=== PATIENT | female | born 1960 | race Caucasian/White ===

== ENCOUNTER 2016-11-29 12:00 | Emergency (ER) | payer MEDICAID ==
[~2016-11-29] VITALS: Ht 162.6 cm; Wt 93.0 kg
[~2016-11-29 12:00] MED LIST: HYDR-3326 PO; METH10TA2 PO; SIME40DR7 PO
--- NOTE | 2016-11-29 12:18 | NUR ---
PRESENTS SELF TO ED DT RUQ ABD PAIN X 2 MONTHS WORSENING IN THE PAST 5 DAYS, 6/10, NON RADITATING,PATIENT DENIES NV. SKIN IS WARM TO TOUCH AND NON DIAPHORETIC,. AFEBRILE. VSS.
[2016-11-29] MEDS ORDERED: ONDANSETRON HCL/PF 4 MG/2 ML VIAL ONE (12:36)
[2016-11-29] MEDS ORDERED: IV NS 0.9% 1,000 ML ONE (12:36)
[2016-11-29] MEDS ORDERED: IV SET PRIMARY PUMP SET 1 EA INFUS.SET MC ONE (12:36)
--- NOTE | 2016-11-29 12:51 | NUR ---
IV ACCESSED TO LFA 20. BLOOD SAMPLE SENT
[2016-11-29 12:52] LABS: BASOPHILS # (AUTO) 0.2 /CMM (0.0-0.2); BASOPHILS % (AUTO) 2.7 % (0.0-2.0); EOSINOPHILS % (AUTO) 0.6 % (0.0-6.0); HEMATOCRIT 44 % (33-45); HEMOGLOBIN 14.9 g/dL (11.5-14.8); LYMPHOCYTES # (AUTO) 1.6 /CMM (0.8-4.8); LYMPHOCYTES % (AUTO) 24.2 % (20.0-44.0); MEAN CORPUSCULAR HEMOGLOBIN 28 PG (26.0-33.0); MEAN CORPUSCULAR HGB CONC 34 g/dl (31.0-36.0); MEAN CORPUSCULAR VOLUME 84 fL (82-100); MONOCYTES # (AUTO) 0.5 /CMM (0.1-1.30); MONOCYTES % (AUTO) 6.7 % (2.0-12.0); NEUTROPHILS # (AUTO) 4.5 /CMM (1.8-8.9); NEUTROPHILS % (AUTO) 65.8 % (43.0-81.0); PLATELET COUNT (AUTO) 112 /CMM (150-450); RDW COEFFICIENT OF VARIATION 13.3 (11.5-15.0); WHITE BLOOD COUNT (AUTO) 6.8 K/uL (4.3-11.0)
[2016-11-29] MEDS ORDERED: MAG HYDROX/AL HYDROX/SIMETH 30 ML UDC PO ONE (13:00)
[2016-11-29] MEDS ORDERED: MAG HYDROX/AL HYDROX/SIMETH 30 ML UDC ONE (13:00)
[2016-11-29] MEDS ORDERED: IV NS 0.9% 1,000 ML BAG IV ONE (13:00)
[2016-11-29] MEDS ORDERED: LIDOCAINE VISCOUS 2% UD 15 ML UDC MM ONE (13:00)
[2016-11-29] MEDS ORDERED: ONDANSETRON HCL/PF 4 MG/2 ML VIAL IVP ONE (13:00)
[2016-11-29 13:01] LABS: CREATININE 0.9 mg/dL (0.6-1.3); POTASSIUM 4.1 mmol/L (3.5-5.1)
[2016-11-29] MEDS ORDERED: LIDOCAINE VISCOUS 2% UD 15 ML UDC ONE (13:01)
[2016-11-29 13:07] LABS: ALBUMIN 3.8 g/dL (3.4-5.0); BILIRUBIN,DIRECT 0.1 mg/dL (0.0-0.2); BILIRUBIN,TOTAL 0.3 mg/dL (0.2-1.0); TOTAL PROTEIN, SERUM 7.3 g/dL (6.4-8.2)
[2016-11-29 14:12] LABS: APPEARANCE,URINE Clear (CLEAR); BILIRUBIN,URINE Negative (NEGATIVE); BLOOD, URINE Negative Ery/uL (NEGATIVE); COLOR,URINE Yellow (YELLOW); KETONES,URINE Negative (NEGATIVE); LEUKOCYTE ESTERASE ,URINE Negative (NEGATIVE); NITRITE, URINE Negative (NEGATIVE); PH,URINE 7.5 (5.0-8.0); PROTEIN,URINE Negative (NEGATIVE); UGLUCOSE Negative (NEGATIVE); UROBILINOGEN,URINE 0.2 EU/dL (0.2)
[2016-11-29 14:18] VITALS: BP 124/88
--- NOTE | 2016-11-29 14:18 | NUR ---
Patient discharged to home in stable condition. Written and verbal after care instructions given. Patient verbalizes understanding of instruction.
== END 2016-11-29 14:19 | disposition home or self-care (01) ==
LOC: ER 12:01
DX: R10.11 Right upper quadrant pain (principal); Z88.8 Allergy status to other drugs, medicaments and biological substances
CPT/HCPCS: 36415; 80048-TC; 80076-TC; 81000-TC; 83690-TC; 85025-TC; A4606; J2405; J7030; Z7610

== ENCOUNTER 2017-03-09 00:44 | Inpatient (IN) | payer OTHER ==
[~2017-03-09] VITALS: Ht 162.6 cm; Wt 90.3 kg
[2017-03-09] VITALS (8 sets, daily range): BP systolic 115–140; BP diastolic 61–79
--- NOTE | 2017-03-09 00:45 | NUR ---
TO BED 1 BIB PARAMEDICS C/O SOB WITH O2 SAT ON THE 50'S PER EMS REPORT. RECEIVED PT AAOX4, NO ACUTE DISTRESS NOTED, RESP EVEN AND UNLABORED. SKIN COOL, DIAPHORETIC. NOTED PT O2 SAT 96% ON RA. PLACE PT ON CARDAIC MONITORING, CONTINUOUS POX, O2@2L/NC. ER MD AT BEDSIDE TO EVAL PT WITH ORDERS RECEIVED. SL 20G TO LAC GENERAL INTERNIST.
[2017-03-09] MEDS ORDERED: ONDANSETRON HCL/PF 4 MG/2 ML VIAL IV ONE (01:00)
[2017-03-09] MEDS ORDERED: IV NS 0.9% 1,000 ML BAG IV ONE (01:00)
--- NOTE | 2017-03-09 01:05 | NUR ---
BLOOD DRAWN BY BIOLOGY INSTRUCTOR.
[2017-03-09] MEDS ORDERED: ONDANSETRON HCL/PF 4 MG/2 ML VIAL ONE (01:14)
[2017-03-09 01:20] LABS: BASOPHILS % (AUTO) 0.1 % (0.0-2.0); EOSINOPHILS % (AUTO) 0.3 % (0.0-6.0); HEMATOCRIT 47 % (33-45); HEMOGLOBIN 15.2 g/dL (11.5-14.8); LYMPHOCYTES % (AUTO) 13.6 % (20.0-44.0); MEAN CORPUSCULAR HEMOGLOBIN 28 PG (26.0-33.0); MEAN CORPUSCULAR HGB CONC 33 g/dl (31.0-36.0); MEAN CORPUSCULAR VOLUME 86 fL (82-100); MONOCYTES # (AUTO) 0.4 /CMM (0.1-1.30); NEUTROPHILS # (AUTO) 6.3 /CMM (1.8-8.9); PLATELET COUNT (AUTO) 125 /CMM (150-450); RDW COEFFICIENT OF VARIATION 15.3 (11.5-15.0); WHITE BLOOD COUNT (AUTO) 7.7 K/uL (4.3-11.0)
--- NOTE | 2017-03-09 01:29 | NUR ---
PT FAMILY MEMBER AT BEDSIDE.
[2017-03-09 01:31] LABS: CALCIUM, SERUM 8.7 mg/dL (8.5-10.1); CARBON DIOXIDE 32 mmol/L (21-32); CHLORIDE 97 mmol/L (98-107); CREATININE 1.4 mg/dL (0.6-1.3); GLUCOSE 273 mg/dL (74-106); POTASSIUM 4.5 mmol/L (3.5-5.1); SODIUM SERUM 138 mmol/L (136-145); UREA NITROGEN, BLOOD 18 mg/dL (7-18)
[2017-03-09 01:36] LABS: INR 1.09 (0.87-1.13); PROTHROMBIN TIME 11.7 SECS (9.5-12.7)
[2017-03-09 01:39] LABS: TROPONIN I 0.124 ng/mL (0.00-0.056)
[2017-03-09] MEDS ORDERED: IV NS 0.9% 0 ML IV ONE (01:44)
[2017-03-09] MEDS ORDERED: IOHEXOL-350 100 ML VIAL IV ONE (01:44)
[2017-03-09] MEDS ORDERED: CT SWABBABLE VALVE TRANS SET 1 EA INFUS.SET MC ONE (01:44)
[2017-03-09 01:45] LABS: ALANINE AMINOTRANSFERASE 21 U/L (12-78); ALBUMIN 3.8 g/dL (3.4-5.0); ALKALINE PHOSPHATASE 65 U/L (46-116); ASPARTATE AMINOTRANSFERASE 12 U/L (15-37); B-TYPE NATRIURETIC PEPTIDE 3134 PG/ML (0-125); BILIRUBIN,DIRECT 0.1 mg/dL (0.0-0.2); BILIRUBIN,TOTAL 0.4 mg/dL (0.2-1.0); TOTAL PROTEIN, SERUM 7.5 g/dL (6.4-8.2)
[2017-03-09 01:52] LABS: ABG BASE EXCESS 3.7 mmol/L; ABG OXYGEN SATURATION 93.8 % (92.0-98.5); ABG PCO2 59.6 mmHg (35.0-45.0); ABG PH 7.337 (7.350-7.450); ABG PO2 74.5 mmHg (75.0-100.0); AaDO2 54.8 mmHg; COHb 1.5 % (0.5-1.5); MetHb 0.5 % (0.0-1.5); O2Hb 91.9 % (94.0-97.0); SITE, ABG Right Radial
--- NOTE | 2017-03-09 02:03 | NUR ---
PT RESTING QUIETLY, NO ACUTE DISTRESS NOTED, RESP EVEN AND UNLABORED. CALL LIGHT WIHTIN REACH. WILL CONTINUE TO MONITOR PT CLOSELY.
[2017-03-09] MEDS ORDERED: ASPIRIN 325 MG TABLET PO ONE (02:30)
[2017-03-09 02:47] LABS: APPEARANCE,URINE SL CLOUDY (CLEAR); BILIRUBIN,URINE NEGATIVE (NEGATIVE); BLOOD, URINE NEGATIVE Ery/uL (NEGATIVE); COLOR,URINE YELLOW (YELLOW); KETONES,URINE NEGATIVE (NEGATIVE); LEUKOCYTE ESTERASE ,URINE NEGATIVE (NEGATIVE); NITRITE, URINE NEGATIVE (NEGATIVE); PROTEIN,URINE TRACE mg/dl (NEGATIVE); UGLUCOSE 1+ mg/dL (NEGATIVE)
[2017-03-09 02:55] LABS: BACTERIA,URINE None seen /HPF (None Seen); MUCUS,URINE Few /LPF (None Seen); RBC,URINE NONE SEEN /HPF (0-2); SQUAMOUS EPITHELIAL CELL,UR Moderate /HPF (None Seen)
--- NOTE | 2017-03-09 03:16 | NUR ---
NAYA LITTLE AT BEDSIDE TO MELANIE MCCOY
--- NOTE | 2017-03-09 03:28 | NUR ---
PT TRANSPORTED TO RADIOLOGY FOR PULMONARY PERFUSION SCAN.
[2017-03-09] MEDS ORDERED: ONDANSETRON HCL/PF 4 MG/2 ML VIAL IVP PRN (04:30)
[2017-03-09] MEDS ORDERED: ACETAMINOPHEN 325 MG TABLET PO PRN (04:30)
[2017-03-09] MEDS ORDERED: MAG HYDROX/AL HYDROX/SIMETH 30 ML UDC PO PRN (04:30)
[2017-03-09] MEDS ORDERED: MORPHINE SULFATE INJ 2 MG/ML DISP.SYRIN IV PRN (04:30)
[2017-03-09] MEDS ORDERED: Z GUARD REMEDY 2 OZ OINT TP PRN (04:30)
[2017-03-09] MEDS ORDERED: ZOLPIDEM TARTRATE 5 MG TABLET PO PRN (04:30)
[2017-03-09] MEDS ORDERED: MAGNESIUM HYDROXIDE 30 ML UDC PO PRN (04:30)
[2017-03-09] MEDS ORDERED: HYDROCODONE/APAP 5/325MG 1 EACH TABLET PO PRN (04:30)
--- NOTE | 2017-03-09 04:39 | NUR ---
PT BACK FROM RADIOLOGY. PENDING PULMONARY PERFUSION SCAN RESULT.
--- NOTE | 2017-03-09 04:48 | NUR ---
REPORT CALLED TO TELE 1 MAKAYLA MACKENZIE. WILL TRANSPORT PT VIA ACLS PROTOCOL.
[2017-03-09] MEDS ORDERED: ASPIRIN 325 MG TABLET ONE (04:52)
[2017-03-09 06:15] LABS: TROPONIN I 0.161 ng/mL (0.00-0.056)
--- NOTE | 2017-03-09 07:00 | NUR ---
RN NOTES RECEIVED PT ON BED, A/Ox4, ON 2L O2 N/C , RESPIRATION EVEN AND UNLABORED, KENDRA ANY DISTRESS , ON TELE SB IN 50'S, L AC IV SITE CDI, SR UP x3, CALL LIGHT WITHIN EASY REACH, CONTINUE TO MONITOR CLOSELY .
--- NOTE | 2017-03-09 07:32 | NUR ---
RN NOTES RECEIVED PATIENT FROM ER AT 0540 WITH NO RESPIRATORY DISTRESS OR SHORTNESS OF BREATH. BREATHING EVEN AND UNLABORED. VITAL SIGNS CHECKED WNL. COMPLAINT OF HEADACHE, 01/29. ON 2LPM O2 VIA NASAL CANNULA TOLERATING WELL. REQUESTING FOR METHADONE EVERY MORNING, ACCORDING TO THE PATIENT SHE HAS BEEN TAKING THE MEDICATION FOR YEARS EVERYDAY AND SHE HAS TO HAVE IT IN THE MORNING. KEPT CLEAN AND DRY. WILL ENDORSE TO AM SHIFT FOR CONTINUITY OF CARE
[2017-03-09] MEDS ORDERED: DIAZ5TAB PO (07:38)
[2017-03-09] MEDS ORDERED: CARI350T PO (07:38)
[2017-03-09 08:39] LABS: MAGNESIUM 2.1 mg/dL (1.8-2.4); PHOSPHORUS 2.5 mg/dL (2.5-4.9)
[2017-03-09] MEDS: PANTOPRAZOLE 40 MG TABLET.DR PO SCH (08:45)
[2017-03-09] MEDS: CARVEDILOL 3.125 MG TABLET PO SCH ×2 (08:45→20:20)
[2017-03-09] MEDS ORDERED: ASPIRIN 81 MG TAB.CHEW PO SCH (09:00)
[2017-03-09] MEDS ORDERED: HEPARIN INFUSION/D5W 500 ML IV PRN (11:00)
[2017-03-09] MEDS ORDERED: HEPARIN SODIUM, PORCINE 5000 UNITS/1 ML VIAL IV ONE (13:00)
[2017-03-09] MEDS: METHADONE HCL 10 MG TABLET PO SCH (14:08)
[2017-03-09] MEDS: CARISOPRODOL 350 MG TABLET PO SCH (16:43)
[2017-03-09] MEDS: DIAZEPAM 5 MG TABLET PO SCH (16:43)
--- NOTE | 2017-03-09 17:00 | NUR ---
RN NOTES PT STATED TO HAVE ABOUT 10 MINUTES OF BIGEMINY PVC'S AND ABOUT 6 MINUTES OF BIGEMINY PAC'S AND C/O HEADACHE , BP 126/72 , HR IN 70'S . O2 SAT 96% ON 2L O2 N/C, MORPHINE 4 MG GIVE , DR RIVAS NOTIFIED , PT STATED THE HEADACHE IS MUCH TOMAS AFTER MORPHINE GIVEN , CONIINE TO MONITOR PT CLOSELY
--- NOTE | 2017-03-09 18:06 | NUR ---
RN NOTES PT STABLE , RESPIRATION EVEN AND UNLABORED, ON TELE SB IN HIGH 50'S, L AC IV SITE CDI, OOB TO BR , STEADY GAIT , CALL LIGHT WITHIN EASY REACH , MEDICATED PER MD ORDER, WILL ENDORSE TO SENIOR PUBLICATIONS SPECIALIST FOR CONTINUITY OF CARE .
--- NOTE | 2017-03-09 19:52 | NUR ---
RN NOTES RECEIVED PX AWAKE, ALERT, ORIENTED X 3, ON NC AT 2 LPM, MOVES BY SELF IN BED AND ABLE TO WALK TO THE BATHROOM WITH STABLE GAIT, INFORMED OF PRECAUTION FOR FALL, SAYS, I DONT WANT YOUR HELP IF I WANT TO GO TO THE BATHROOM, I CAN WALK PROPERLY, EDUCATED ON POSSIBLE FALL PRECAUTION. COMPLAINED OF HEADACHE BUT SAYS IT IS BETTER NOW AT 3/10, DENIED SOB, N/V; PIV ON LEFT AC, FLUSHED PATENT AND INTACT; DISCUSSED PLAN OF CARE. SR ON MONITOR.
[2017-03-10] VITALS (7 sets, daily range): BP systolic 102–140; BP diastolic 64–82
--- NOTE | 2017-03-10 00:41 | NUR ---
RN NOTES BRADYCARDIC ON MONITOR, SOMETIMES LOW IN THE 40'S BUT BP WITHIN NORMAL LIMITS, DENIED DIZZINESS, CHEST PAIN, SOB; DENIED N/V; PX ABLE TO WALK TO THE BATHROOM WITH STABLE GAIT; CONTINUED TO MONITOR.
--- NOTE | 2017-03-10 06:06 | NUR ---
RN NOTES CONDITION AND NEURO STATUS UNCHANGED; PX DENIED PAIN, SOB, N/V; STATED ABLE TO SLEEP WELL LAST NIGHT; REFUSED AM CARE, SAYS SHE WILL DO IT LATER; SB ON MONITOR, DENIED CHEST PAIN, DIZZINESS. WILL ENDORSE TO NEXT RN.
[2017-03-10 06:19] LABS: BASOPHILS % (AUTO) 0.3 % (0.0-2.0); EOSINOPHILS % (AUTO) 0.6 % (0.0-6.0); HEMATOCRIT 42 % (33-45); HEMOGLOBIN 14.1 g/dL (11.5-14.8); LYMPHOCYTES # (AUTO) 2.2 /CMM (0.8-4.8); LYMPHOCYTES % (AUTO) 32.7 % (20.0-44.0); MEAN CORPUSCULAR HEMOGLOBIN 29 PG (26.0-33.0); MEAN CORPUSCULAR HGB CONC 34 g/dl (31.0-36.0); MEAN CORPUSCULAR VOLUME 86 fL (82-100); MONOCYTES # (AUTO) 0.6 /CMM (0.1-1.30); MONOCYTES % (AUTO) 8.7 % (2.0-12.0); NEUTROPHILS # (AUTO) 3.9 /CMM (1.8-8.9); NEUTROPHILS % (AUTO) 57.7 % (43.0-81.0); PLATELET COUNT (AUTO) 103 /CMM (150-450); RDW COEFFICIENT OF VARIATION 14.9 (11.5-15.0); RED BLOOD CELL COUNT(AUTO) 4.91 MIL/uL (4.0-5.2); WHITE BLOOD COUNT (AUTO) 6.8 K/uL (4.3-11.0)
[2017-03-10 06:42] LABS: CALCIUM, SERUM 8.5 mg/dL (8.5-10.1); CREATININE 0.7 mg/dL (0.6-1.3); POTASSIUM 4.3 mmol/L (3.5-5.1)
--- NOTE | 2017-03-10 07:00 | NUR ---
GENIA INITIAL NOTE RECEIVED PT IN BED, ASLEEP, EASY TO AROUSE, PT IS ABLE TO MAKE NEEDS KNOWN, ABLE TO FOLLOW COMMANDS, PT IS ON 2L NC, SATING WELL, NO S/S OF RESP.DISTRESS OR SOB NOTED AT THIS TIME, BREATHING IS EVEN AND UNLABORED, PT IS ON TELE MONITOR SHOWING SB @ 58 BPM, NO C/O FO CHEST PAIN OR DISCOMFORT AT THIS TIME, PT HAS LT AC #20G,SL, C/D/I/PATENT, FLUSHING WELL, NO S/S OF INFECTION/ INFILTRATION NOTED AT THIS TIME, PT IS AMBULATORY AND HAS BRP, ALL SAFETY MEASURES IN PLACE AT ALL TIMES, CALL LIGHT WITHIN EASY REACH, WILL MONITOR PT CLOSELY FOR CHANGES
[2017-03-10] MEDS: PANTOPRAZOLE 40 MG TABLET.DR PO SCH (07:30)
[2017-03-10] MEDS: CARVEDILOL 3.125 MG TABLET PO SCH ×2 (08:03→20:57)
[2017-03-10] MEDS: ASPIRIN 325 MG TABLET PO SCH (08:03)
[2017-03-10] MEDS: CARISOPRODOL 350 MG TABLET PO SCH ×2 (08:05→16:46)
[2017-03-10] MEDS: DIAZEPAM 5 MG TABLET PO SCH ×3 (08:05→20:58)
[2017-03-10] MEDS: METHADONE HCL 10 MG TABLET PO SCH (08:06)
--- NOTE | 2017-03-10 08:43 | NUR ---
GENIA NOTE PT STATED THAT SHE DOES NOT WANT TO TAKE ANY MORNING MEDICATIONS EXPECT METHADONE. EXPLAINED RISK AND BENEFITS, PT STILL REFUSED. PT VERBALIZED THAT SHE STILL HAS A MILD HEADACHE AND FEELS OFF STEADY, TOLD PT TO USE CALL LIGHT WHEN GETTING OUT OF BED, AND NOTIFY ME IF HEADACHE GETS WORSE
--- NOTE | 2017-03-10 09:00 | NUR ---
GENIA NOTE DR. SMITH MADE MD DAJUAN AWARE OF ALL LABS AND RESULTS. ALL NEW ORDERS ACK
--- NOTE | 2017-03-10 19:45 | NUR ---
GENIA/FLOOR SANDING MACHINE OPERATOR PT HAD REFUSED 1700 MEDICATION VALIUM GAVE THIS TO THE PT TO HELP HER SLEEP. ALSO PT COMPLAINED ABOUT HAVING CONSTIPATION, GAVE MOM FOR THIS. PT CURRENTLY DENIES ANY PAIN. CALL LIGHT WITH REACH.
--- NOTE | 2017-03-10 21:20 | NUR ---
GENIA/PHARMACOVIGILANCE SAFETY EXPERT PT'S BLOOD PRESSURE SLIGHTLY ELEVATED 140/69 COREG GIVEN FOR THIS. WILL MONITOR PT'S BP.
[2017-03-10] MEDS ORDERED: ATORVASTATIN 40 MG TABLET PO SCH (22:00)
[2017-03-11] VITALS: BP 136/71
--- NOTE | 2017-03-11 00:10 | NUR ---
GENIA/CORPORATE TREASURY ANALYST PT APPEARS TO BE SLEEPING COMFORTABLE, NO ACUTE DISTRESS SEEN AT THIS TIME. CALL LIGHT WITHIN REACH
[2017-03-11 04:00] VITALS: BP_SYST 114; BP_SYST 136; BP_DIAS 67; BP_DIAS 71
--- NOTE | 2017-03-11 07:36 | NUR ---
GENIA INITIAL NOTE PT IN BED,ALERT AND ORIENTED X 3-4 , ABLE TO MAKE NEEDS KNOWN, ABLE TO FOLLOW COMMANDS, PT IS ON ROOM AIR, SATING WELL, NO S/S OF RESP.DISTRESS OR SOB NOTED AT THIS TIME, BREATHING IS EVEN AND UNLABORED, PT IS ON TELE MONITOR SHOWING SR, NO C/O FO CHEST PAIN OR DISCOMFORT AT THIS TIME, PT HAS LT AC #20G,SL, C/D/I/PATENT. NO S/S OF INFECTION/ INFILTRATION NOTED AT THIS TIME, PT IS AMBULATORY AND HAS BRP, ALL SAFETY MEASURES IN PLACE AT ALL TIMES, CALL LIGHT WITHIN EASY REACH, RN WILL CONTINUE MONITOR PT CLOSELY FOR CHANGES
[2017-03-11 08:00] VITALS: BP 147/93
[2017-03-11] MEDS: METHADONE HCL 10 MG TABLET PO SCH (08:24)
[2017-03-11] MEDS: ASPIRIN 325 MG TABLET PO SCH (08:24)
[2017-03-11] MEDS: CARISOPRODOL 350 MG TABLET PO SCH (08:24)
[2017-03-11] MEDS: PANTOPRAZOLE 40 MG TABLET.DR PO SCH (08:25)
[2017-03-11 08:26] VITALS: BP 147/93
[2017-03-11] MEDS: CARVEDILOL 3.125 MG TABLET PO SCH (08:26)
[2017-03-11] MEDS ORDERED: ASPI325T2 PO (12:36)
[2017-03-11] MEDS ORDERED: CARV3.122 PO (12:36)
[2017-03-11] MEDS ORDERED: ATOR40TA PO (12:36)
--- NOTE | 2017-03-11 12:47 | NUR ---
PATIENT DISCHARGED INFORMATION REVIEWED VIA NURSE PATIENT VERBALIZED UNDERSTANDING OF FOLLOWING UP WITH PCP , DMITRI MORALES, AND MD RASHID HAVE SPOKEN WITH THE PATIENT IN DETAIL REGARDING PLAN OF CARE. PATIENT STATES SHE IS AWAITING PICK-UP FROM THE PATIENT FAMILY. PATIENT IV REMOVED NO SOB NOTED PATIENT STABLE NO FURTHER ISSUE NOTED
== END 2017-03-11 15:57 | disposition home or self-care (01) | DRG 190 ==
LOC: ER 00:46 → ICU 03:28 → TELE-TD 04:22 → TELE1 03-10 10:52 → MEDSG1 03-11 10:31
PROVIDERS: ADMIT Nurse Practitioner Acute Care; ATTEND Nurse Practitioner Acute Care
DX: I21.4 Non-ST elevation (NSTEMI) myocardial infarction (principal); N17.0 Acute kidney failure with tubular necrosis; G92 Toxic encephalopathy; E87.2 Acidosis; E46 Unspecified protein-calorie malnutrition; E66.01 Morbid (severe) obesity due to excess calories; B19.20 Unspecified viral hepatitis C without hepatic coma; E78.5 Hyperlipidemia, unspecified; G89.29 Other chronic pain; R09.02 Hypoxemia; Z88.8 Allergy status to other drugs, medicaments and biological substances; E11.65 Type 2 diabetes mellitus with hyperglycemia; Z72.0 Tobacco use; I50.9 Heart failure, unspecified; F15.90 Other stimulant use, unspecified, uncomplicated; F11.90 Opioid use, unspecified, uncomplicated
CPT/HCPCS: 36415; 36600; 70450-TC; 71010-TC; 78582; 80048-TC; 80061-TC; 80076-TC; 80305; 81000-TC; 83605-TC; 83735-TC; 83880; 84100-TC; 84484-TC; 85025-TC; 85730-TC; 87040-TC; 87081-TC; 95819-TC; A4606; A9540; A9567; J1644; J2270; J2405; J7030; J7050; Q9967

== ENCOUNTER 2017-09-23 20:04 | Inpatient (IN) | payer OTHER ==
[~2017-09-23] VITALS: Ht 165.1 cm; Wt 93.0 kg
[~2017-09-23 20:04] MED LIST changes: +ASPI-992 PO; +ATOR40TA PO; +CARI350T PO; +CARV3.122 PO; +DIAZ5TAB PO; -HYDR-3326 PO; -SIME40DR7 PO
[2017-09-23] MEDS ORDERED: ONDANSETRON HCL/PF 4 MG/2 ML VIAL IVP ONE (20:30)
[2017-09-23] MEDS ORDERED: IV NS 0.9% 1,000 ML BAG IV ONE (20:30)
[2017-09-23] MEDS ORDERED: ONDANSETRON HCL/PF 4 MG/2 ML VIAL ONE (20:34)
[2017-09-23] MEDS ORDERED: IV NS 0.9% 1,000 ML IV ONE (22:00)
[2017-09-23 22:38] LABS: HEMATOCRIT 47 % (33-45); HEMOGLOBIN 15.5 g/dL (11.5-14.8); LYMPHOCYTES % (AUTO) 6.6 % (20.0-44.0); MEAN CORPUSCULAR HEMOGLOBIN 28 PG (26.0-33.0); MEAN CORPUSCULAR HGB CONC 33 g/dl (31.0-36.0); MEAN CORPUSCULAR VOLUME 85 fL (82-100); MONOCYTES # (AUTO) 0.7 /CMM (0.1-1.30); MONOCYTES % (AUTO) 4.9 % (2.0-12.0); NEUTROPHILS # (AUTO) 13.5 /CMM (1.8-8.9); NEUTROPHILS % (AUTO) 88.5 % (43.0-81.0); PLATELET COUNT (AUTO) 136 /CMM (150-450); RDW COEFFICIENT OF VARIATION 14.1 (11.5-15.0); RED BLOOD CELL COUNT(AUTO) 5.48 MIL/uL (4.0-5.2); WHITE BLOOD COUNT (AUTO) 15.2 K/uL (4.3-11.0)
[2017-09-23 22:52] LABS: CALCIUM, SERUM 9.5 mg/dL (8.5-10.1); POTASSIUM 4.1 mmol/L (3.5-5.1)
[2017-09-23 22:55] LABS: ALBUMIN 3.6 g/dL (3.4-5.0); BILIRUBIN,DIRECT 0.1 mg/dL (0.0-0.2); BILIRUBIN,TOTAL 0.5 mg/dL (0.2-1.0)
[2017-09-23 22:57] LABS: TROPONIN I 0.057 ng/mL (0.00-0.056)
[2017-09-23 23:15] VITALS: BP 151/82
[2017-09-23] MEDS: METOCLOPRAMIDE HCL 10 MG/2 ML VIAL IV SCH (23:30)
[2017-09-23] MEDS ORDERED: HYDROCODONE/APAP 5/325MG 1 EACH TABLET PO PRN (23:30)
[2017-09-23] MEDS ORDERED: IV NS 0.9% 1,000 ML IV PRN (23:30)
[2017-09-23] MEDS ORDERED: BISACODYL SUPP (10 MG) 10 MG/SUPP.RECT SUPP.RECT RC PRN (23:30)
[2017-09-23] MEDS ORDERED: ONDANSETRON HCL/PF 4 MG/2 ML VIAL IVP PRN (23:30)
[2017-09-23] MEDS ORDERED: ACETAMINOPHEN 325 MG TABLET PO PRN (23:30)
[2017-09-23] MEDS ORDERED: ZOLPIDEM TARTRATE 5 MG TABLET PO PRN (23:30)
[2017-09-23] MEDS ORDERED: MINERAL OIL 133 ML (PYXIS) 1 EA ENEMA RC ONE (23:30)
[2017-09-23] MEDS ORDERED: PIPERACILLIN /TAZOBACTAM 3.375 G in IV D5W 100 ML IV ONE (23:45)
[2017-09-24] MEDS ORDERED: PIPERACILLIN /TAZOBACTAM 3.375 G VIAL IV ONE ×2 (00:07→04:41)
[2017-09-24] MEDS ORDERED: MORPHINE SULFATE INJ 4 MG/ML DISP.SYRIN IV PRN (01:00)
[2017-09-24] MEDS ORDERED: MORPHINE SULFATE INJ 2 MG/ML DISP.SYRIN IV PRN (01:00)
[2017-09-24] MEDS ORDERED: PIPERACILLIN /TAZOBACTAM 3.375 G in IV D5W 100 ML IV SCH (05:00)
[2017-09-24] MEDS: METOCLOPRAMIDE HCL 10 MG/2 ML VIAL IV SCH (05:30)
[2017-09-24 07:55] LABS: BASOPHILS % (AUTO) 0.2 % (0.0-2.0); HEMATOCRIT 45 % (33-45); HEMOGLOBIN 14.7 g/dL (11.5-14.8); LYMPHOCYTES # (AUTO) 2.3 /CMM (0.8-4.8); LYMPHOCYTES % (AUTO) 11.4 % (20.0-44.0); MEAN CORPUSCULAR HEMOGLOBIN 28 PG (26.0-33.0); MEAN CORPUSCULAR HGB CONC 33 g/dl (31.0-36.0); MEAN CORPUSCULAR VOLUME 86 fL (82-100); MONOCYTES # (AUTO) 0.5 /CMM (0.1-1.30); MONOCYTES % (AUTO) 2.3 % (2.0-12.0); NEUTROPHILS # (AUTO) 17.3 /CMM (1.8-8.9); NEUTROPHILS % (AUTO) 86.1 % (43.0-81.0); PLATELET COUNT (AUTO) 210 /CMM (150-450); RDW COEFFICIENT OF VARIATION 14.6 (11.5-15.0); RED BLOOD CELL COUNT(AUTO) 5.21 MIL/uL (4.0-5.2); WHITE BLOOD COUNT (AUTO) 20.1 K/uL (4.3-11.0)
[2017-09-24 07:57] LABS: CALCIUM, SERUM 8.4 mg/dL (8.5-10.1); CREATININE 1.1 mg/dL (0.6-1.3); MAGNESIUM 2.2 mg/dL (1.8-2.4); PHOSPHORUS 6.2 mg/dL (2.5-4.9); POTASSIUM 3.9 mmol/L (3.5-5.1)
[2017-09-24 08:00] VITALS: BP 113/60
[2017-09-24] MEDS: ENOXAPARIN SODIUM 40 MG/0.4 ML DISP.SYRIN SQ SCH (08:17)
[2017-09-24 11:00] LABS: LYMPHOCYTES % (MANUAL) 9 % (16-48); MONOCYTES % (MANUAL) 3 % (0-11.0); NEUTROPHILS % (MANUAL) 88 (42-76)
[2017-09-24] MEDS: PIPERACILLIN /TAZOBACTAM 3.375 G in IV D5W 50 ML IV SCH ×2 (11:53→18:13)
[2017-09-24] MEDS: TOPIRAMATE 25 MG TABLET PO SCH ×2 (11:53→21:00)
[2017-09-24] MEDS ORDERED: METOCLOPRAMIDE HCL 10 MG/2 ML VIAL IV SCH (12:00)
[2017-09-24 16:00] VITALS: BP 123/80
[2017-09-24] MEDS: ASPIRIN 81 MG TAB.CHEW PO SCH (19:30)
[2017-09-24 20:00] VITALS: BP 127/75
[2017-09-25] MEDS: PIPERACILLIN /TAZOBACTAM 3.375 G in IV D5W 50 ML IV SCH ×4 (00:10→17:09)
[2017-09-25 07:01] LABS: BASOPHILS % (AUTO) 0.3 % (0.0-2.0); EOSINOPHILS # (AUTO) 0.1 /CMM (0.0-0.7); HEMATOCRIT 39 % (33-45); HEMOGLOBIN 13.3 g/dL (11.5-14.8); LYMPHOCYTES # (AUTO) 2.3 /CMM (0.8-4.8); LYMPHOCYTES % (AUTO) 29.3 % (20.0-44.0); MEAN CORPUSCULAR HEMOGLOBIN 29 PG (26.0-33.0); MEAN CORPUSCULAR HGB CONC 34 g/dl (31.0-36.0); MEAN CORPUSCULAR VOLUME 85 fL (82-100); MONOCYTES # (AUTO) 0.6 /CMM (0.1-1.30); MONOCYTES % (AUTO) 7.2 % (2.0-12.0); NEUTROPHILS % (AUTO) 62.2 % (43.0-81.0); PLATELET COUNT (AUTO) 97 /CMM (150-450); RDW COEFFICIENT OF VARIATION 14.1 (11.5-15.0); RED BLOOD CELL COUNT(AUTO) 4.63 MIL/uL (4.0-5.2)
[2017-09-25 07:19] LABS: CALCIUM, SERUM 8.1 mg/dL (8.5-10.1); CREATININE 0.8 mg/dL (0.6-1.3); POTASSIUM 3.6 mmol/L (3.5-5.1)
[2017-09-25 08:00] VITALS: BP 127/75
[2017-09-25 08:24] VITALS: BP 134/82
[2017-09-25] MEDS: TOPIRAMATE 25 MG TABLET PO SCH ×2 (08:54→20:52)
[2017-09-25] MEDS: ENOXAPARIN SODIUM 40 MG/0.4 ML DISP.SYRIN SQ SCH (08:55)
[2017-09-25] MEDS: ASPIRIN 81 MG TAB.CHEW PO SCH (08:57)
[2017-09-25 10:25] LABS: LYMPHOCYTES % (MANUAL) 30 % (16-48); MONOCYTES % (MANUAL) 9 % (0-11.0); NEUTROPHILS % (MANUAL) 61 (42-76)
[2017-09-25] MEDS ORDERED: METHADONE HCL 5 MG TABLET PO SCH (12:00)
[2017-09-25 15:28] LABS: APPEARANCE,URINE CLEAR (CLEAR); BILIRUBIN,URINE NEGATIVE (NEGATIVE); BLOOD, URINE NEGATIVE Ery/uL (NEGATIVE); COLOR,URINE YELLOW (YELLOW); KETONES,URINE NEGATIVE (NEGATIVE); LEUKOCYTE ESTERASE ,URINE NEGATIVE (NEGATIVE); NITRITE, URINE NEGATIVE (NEGATIVE); PROTEIN,URINE NEGATIVE (NEGATIVE); UGLUCOSE NEGATIVE (NEGATIVE); UROBILINOGEN,URINE 0.2 EU/dL (0.2)
[2017-09-25] MEDS ORDERED: METOPROLOL TARTRATE INJ 5 MG/5 ML AMPUL ONE (15:59)
[2017-09-25 16:00] VITALS: BP 138/95
[2017-09-25] MEDS ORDERED: IOHEXOL-350 100 ML VIAL IV ONE (16:15)
[2017-09-25] MEDS ORDERED: IV NS 0.9% 250 ML IV ONE (16:16)
[2017-09-25 19:38] VITALS: BP 158/95
[2017-09-25 20:00] VITALS: BP 138/77
[2017-09-26] MEDS: PIPERACILLIN /TAZOBACTAM 3.375 G in IV D5W 50 ML IV SCH ×4 (05:05→11:28)
[2017-09-26 08:00] VITALS: BP 147/94
[2017-09-26] MEDS: TOPIRAMATE 25 MG TABLET PO SCH (08:42)
[2017-09-26] MEDS: ENOXAPARIN SODIUM 40 MG/0.4 ML DISP.SYRIN SQ SCH (08:45)
[2017-09-26] MEDS: ASPIRIN 81 MG TAB.CHEW PO SCH (08:49)
[2017-09-26] MEDS ORDERED: METHADONE HCL 10 MG TABLET PO SCH (09:00)
[2017-09-26] MEDS ORDERED: METHADONE HCL 5 MG TABLET PO SCH (09:00)
[2017-09-26 16:16] VITALS: BP 130/89
== END 2017-09-26 17:00 | disposition home or self-care (01) | DRG 190 ==
LOC: ER 20:05 → MED 22:45
PROVIDERS: ADMIT Nurse Practitioner Acute Care; ATTEND Nurse Practitioner Acute Care
DX: I21.4 Non-ST elevation (NSTEMI) myocardial infarction (principal); E44.1 Mild protein-calorie malnutrition; G43.909 Migraine, unspecified, not intractable, without status migrainosus; D72.829 Elevated white blood cell count, unspecified; K59.00 Constipation, unspecified; E66.9 Obesity, unspecified; E78.5 Hyperlipidemia, unspecified; F11.20 Opioid dependence, uncomplicated; F17.210 Nicotine dependence, cigarettes, uncomplicated; Z79.82 Long term (current) use of aspirin; Z90.49 Acquired absence of other specified parts of digestive tract; Z68.34 Body mass index [BMI] 34.0-34.9, adult; R73.9 Hyperglycemia, unspecified; Z86.19 Personal history of other infectious and parasitic diseases; R55 Syncope and collapse; K52.9 Noninfective gastroenteritis and colitis, unspecified
CPT/HCPCS: 36415; 70450-TC; 71045-TC; 74021; 75574; 80048-TC; 80061-TC; 80076-TC; 81000-TC; 83690-TC; 83735-TC; 84100-TC; 84484-TC; 85025-TC; 87081-TC; 93307-TC; A4606; J1650; J2270; J2405; J2543; J3490; J7030; J7050; J7060; Q9967; Z7610

== ENCOUNTER 2017-10-20 08:07 | Emergency (ER) | payer OTHER ==
[~2017-10-20] VITALS: Ht 162.6 cm; Wt 90.7 kg
--- NOTE | 2017-10-20 08:20 | NUR ---
PT CAME IN WITH C/O ABD PAIN, N/V X 2 DAYS. AAOX3. PT REPORTS TO BE A MOUTH BREATHER SINCE CHILDHOOD, AWARE THAT SATS RUNS LOW, PT DENIES SOB. SEEN BY FOR MELANIE. FAMILY MEMBER AT . SAFETY AND COMFORT MEASURES PROVIDED. WILL MONITOR.
[2017-10-20] MEDS ORDERED: ONDANSETRON HCL/PF 4 MG/2 ML VIAL ONE (08:24)
[2017-10-20] MEDS ORDERED: LORAZEPAM INJ 2 MG/ML VIAL ONE (08:24)
[2017-10-20] MEDS ORDERED: IV NS 0.9% 1,000 ML BAG IV ONE (08:30)
[2017-10-20] MEDS ORDERED: ONDANSETRON HCL/PF 4 MG/2 ML VIAL IVP ONE (08:30)
[2017-10-20] MEDS ORDERED: LORAZEPAM INJ 2 MG/ML VIAL IV ONE (08:30)
--- NOTE | 2017-10-20 08:45 | NUR ---
IV ACCESS STARTED. CELL OPERATION SUPERVISOR AT FOR BLOOD DRAW. MEDICATED ORDERED.
[2017-10-20 08:46] LABS: HEMATOCRIT 46 % (33-45); HEMOGLOBIN 15.5 g/dL (11.5-14.8); LYMPHOCYTES # (AUTO) 0.3 /CMM (0.8-4.8); LYMPHOCYTES % (AUTO) 3.7 % (20.0-44.0); MEAN CORPUSCULAR HGB CONC 33 g/dl (31.0-36.0); MEAN CORPUSCULAR VOLUME 85 fL (82-100); MONOCYTES # (AUTO) 0.3 /CMM (0.1-1.30); NEUTROPHILS # (AUTO) 8.6 /CMM (1.8-8.9); NEUTROPHILS % (AUTO) 93.3 % (43.0-81.0); PLATELET COUNT (AUTO) 126 /CMM (150-450); RDW COEFFICIENT OF VARIATION 14.2 (11.5-15.0); RED BLOOD CELL COUNT(AUTO) 5.47 MIL/uL (4.0-5.2); WHITE BLOOD COUNT (AUTO) 9.2 K/uL (4.3-11.0)
--- NOTE | 2017-10-20 08:50 | NUR ---
SHAHZAD AT BS.
--- NOTE | 2017-10-20 09:00 | NUR ---
PT NOTED DESATURATED, PLACED ON OXYGEN. RECHECKED VS STABLE. MD AWARE.
[2017-10-20 09:11] LABS: CALCIUM, SERUM 9.1 mg/dL (8.5-10.1); CARBON DIOXIDE 31 mmol/L (21-32); CHLORIDE 98 mmol/L (98-107); GLUCOSE 212 mg/dL (74-106); POTASSIUM 3.9 mmol/L (3.5-5.1); SODIUM SERUM 136 mmol/L (136-145); UREA NITROGEN, BLOOD 17 mg/dL (7-18)
[2017-10-20 09:17] LABS: ALANINE AMINOTRANSFERASE 20 U/L (12-78); ALBUMIN 3.8 g/dL (3.4-5.0); ALKALINE PHOSPHATASE 72 U/L (46-116); ASPARTATE AMINOTRANSFERASE 14 U/L (15-37); BILIRUBIN,DIRECT 0.1 mg/dL (0.0-0.2); BILIRUBIN,TOTAL 0.4 mg/dL (0.2-1.0); LIPASE 65 U/L (73-393); TOTAL PROTEIN, SERUM 7.7 g/dL (6.4-8.2)
[2017-10-20 09:19] LABS: TROPONIN I < 0.017 ng/mL (0.00-0.056)
[2017-10-20 10:03] VITALS: BP 105/55
--- NOTE | 2017-10-20 10:03 | NUR ---
IV removed. Catheter intact and site benign. Pressure and 4x4 applied to site. No bleeding noted.Patient discharged to home in stable condition. Written and verbal after care instructions given. Patient verbalizes understanding of instruction. ambulatory with a steady gait.
--- NOTE | 2017-10-20 10:05 | NUR ---
Patient discharged to home in stable condition. Written and verbal after care instructions given. Patient verbalizes understanding of instruction.
[2017-10-20] MEDS ORDERED: CARV3.122 PO (12:55)
[2017-10-20] MEDS ORDERED: ATOR40TA PO (12:55)
[2018-04-02] MEDS ORDERED: ASPI-1169 PO (09:32)
== END 2017-10-20 10:04 | disposition home or self-care (01) ==
LOC: ER 08:08
DX: R11.2 Nausea with vomiting, unspecified (principal); G43.909 Migraine, unspecified, not intractable, without status migrainosus; E78.5 Hyperlipidemia, unspecified; F17.200 Nicotine dependence, unspecified, uncomplicated; I10 Essential (primary) hypertension; Z79.82 Long term (current) use of aspirin; Z86.19 Personal history of other infectious and parasitic diseases
CPT/HCPCS: 36415; 71045-TC; 80048-TC; 80076-TC; 83690-TC; 84484-TC; 85025-TC; A4606; J2060; J2405; J7030; Z7610

== ENCOUNTER 2017-10-20 12:31 | Inpatient (IN) | payer OTHER ==
[~2017-10-20] VITALS: Ht 162.6 cm; Wt 90.7 kg
--- NOTE | 2017-10-20 12:45 | NUR ---
ALEENARA 89 FROM HOME C/O HEADACHE, S/P SEIZURE. NO ORAL TRAUMA NOTED. DENIES PAIN/ TRAUMA ELSEWHERE. SEEN BY MD FOR EVAL. PT WAS RECENTLY DSICHARGE 2 HOURS AGO. VSS. SAFETY AND COMFORT MEASURES PROVIDED. WILL MONITOR.
--- NOTE | 2017-10-20 12:50 | NUR ---
IV ACCESS STARTED.
[2017-10-20] MEDS ORDERED: CARV3.122 PO (12:55)
[2017-10-20] MEDS ORDERED: ATOR40TA PO (12:55)
--- NOTE | 2017-10-20 13:00 | NUR ---
CALLED NURSE SUP FOR MEDSURG BED
--- NOTE | 2017-10-20 13:24 | NUR ---
REPORT GIVEN TO JOCELIN BENAVIDES FOR MS [id number].
[2017-10-20 14:00] VITALS: BP 135/85
[2017-10-20] MEDS ORDERED: MAGNESIUM HYDROXIDE 30 ML UDC PO PRN (14:30)
[2017-10-20] MEDS ORDERED: MAG HYDROX/AL HYDROX/SIMETH 30 ML UDC PO PRN (14:30)
[2017-10-20] MEDS ORDERED: Z GUARD REMEDY 2 OZ OINT TP PRN (14:30)
[2017-10-20] MEDS ORDERED: ACETAMINOPHEN 325 MG TABLET PO PRN (14:30)
[2017-10-20] MEDS ORDERED: HYDROCODONE/APAP 5/325MG 1 EACH TABLET PO PRN (14:30)
[2017-10-20] MEDS ORDERED: ZOLPIDEM TARTRATE 5 MG TABLET PO PRN (14:30)
[2017-10-20] MEDS: IV NS 0.9% 1,000 ML IV PRN (14:57)
[2017-10-20] MEDS: CARVEDILOL 3.125 MG TABLET PO SCH ×2 (15:00→21:04)
[2017-10-20] MEDS: CARISOPRODOL 350 MG TABLET PO SCH (15:00)
[2017-10-20] MEDS: DIAZEPAM 5 MG TABLET PO SCH (15:49)
--- NOTE | 2017-10-20 15:51 | NUR ---
RN NOTES: PATIENT REFUSING CARVIDOLOL AND REFUSING SOMA. BENEFITS AND RISKS EXPLAINED AT LENGTH. PATIENT STILL REFUSING
[2017-10-20] MEDS: ONDANSETRON HCL/PF 4 MG/2 ML VIAL IVP PRN (15:53)
[2017-10-20 16:00] VITALS: BP 122/83
--- NOTE | 2017-10-20 17:26 | NUR ---
RN NOTES: PATIENT ARRIVED TO UNIT STABLE. NONLABORED BREATHING NOTED ON ROOM AIR. STATING THAT HEADACHE "IS BETTER." ASPIRATION AND SEIZURE PRECAUTIONS IMPLEMENTED IMMEDIATELY . HOWEVER, PATIENT REFUSING BEDSIDE PADS. SUCTION AT BEDSIDE SET UP. NO DIFFICULTY SWALLOWING OR DRINKING. NO COUGHING UPON SWALLOWING. PATIENT GIVEN ZOFRAN WHEN COMPLAINING OF NAUSEA. AFTER ZOFRAN, PATIENT STATES NAUSEA IS ALLEVIATED. NO VOMITING NOTED DURING SHIFT. IV ON LEFT HAND GAUGE 22 PATENT AND INTACT WITH IV FLUIDS RUNNING PER ORDERS. PATIENT DENYING CHEST PAIN. PATIENT OFFERED SMOKING PATCH DUE TO HISTORY OF SMOKING. PATIENT REFUSED. BENEFITS AND RISKS EXPLAINED. NO SEIZURES NOTED SO FAR. VISUAL CHECKS EVERY 15 MINUTES. PER , PATIENT'S EYES "ROLL". NO EYE ROLLING NOTED THIS FAR. PATIENT AGREED TO HAVE SKIN PICTURE OF UPPER BACK ONLY. BED IN LOWEST LOCKED POSITION. CALL LIGHT WITHIN REACH. PATIENT AMBULATED TO BATHROOM, STEADY. TOLERATED WELL.
--- NOTE | 2017-10-20 18:28 | NUR ---
RN NOTES: DISCOLORATION ON UPPER BACK AND BUTTOCKS NOTED. NO OOZING NOTED AND NO BLEEDING NOTED. PATIENT AGREED TO HAVE UPPER BACK PICTURE TAKEN. DENIES ITCHING AND IS REFUSING WOUND CARE CONSULT. NEURO CHECKS EVERY 2 HOURS. NO NEW ONSET OF WEAKNESS NOTED. WILL ENDORSE TO NEXT SHIFT
--- NOTE | 2017-10-20 19:10 | NUR ---
MS/STRIKE OUT MACHINE OPERATOR; RECEIVED PT'S REPORTS FROM THE DAY SHIFT RN FOR CONTINUITY OF CARE. AT THIS TIME PT IN BED AWAKE, ALERT , ORIENTED 3 AND VERBALLY RESPONSIVE. BREATHING NON LABORED AND EVEN. IVF ON PROGRESS ON LT HAND INTACT AND PATENT. DENIES PAIN. BED ON LOWER POSITION AND LOCKED FOR SAFETY. SIDE UPPER PART OF X 2 ARE UP FOR SAFETY. PT REFUSED SIDE RAILS PADDED. WILL CONTINUE TO MONITOR. INSTRUCTED TO CALL FOR HELP .
[2017-10-20 20:00] VITALS: BP 138/76
[2017-10-20] MEDS ORDERED: ATORVASTATIN 40 MG TABLET PO SCH (22:00)
--- NOTE | 2017-10-21 01:55 | NUR ---
MS/ABRASIVE WORKER; NORCO 5-325 MG PO 1 TAB. Q4 PRN GIVEN FOR C/O HEADACHE; BP BEFORE NORCO WAS 133/77, HR 72.
[2017-10-21] MEDS: IV NS 0.9% 1,000 ML IV PRN (03:34)
--- NOTE | 2017-10-21 06:47 | NUR ---
MS/STAFFING COORDINATOR; PT SLEPT AT GOOD INTERVALS. IVF ON PROGRESS. NO SEIZURE'S ACTIVITIES NOTED. WILL CONTINUE TO MONITOR. CALL LIGHT WITHIN REACH. WILL ENDORSE TO THE DAY SHIFT NURSE.
[2017-10-21 07:16] LABS: BASOPHILS % (AUTO) 0.2 % (0.0-2.0); EOSINOPHILS % (AUTO) 0.4 % (0.0-6.0); HEMATOCRIT 40 % (33-45); HEMOGLOBIN 13.7 g/dL (11.5-14.8); LYMPHOCYTES # (AUTO) 1.3 /CMM (0.8-4.8); LYMPHOCYTES % (AUTO) 20.9 % (20.0-44.0); MEAN CORPUSCULAR HGB CONC 34 g/dl (31.0-36.0); MEAN CORPUSCULAR VOLUME 85 fL (82-100); MONOCYTES # (AUTO) 0.7 /CMM (0.1-1.30); MONOCYTES % (AUTO) 11.3 % (2.0-12.0); NEUTROPHILS # (AUTO) 4.3 /CMM (1.8-8.9); NEUTROPHILS % (AUTO) 67.2 % (43.0-81.0); PLATELET COUNT (AUTO) 101 /CMM (150-450); RDW COEFFICIENT OF VARIATION 14.5 (11.5-15.0); RED BLOOD CELL COUNT(AUTO) 4.73 MIL/uL (4.0-5.2); WHITE BLOOD COUNT (AUTO) 6.4 K/uL (4.3-11.0)
--- NOTE | 2017-10-21 07:30 | NUR ---
MS RN OPENING NOTES. RECEIVED PATIENT IN BED ,AWAKE, ALERT AND ORIENTED X 4, RESPIRATIONS EVEN AND UNLABORED , DENIES ANY PAIN OR DISCOMFORT AT THIS TIME. LEFT HAND IV SITE 22 GAUGE, NO REDNESS, NO INFILTRATION, IVF FLOWING PROPERLY, BRP, ON SEIZURE MONITORING, NO SEIZURE ACTIVITY AT THIS TIME,SAFETY MEASURES IN PLACE, CALL LIGHT WITHIN REACH. WILL CONTINUE TO MONITOR.
[2017-10-21 07:35] LABS: ALBUMIN 3.3 g/dL (3.4-5.0); BILIRUBIN,TOTAL 0.4 mg/dL (0.2-1.0); CALCIUM, SERUM 8.4 mg/dL (8.5-10.1); CREATININE 0.7 mg/dL (0.6-1.3); PHOSPHORUS 2.6 mg/dL (2.5-4.9); POTASSIUM 3.9 mmol/L (3.5-5.1); TOTAL PROTEIN, SERUM 6.4 g/dL (6.4-8.2)
[2017-10-21 08:00] VITALS: BP 127/70
--- NOTE | 2017-10-21 08:00 | NUR ---
PATIENT REFUSED PADDED SIDE RAILS FOR SEIZURE PRECAUTION.
[2017-10-21] MEDS: DIAZEPAM 5 MG TABLET PO SCH (08:38)
[2017-10-21] MEDS: CARVEDILOL 3.125 MG TABLET PO SCH (08:38)
[2017-10-21] MEDS: CARISOPRODOL 350 MG TABLET PO SCH (08:39)
[2017-10-21] MEDS: ONDANSETRON HCL/PF 4 MG/2 ML VIAL IVP PRN (08:54)
[2017-10-21] MEDS ORDERED: TOPIRAMATE 25 MG TABLET PO SCH (10:00)
[2017-10-21] MEDS ORDERED: METHADONE HCL 10 MG TABLET PO SCH (10:00)
--- NOTE | 2017-10-21 10:00 | NUR ---
spoke to patient regarding methadone order, per clinic pt should have dose for today, made patient aware if someone can bring dose for her, states " yes, I will have someone bring it". will continue to follow up
--- NOTE | 2017-10-21 10:50 | NUR ---
RN MS NOTES. FOLLOWED UP WITH PATIENT PER PATIENT REGARDING METHADONE STATED" MORE CONCERNED ABOUT TOPAMAX", ADMINISTERED ORDERED. OFFERED METHADONE REFUSED AT THIS TIME, MADE AWARE OF WE ARE ABLE TO ADMINISTER. REFUSED WILL CONTINUE TO FOLLOW UP
[2017-10-21] MEDS ORDERED: ONDANSETRON 4 MG TAB.RAPDIS PO PRN (12:00)
--- NOTE | 2017-10-21 12:48 | NUR ---
OFFERED METHADONE PATIENT REFUSED AT THIS TIME, STATING " I DONT WANT TO TAKE ANYTHING RIGHT NOW, IM GOING TO TRY TO SLEEP." WILL CONTINUE TO MONITOR
[2017-10-21 16:00] VITALS: BP 126/72
--- NOTE | 2017-10-21 17:10 | NUR ---
MS COMPUTER SECURITY MANAGER NOTES. PATIENT IN BED ,AWAKE, ALERT AND ORIENTED X 4, RESPIRATIONS EVEN AND UNLABORED , DENIES ANY PAIN OR DISCOMFORT AT THIS TIME. LEFT HAND IV SITE 22 GAUGE AND ID BAND REMOVED WITH NO ASE NOTED, NO SEIZURE ACTIVITY AT THIS TIME. PATIENT WITH DISCHARGE ORDERS, NEW PRESCRIPTION PROVIDED TO PATIENT, ALL DISCHARGE INSTRUCTIONS PROVIDED AND REVIEWED WITH PATIENT WITH VERBAL UNDERSTANDING NOTED. ALL BELONGINGS ACCOUNTED FOR, ASSISTED TO LOBBY BY RN, DISCHARGED IN STABLE CONDITION
[2018-04-02] MEDS ORDERED: ASPI-1169 PO (09:32)
== END 2017-10-21 17:10 | disposition home or self-care (01) | DRG 54 ==
LOC: ER 12:33 → MED 13:29
PROVIDERS: ADMIT Internal Medicine; ATTEND Internal Medicine
DX: G43.109 Migraine with aura, not intractable, without status migrainosus (principal); E44.1 Mild protein-calorie malnutrition; I10 Essential (primary) hypertension; F11.20 Opioid dependence, uncomplicated; E66.9 Obesity, unspecified; E78.5 Hyperlipidemia, unspecified; F17.210 Nicotine dependence, cigarettes, uncomplicated; Z68.34 Body mass index [BMI] 34.0-34.9, adult; Z86.19 Personal history of other infectious and parasitic diseases; K59.00 Constipation, unspecified
CPT/HCPCS: 36415; 80053-TC; 80061-TC; 83735-TC; 84100-TC; 84484-TC; 85025-TC; 87081-TC; A4606; J2405; J7030; Z7610

== ENCOUNTER 2017-10-21 21:28 | Inpatient (IN) | payer OTHER ==
[~2017-10-21] VITALS: Ht 167.6 cm; Wt 88.9 kg
[~2017-10-21 21:28] MED LIST changes: -ASPI-992 PO
--- NOTE | 2017-10-21 21:31 | NUR ---
TO BED 8 BIB PARAMEDICS FROM HOME C/O RESP DISTRESS, ALTERED; JUST D/C FROM HOSPITAL TODAY. NOTED O2 SAT 87% ON CPAP BY EMS. PT SOMNOLENT, BREATH SOUNDS DEMINISHED BILATERALLY ON AUSCULTATION. PLACE PT ON CARDIAC MONITORING, CONTINUOUS POX. RT AT BEDSIDE. ER MD AT BEDSIDE TO EVAL PT WITH ORDERS RECEIVED. WILL CARRY OUT ORDERS.
--- NOTE | 2017-10-21 21:35 | NUR ---
RT PLACE PT ON BIPAP 20/5, RATE-20, FIO2-30%. WILL CONTINUE TO MONITOR PT CLOSELY.
--- NOTE | 2017-10-21 21:45 | NUR ---
PT REC'D ON CPAP 15LPM. RESP DISTRESS NOTED. PT PLACED ON BIPAP PER DR LISBET KOLB. BIPAP PLUGGED INTO RED OUTLET. ALARMS ARE SET AND AUDIBLE PER POLUCY. CHLOÉ MANRIQUE BEDSIDE. WILL CONTINUE TO MONITOR Addendum: 10/21/17 at 2220 by JONATHON MCCORMACK RT Amended: Links added.
[2017-10-21 21:48] LABS: BASOPHILS % (AUTO) 0.1 % (0.0-2.0); HEMATOCRIT 41 % (33-45); HEMOGLOBIN 13.8 g/dL (11.5-14.8); LYMPHOCYTES # (AUTO) 0.4 /CMM (0.8-4.8); LYMPHOCYTES % (AUTO) 4.6 % (20.0-44.0); MEAN CORPUSCULAR HGB CONC 34 g/dl (31.0-36.0); MEAN CORPUSCULAR VOLUME 86 fL (82-100); MONOCYTES # (AUTO) 0.2 /CMM (0.1-1.30); MONOCYTES % (AUTO) 2.3 % (2.0-12.0); NEUTROPHILS # (AUTO) 8.9 /CMM (1.8-8.9); PLATELET COUNT (AUTO) 119 /CMM (150-450); RDW COEFFICIENT OF VARIATION 14.4 (11.5-15.0); RED BLOOD CELL COUNT(AUTO) 4.78 MIL/uL (4.0-5.2); WHITE BLOOD COUNT (AUTO) 9.6 K/uL (4.3-11.0)
[2017-10-21 22:01] LABS: CALCIUM, SERUM 7.9 mg/dL (8.5-10.1); CARBON DIOXIDE 34 mmol/L (21-32); CHLORIDE 99 mmol/L (98-107); CREATININE 0.9 mg/dL (0.6-1.3); GLUCOSE 139 mg/dL (74-106); POTASSIUM 4.8 mmol/L (3.5-5.1); SODIUM SERUM 138 mmol/L (136-145); UREA NITROGEN, BLOOD 14 mg/dL (7-18)
[2017-10-21 22:08] LABS: ABG BASE EXCESS 3.2 mmol/L; ABG OXYGEN SATURATION 96.7 % (92.0-98.5); ABG PCO2 53.8 mmHg (35.0-45.0); ABG PH 7.363 (7.350-7.450); ABG PO2 92.8 mmHg (75.0-100.0); AaDO2 57.9 mmHg; COHb 1.4 % (0.5-1.5); MetHb 0.5 % (0.0-1.5); O2Hb 94.9 % (94.0-97.0); SITE, ABG Right Radial
[2017-10-21 22:09] LABS: INR 1.08 (0.87-1.13)
[2017-10-21 22:13] VITALS: BP 119/64
[2017-10-21 22:15] LABS: ALANINE AMINOTRANSFERASE 55 U/L (12-78); ALBUMIN 3.3 g/dL (3.4-5.0); ALKALINE PHOSPHATASE 58 U/L (46-116); ASPARTATE AMINOTRANSFERASE 52 U/L (15-37); B-TYPE NATRIURETIC PEPTIDE 1273 PG/ML (0-125); BILIRUBIN,DIRECT 0.1 mg/dL (0.0-0.2); BILIRUBIN,TOTAL 0.7 mg/dL (0.2-1.0); TOTAL PROTEIN, SERUM 6.6 g/dL (6.4-8.2)
[2017-10-21 22:26] LABS: BAND % (MANUAL) 7 % (0.0-5.0); LYMPHOCYTES % (MANUAL) 5 % (16-48); MONOCYTES % (MANUAL) 6 % (0-11.0); NEUTROPHILS % (MANUAL) 82 (42-76)
[2017-10-21] MEDS ORDERED: IV NS 0.9% 1,000 ML BAG IV ONE (22:30)
--- NOTE | 2017-10-21 22:42 | NUR ---
FEMALE RN AT BEDSIDE TO INSERT F/C.
[2017-10-21 23:15] LABS: APPEARANCE,URINE CLEAR (CLEAR); BILIRUBIN,URINE NEGATIVE (NEGATIVE); BLOOD, URINE NEGATIVE Ery/uL (NEGATIVE); COLOR,URINE YELLOW (YELLOW); KETONES,URINE NEGATIVE (NEGATIVE); LEUKOCYTE ESTERASE ,URINE NEGATIVE (NEGATIVE); NITRITE, URINE NEGATIVE (NEGATIVE); PROTEIN,URINE NEGATIVE (NEGATIVE); UGLUCOSE NEGATIVE (NEGATIVE); UROBILINOGEN,URINE 0.2 EU/dL (0.2)
--- NOTE | 2017-10-21 23:20 | NUR ---
CALLED [employer] ID STEAM BOX HAND WAS PAGED.
[2017-10-21 23:30] VITALS: BP 107/67
--- NOTE | 2017-10-21 23:41 | NUR ---
REPORT CALLED TO JANICE BENAVIDES FROM ICU FOR LONNY
[2017-10-22] VITALS (29 sets, daily range): BP systolic 105–167; BP diastolic 54–100
[2017-10-22] MEDS ORDERED: Z GUARD REMEDY 2 OZ OINT TP PRN
[2017-10-22] MEDS ORDERED: ONDANSETRON HCL/PF 4 MG/2 ML VIAL IVP PRN
[2017-10-22] MEDS: ACETAMINOPHEN 325 MG TABLET PO PRN ×2 (00:33→21:33)
--- NOTE | 2017-10-22 00:52 | NUR ---
APPETIZER PACKER, NEW ADMISSION. RECEIVED THE PT FROM ER VIA [facility] ROOM 253, FOR RESPIRATORY FAILURE, CHF, ,PT AWAKE, ALERT. FOLLOW COMMANDS , FC PATENT. BIPAP SETTINGS 20/5,RATE 20, , HOB ELEVATED. WILL CONTINUE TO MONITOR VITALS.
--- NOTE | 2017-10-22 03:12 | NUR ---
agriculture science teacher. am care, oral care, bed bath given. linen changed. remaining same bipap setting tolerated well, sat 97%. no acute distress noted. front desk monitor showing s francesca. fc patent urine draining, hob elevated, turn and reposition q2h. will continue to monitor vitals.
[2017-10-22 05:38] LABS: BASOPHILS % (AUTO) 0.1 % (0.0-2.0); HEMATOCRIT 37 % (33-45); HEMOGLOBIN 12.5 g/dL (11.5-14.8); LYMPHOCYTES # (AUTO) 1.2 /CMM (0.8-4.8); LYMPHOCYTES % (AUTO) 18.9 % (20.0-44.0); MEAN CORPUSCULAR HGB CONC 34 g/dl (31.0-36.0); MEAN CORPUSCULAR VOLUME 86 fL (82-100); MONOCYTES # (AUTO) 0.7 /CMM (0.1-1.30); MONOCYTES % (AUTO) 10.7 % (2.0-12.0); NEUTROPHILS # (AUTO) 4.4 /CMM (1.8-8.9); NEUTROPHILS % (AUTO) 70.3 % (43.0-81.0); PLATELET COUNT (AUTO) 89 /CMM (150-450); RDW COEFFICIENT OF VARIATION 14.8 (11.5-15.0); RED BLOOD CELL COUNT(AUTO) 4.32 MIL/uL (4.0-5.2); WHITE BLOOD COUNT (AUTO) 6.2 K/uL (4.3-11.0)
[2017-10-22 05:58] LABS: CALCIUM, SERUM 7.4 mg/dL (8.5-10.1); CREATININE 0.6 mg/dL (0.6-1.3); MAGNESIUM 1.7 mg/dL (1.8-2.4); PHOSPHORUS 2.7 mg/dL (2.5-4.9); POTASSIUM 3.6 mmol/L (3.5-5.1)
--- NOTE | 2017-10-22 06:24 | NUR ---
STATE GAME PROTECTOR. BIPAP OFF AT 0530. OXYGEN 3L VIA NASAL CANNULA,SAT 96%. NO ACUTE DISTRESS NOTED. WILL CONTINUE TO MONITOR VITALS.
--- NOTE | 2017-10-22 08:00 | NUR ---
professor of floriculture received pt in bed aox4 pt is on 2l nc sat 96% no distress noted, SB on monitor hr 50s sbp stable will held carvedilol dr. Murray aware, fang present with clear yellow urine output, iv access patent lfa and lwrist, fall and seizure precautions taken call light w/ in reach dr. Lovelace at bedside.
[2017-10-22 08:26] LABS: LYMPHOCYTES % (MANUAL) 22 % (16-48); MONOCYTES % (MANUAL) 3 % (0-11.0); NEUTROPHILS % (MANUAL) 75 (42-76)
[2017-10-22] MEDS ORDERED: CARVEDILOL 3.125 MG TABLET PO SCH (09:00)
[2017-10-22] MEDS: Magnesium 1GM/D5W 100ML PREMIX 100 ML IV SCH ×2 (10:45→11:25)
[2017-10-22] MEDS: VALSARTAN 80 MG TABLET PO SCH (14:10)
--- NOTE | 2017-10-22 14:22 | NUR ---
curriculum and assessment coordinator report given to Tina aquino 3w, no distress noted during shift all pt needs meet pt transfered under stable condition to MS.
[2017-10-22] MEDS: METHADONE HCL 10 MG TABLET PO SCH (14:34)
--- NOTE | 2017-10-22 15:00 | NUR ---
RN NOTES PATIENT TRANSFERRED FROM ICU, FEMALE, ON MED/ SURD, A/O X4, . PATIENT HAS NO ACUTE RESPIRATORY DISTRESS, V/S TAKEN STABLE BP -144/85, P-74, R-19, OR-99 ROOM AIR, P-74. PATIENT REFUSED PAIN AT THIS TIME. IV ACCESS ON LEFT AC, AND LEFT WRIST INTACT. LUNGS ARE CLEAR DURING AUSCULTATION. PATIENT AMBULATORY SELF CARE, CONTINENT, USING BATHROOM. NEEDS ATTENDED AND ANTICIPATED. CALL LIGHT WITHIN TO REACH. CONTINUED MONITORING.
[2017-10-22 16:55] LABS: ABG BASE EXCESS 4.8 mmol/L; ABG OXYGEN SATURATION 90.2 % (92.0-98.5); ABG PCO2 53.5 mmHg (35.0-45.0); ABG PH 7.385 (7.350-7.450); ABG PO2 60.2 mmHg (75.0-100.0); AaDO2 25.5 mmHg; COHb 0.6 % (0.5-1.5); MetHb 0.6 % (0.0-1.5); O2Hb 89.1 % (94.0-97.0); SITE, ABG Right Radial; VENT MODE, BG room air
--- NOTE | 2017-10-22 18:40 | NUR ---
RN NOTES PATIENT RESTING LENCHO OF THE BED, NO ACUTE DISTRESS, ON O2 -2L NC . REFUSED PAIN AT THIS TIME. PATIENT SELF CARE, AMBULATORY. ENDORSED ONCOMING NURSE FOR LONNY.
--- NOTE | 2017-10-22 19:40 | NUR ---
MS RN NOTE: PATIENT RESTING IN BED, NO ACUTE DISTRESS NOTED. BREATHING EVEN AND UNLABORED, NO SOB NOTED. IV TO FREDDY AND LEFT WRIST IN PLACE BED LOCKED AND IN LOWEST POSITION, CALL LIGHT IN REACH. WILL CONTINUE TO MONITOR
--- NOTE | 2017-10-22 21:45 | NUR ---
MS RN NOTE: PATIENT COMPLAINS OF HEADACHE, TYLENOL 650MG ORAL GIVEN PER MD ORDER. WILL CONTINUE TO MONITOR.
--- NOTE | 2017-10-23 06:15 | NUR ---
MS RN NOTE: PATIENT RESTING IN BED, NO ACUTE DISTRESS NOTED. BREATHING EVEN AND UNLABORED, NO SOB NOTED. IV TO LFA AND LEFT WRIST IN PLACE. BED LOCKED AND IN LOWEST POSITION, CALL LIGHT IN REACH. WILL ENDORSE TO DAY NURSE TO CONTINUE WITH PLAN OF CARE.
--- NOTE | 2017-10-23 07:36 | NUR ---
MS RN OPENING NOTES PATIENT RECEIVED AWAKE IN BED IN NO ACUTE SIGNS OF DISTRESS. A/O X 4. VERBALLY RESPONSIVE WITH NO C/O PAIN OR DISCOMFORTS AT THIS TIME. ON 02 VIA N/C AT 2LPM, TOLERATING WELL, BREATHING EVEN AND UNLABORED. IV LINES ON LFA AND LEFT WRIST IN PLACE. HOB ELEVATED. BED LOCKED AND IN LOWEST POSITION, CALL LIGHT IN REACH. WILL CONTINUE TO MONITOR
[2017-10-23 08:00] VITALS: BP 148/82
[2017-10-23] MEDS: VALSARTAN 80 MG TABLET PO SCH (08:48)
[2017-10-23] MEDS: METHADONE HCL 10 MG TABLET PO SCH (08:52)
[2017-10-23] MEDS ORDERED: VALS80TA2 PO (12:13)
[2017-10-23 16:00] VITALS: BP 133/80
--- NOTE | 2017-10-23 16:32 | NUR ---
MS RN DISCHARGED NOTES PT DISCHARGED HOME IN STABLE CONDITION. ALERT AND ORIENTED X4, SAME VERBALLY RESPONSIVE WITH NO C/O PAIN OR DISTRESS DURING DISCHARGE. V/S TAKEN AND RECORDED. SKIN IS INTACT. ALL BELONGINGS ACCOUNTED FOR AND PT SIGNED FORM. SMOKING CESSATION DISCUSSED AND ENCOURAGED. HEALTH TEACHINGS GIVEN AND VERBALIZED UNDERSTANDING. PRESCRIPTION FOR DIOVAN GIVEN TO PT. PT LEFT UNIT AMBULATORY AT 1625 ACCOMPANIED BY . CHARGE NURSE MADE AWARE.
[2018-04-02] MEDS ORDERED: ASPI-1169 PO (09:32)
== END 2017-10-23 16:28 | disposition home or self-care (01) | DRG 812 ==
LOC: ER 21:30 → ICU 23:15 → MED 10-22 14:51
PROVIDERS: ADMIT Nurse Practitioner Acute Care; ATTEND Nurse Practitioner Acute Care
PROC: 5A09357 Assistance with Respiratory Ventilation, Less than 24 Consecutive Hours, Continuous Positive Airway Pressure (ICD-10-PCS; principal; 2017-10-22)
DX: T50.991A Poisoning by other drugs, medicaments and biological substances, accidental (unintentional), initial encounter (principal); J96.21 Acute and chronic respiratory failure with hypoxia; I21.4 Non-ST elevation (NSTEMI) myocardial infarction; G92 Toxic encephalopathy; E44.1 Mild protein-calorie malnutrition; E87.2 Acidosis; F11.20 Opioid dependence, uncomplicated; I10 Essential (primary) hypertension; G89.4 Chronic pain syndrome; E78.5 Hyperlipidemia, unspecified; G43.909 Migraine, unspecified, not intractable, without status migrainosus; J96.22 Acute and chronic respiratory failure with hypercapnia; E66.2 Morbid (severe) obesity with alveolar hypoventilation; F17.210 Nicotine dependence, cigarettes, uncomplicated; J44.9 Chronic obstructive pulmonary disease, unspecified; Z87.01 Personal history of pneumonia (recurrent); Z86.19 Personal history of other infectious and parasitic diseases; Z68.31 Body mass index [BMI] 31.0-31.9, adult; R00.1 Bradycardia, unspecified; R55 Syncope and collapse; R56.9 Unspecified convulsions; Y92.009 Unspecified place in unspecified non-institutional (private) residence as the place of occurrence of the external cause; F13.20 Sedative, hypnotic or anxiolytic dependence, uncomplicated
CPT/HCPCS: 36415; 36600; 70450-TC; 71045-TC; 80048-TC; 80076-TC; 80305; 81000-TC; 82803-TC; 83605-TC; 83735-TC; 83880; 84100-TC; 84484-TC; 85025-TC; 85730-TC; 87040-TC; 87081-TC; 87086-TC; 99082-TC; A4606; J3475; J7030; Z7610

== ENCOUNTER 2017-11-11 22:02 | Inpatient (IN) | payer OTHER ==
[~2017-11-11] VITALS: Ht 162.6 cm; Wt 90.3 kg
[~2017-11-11 22:02] MED LIST changes: -CARI350T PO; -CARV3.122 PO; -DIAZ5TAB PO; +VALS80TA2 PO
--- NOTE | 2017-11-11 22:50 | NUR ---
TO BED 12 57 YO FEMALE PATIENT BIBRA 89 C/O "FLU LIKE S/S" WITH NAUSEA X 2 DAYS. DENIES VOMITING. PATIENT IS AAOX4, NAD NOTED. BREATHING EVEN AND UNLABORED. SKIN WARM AND DRY. AMBULATORY. COMFORT MEASURES RENDERED.
[2017-11-11] MEDS ORDERED: IV NS 0.9% 1,000 ML IV ONE (23:04)
--- NOTE | 2017-11-11 23:10 | NUR ---
STARTED A SALINE LOCK ON THE LAC G18, BLOOD DRAWN AND SENT TO LAB.
[2017-11-11] MEDS ORDERED: ALBUTEROL FS 2.5 MG/3 ML VIAL.NEB CONTNEB ONE (23:30)
[2017-11-11] MEDS ORDERED: ALBUTEROL FS 2.5 MG/3 ML VIAL.NEB ONE (23:40)
[2017-11-11 23:44] LABS: BASOPHILS # (AUTO) 0.2 /CMM (0.0-0.2); BASOPHILS % (AUTO) 1.2 % (0.0-2.0); EOSINOPHILS % (AUTO) 0.1 % (0.0-6.0); HEMATOCRIT 49 % (33-45); HEMOGLOBIN 16.5 g/dL (11.5-14.8); LYMPHOCYTES % (AUTO) 6.8 % (20.0-44.0); MEAN CORPUSCULAR HGB CONC 34 g/dl (31.0-36.0); MEAN CORPUSCULAR VOLUME 85 fL (82-100); MONOCYTES # (AUTO) 0.7 /CMM (0.1-1.30); MONOCYTES % (AUTO) 4.9 % (2.0-12.0); NEUTROPHILS # (AUTO) 12.4 /CMM (1.8-8.9); PLATELET COUNT (AUTO) 146 /CMM (150-450); RED BLOOD CELL COUNT(AUTO) 5.73 MIL/uL (4.0-5.2); WHITE BLOOD COUNT (AUTO) 14.3 K/uL (4.3-11.0)
[2017-11-11] MEDS ORDERED: KETOROLAC TROMETHAMINE INJ 30 MG/ML VIAL ONE (23:51)
[2017-11-11] MEDS ORDERED: METOCLOPRAMIDE HCL 10 MG/2 ML VIAL ONE (23:51)
[2017-11-11 23:55] LABS: CALCIUM, SERUM 9.5 mg/dL (8.5-10.1); POTASSIUM 4.2 mmol/L (3.5-5.1)
[2017-11-12] VITALS (7 sets, daily range): BP systolic 131–144; BP diastolic 71–95
[2017-11-12] MEDS ORDERED: METOCLOPRAMIDE HCL 10 MG/2 ML VIAL IV ONE
[2017-11-12] MEDS ORDERED: KETOROLAC TROMETHAMINE INJ 30 MG/ML VIAL IV ONE
[2017-11-12 00:23] LABS: TROPONIN I 0.105 ng/mL (0.00-0.056)
[2017-11-12] MEDS ORDERED: ASPIRIN 81 MG TAB.CHEW ONE (00:41)
--- NOTE | 2017-11-12 00:50 | NUR ---
TELE [id number]
[2017-11-12] MEDS ORDERED: ASPIRIN 81 MG TAB.CHEW PO ONE (01:00)
--- NOTE | 2017-11-12 01:25 | NUR ---
REPORT GIVEN TO CLARIBEL BENAVIDES FOR LONNY.
[2017-11-12 02:00] LABS: ABG BASE EXCESS 6.2 mmol/L; ABG OXYGEN SATURATION 93.1 % (92.0-98.5); ABG PCO2 56.1 mmHg (35.0-45.0); ABG PH 7.387 (7.350-7.450); ABG PO2 67.1 mmHg (75.0-100.0); AaDO2 66.3 mmHg; COHb 1.6 % (0.5-1.5); MetHb 0.4 % (0.0-1.5); O2Hb 91.2 % (94.0-97.0); VENT MODE, BG 2L NC
[2017-11-12] MEDS: ASPIRIN 81 MG TAB.CHEW PO SCH ×2 (02:00→08:58)
[2017-11-12] MEDS ORDERED: MORPHINE SULFATE INJ 4 MG/ML DISP.SYRIN IV PRN (02:00)
[2017-11-12] MEDS ORDERED: NITROGLYCERIN 0.4 MG/TAB BOTTLE SL PRN (02:00)
--- NOTE | 2017-11-12 02:25 | NUR ---
TRANSFERRED PATIENT TO TELE BED VIA ALS PROTOCOL, NO INCIDENT NOTED. CLARIBEL RN AT BEDSIDE.
--- NOTE | 2017-11-12 02:26 | NUR ---
ADMISSION NOTES: RECEIVED REPORT FROM EPIFANIO RN, PT C/O FLU LIKE SYMPTOMS WITH NAUSEA X2DAYS, BROUGHT TO THE UNIT VIA GURNEY, PT A/O X3, ON 4L VIA NC RESPIRATION RAYNE AND UNLABORED, DENIES ANY PAIN OR DISCOMFORT AT THIS TIME, LEFT HAND IV ACCESS PATENT AND FLUSHING WELL, ON HL. ORIENTED PT TO UNIT POLICY AND HOURLY ROUNDING. VS TAKEN AND RECORDED. SKIN ASSESSMENT PERFORMED AND NO SKIN ISSUES NOTED. SACRAL AREA AND PERINEUM FREE FROM REDNESS OR EXCORIATION. PLACED ON TELE MONITORING SINUS RHYTHM HR 72, RT AT BED SIDE TO DO EKG, RESULT ATTACHED TO CHART SHOWING NORMAL SINUS RHYTHM. INVENTORY OF BELONGINGS COMPLETED. SAFETY PRECAUTIONS FOR FALL INITIATED CALL LIGHT IN REACH, WILL CONTINUE MONITORING PT
[2017-11-12] MEDS: IPRATROPIUM NEB FS 0.5 MG/2.5 ML AMPUL.NEB NEB SCH ×6 (02:43→23:27)
[2017-11-12] MEDS: ALBUTEROL FS 2.5 MG/0.5 ML VIAL.NEB NEB SCH ×6 (02:43→23:27)
--- NOTE | 2017-11-12 02:45 | NUR ---
RN NOTES: USE DROPLET PRECAUTION FOR PT'S C/O FLU LIKE SYMPTOMS
[2017-11-12] MEDS ORDERED: DIAZ5TAB PO (02:56)
--- NOTE | 2017-11-12 03:00 | NUR ---
NON ADMIN OF ASPIRIN: PT HAS ORDER FOR 81 MG OF ASPIRIN, MEDICATION NOT GIVEN DUE TO PT ALREADY RECEIVED 162 MG OF ASPIRIN IN ER.
--- NOTE | 2017-11-12 03:10 | NUR ---
RN NOTES: PT DENIES ANY CHEST PAIN OR DISCOMFORT, STATED SHE JUST WANT TO SLEEP
--- NOTE | 2017-11-12 03:37 | NUR ---
RN NOTES: TALKED TO MACHINE STONE POLISHER EPIC MD IF WOULD LIKE TO ORDER RAPID INFLUENZA TEST PT C/O FLU LIKE SYMPTOMS, PER MD NOT NEEDED, NO NEW ORDERS RECEIVED. ALSO CLARIFIED REGARDING HIS ORDER FOR ASPIRIN PT ALREADY RECEIVED 162 MG OF ASPIRIN IN ER, PER MD WILL JUST START GIVING ASPIRIN IN THE MORNING.
--- NOTE | 2017-11-12 04:00 | NUR ---
RN NOTES: PER OIL SALES AND SERVICE REP NO NEED TO PLACE PT ON DROPLET PRECAUTIONS, BUT WILL KEEP USING UNIVERSAL PRECAUTIONS FOR PT SHE IS COUGHING
--- NOTE | 2017-11-12 04:45 | NUR ---
RN NOTES: PT SEEN SLEEPING COMFORTABLY, RESPIRATION EVEN AND UNLABORED, WILL CONTINUE MONITORING PT
--- NOTE | 2017-11-12 06:54 | NUR ---
rn closing notes: pt in bed, awake, tolerating 2l oxygen via nc, spo2 95-99%, respiration even and unlabored, denies any sob at this time. pt also denies any chest pain or discomfort at this time. iv access remains patent and flushing well. remains on sinus rhythm hr 76. vs remains stable, needs attended. vs remains stable, needs attended, will endorse to day rn for lorraine.
--- NOTE | 2017-11-12 07:35 | NUR ---
SPEECH AND HEARING DIRECTOR OPENING NOTE PATIENT IS ALERT AND ORIENTED X4. NO PAIN AT THIS TIME. NO SOB OR DISTRESS NOTED. CALL LIGHT WITHIN REACH. SAFETY MEASURES IMPLEMENTED. ABLE TO COMMUNICATE NEEDS. IV INTACT AND PATENT NO REDNESS OR SWELLING NOTED NO FLUIDS RUNNING AT THIS TIME. NO COMPLAINTS OF CHEST PAIN NOTED. TELE MONITOR- SR 74. PENDING LAB RESULTS. WILL CONTINUE TO MONITOR THROUGHOUT SHIFT
[2017-11-12] MEDS: methylPREDNISolone SOD SUCC 40 MG/ML VIAL IV SCH ×3 (08:59→16:37)
[2017-11-12] MEDS: CARVEDILOL 6.25 MG TABLET PO SCH ×2 (08:59→21:38)
[2017-11-12] MEDS: ENOXAPARIN SODIUM 40 MG/0.4 ML DISP.SYRIN SQ SCH (09:08)
--- NOTE | 2017-11-12 11:00 | NUR ---
MS RN NOTE RECEIVED CONSENT FOR PATIENT'S METHADONE CLINIC FOR DOSAGE AND FREQUENCY AT [facility] IN [place] TELEPHONE . AWAITING INFORMATION FROM CLINIC
[2017-11-12] MEDS: METHADONE HCL 10 MG TABLET PO SCH (14:15)
[2017-11-12] MEDS: FAMOTIDINE (20 MG) 20 MG TABLET PO SCH (15:25)
--- NOTE | 2017-11-12 18:41 | NUR ---
MS RN CLOSING NOTE PATIENT RESTING AT THIS TIME COMFORTABLY IN BED. NO PAIN NOTED. NO SOB OR DISTRESS NOTED. CALL LIGHT WITHIN REACH AT ALL TIMES. SAFETY MEASURES IMPLEMENTED. ABLE TO COMMUNICATE NEEDS. IV INTACT AND PATENT NO REDNESS OR SWELLING NOTED. ON 2L/MIN OF OXYGEN VIA NASAL CANNULA. LABS IN AM. WILL ENDORSE TO DIRECTOR OF MUSIC FOR LONNY
--- NOTE | 2017-11-12 19:05 | NUR ---
RN NOTES RECEIVED PT AWAKE, ALERT AND ORIENTED X4, HOB ELEVATED, ON 2LPM O2 VIA NC AND TOLERATED WELL. DENIES NAUSEA AND VOMITING, PAIN AND DISCOMFORT AT THIS TIME. IV ACCESS ON LEFT HAND INTACT. PLAN OF CARE DISCUSSED WITH THE PT AND VERBALIZED UNDERSTANDING. KEPT BED LOW, LOCKED, SIDE RAILS X2 UP WITH CALL LIGHT WITH IN REACH. ALL NEEDS ATTENDED. WILL CONTINUE TO MONITOR PT.
[2017-11-12] MEDS ORDERED: DIAZEPAM 5 MG TABLET PO SCH (22:00)
[2017-11-12] MEDS ORDERED: ATORVASTATIN 40 MG TABLET PO SCH (22:00)
[2017-11-12] MEDS ORDERED: PANTOPRAZOLE 40 MG TABLET.DR PO SCH (22:30)
[2017-11-12] MEDS: ACETAMINOPHEN 325 MG TABLET PO PRN (22:34)
--- NOTE | 2017-11-12 22:34 | NUR ---
RN NOTES PT COMPLAINS OF HEADACHE AND HEARTBURN, DR RUVALCABA MADE AWARE WITH ORDER TO GIVE TYLENOL 650MG Q6H PRN AND PROTONIX 40MG TAB X1 NOW. NOTED AND CARRIED OUT. WILL CONTINUE TO MONITOR PT.
[2017-11-13] MEDS: ALBUTEROL FS 2.5 MG/0.5 ML VIAL.NEB NEB SCH ×4 (03:26→14:56)
[2017-11-13] MEDS: IPRATROPIUM NEB FS 0.5 MG/2.5 ML AMPUL.NEB NEB SCH ×4 (03:27→14:56)
--- NOTE | 2017-11-13 06:24 | NUR ---
RT PT REFUSED EKG , STATES SHE DOES NOT NEED IT AND IS NOT HERE FOR HEART ISSUES. RN WAS MADE ANTONIO.
--- NOTE | 2017-11-13 07:20 | NUR ---
RN NOTES PT SLEPT WELL OVERNIGHT, VITAL SIGNS STABLE. DENIES NAY PAIN AND DISCOMFORT. NO EPISODE OF NAUSEA AND VOMITING. PT REFUSED FOR THE EKG TO BE DONE, PER PT DR RASHID SAW HER ALREADY AND NO NEED FOR THE EKG. ALL NEEDS ATTENDED. SAFETY MEASURES AND FALL PRECAUTION OBSERVED. WILL ENDORSE TO MORNING RN FOR CONTINUITY OF CARE.
--- NOTE | 2017-11-13 07:23 | NUR ---
RN OPENING NOTES RECEIVED PATIENT AWAKE, ALERT AND ORIENTED X4, HOB ELEVATED, ON 2LPM O2 VIA NC AND TOLERATED WELL. DENIES NAUSEA AND VOMITING. DENIES PAIN AND DISCOMFORT AT THIS TIME. IV ACCESS ON LEFT HAND INTACT AND PATENT. PLAN OF CARE DISCUSSED WITH THE PATIENT AND VERBALIZED UNDERSTANDING. KEPT BED LOW, LOCKED, SIDE RAILS X2 UP WITH CALL LIGHT WITH IN REACH. WILL CONTINUE TO MONITOR ACCORDINGLY
[2017-11-13 07:38] LABS: BASOPHILS % (AUTO) 0.1 % (0.0-2.0); HEMATOCRIT 41 % (33-45); HEMOGLOBIN 13.6 g/dL (11.5-14.8); LYMPHOCYTES # (AUTO) 1.5 /CMM (0.8-4.8); LYMPHOCYTES % (AUTO) 15.7 % (20.0-44.0); MEAN CORPUSCULAR HGB CONC 33 g/dl (31.0-36.0); MEAN CORPUSCULAR VOLUME 85 fL (82-100); MONOCYTES # (AUTO) 0.9 /CMM (0.1-1.30); MONOCYTES % (AUTO) 9.3 % (2.0-12.0); NEUTROPHILS # (AUTO) 7.2 /CMM (1.8-8.9); NEUTROPHILS % (AUTO) 74.9 % (43.0-81.0); PLATELET COUNT (AUTO) 107 /CMM (150-450); RDW COEFFICIENT OF VARIATION 14.9 (11.5-15.0); RED BLOOD CELL COUNT(AUTO) 4.83 MIL/uL (4.0-5.2); WHITE BLOOD COUNT (AUTO) 9.7 K/uL (4.3-11.0)
[2017-11-13 07:52] LABS: CALCIUM, SERUM 8.9 mg/dL (8.5-10.1); CREATININE 0.7 mg/dL (0.6-1.3); MAGNESIUM 2.1 mg/dL (1.8-2.4); PHOSPHORUS 2.6 mg/dL (2.5-4.9); POTASSIUM 3.9 mmol/L (3.5-5.1)
[2017-11-13 08:00] VITALS: BP 142/72
[2017-11-13] MEDS ORDERED: VALSARTAN 80 MG TABLET PO SCH (09:00)
[2017-11-13] MEDS: CARVEDILOL 6.25 MG TABLET PO SCH (09:00)
[2017-11-13] MEDS: methylPREDNISolone SOD SUCC 40 MG/ML VIAL IV SCH ×2 (09:01→12:20)
[2017-11-13] MEDS: METHADONE HCL 10 MG TABLET PO SCH (09:24)
[2017-11-13] MEDS: ASPIRIN 81 MG TAB.CHEW PO SCH (09:24)
[2017-11-13] MEDS: FAMOTIDINE (20 MG) 20 MG TABLET PO SCH (09:24)
[2017-11-13 09:25] VITALS: BP 142/72
[2017-11-13] MEDS: ENOXAPARIN SODIUM 40 MG/0.4 ML DISP.SYRIN SQ SCH (09:26)
[2017-11-13] MEDS: ACETAMINOPHEN 325 MG TABLET PO PRN (14:58)
--- NOTE | 2017-11-13 16:02 | NUR ---
HEAD PACKAGER NOTES DISCHARGE PATIENT IN STABLE CONDITION ACCOMPANIED BY AND [employer] DESIGNERKEN. DISCHARGE INSTRUCTIONS GIVEN TO PATIENT, VERBALIZED UNDERSTANDING, PRESCRIPTION AND PAPERWORK GIVEN. ALL BELONGINGS RETURNED, CHECKLIST SIGNED. REMOVED IVC, APPLIED PRESSURE, NO BLEEDING, NO COMPLICATION. REMOVED NAME BAND.
[2018-04-02] MEDS ORDERED: ASPI-1169 PO (09:32)
== END 2017-11-13 15:45 | disposition home or self-care (01) | DRG 190 ==
LOC: ER 22:03 → TELE 11-12 01:22 → MED 11-12 11:35
PROVIDERS: ADMIT Internal Medicine; ATTEND Internal Medicine
DX: I21.A1 Myocardial infarction type 2 (principal); D69.6 Thrombocytopenia, unspecified; J44.1 Chronic obstructive pulmonary disease with (acute) exacerbation; G43.909 Migraine, unspecified, not intractable, without status migrainosus; G47.30 Sleep apnea, unspecified; D72.829 Elevated white blood cell count, unspecified; E78.5 Hyperlipidemia, unspecified; F17.210 Nicotine dependence, cigarettes, uncomplicated; H54.61 Unqualified visual loss, right eye, normal vision left eye; M54.5 Low back pain; M40.209 Unspecified kyphosis, site unspecified; I10 Essential (primary) hypertension
CPT/HCPCS: 36415; 36600; 71045-TC; 80048-TC; 80061-TC; 82803-TC; 83735-TC; 83880; 84100-TC; 84484-TC; 85025-TC; 87081-TC; 94799-TC; A4606; J1650; J1885; J2765; J2920; J7030; Z7610

== ENCOUNTER 2018-02-06 17:50 | Inpatient (IN) | payer OTHER ==
[~2018-02-06] VITALS: Ht 167.6 cm; Wt 95.0 kg
[~2018-02-06 17:50] MED LIST changes: +DIAZ5TAB PO
--- NOTE | 2018-02-06 17:50 | NUR ---
[id number] FROM HOME, PER PT IS NOT ACTING RIGHT. PT TAKES METHADONE ACCDG TO REPORT, NOTED W/ +PINPOINT PUPIL IN FIELD PER EMS. PT WAS GIVEN 1MG NARCAN BY EMS WITH SOME RESPONSE FROM THE PT. PER EMS PT WOKE UP A LITTLE BIT. UNKNOWN LAST KNOWN WELL TIME. PT IS NOTED W/ AN ORAL TEMP 101.7'F. [id number] IN THE FIELD. PT GOWNED AND PLACED ON CONT MONITORING. PT FOLLOWS COMMAND, AWAKE, BOTH EYES OPEN. UNABLE TO PROVIDE INFORMATION AT THIS TIME. WILL CONTINUE TO MONITOR
[2018-02-06] MEDS ORDERED: NALOXONE PREFILLED SYRINGE 2 MG/2 ML SYRINGE ONE ×2 (18:17→19:49)
[2018-02-06] MEDS ORDERED: ACETAMINOPHEN 650 MG/SUPP.RECT RC ONE ×2 (18:19→18:30)
[2018-02-06 18:20] LABS: ABG BASE EXCESS 4.4 mmol/L; ABG OXYGEN SATURATION 86.9 % (92.0-98.5); ABG PCO2 39.2 mmHg (35.0-45.0); ABG PH 7.475 (7.350-7.450); ABG PO2 48.3 mmHg (75.0-100.0); AaDO2 220.7 mmHg; COHb 1.1 % (0.5-1.5); MetHb 0.6 % (0.0-1.5); O2Hb 85.4 % (94.0-97.0); SITE, ABG Right Radial; VENT MODE, BG NASAL CANNULA
--- NOTE | 2018-02-06 18:21 | NUR ---
PT LETHARGIC, SATTING LOW. DR GREGORIO AWARE. NARCAN 2MG IVP GIVEN. SEE EMAR.
[2018-02-06] MEDS ORDERED: NALOXONE PREFILLED SYRINGE 2 MG/2 ML SYRINGE IV ONE (18:30)
[2018-02-06] MEDS ORDERED: IV NS 0.9% 1,000 ML BAG IV ONE (19:00)
--- NOTE | 2018-02-06 19:01 | NUR ---
PT TO RADIOLOGY FOR HEAD CT SCAN VIA [facility].
[2018-02-06 19:02] LABS: BASOPHILS % (AUTO) 0.1 % (0.0-2.0); HEMATOCRIT 45 % (33-45); HEMOGLOBIN 14.7 g/dL (11.5-14.8); LYMPHOCYTES # (AUTO) 1.5 /CMM (0.8-4.8); LYMPHOCYTES % (AUTO) 7.8 % (20.0-44.0); MEAN CORPUSCULAR HEMOGLOBIN 29 PG (26.0-33.0); MEAN CORPUSCULAR HGB CONC 33 g/dl (31.0-36.0); MEAN CORPUSCULAR VOLUME 88 fL (82-100); MONOCYTES # (AUTO) 1.2 /CMM (0.1-1.30); MONOCYTES % (AUTO) 6.3 % (2.0-12.0); NEUTROPHILS # (AUTO) 16.7 /CMM (1.8-8.9); NEUTROPHILS % (AUTO) 85.8 % (43.0-81.0); PLATELET COUNT (AUTO) 121 /CMM (150-450); RDW COEFFICIENT OF VARIATION 14.8 (11.5-15.0); RED BLOOD CELL COUNT(AUTO) 5.07 MIL/uL (4.0-5.2); WHITE BLOOD COUNT (AUTO) 19.5 K/uL (4.3-11.0)
[2018-02-06 19:08] LABS: CALCIUM, SERUM 9.2 mg/dL (8.5-10.1); CARBON DIOXIDE 34 mmol/L (21-32); CHLORIDE 101 mmol/L (98-107); CREATININE 1.3 mg/dL (0.6-1.3); GLUCOSE 102 mg/dL (74-106); POTASSIUM 4.3 mmol/L (3.5-5.1); SODIUM SERUM 140 mmol/L (136-145); UREA NITROGEN, BLOOD 22 mg/dL (7-18)
[2018-02-06 19:09] LABS: APPEARANCE,URINE SL CLOUDY (CLEAR); BILIRUBIN,URINE NEGATIVE (NEGATIVE); BLOOD, URINE NEGATIVE Ery/uL (NEGATIVE); COLOR,URINE YELLOW (YELLOW); KETONES,URINE NEGATIVE (NEGATIVE); LEUKOCYTE ESTERASE ,URINE NEGATIVE (NEGATIVE); NITRITE, URINE NEGATIVE (NEGATIVE); PROTEIN,URINE 1+ mg/dl (NEGATIVE); UGLUCOSE NEGATIVE (NEGATIVE)
[2018-02-06 19:19] LABS: ALANINE AMINOTRANSFERASE 1075 U/L (12-78); ALBUMIN 3.8 g/dL (3.4-5.0); ALKALINE PHOSPHATASE 66 U/L (46-116); ASPARTATE AMINOTRANSFERASE 1176 U/L (15-37); BILIRUBIN,DIRECT 0.2 mg/dL (0.0-0.2); BILIRUBIN,TOTAL 0.5 mg/dL (0.2-1.0); INR 1.22 (0.87-1.13); TOTAL PROTEIN, SERUM 7.4 g/dL (6.4-8.2); TROPONIN I 2.454 ng/mL (0.00-0.056)
[2018-02-06 19:23] LABS: RBC,URINE 0-2 /HPF (0-2)
[2018-02-06 19:24] LABS: BACTERIA,URINE Moderate /HPF (None Seen); SQUAMOUS EPITHELIAL CELL,UR Few /HPF (None Seen); WBC,URINE 0-2 /HPF (0-3)
[2018-02-06] MEDS ORDERED: VANCOMYCIN 1 GM in IV D5W 250 ML IV ONE (19:30)
[2018-02-06] MEDS ORDERED: MEROPENEM 1,000 MG in IV NS 0.9% 100 ML IV ONE (19:30)
--- NOTE | 2018-02-06 19:39 | NUR ---
CALLED [facility] FOR STAT READ ON CXR AND HEAD CT
--- NOTE | 2018-02-06 19:53 | NUR ---
PT STILL LETHARGIC, NARCAN 2MG IVP GIVEN PER ERMD ORDER. SEE EMAR.
[2018-02-06] MEDS ORDERED: NALOXONE HCL 0.4 MG/ML AMPUL IV ONE (20:00)
[2018-02-06] MEDS ORDERED: NALOXONE HCL 2 MG in IV D5W 245 ML IV PRN ×2 (20:00→20:30)
[2018-02-06] MEDS ORDERED: ASPIRIN 81 MG TAB.CHEW PO ONE (20:00)
--- NOTE | 2018-02-06 20:04 | NUR ---
PAGED [facility] FOR PANEL - BREAK AND LOAD OPERATOR NILES BURKETT
--- NOTE | 2018-02-06 20:06 | NUR ---
CALLED NURSE SUP FOR ICU BED
[2018-02-06] MEDS ORDERED: MAGNESIUM HYDROXIDE 30 ML UDC PO PRN (20:30)
[2018-02-06] MEDS ORDERED: VANCOMYCIN 1 GM in IV NS 0.9% 250 ML IV SCH (20:30)
[2018-02-06] MEDS ORDERED: ACETAMINOPHEN 325 MG TABLET PO PRN (20:30)
[2018-02-06] MEDS ORDERED: MAG HYDROX/AL HYDROX/SIMETH 30 ML UDC PO PRN (20:30)
[2018-02-06] MEDS ORDERED: Z GUARD REMEDY 2 OZ OINT TP PRN (20:30)
[2018-02-06] MEDS ORDERED: ONDANSETRON HCL/PF 4 MG/2 ML VIAL IVP PRN (20:30)
--- NOTE | 2018-02-06 20:43 | NUR ---
PER MD ORDERS PT PLACED ON VENTI MASK AT 50% AT 15L. NO RESP DISTRESS NOTED. PT IS TOLERATING MASK.
[2018-02-06] MEDS ORDERED: ASPIRIN 81 MG TAB.CHEW ONE (21:25)
--- NOTE | 2018-02-06 21:42 | NUR ---
REPORT GIVEN. PT AWAITING TRANSFER TO FLOOR.
[2018-02-06 22:15] VITALS: BP 141/93
[2018-02-06 22:20] VITALS: BP 152/115
[2018-02-06 22:30] VITALS: BP 151/105
[2018-02-06] MEDS: IV NS 0.9% 1,000 ML IV PRN (22:32)
[2018-02-06] MEDS: NALOXONE HCL 2 MG in IV D5W 245 ML IV PRN (22:43)
[2018-02-06 22:53] VITALS: BP 128/75
[2018-02-06 23:00] VITALS: BP 141/119
[2018-02-06 23:30] VITALS: BP_SYST 141; BP_SYST 167; BP_DIAS 114; BP_DIAS 119
[2018-02-06] MEDS ORDERED: ENOXAPARIN SODIUM 100 MG/ML DISP.SYRIN SQ ONE (23:30)
[2018-02-06] MEDS ORDERED: FUROSEMIDE 20 MG/2 ML VIAL IV ONE (23:30)
--- NOTE | 2018-02-06 23:30 | NUR ---
PT IS DESATTING AND ELEVATED RR , PT PLACED ON BIPAP PER MD'S ORDER. BIPAP PLUGGED INTO RED OUTLET . BIPAP ALARM ARE SET AND AUDIBLE. WILL CONTINUE TO MONITOR THE PT.
--- NOTE | 2018-02-06 23:32 | NUR ---
DR CAGE NOTIFIED, PT DESATTING, ELEVATED RR 50S, CRACKLES ON AUSCULTATION, PT GIVEN LASIX AND STARTED ON BIPAP
[2018-02-06] MEDS ORDERED: PIPERACILLIN /TAZOBACTAM 2.25 G VIAL IV ONE (23:42)
[2018-02-06] MEDS: PIPERACILLIN /TAZOBACTAM 4.5 G in IV NS 0.9% 50 ML IV SCH (23:54)
[2018-02-07] VITALS (57 sets, daily range): BP systolic 124–181; BP diastolic 41–166
--- NOTE | 2018-02-07 | NUR ---
PHARMACY NOTIFIED ME THAT PT SHOULD NOT GET HEPARIN DRIP BECAUSE LOVENOX WAS GIVEN WITHIN [address] CAGE NOTIFIED, HE SAID ITS OK TO HOLD HEPARIN DRIP UNTIL 12 HOURS PAST LOVENOX ADMINISTRATION
[2018-02-07 00:18] LABS: ALBUMIN 3.6 g/dL (3.4-5.0); BILIRUBIN,DIRECT 0.1 mg/dL (0.0-0.2); BILIRUBIN,TOTAL 0.4 mg/dL (0.2-1.0); TOTAL PROTEIN, SERUM 7.3 g/dL (6.4-8.2)
[2018-02-07 00:23] LABS: TROPONIN I 10.077 ng/mL (0.00-0.056)
[2018-02-07] MEDS ORDERED: ENOXAPARIN SODIUM 100 MG/ML DISP.SYRIN SQ ONE (00:30)
[2018-02-07] MEDS ORDERED: NALOXONE HCL 0.4 MG/ML AMPUL ONE (00:52)
[2018-02-07] MEDS: NALOXONE HCL 2 MG in IV D5W 245 ML IV PRN ×2 (00:59→12:11)
[2018-02-07] MEDS ORDERED: HEPARIN INFUSION/D5W 500 ML IV ONE (01:01)
[2018-02-07] MEDS ORDERED: HEPARIN SODIUM, PORCINE 5000 UNITS/1 ML VIAL IV ONE (02:00)
--- NOTE | 2018-02-07 03:40 | NUR ---
PT OFF BIPAP. PT STATED THAT SHE'S GOING TO THROW UP. MAKAYLA BYRD AWARE. PT PLACED ON NON REBREATHER 15L AFTER SHE THREW UP. NO RESP DISTRESS NOTED AT THIS TIME.
--- NOTE | 2018-02-07 04:00 | NUR ---
PT REFUSING BIPAP AT THIS TIME. BIPAP ON STAND BY. NO SOB OR DISTRESS . MAKAYLA BYRD AWARE. WILL CONTINUE TO MONITOR.
[2018-02-07 04:39] LABS: BASOPHILS # (AUTO) 0.1 /CMM (0.0-0.2); BASOPHILS % (AUTO) 0.5 % (0.0-2.0); EOSINOPHILS % (AUTO) 0.1 % (0.0-6.0); HEMATOCRIT 51 % (33-45); HEMOGLOBIN 16.9 g/dL (11.5-14.8); LYMPHOCYTES # (AUTO) 1.4 /CMM (0.8-4.8); LYMPHOCYTES % (AUTO) 7.4 % (20.0-44.0); MEAN CORPUSCULAR HEMOGLOBIN 29 PG (26.0-33.0); MEAN CORPUSCULAR HGB CONC 33 g/dl (31.0-36.0); MEAN CORPUSCULAR VOLUME 88 fL (82-100); MONOCYTES # (AUTO) 1.2 /CMM (0.1-1.30); MONOCYTES % (AUTO) 6.5 % (2.0-12.0); NEUTROPHILS # (AUTO) 16.2 /CMM (1.8-8.9); NEUTROPHILS % (AUTO) 85.5 % (43.0-81.0); PLATELET COUNT (AUTO) 149 /CMM (150-450); RDW COEFFICIENT OF VARIATION 15.2 (11.5-15.0); RED BLOOD CELL COUNT(AUTO) 5.79 MIL/uL (4.0-5.2)
[2018-02-07 05:03] LABS: THYROID STIMULATING HORMONE 0.647 uIU/mL (0.358-3.74)
[2018-02-07 05:05] LABS: CREATININE 0.9 mg/dL (0.6-1.3); PHOSPHORUS 1.2 mg/dL (2.5-4.9); POTASSIUM 2.9 mmol/L (3.5-5.1)
[2018-02-07] MEDS ORDERED: PIPERACILLIN /TAZOBACTAM 2.25 G VIAL IV ONE ×2 (06:11→06:16)
[2018-02-07] MEDS: PIPERACILLIN /TAZOBACTAM 4.5 G in IV NS 0.9% 50 ML IV SCH ×4 (06:21→23:13)
[2018-02-07] MEDS ORDERED: FEE PK DOSING 1 MIN EA MC ONE (07:41)
--- NOTE | 2018-02-07 08:38 | NUR ---
received pt from night, shift, a/o x4, follows commands, ST, on Narcan drip at 0.2mg/hr, on Bipap at 100% Fio2, sat well, lungs partially congested, no edema, NPO, f/c OK output, v/s stable, no pain, pt turns and repositions by herself.
[2018-02-07] MEDS: VANCOMYCIN 1 GM in IV D5W 250 ML IV SCH ×2 (08:44→19:53)
[2018-02-07] MEDS: PANTOPRAZOLE 40 MG VIAL IV SCH (08:47)
[2018-02-07] MEDS: IV NS 0.9% 1,000 ML IV PRN ×2 (08:49→23:14)
[2018-02-07] MEDS ORDERED: ENOXAPARIN SODIUM 100 MG/ML DISP.SYRIN SQ SCH (09:00)
[2018-02-07] MEDS: POTASSIUM CL. PREMIX PERIPHER. 50 ML IV SCH ×6 (09:27→14:09)
--- NOTE | 2018-02-07 10:03 | NUR ---
RT NOTE PER DR ANTONIO, PLACED PT ON HIGH FLOW, NASAL CANULA, PT SPO2 DROPPED TO 84% PLACED BACK ON BIBAP SPO2 INCREASED TO 95%, PT STABLE AT THIS TIME
[2018-02-07] MEDS: IPRATROPIUM NEB FS 0.5 MG/2.5 ML AMPUL.NEB NEB SCH ×4 (11:51→23:26)
[2018-02-07] MEDS: ALBUTEROL HALF STRENGTH 1.25 MG/3 ML VIAL.NEB NEB SCH ×4 (11:51→23:26)
[2018-02-07] MEDS ORDERED: HEPARIN INFUSION/D5W 500 ML IV PRN (12:00)
[2018-02-07] MEDS: ENOXAPARIN SODIUM 100 MG/ML DISP.SYRIN SQ SCH ×2 (12:02→23:10)
[2018-02-07] MEDS: POTASSIUM PHOSPHATE MM 7.5 MMOL in IV D5W 100 ML IV SCH ×2 (15:02→18:18)
--- NOTE | 2018-02-07 16:21 | NUR ---
pt is resting in the bed, alert, follows commands, ST, on bipap at 100% fio2, good urine output, v/s stable, no pain, pt cleaned, changed and repositioned, q2hrs.
[2018-02-07] MEDS ORDERED: POTASSIUM PHOSPHATE MM 7.5 MMOL in IV D5W 100 ML IV SCH (17:00)
--- NOTE | 2018-02-07 19:20 | NUR ---
pt pulled off bipap mask and is refusing to put it back on, she says she "wants a break". will continue to monitor and encourage pt to put back on bipap mask
--- NOTE | 2018-02-07 20:55 | NUR ---
pt placed back on bipap, o2sat improving, rr reduced
[2018-02-08] VITALS (49 sets, daily range): BP systolic 96–185; BP diastolic 50–124
[2018-02-08] MEDS: ALBUTEROL HALF STRENGTH 1.25 MG/3 ML VIAL.NEB NEB SCH ×6 (03:07→23:18)
[2018-02-08] MEDS: IPRATROPIUM NEB FS 0.5 MG/2.5 ML AMPUL.NEB NEB SCH ×6 (03:07→23:18)
[2018-02-08 04:44] LABS: CALCIUM, SERUM 7.4 mg/dL (8.5-10.1); CREATININE 0.7 mg/dL (0.6-1.3); PHOSPHORUS 1.9 mg/dL (2.5-4.9); POTASSIUM 3.1 mmol/L (3.5-5.1)
--- NOTE | 2018-02-08 06:00 | NUR ---
pt refused bipap and was placed on non rebreather 15 lpm, tolerating well, will continue to monitor
[2018-02-08] MEDS: PIPERACILLIN /TAZOBACTAM 4.5 G in IV NS 0.9% 50 ML IV SCH ×3 (06:16→17:32)
--- NOTE | 2018-02-08 08:21 | NUR ---
received pt from night, shift, alert, follows commands, ST, on non rebreather for now, f/c good output, v/s stable, no pain, pt turns and repositions by herself.
[2018-02-08] MEDS ORDERED: POTASSIUM PHOSPHATE MM 15 MMOL in IV D5W 250 ML IV SCH (08:30)
[2018-02-08] MEDS: VANCOMYCIN 1 GM in IV D5W 250 ML IV SCH (08:35)
[2018-02-08] MEDS: POTASSIUM CL. PREMIX PERIPHER. 50 ML IV SCH ×6 (08:52→13:34)
[2018-02-08] MEDS: FUROSEMIDE 40 MG/4 ML VIAL IV SCH ×3 (08:52→16:13)
[2018-02-08] MEDS: PANTOPRAZOLE 40 MG VIAL IV SCH (08:52)
[2018-02-08 08:53] LABS: ABG BASE EXCESS 3.4 mmol/L; ABG OXYGEN SATURATION 91.9 % (92.0-98.5); ABG PCO2 40.9 mmHg (35.0-45.0); ABG PH 7.448 (7.350-7.450); ABG PO2 60.5 mmHg (75.0-100.0); AaDO2 611.6 mmHg; COHb 0.6 % (0.5-1.5); MetHb 0.5 % (0.0-1.5); O2Hb 90.9 % (94.0-97.0); SITE, ABG Right Radial; VENT MODE, BG NRB
[2018-02-08] MEDS: POTASSIUM PHOSPHATE MM 7.5 MMOL in IV NS 0.9% 100 ML IV SCH ×2 (09:47→12:43)
[2018-02-08] MEDS: ENOXAPARIN SODIUM 100 MG/ML DISP.SYRIN SQ SCH ×2 (12:02→23:58)
[2018-02-08] MEDS: VANCOMYCIN 1.25 GM in IV D5W 500 ML IV SCH ×2 (13:35→22:02)
--- NOTE | 2018-02-08 16:10 | NUR ---
pt is resting in the bed, alert, follows commands, ST, on non rebreather, tolerating well, sat 95-98%, v/s stable, no pain, pt cleaned, changed and repositioned.
--- NOTE | 2018-02-08 20:00 | NUR ---
Received patient from AM shift RN patient awake alert and oriented following commands.Respiration even and unlabored with O2 10L non rebreather mask saturation 93%-97%.ST 101-106 no ectopies noted.Denies chest pain or sob.NPO status.FC cath to gravity draining clear yellow urine.With IVF NS at TKO infusing to right hand saline lock site intact.Independent with bed mobility and encouraged to turn Q 2 hrs.Verbalized understanding.Call light at bedside within easy reach with instructions to call for assistance.
[2018-02-09] VITALS (41 sets, daily range): BP systolic 68–111; BP diastolic 41–77
[2018-02-09] MEDS: PIPERACILLIN /TAZOBACTAM 4.5 G in IV NS 0.9% 50 ML IV SCH ×5 (00:14→23:47)
--- NOTE | 2018-02-09 02:24 | NUR ---
Patient sleeping and BP drop down to 85/58,87/59.Patient is npo with IVF infusing at TKO. notified.With order to just observed the patient.No acute distress noted. Continue monitoring.
[2018-02-09] MEDS: IPRATROPIUM NEB FS 0.5 MG/2.5 ML AMPUL.NEB NEB SCH ×6 (03:30→23:34)
[2018-02-09] MEDS: ALBUTEROL HALF STRENGTH 1.25 MG/3 ML VIAL.NEB NEB SCH ×6 (03:30→23:34)
[2018-02-09 05:13] LABS: BASOPHILS % (AUTO) 0.1 % (0.0-2.0); EOSINOPHILS % (AUTO) 0.3 % (0.0-6.0); HEMATOCRIT 49 % (33-45); HEMOGLOBIN 16.1 g/dL (11.5-14.8); LYMPHOCYTES # (AUTO) 1.2 /CMM (0.8-4.8); LYMPHOCYTES % (AUTO) 10.5 % (20.0-44.0); MEAN CORPUSCULAR HEMOGLOBIN 29 PG (26.0-33.0); MEAN CORPUSCULAR HGB CONC 33 g/dl (31.0-36.0); MEAN CORPUSCULAR VOLUME 88 fL (82-100); MONOCYTES # (AUTO) 0.8 /CMM (0.1-1.30); MONOCYTES % (AUTO) 6.7 % (2.0-12.0); NEUTROPHILS # (AUTO) 9.4 /CMM (1.8-8.9); NEUTROPHILS % (AUTO) 82.4 % (43.0-81.0); PLATELET COUNT (AUTO) 105 /CMM (150-450); RDW COEFFICIENT OF VARIATION 15.8 (11.5-15.0); RED BLOOD CELL COUNT(AUTO) 5.58 MIL/uL (4.0-5.2); WHITE BLOOD COUNT (AUTO) 11.4 K/uL (4.3-11.0)
[2018-02-09 05:33] LABS: TROPONIN I 1.033 ng/mL (0.00-0.056)
[2018-02-09] MEDS: VANCOMYCIN 1.25 GM in IV D5W 500 ML IV SCH ×3 (06:00→17:57)
[2018-02-09 06:05] LABS: ALBUMIN 2.7 g/dL (3.4-5.0); BILIRUBIN,TOTAL 1.7 mg/dL (0.2-1.0); CALCIUM, SERUM 7.5 mg/dL (8.5-10.1); CREATININE 0.8 mg/dL (0.6-1.3); MAGNESIUM 1.9 mg/dL (1.8-2.4); PHOSPHORUS 2.7 mg/dL (2.5-4.9); TOTAL PROTEIN, SERUM 6.2 g/dL (6.4-8.2)
--- NOTE | 2018-02-09 06:50 | NUR ---
Patient resting SR 84-96.VS stable.Denies any discomfort.No significant change noted.AM care done. Adequate urine output.All needs anticipated and met.
[2018-02-09 07:12] LABS: POTASSIUM 2.8 mmol/L (3.5-5.1)
--- NOTE | 2018-02-09 08:10 | NUR ---
received pt from day shift, alert, follows commands, SR, ST, on non rebreather at 10L, sat well, tachypneic, f/c good output, v/s stable, no pain, pt turns and repositions by herself.
[2018-02-09] MEDS: PANTOPRAZOLE 40 MG VIAL IV SCH (08:40)
[2018-02-09] MEDS: POTASSIUM CHLORIDE 20 MEQ TAB.PRT.SR PO SCH ×5 (08:40→12:46)
[2018-02-09] MEDS: ENOXAPARIN SODIUM 100 MG/ML DISP.SYRIN SQ SCH ×2 (11:23→23:48)
[2018-02-09] MEDS: FUROSEMIDE 100 MG/10 ML VIAL IV SCH ×3 (13:36→21:34)
--- NOTE | 2018-02-09 16:10 | NUR ---
pt is resting in the bed, a/o x4, follows commands, SR, on 5L 02, sat well, able to swallow food, diet ordered, f/c good output, v/s stable, no pain, pt cleaned and changed.
--- NOTE | 2018-02-09 16:38 | NUR ---
Lasix 80mg not given, SBP 82-98
--- NOTE | 2018-02-09 20:00 | NUR ---
Received patient A/O X 4. SR 80's.VS stable.Respiration even and unlabored.With O2 5L NC tolerating well.SPO2 97%.IVF NS at tko infusing and site intact.Patient able to verbalize needs. FC to gravity draining clear yellow urine.Encouraged to turn to sides Q 2 hrs.Call light at bedside within easy reach.Denies pain or any discomfort.
[2018-02-10] VITALS (16 sets, daily range): BP systolic 87–139; BP diastolic 45–87
[2018-02-10] MEDS: ALBUTEROL HALF STRENGTH 1.25 MG/3 ML VIAL.NEB NEB SCH ×5 (03:55→20:08)
[2018-02-10] MEDS: IPRATROPIUM NEB FS 0.5 MG/2.5 ML AMPUL.NEB NEB SCH ×5 (03:55→20:08)
[2018-02-10 05:14] LABS: BASOPHILS % (AUTO) 0.6 % (0.0-2.0); EOSINOPHILS % (AUTO) 1.5 % (0.0-6.0); HEMATOCRIT 45 % (33-45); HEMOGLOBIN 14.8 g/dL (11.5-14.8); LYMPHOCYTES # (AUTO) 1.5 /CMM (0.8-4.8); LYMPHOCYTES % (AUTO) 18.8 % (20.0-44.0); MEAN CORPUSCULAR HEMOGLOBIN 29 PG (26.0-33.0); MEAN CORPUSCULAR HGB CONC 33 g/dl (31.0-36.0); MEAN CORPUSCULAR VOLUME 89 fL (82-100); MONOCYTES # (AUTO) 0.8 /CMM (0.1-1.30); MONOCYTES % (AUTO) 9.7 % (2.0-12.0); NEUTROPHILS # (AUTO) 5.5 /CMM (1.8-8.9); NEUTROPHILS % (AUTO) 69.4 % (43.0-81.0); PLATELET COUNT (AUTO) 101 /CMM (150-450); RDW COEFFICIENT OF VARIATION 15.7 (11.5-15.0)
[2018-02-10] MEDS: PIPERACILLIN /TAZOBACTAM 4.5 G in IV NS 0.9% 50 ML IV SCH ×4 (05:20→23:31)
[2018-02-10 05:40] LABS: ALBUMIN 2.6 g/dL (3.4-5.0); BILIRUBIN,TOTAL 1.1 mg/dL (0.2-1.0); CALCIUM, SERUM 7.9 mg/dL (8.5-10.1); CREATININE 0.9 mg/dL (0.6-1.3); MAGNESIUM 2.1 mg/dL (1.8-2.4); PHOSPHORUS 2.6 mg/dL (2.5-4.9); POTASSIUM 3.1 mmol/L (3.5-5.1); TOTAL PROTEIN, SERUM 5.9 g/dL (6.4-8.2)
[2018-02-10] MEDS: VANCOMYCIN 1.25 GM in IV D5W 500 ML IV SCH ×2 (06:00→18:05)
--- NOTE | 2018-02-10 06:50 | NUR ---
Patient resting.VS remains stable.AM care done.Per patient she feels more better today. All needs anticipated and met.
--- NOTE | 2018-02-10 07:45 | NUR ---
GERMINATION WORKER NOTE: RECEIVED PATIENT IN BED, AWAKE, ALERT AND ABLE TO VERBALIZE HER NEEDS. ON O2 5L/MIN VIA NC SATURATING 97%. BED ON HIGH FOWLERS POSITION. (L) AND (R) HAND IV LINE NOTED PATENT AND INTACT. ON WEIGHT YARDAGE CHECKER, SR HR= 78. DENIED PAIN AT THIS TIME. ATE 50% OF HER BREAKFAST MEAL. BED LOCKED AT ALL TIMES. CALL LIGHT WITHIN REACH. NEEDS ANTICIPATED.
[2018-02-10] MEDS: POTASSIUM CHLORIDE 20 MEQ TAB.PRT.SR PO SCH ×3 (08:59→11:57)
[2018-02-10] MEDS ORDERED: ENOXAPARIN SODIUM 40 MG/0.4 ML DISP.SYRIN SQ SCH (09:00)
[2018-02-10] MEDS: PANTOPRAZOLE 40 MG TABLET.DR PO SCH (09:00)
--- NOTE | 2018-02-10 10:15 | NUR ---
CANDY SUPERVISOR NOTE: PATIENT WAS SEEN BY NAYA YE NP AND WROTE AN ORDER FOR PATIENT TO BE TRANSFER TO ROOM 114-2 UNDER MED-SURG. ALL BELONGINGS WERE SENT WITH THE PATIENT UPON TRANSFER INCLUDING HER UPPER DENTURE IN WHICH SHE WAS USING UPON TRANSFER.
[2018-02-10] MEDS: ENOXAPARIN SODIUM 40 MG/0.4 ML DISP.SYRIN SQ SCH (11:58)
--- NOTE | 2018-02-10 12:00 | NUR ---
MS RN NOTE: PATIENT REQUESTED TO HAVE HER SAAVEDRA CATHETER REMOVED AND DMITRI PERSON WAS MADE AWARE. COMMERCIAL CREDIT OFFICER GAVE AN OK TO DC THE SAAVEDRA CATHETER. SAAVEDRA CATHETER WAS REMOVED AND PATIENT WAS ABLE TO GO TO THE BATHROOM WITH ASSISTANCE AND SHE RIGHT AWAY WAS ABLE TO URINATE ON THE TOILET AND HAD 1 BM. DENIED PAIN. NO DIZZINESS AND NOTED WITH STEADY GAIT.
--- NOTE | 2018-02-10 19:30 | NUR ---
MS RN NOTE: PATIENT STILL RECEIVING HER IV VANCO ON HER (R) HAND IV LINE. TOLERATING IT. REMAINED ON O2 5L/MIN AND SATURATING 97%. REPORT GIVEN TO PM SHIFT NURSE FOR CONTINUITY OF CARE.
[2018-02-11] MEDS: IPRATROPIUM NEB FS 0.5 MG/2.5 ML AMPUL.NEB NEB SCH ×7 (00:06→22:53)
[2018-02-11] MEDS: ALBUTEROL HALF STRENGTH 1.25 MG/3 ML VIAL.NEB NEB SCH ×7 (00:06→22:53)
[2018-02-11 04:00] VITALS: BP 94/60
--- NOTE | 2018-02-11 04:40 | NUR ---
RN SPOKE TO TRANSLATOR PHARMACIST, CHANGE VANCO TROUGH FROM 7AM TO 5AM, 1 HR PRIOR VANCO ADMIN.
[2018-02-11] MEDS: PIPERACILLIN /TAZOBACTAM 4.5 G in IV NS 0.9% 50 ML IV SCH ×4 (06:03→23:39)
[2018-02-11 06:47] LABS: CALCIUM, SERUM 8.6 mg/dL (8.5-10.1); POTASSIUM 3.2 mmol/L (3.5-5.1)
[2018-02-11] MEDS: VANCOMYCIN 1.25 GM in IV D5W 500 ML IV SCH ×2 (06:52→17:54)
--- NOTE | 2018-02-11 07:36 | NUR ---
MS RN OPENING NOTES RECEIVED PATIENT AWAKE IN BED IN NO ACUTE SIGNS OF DISTRESS. HOB ELEVATED. A/O X4. ABLE TO MAKE NEEDS KNOWN, NO C/O PAIN OR DISCOMFORTS VOICED AT THIS TIME. ON O2 @ 5L/MIN VIA NC, TOLERATING WELL WITH NO SOB NOTED. (L) AND (R) HAND IV LINES NOTED, BOTH PATENT AND INTACT. SAFETY MEASURES IN PLACE. BED IN LOW/LOCKED POSITION WITH SIDE-RAILS UP X2. CALL LIGHT WITHIN REACH. WILL CONTINUE TO MONITOR.
[2018-02-11 08:00] VITALS: BP_SYST 102; BP_SYST 109; BP_SYST 95; BP_DIAS 63; BP_DIAS 64
[2018-02-11] MEDS: PANTOPRAZOLE 40 MG TABLET.DR PO SCH (08:37)
[2018-02-11] MEDS: ENOXAPARIN SODIUM 40 MG/0.4 ML DISP.SYRIN SQ SCH (08:40)
[2018-02-11] MEDS ORDERED: Magnesium 1GM/D5W 100ML PREMIX 100 ML IV SCH (09:35)
[2018-02-11] MEDS: POTASSIUM CHLORIDE 20 MEQ TAB.PRT.SR PO SCH ×4 (09:53→14:20)
--- NOTE | 2018-02-11 10:38 | NUR ---
Rubber Compounder Consult requested by Dr. Bliss for drug abuse .Patient is a 57 year old female admitted for drug abuse. SW met with pt. beside. Patient is awake, alert and oriented x4. Patient lives with her ex- in an apt. located at [address] [place] [address], [address], in [place], [place]. Patient reported that she suffers from anxiety and takes Valium for her symptoms. Pt. states she suffers from migraines and takes medication for it. Pt. was adamant that she did not overdose on methadone. Patient reported that she has had a history of drug abuse. 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 Currently pt. denies drug or alcohol use at this time. Patient reported that she smokes 1-2 cigarettes per day, but that even that is too much for me these days. Patient reported that she currently has no source of income but is looking into following up with social security. Patient denied any suicidal ideation, visual or auditory hallucinations at this time. KARLO discussed Advance Directives with pt. and will follow up with pt. and give her the requested form prior to discharge. No other social work assistant needs are required at this time. Shingles Roofer is available, if needed.
[2018-02-11] MEDS: ASPIRIN 81 MG TAB.CHEW PO SCH (11:14)
--- NOTE | 2018-02-11 12:00 | NUR ---
RN NOTES PT'S ZOSYN 4.5GM IV ANTIBIOTIC UN-ABLE TO SCAN, CALLED PHARMACY AND SAID TO JUST DO MANUAL BARCODING.
--- NOTE | 2018-02-11 14:50 | NUR ---
RN NOTES PATIENT WITH LOW POTASSIUM LEVEL 3.2 TODAY. K-DUR 20MEQ TABS X 4 DOSES GIVEN ORDERED. WILL CONTINUE TO MONITOR.
[2018-02-11 16:00] VITALS: BP 114/69
--- NOTE | 2018-02-11 17:20 | NUR ---
RN NOTES PT'S ZOSYN 4.5GM IV ANTIBIOTIC AGAIN UN-ABLE TO SCAN, CALLED PHARMACY AND SAID TO JUST DO MANUAL BARCODING.
--- NOTE | 2018-02-11 18:18 | NUR ---
MS RN CLOSING NOTES PATIENT RESTING IN BED WATCHING TV. A/O X4, SAME ABLE TO MAKE NEEDS KNOWN. ALL NEEDS AND CARE ATTENDED WELL. PT TOLERATING O2 VIA N/C @ 5L/MIN, NO SOB NOTED. PT'S (L) AND (R) HAND IV LINES BOTH PATENT AND INTACT. IV ANTIBIOTIC VANCOMYCIN INFUSING TO L HAND AT THIS TIME, NO SIGNS OF INFILTRATION NOTED. ALL SAFETY MEASURES KEPT IN PLACE. BED IN LOW/LOCKED POSITION WITH SIDE-RAILS UP X2. CALL LIGHT AND BEDSIDE TABLE PLACED WITHIN EASY REACH OF PT. WILL ENDORSE TO LIAISON OFFICER NURSE FOR LONNY. .
[2018-02-11 20:00] VITALS: BP 136/85
[2018-02-11] MEDS: METHADONE HCL 10 MG TABLET PO SCH (20:09)
[2018-02-12] MEDS: ALBUTEROL HALF STRENGTH 1.25 MG/3 ML VIAL.NEB NEB SCH ×4 (03:30→15:59)
[2018-02-12] MEDS: IPRATROPIUM NEB FS 0.5 MG/2.5 ML AMPUL.NEB NEB SCH ×4 (03:30→15:59)
[2018-02-12 04:00] VITALS: BP 109/59
[2018-02-12] MEDS: VANCOMYCIN 1.25 GM in IV D5W 500 ML IV SCH (04:55)
[2018-02-12] MEDS: PIPERACILLIN /TAZOBACTAM 4.5 G in IV NS 0.9% 50 ML IV SCH (06:20)
[2018-02-12 07:27] LABS: CALCIUM, SERUM 8.2 mg/dL (8.5-10.1); CREATININE 0.8 mg/dL (0.6-1.3)
[2018-02-12] MEDS: PANTOPRAZOLE 40 MG TABLET.DR PO SCH (09:23)
[2018-02-12] MEDS: ASPIRIN 81 MG TAB.CHEW PO SCH (09:23)
[2018-02-12] MEDS: METHADONE HCL 10 MG TABLET PO SCH ×2 (09:23→17:54)
[2018-02-12] MEDS: ENOXAPARIN SODIUM 40 MG/0.4 ML DISP.SYRIN SQ SCH (09:29)
[2018-02-12 09:51] LABS: ABG OXYGEN SATURATION 90.8 % (92.0-98.5); ABG PCO2 45.9 mmHg (35.0-45.0); ABG PH 7.434 (7.350-7.450); ABG PO2 60.6 mmHg (75.0-100.0); AaDO2 34.2 mmHg; COHb 1.7 % (0.5-1.5); MetHb 0.4 % (0.0-1.5); O2Hb 88.9 % (94.0-97.0); SITE, ABG Right Radial; VENT MODE, BG room air
[2018-02-12] MEDS ORDERED: METH10TA2 PO (11:54)
[2018-02-12 16:00] VITALS: BP 109/59
--- NOTE | 2018-02-12 20:00 | NUR ---
Patient discharged home in stable condition. All belongings returned. IV removed with intact tip. ID band removed. Patient was given printed discharge instruction, verbalizes understanding.
== END 2018-02-12 19:15 | disposition home or self-care (01) | DRG 812 ==
LOC: ER 17:51 → ICU 21:02 → MEDSG1 02-10 10:17
PROC: 5A09457 Assistance with Respiratory Ventilation, 24-96 Consecutive Hours, Continuous Positive Airway Pressure (ICD-10-PCS; principal; 2018-02-06)
DX: T40.3X1A Poisoning by methadone, accidental (unintentional), initial encounter (principal); I21.4 Non-ST elevation (NSTEMI) myocardial infarction; J96.01 Acute respiratory failure with hypoxia; J69.0 Pneumonitis due to inhalation of food and vomit; A41.9 Sepsis, unspecified organism; G92 Toxic encephalopathy; E44.0 Moderate protein-calorie malnutrition; D69.6 Thrombocytopenia, unspecified; E83.39 Other disorders of phosphorus metabolism; Y92.89 Other specified places as the place of occurrence of the external cause; E78.5 Hyperlipidemia, unspecified; I25.10 Atherosclerotic heart disease of native coronary artery without angina pectoris; Z79.899 Other long term (current) drug therapy; Z79.82 Long term (current) use of aspirin; Z88.8 Allergy status to other drugs, medicaments and biological substances; G40.909 Epilepsy, unspecified, not intractable, without status epilepticus; G43.909 Migraine, unspecified, not intractable, without status migrainosus; E87.6 Hypokalemia; B19.20 Unspecified viral hepatitis C without hepatic coma; G89.4 Chronic pain syndrome; H54.61 Unqualified visual loss, right eye, normal vision left eye; E66.2 Morbid (severe) obesity with alveolar hypoventilation; Z68.33 Body mass index [BMI] 33.0-33.9, adult; I70.0 Atherosclerosis of aorta; K76.1 Chronic passive congestion of liver; F11.20 Opioid dependence, uncomplicated
CPT/HCPCS: 36415; 36600; 70450-TC; 71045-TC; 80048-TC; 80053-TC; 80061-TC; 80076-TC; 80202-TC; 80305; 81000-TC; 82803-TC; 82962-TC; 83605-TC; 83735-TC; 83880; 84100-TC; 84443-TC; 84484-TC; 85025-TC; 85378-TC; 85730-TC; 87040-TC; 87081-TC; 87086-TC; 87186-TC; 94660; 94799-TC; A4216; A4606; C9113; G0480; J1644; J1650; J1940; J2185; J2310; J2405; J2543; J3370; J3480; J3490; J7030; J7050; J7060; Z7610

== ENCOUNTER 2018-03-28 14:47 | Emergency (ER) | payer OTHER ==
[~2018-03-28] VITALS: Ht 165.1 cm; Wt 94.5 kg
[2018-03-28] MEDS ORDERED: IV NS 0.9% 1,000 ML BAG IV ONE (15:00)
[2018-03-28 15:05] LABS: BASOPHILS # (AUTO) 0.1 /CMM (0.0-0.2); BASOPHILS % (AUTO) 1.3 % (0.0-2.0); EOSINOPHILS % (AUTO) 0.1 % (0.0-6.0); HEMATOCRIT 45 % (33-45); HEMOGLOBIN 15.2 g/dL (11.5-14.8); LYMPHOCYTES # (AUTO) 0.7 /CMM (0.8-4.8); LYMPHOCYTES % (AUTO) 7.2 % (20.0-44.0); MEAN CORPUSCULAR HEMOGLOBIN 30 PG (26.0-33.0); MEAN CORPUSCULAR HGB CONC 34 g/dl (31.0-36.0); MEAN CORPUSCULAR VOLUME 87 fL (82-100); MONOCYTES # (AUTO) 0.2 /CMM (0.1-1.30); MONOCYTES % (AUTO) 1.8 % (2.0-12.0); NEUTROPHILS # (AUTO) 8.5 /CMM (1.8-8.9); NEUTROPHILS % (AUTO) 89.6 % (43.0-81.0); PLATELET COUNT (AUTO) 132 /CMM (150-450); RDW COEFFICIENT OF VARIATION 13.2 (11.5-15.0); RED BLOOD CELL COUNT(AUTO) 5.15 MIL/uL (4.0-5.2); WHITE BLOOD COUNT (AUTO) 9.5 K/uL (4.3-11.0)
[2018-03-28 15:15] LABS: CALCIUM, SERUM 9.2 mg/dL (8.5-10.1); CARBON DIOXIDE 30 mmol/L (21-32); CHLORIDE 97 mmol/L (98-107); GLUCOSE 279 mg/dL (74-106); POTASSIUM 5.5 mmol/L (3.5-5.1); SODIUM SERUM 137 mmol/L (136-145); UREA NITROGEN, BLOOD 18 mg/dL (7-18)
[2018-03-28 15:19] LABS: ALANINE AMINOTRANSFERASE 17 U/L (12-78); ALBUMIN 3.8 g/dL (3.4-5.0); ALKALINE PHOSPHATASE 81 U/L (46-116); ASPARTATE AMINOTRANSFERASE 27 U/L (15-37); BILIRUBIN,TOTAL 0.4 mg/dL (0.2-1.0); SALICYLATE 3.1 mg/dL (2.8-20.0); TOTAL PROTEIN, SERUM 7.8 g/dL (6.4-8.2)
[2018-03-28 15:20] LABS: ACETAMINOPHEN < 2 ug/ml (10-30); ALCOHOL, BLOOD < 3 mg/dL (0-0)
[2018-03-28 15:21] LABS: TROPONIN I < 0.017 ng/mL (0.00-0.056)
--- NOTE | 2018-03-28 16:07 | NUR ---
t states "feeling much better." Ambulatory Gait Steady. Updated w/plan of care
[2018-03-28 16:37] LABS: APPEARANCE,URINE Clear (CLEAR); BILIRUBIN,URINE Negative (NEGATIVE); BLOOD, URINE Trace-lysed Ery/uL (NEGATIVE); COLOR,URINE Yellow (YELLOW); KETONES,URINE Negative (NEGATIVE); LEUKOCYTE ESTERASE ,URINE Negative (NEGATIVE); NITRITE, URINE Negative (NEGATIVE); PROTEIN,URINE Negative (NEGATIVE); UGLUCOSE 250 MG/DL mg/dL (NEGATIVE); UROBILINOGEN,URINE 0.2 EU/dL (0.2)
[2018-03-28 17:46] LABS: BACTERIA,URINE Few /HPF (None Seen); RBC,URINE 0-2 /HPF (0-2); SQUAMOUS EPITHELIAL CELL,UR Few /HPF (None Seen); WBC,URINE 0-2 /HPF (0-3)
[2018-03-28 19:01] VITALS: BP 149/79
[2018-04-02] MEDS ORDERED: ASPI-1169 PO (09:32)
== END 2018-03-28 19:03 | disposition home or self-care (01) ==
LOC: ER 14:48
DX: T40.3X1A Poisoning by methadone, accidental (unintentional), initial encounter (principal); F11.20 Opioid dependence, uncomplicated; G89.4 Chronic pain syndrome; F17.200 Nicotine dependence, unspecified, uncomplicated; I10 Essential (primary) hypertension; Z86.19 Personal history of other infectious and parasitic diseases; Z79.899 Other long term (current) drug therapy; Z88.8 Allergy status to other drugs, medicaments and biological substances; Y92.89 Other specified places as the place of occurrence of the external cause
CPT/HCPCS: 36415; 71045; 80048; 80076; 80305; 80329; 81001; 84484; 85025; 93005; 99285; A4606; G0480 ×2; J7030; Z7610; 81000-TC

== ENCOUNTER 2018-08-01 13:36 | Emergency (ER) | payer OTHER ==
[~2018-08-01] VITALS: Ht 162.6 cm; Wt 88.5 kg
[~2018-08-01 13:36] MED LIST changes: +ASPI-1169 PO; -ATOR40TA PO; -VALS80TA2 PO
--- NOTE | 2018-08-01 14:45 | NUR ---
PT BIB SELF multiple complaints c/o cough and congestion x 2 months , migraine H/A, PT IS AAOX4, NOT IN RESPIRATORY DISTRESS, KEPT RESTED AND COMFORTABLE.
[2018-08-01] MEDS ORDERED: KETOROLAC TROMETHAMINE INJ 30 MG/ML VIAL ONE (15:50)
[2018-08-01] MEDS: predniSONE 20 MG TABLET PO ONE (15:56)
[2018-08-01] MEDS: KETOROLAC TROMETHAMINE INJ 30 MG/ML VIAL IM ONE (15:56)
[2018-08-01] MEDS ORDERED: predniSONE 20 MG TABLET ONE (15:57)
[2018-08-01] MEDS: IPRATROPIUM NEB FS 0.5 MG/2.5 ML AMPUL.NEB NEB ONE (16:08)
[2018-08-01] MEDS: ALBUTEROL FS 2.5 MG/3 ML VIAL.NEB NEB ONE (16:08)
[2018-08-01] MEDS ORDERED: ALBUTEROL FS 2.5 MG/3 ML VIAL.NEB ONE (16:11)
[2018-08-01] MEDS ORDERED: IPRATROPIUM NEB FS 0.5 MG/2.5 ML AMPUL.NEB ONE (16:11)
--- NOTE | 2018-08-01 16:20 | NUR ---
RADIOLOGY AT BEDSIDE FOR XRAY.
--- NOTE | 2018-08-01 17:23 | NUR ---
Patient discharged to home in stable condition. Written and verbal after care instructions given. Patient verbalizes understanding of instruction.
[2018-08-01 17:25] VITALS: BP 128/91
== END 2018-08-01 17:26 | disposition home or self-care (01) ==
LOC: ER 13:38
DX: G43.909 Migraine, unspecified, not intractable, without status migrainosus (principal); R06.2 Wheezing; M25.561 Pain in right knee; M19.90 Unspecified osteoarthritis, unspecified site; F17.200 Nicotine dependence, unspecified, uncomplicated; Z88.8 Allergy status to other drugs, medicaments and biological substances; Z86.19 Personal history of other infectious and parasitic diseases; Z79.82 Long term (current) use of aspirin; Z79.899 Other long term (current) drug therapy
CPT/HCPCS: 71045-TC; 73564-TC; J1885

== ENCOUNTER 2018-09-06 13:52 | Emergency (ER) | payer OTHER ==
[~2018-09-06] VITALS: Ht 165.1 cm; Wt 97.5 kg
--- NOTE | 2018-09-06 14:12 | NUR ---
BIB RA88, OD ON METHADONE, GIVEN 2 MG OF NARCAN IN FIELD. FULLY AWAKE NAD NOTED @ THIS TIME. BG 235. PT AMBULATORY WITH WEAK GAIT, HAS A "BAD LEG". NO ACUTE DISTRESS NOTED. SKIN INTACT. PT HOOKED TO MONITOR AND READY FOR EVAL.
[2018-09-06] MEDS ORDERED: ALBUTEROL FS 2.5 MG/3 ML VIAL.NEB NEB ONE (14:30)
[2018-09-06] MEDS ORDERED: IPRATROPIUM NEB FS 0.5 MG/2.5 ML AMPUL.NEB NEB ONE (14:30)
--- NOTE | 2018-09-06 14:36 | NUR ---
SALINE LOCK CANCELED PER MD
[2018-09-06 14:49] LABS: BASOPHILS % (AUTO) 0.1 % (0.0-2.0); HEMATOCRIT 50 % (33-45); LYMPHOCYTES # (AUTO) 0.5 /CMM (0.8-4.8); MEAN CORPUSCULAR HGB CONC 32 g/dl (31.0-36.0); MEAN CORPUSCULAR VOLUME 89 fL (82-100); MONOCYTES # (AUTO) 0.7 /CMM (0.1-1.30); MONOCYTES % (AUTO) 5.1 % (2.0-12.0); NEUTROPHILS # (AUTO) 12.1 /CMM (1.8-8.9); NEUTROPHILS % (AUTO) 90.8 % (43.0-81.0); PLATELET COUNT (AUTO) 147 /CMM (150-450); RED BLOOD CELL COUNT(AUTO) 5.61 MIL/uL (4.0-5.2); WHITE BLOOD COUNT (AUTO) 13.3 K/uL (4.3-11.0)
[2018-09-06 14:54] LABS: CARBON DIOXIDE 36 mmol/L (21-32); CHLORIDE 98 mmol/L (98-107); GLUCOSE 230 mg/dL (74-106); POTASSIUM 4.3 mmol/L (3.5-5.1); SODIUM SERUM 139 mmol/L (136-145); UREA NITROGEN, BLOOD 20 mg/dL (7-18)
[2018-09-06 15:00] LABS: ALANINE AMINOTRANSFERASE 14 U/L (12-78); ALBUMIN 3.4 g/dL (3.4-5.0); ALCOHOL, BLOOD < 3 mg/dL (0-0); ALKALINE PHOSPHATASE 71 U/L (46-116); ASPARTATE AMINOTRANSFERASE 14 U/L (15-37); BILIRUBIN,DIRECT 0.1 mg/dL (0.0-0.2); BILIRUBIN,TOTAL 0.3 mg/dL (0.2-1.0); CALCIUM, SERUM 8.9 mg/dL (8.5-10.1); TOTAL PROTEIN, SERUM 7.1 g/dL (6.4-8.2)
[2018-09-06 15:02] LABS: ACETAMINOPHEN < 10 ug/ml (10-30); SALICYLATE 1.6 mg/dL (2.8-20.0)
[2018-09-06] MEDS ORDERED: IPRATROPIUM NEB FS 0.5 MG/2.5 ML AMPUL.NEB ONE (15:17)
[2018-09-06] MEDS ORDERED: ALBUTEROL FS 2.5 MG/3 ML VIAL.NEB ONE (15:17)
--- NOTE | 2018-09-06 15:24 | NUR ---
ETA 1700, PER DR GOLDSMITH
[2018-09-06 15:26] LABS: APPEARANCE,URINE Slightly Cloudy (CLEAR); BILIRUBIN,URINE Negative (NEGATIVE); BLOOD, URINE Trace-intact Ery/uL (NEGATIVE); COLOR,URINE Yellow (YELLOW); KETONES,URINE Negative (NEGATIVE); LEUKOCYTE ESTERASE ,URINE Negative (NEGATIVE); NITRITE, URINE Negative (NEGATIVE); PH,URINE 5.5 (5.0-8.0); PROTEIN,URINE 30 mg/dl (NEGATIVE); UGLUCOSE 100 MG/DL mg/dL (NEGATIVE); UROBILINOGEN,URINE 0.2 EU/dL (0.2)
[2018-09-06 15:35] LABS: BACTERIA,URINE Rare /HPF (None Seen); RBC,URINE 0-2 /HPF (0-2); SQUAMOUS EPITHELIAL CELL,UR Moderate /HPF (None Seen); WBC,URINE 0-2 /HPF (0-3)
--- NOTE | 2018-09-06 16:44 | NUR ---
Patient is resting comfortably in bed with eyes closed. Easily aroused. VSS
--- NOTE | 2018-09-06 17:57 | NUR ---
PT STATES ETA 10 MINUTES
--- NOTE | 2018-09-06 18:25 | NUR ---
Patient discharged to home in stable condition. Written and verbal after care instructions given. Patient verbalizes understanding of instruction.
[2018-09-06 18:56] VITALS: BP 128/77
== END 2018-09-06 18:25 | disposition home or self-care (01) ==
LOC: ER 13:53
DX: F11.90 Opioid use, unspecified, uncomplicated (principal); R06.2 Wheezing; D72.829 Elevated white blood cell count, unspecified; M19.90 Unspecified osteoarthritis, unspecified site; F17.200 Nicotine dependence, unspecified, uncomplicated; Z86.19 Personal history of other infectious and parasitic diseases; Z88.8 Allergy status to other drugs, medicaments and biological substances; Z79.82 Long term (current) use of aspirin; Z79.899 Other long term (current) drug therapy
CPT/HCPCS: 36415; 71045; 80048; 80076; 80305; 80307; 80329; 81001; 85025; 94640 ×2; 99284; A4606; G0480; 81000-TC

== ENCOUNTER 2018-11-23 13:40 | Inpatient (IN) | payer OTHER ==
[~2018-11-23] VITALS: Ht 162.6 cm; Wt 92.1 kg
--- NOTE | 2018-11-23 13:45 | NUR ---
patient presented to the ER BIBra from home, c/o pinpoint pupil and shortness of breath. narcan given by ems nasally. Connected to the monitor and pulse ox. kept comfortable, will continue to monitor accordingly.
[2018-11-23] MEDS ORDERED: NALOXONE PREFILLED SYRINGE 2 MG/2 ML SYRINGE ONE ×2 (14:16→17:12)
[2018-11-23 14:29] LABS: ABG OXYGEN SATURATION 89.4 % (92.0-98.5); ABG PCO2 50.1 mmHg (35.0-45.0); ABG PH 7.356 (7.350-7.450); ABG PO2 56.2 mmHg (75.0-100.0); AaDO2 84.3 mmHg; COHb 1.9 % (0.5-1.5); MetHb 0.5 % (0.0-1.5); O2Hb 87.3 % (94.0-97.0); SITE, ABG Right Radial; VENT MODE, BG NASAL CANNULA
[2018-11-23] MEDS ORDERED: NALOXONE PREFILLED SYRINGE 2 MG/2 ML SYRINGE IV ONE (14:30)
[2018-11-23] MEDS ORDERED: NALOXONE HCL 0.4 MG/ML AMPUL IV ONE (14:30)
--- NOTE | 2018-11-23 14:46 | NUR ---
CALLED [facility], PAGED DEBRA PEARSON.
[2018-11-23 16:01] LABS: BASOPHILS # (AUTO) 0.1 /CMM (0.0-0.2); BASOPHILS % (AUTO) 0.6 % (0.0-2.0); EOSINOPHILS % (AUTO) 0.3 % (0.0-6.0); HEMATOCRIT 45 % (33-45); HEMOGLOBIN 14.8 g/dL (11.5-14.8); LYMPHOCYTES # (AUTO) 0.8 /CMM (0.8-4.8); LYMPHOCYTES % (AUTO) 6.3 % (20.0-44.0); MEAN CORPUSCULAR HGB CONC 33 g/dl (31.0-36.0); MEAN CORPUSCULAR VOLUME 86 fL (82-100); MONOCYTES # (AUTO) 0.8 /CMM (0.1-1.30); MONOCYTES % (AUTO) 6.1 % (2.0-12.0); NEUTROPHILS % (AUTO) 86.7 % (43.0-81.0); PLATELET COUNT (AUTO) 117 /CMM (150-450); RED BLOOD CELL COUNT(AUTO) 5.17 MIL/uL (4.0-5.2); WHITE BLOOD COUNT (AUTO) 12.7 K/uL (4.3-11.0)
[2018-11-23 16:12] LABS: CALCIUM, SERUM 9.1 mg/dL (8.5-10.1); CARBON DIOXIDE 34 mmol/L (21-32); CHLORIDE 101 mmol/L (98-107); CREATININE 0.9 mg/dL (0.6-1.3); GLUCOSE 92 mg/dL (74-106); POTASSIUM 3.9 mmol/L (3.5-5.1); SODIUM SERUM 142 mmol/L (136-145); UREA NITROGEN, BLOOD 14 mg/dL (7-18)
[2018-11-23 16:12] LABS: APPEARANCE,URINE Clear (CLEAR); BILIRUBIN,URINE Negative (NEGATIVE); BLOOD, URINE Trace-intact Ery/uL (NEGATIVE); COLOR,URINE Yellow (YELLOW); KETONES,URINE Negative (NEGATIVE); LEUKOCYTE ESTERASE ,URINE Negative (NEGATIVE); NITRITE, URINE Negative (NEGATIVE); PROTEIN,URINE Negative (NEGATIVE); UGLUCOSE 250 MG/DL mg/dL (NEGATIVE); UROBILINOGEN,URINE 0.2 EU/dL (0.2)
[2018-11-23 16:24] LABS: BACTERIA,URINE Few /HPF (None Seen); RBC,URINE 0-3 /HPF (0-2); SQUAMOUS EPITHELIAL CELL,UR Rare /HPF (None Seen); WBC,URINE 0-3 /HPF (0-3)
[2018-11-23 16:29] LABS: ALANINE AMINOTRANSFERASE 19 U/L (12-78); ALBUMIN 3.7 g/dL (3.4-5.0); ALCOHOL, BLOOD < 3 mg/dL (0-0); ALKALINE PHOSPHATASE 72 U/L (46-116); ASPARTATE AMINOTRANSFERASE 14 U/L (15-37); BILIRUBIN,DIRECT 0.1 mg/dL (0.0-0.2); BILIRUBIN,TOTAL 0.2 mg/dL (0.2-1.0); TOTAL PROTEIN, SERUM 7.4 g/dL (6.4-8.2)
[2018-11-23 16:30] LABS: ACETAMINOPHEN 0 ug/ml (10-30); SALICYLATE 1.8 mg/dL (2.8-20.0)
[2018-11-23] MEDS ORDERED: NALOXONE HCL 0.4 MG/ML AMPUL IV PRN ×2 (16:30→17:30)
[2018-11-23] MEDS ORDERED: MAGNESIUM HYDROXIDE 30 ML UDC PO PRN (16:30)
[2018-11-23] MEDS ORDERED: ZOLPIDEM TARTRATE 5 MG TABLET PO PRN (16:30)
[2018-11-23] MEDS ORDERED: ACETAMINOPHEN 325 MG TABLET PO PRN (16:30)
[2018-11-23] MEDS ORDERED: Z GUARD REMEDY 2 OZ OINT TP PRN (16:30)
[2018-11-23] MEDS ORDERED: ONDANSETRON HCL/PF 4 MG/2 ML VIAL IVP PRN (16:30)
[2018-11-23] MEDS ORDERED: MAG HYDROX/AL HYDROX/SIMETH 30 ML UDC PO PRN (16:30)
[2018-11-23 16:37] LABS: THYROID STIMULATING HORMONE 1.253 uIU/mL (0.358-3.74)
[2018-11-23 16:38] LABS: SERUM AMMONIA 16 umol/L (11-32)
--- NOTE | 2018-11-23 17:40 | NUR ---
RN NOTES RECEIVED PATIENT FROM ER VIA [facility], PATIENT WITH DIAGNOSIS OF ALTERED MENTAL STATUS. PATIENT ABLE TO TRANSFER AND MADE SELF COMFORTABLE TO BED. ALERT AND ORIENTED X2-3, ABLE TO MAKE NEEDS KNOWN AND RESPOND APPROPRIATELY. ON OXYGEN SUPPORT VIA NASAL CANNULA WITH 2 LPM, NOT ON ANY FORM OF DISTRESS. NO SOB NOTEDAT THIS TIME. PATIENT ATTACHED TO MONITOR. SATING AT 97%. PATIENT ATTACHED TO THE MONITOR: SINUS RHYTHM ON THE MONITOR WITH HR ON THE 70'S, RR AT 16, SATS AT 97%, TEMP AT 97.8. IV ACCESS NOTED ON THE L HAND G 22 AND FREDDY PICC LINE, BOTH IN PLACE AND INTACT, NO SIGN OF INFILTRATION NOTED, PATENT ON FLUSHING. PERTINENT ASSESSMENT DONE. SKIN NOTED TO BE INTACT. PATIENT MADE COMFORTABLE AND WARMTH. ORIENTED TO THE UNIT AND THE USE OF CALL LIGHT. CALL LIGHT PLACED WITHIN REACH. SAFETY MEASURES IMPLEMENTED AND KEPT IN PLACED. WILL WAIT AND CARRY OUT ADMITTING ORDERS.
--- NOTE | 2018-11-23 17:45 | NUR ---
wheeled patient via gurney accompanied by RN and emt in no apparent distress noted. Denies any pain at this time.
[2018-11-23] MEDS: IV NS 0.9% 1,000 ML IV PRN (18:02)
[2018-11-23 19:00] VITALS: BP 150/85
--- NOTE | 2018-11-23 19:26 | NUR ---
RN NOTES ENDORSED PATIENT FOR CONTINUITY OF CARE. NOT ON ANY FORM OF DISTRESS. NO ACUTE CHANGES NOTED. ALL NURSING NEEDS ATTENDED AND MET. SAFETY MEASURES IN PLACE AT ALL TIMES. CALL LIGHT WITHIN REACH
[2018-11-23 20:00] VITALS: BP 152/75
[2018-11-23 20:33] VITALS: BP 152/75
--- NOTE | 2018-11-23 20:39 | NUR ---
WEB MARKETING COORDINATOR INITIAL NOTE RECEIVED PT AWAKE IN BED, HOB ELEVATED, AOX3, ON NC @ 2L, WELL TOLERATED, DENIES ANY PAIN AT THIS TIME, CLEAN AND DRY, ALL NEEDS ATTENDED, WITH RIC PICC LINE WELL SECURED, AND PATENT, NS @ 75 ML RUNNING WELL TOLERATED, NO S/S OF FLUID EXCESS OR INFILTRATION AT SITE, BREATHING UNLABORED, WELL REPOSITIONED, CL WR, WILL CONT' TO MONITOR.
[2018-11-23 21:00] VITALS: BP 163/79
[2018-11-23] MEDS ORDERED: ENOXAPARIN SODIUM 40 MG/0.4 ML DISP.SYRIN SQ SCH (21:00)
[2018-11-23 22:15] VITALS: BP 149/79
[2018-11-23 23:00] VITALS: BP 166/112
[2018-11-24] VITALS (13 sets, daily range): BP systolic 139–179; BP diastolic 60–104
[2018-11-24 05:25] LABS: BASOPHILS % (AUTO) 0.2 % (0.0-2.0); EOSINOPHILS % (AUTO) 0.1 % (0.0-6.0); HEMATOCRIT 44 % (33-45); HEMOGLOBIN 14.7 g/dL (11.5-14.8); LYMPHOCYTES # (AUTO) 1.3 /CMM (0.8-4.8); MEAN CORPUSCULAR HGB CONC 33 g/dl (31.0-36.0); MEAN CORPUSCULAR VOLUME 86 fL (82-100); MONOCYTES # (AUTO) 0.7 /CMM (0.1-1.30); MONOCYTES % (AUTO) 8.3 % (2.0-12.0); NEUTROPHILS # (AUTO) 6.4 /CMM (1.8-8.9); NEUTROPHILS % (AUTO) 76.4 % (43.0-81.0); PLATELET COUNT (AUTO) 99 /CMM (150-450); RED BLOOD CELL COUNT(AUTO) 5.14 MIL/uL (4.0-5.2); WHITE BLOOD COUNT (AUTO) 8.3 K/uL (4.3-11.0)
[2018-11-24 05:33] LABS: CALCIUM, SERUM 8.6 mg/dL (8.5-10.1); CREATININE 0.6 mg/dL (0.6-1.3); PHOSPHORUS 3.2 mg/dL (2.5-4.9); POTASSIUM 3.8 mmol/L (3.5-5.1)
[2018-11-24] MEDS: IV NS 0.9% 1,000 ML IV PRN (05:57)
--- NOTE | 2018-11-24 07:00 | NUR ---
VENEER GLUE SPREADER INITIAL NOTES RECEIVED PT FROM NIGHTSHIFT RN IN STABLE CONDITION. PT A/O X3. NO SOB OR ACUTE SIGNS OF DISTRESS NOTED. BREATHING IS EVEN AND UNLABORED. PT ON 2 L VIA NC AND SATING WELL. SHE DENIES ANY PAIN AT THIS TIME. LEFT UPPER ARM MIDLINE NOTED TO BE PATENT AND INTACT. NO REDNESS OR SIGNS OF INFILTRATION NOTED. PT RECEIVED NS AT 75ML/HR AND TOLERATING WELL. BED IN LOW LOCKED POSITION, SIDE RAILS UP X2, CALL LIGHT WITHIN REACH. WILL CONTINUE TO MONITOR
--- NOTE | 2018-11-24 10:52 | NUR ---
PT TRANSFERRED TO TELE ROOM 120 VIA ACLS PROTOCOL. PT TRANSFERRED WITH ALL BELONGINGS. VSS UPON TRANSFER. REPORT GIVEN TO MAKAYLA BALLESTEROS FOR LONNY
--- NOTE | 2018-11-24 10:55 | NUR ---
GALVANOMETER ASSEMBLER NOTES PATIENT TRANSFERRED TO UNIT. REPORT RECEIVED FROM AFSATU RN. PATIENT AWAKE, ALERT AND ORIENTED X 4, VERBALLY RESPONSIVE AND RESPONDS TO VERBAL AND TACTILE STIMULI. NO ACUTE DISTRESS. DENIES ANY PAIN OR DISCOMFORT AT THIS TIME. FREDDY MIDLINE IN PLACE AND PATENT, LEFT HAND IV INTACT. PATIENT PLACED ON FLOOR LAYER. NSR 76 BPM. PATIENT ORIENTED TO UNIT, STAFF, PLAN OF CARE AND VERBALIZED UNDERSTANDING. WILL CONTINUE TO MONITOR. BED LOCKED AND IN LOW POSITION. BILATERAL UPPER SIDE RAILS UP AND LOCKED. CALL LIGHT WITHIN EASY REACH
--- NOTE | 2018-11-24 12:30 | NUR ---
BATCH TRUCKER NOTES PATIENT SEEN AND EXAMINED BY DR WALSH. WITH NEW ORDER TO ADVANCE DIET TO REGULAR TEXTURED. ORDER NOTED AND CARRIED OUT. PATIENT MADE AWARE. PATIENT OBSERVED DURING LUNCH TIME. NO SWALLOWING ISSUE NOTED, NO CHEWING DIFFICULTY. DR WALSH PRESENT AT UNIT AND AWARE.
--- NOTE | 2018-11-24 12:35 | NUR ---
TRANSMISSIONS SYSTEMS OPERATOR NOTES PATIENT WITH ORDER FROM DR WALSH TO OK TO DISCHARGE HOME. PATIENT MADE AWARE AND VERBALIZED UNDERSTANDING
--- NOTE | 2018-11-24 14:55 | NUR ---
JOB ANALYST NOTES PASSENGER ELEVATOR OPERATOR REMOVED AND RETURNED TO UNIT
--- NOTE | 2018-11-24 15:07 | NUR ---
WRAP TURNER NOTES PATIENT FOR DISCHARGE HOME TODAY. DISCHARGE INSTRUCTIONS AND EDUCATION PROVIDED AND PATIENT VERBALIZED UNDERSTANDING. LEFT HAND IV AND FREDDY MIDLINE REMOVED, IV TIPS INTACT, PRESSURE DRESSING PLACED ON BOTH SITES. NO NEW SKIN BREAKDOWN NOTED. PATIENT AMBULATORY. ALL BELONGINGS COMPLETE ON DISCHARGE, NO REPORT OF MISSING INVENTORY. PATIENT LEFT UNIT AT 1500 VIA WHEELCHAIR, ACCOMPANIED BY NURSING STAFF TO PARKING LOT. LEFT HOSPITAL PREMISES VIA PRIVATE CAR WITH . AWARE.
[2018-12-05] MEDS ORDERED: PRED20TA PO (12:34)
[2018-12-05] MEDS ORDERED: FLUT1DIS3 INH (12:34)
== END 2018-11-24 15:26 | disposition home or self-care (01) | DRG 812 ==
LOC: ER 13:45 → ICU 15:22 → TELE1 11-24 10:27
PROVIDERS: ADMIT Nurse Practitioner Acute Care; ATTEND Internal Medicine
DX: T40.3X1A Poisoning by methadone, accidental (unintentional), initial encounter (principal); J96.01 Acute respiratory failure with hypoxia; G92 Toxic encephalopathy; E44.0 Moderate protein-calorie malnutrition; I11.9 Hypertensive heart disease without heart failure; J44.9 Chronic obstructive pulmonary disease, unspecified; Y92.89 Other specified places as the place of occurrence of the external cause; E78.5 Hyperlipidemia, unspecified; I25.10 Atherosclerotic heart disease of native coronary artery without angina pectoris; G47.30 Sleep apnea, unspecified; G89.4 Chronic pain syndrome; H54.61 Unqualified visual loss, right eye, normal vision left eye; Z86.19 Personal history of other infectious and parasitic diseases; E66.9 Obesity, unspecified; Z68.33 Body mass index [BMI] 33.0-33.9, adult; G43.909 Migraine, unspecified, not intractable, without status migrainosus; Z87.891 Personal history of nicotine dependence
CPT/HCPCS: 36415; 36600; 71045-TC; 80048-TC; 80061-TC; 80076-TC; 80305; 81000-TC; 82140-TC; 83605-TC; 83735-TC; 83880; 84100-TC; 84443-TC; 84484-TC; 85025-TC; 85730-TC; 87081-TC; 94799-TC; G0378; G0480; J1650; J2310; J2405; J7030

== ENCOUNTER 2018-12-03 03:48 | Inpatient (IN) | payer OTHER ==
[2018-12-03] VITALS (21 sets, daily range): BP systolic 131–163; BP diastolic 65–96
[~2018-12-03] VITALS: Ht 162.6 cm; Wt 95.3 kg
[~2018-12-03 03:48] MED LIST changes: -ASPI-1169 PO; -DIAZ5TAB PO
--- NOTE | 2018-12-03 04:10 | NUR ---
BIB W/ C/O SOB. PT A, OX4. WITH O2 SAT OF 85% ON R/A.. VSS. AFEBRILE. PT ALSO REPORTED H/A WITH HX OF MIGRAINE AND EPISODES OF N/V AT HOME. WAS PLACED ON O2 AND MONITOR.
[2018-12-03] MEDS ORDERED: methylPREDNISolone SOD SUCC 125 MG/2ML VIAL ONE (04:29)
[2018-12-03] MEDS ORDERED: HYDROMORPHONE HCL 2 MG TABLET ONE (04:30)
[2018-12-03] MEDS ORDERED: HYDROMORPHONE HCL 2 MG TABLET PO PRN (04:30)
[2018-12-03] MEDS ORDERED: IPRATROPIUM NEB FS 0.5 MG/2.5 ML AMPUL.NEB NEB ONE (04:30)
[2018-12-03] MEDS ORDERED: ONDANSETRON HCL/PF 4 MG/2 ML VIAL IVP ONE (04:30)
[2018-12-03] MEDS ORDERED: ONDANSETRON HCL/PF 4 MG/2 ML VIAL ONE (04:30)
[2018-12-03] MEDS ORDERED: methylPREDNISolone SOD SUCC 125 MG/2ML VIAL IV ONE (04:30)
[2018-12-03] MEDS ORDERED: ALBUTEROL FS 2.5 MG/3 ML VIAL.NEB NEB ONE (04:30)
[2018-12-03] MEDS ORDERED: ALBUTEROL FS 2.5 MG/3 ML VIAL.NEB ONE (04:40)
[2018-12-03] MEDS ORDERED: IPRATROPIUM NEB FS 0.5 MG/2.5 ML AMPUL.NEB ONE ×2 (04:40→19:44)
[2018-12-03 04:47] LABS: BASOPHILS % (AUTO) 0.1 % (0.0-2.0); HEMATOCRIT 44 % (33-45); HEMOGLOBIN 14.8 g/dL (11.5-14.8); LYMPHOCYTES # (AUTO) 0.3 /CMM (0.8-4.8); LYMPHOCYTES % (AUTO) 2.8 % (20.0-44.0); MEAN CORPUSCULAR HGB CONC 34 g/dl (31.0-36.0); MEAN CORPUSCULAR VOLUME 86 fL (82-100); MONOCYTES # (AUTO) 0.2 /CMM (0.1-1.30); MONOCYTES % (AUTO) 2.2 % (2.0-12.0); NEUTROPHILS # (AUTO) 10.1 /CMM (1.8-8.9); NEUTROPHILS % (AUTO) 94.9 % (43.0-81.0); PLATELET COUNT (AUTO) 115 /CMM (150-450); RED BLOOD CELL COUNT(AUTO) 5.09 MIL/uL (4.0-5.2); WHITE BLOOD COUNT (AUTO) 10.7 K/uL (4.3-11.0)
[2018-12-03 04:48] LABS: CALCIUM, SERUM 8.7 mg/dL (8.5-10.1); CARBON DIOXIDE 34 mmol/L (21-32); CHLORIDE 101 mmol/L (98-107); CREATININE 0.8 mg/dL (0.6-1.3); GLUCOSE 224 mg/dL (74-106); POTASSIUM 4.2 mmol/L (3.5-5.1); SODIUM SERUM 141 mmol/L (136-145); UREA NITROGEN, BLOOD 15 mg/dL (7-18)
[2018-12-03 05:02] LABS: ALANINE AMINOTRANSFERASE 18 U/L (12-78); ALBUMIN 3.7 g/dL (3.4-5.0); ALKALINE PHOSPHATASE 72 U/L (46-116); ASPARTATE AMINOTRANSFERASE 11 U/L (15-37); B-TYPE NATRIURETIC PEPTIDE 241 PG/ML (0-125); BILIRUBIN,DIRECT 0.1 mg/dL (0.0-0.2); BILIRUBIN,TOTAL 0.3 mg/dL (0.2-1.0); TOTAL PROTEIN, SERUM 7.3 g/dL (6.4-8.2)
--- NOTE | 2018-12-03 05:18 | NUR ---
PT'S O2 SAT DECREASED TO 30% ON RA. DR FREEMAN IS AWARE AND RT WAS INSTRUCTED TO OBTAIN THE ABG NOW.
--- NOTE | 2018-12-03 05:20 | NUR ---
ABG WAS DRAWN
[2018-12-03 05:30] LABS: ABG BASE EXCESS 4.7 mmol/L; ABG OXYGEN SATURATION 40.5 % (92.0-98.5); ABG PCO2 85.1 mmHg (35.0-45.0); ABG PH 7.239 (7.350-7.450); ABG PO2 25.9 mmHg (75.0-100.0); AaDO2 21.9 mmHg; COHb 2.3 % (0.5-1.5); MetHb 0.5 % (0.0-1.5); O2Hb 39.4 % (94.0-97.0); SITE, ABG Right Radial; VENT MODE, BG ROOM AIR
--- NOTE | 2018-12-03 05:30 | NUR ---
ABD WAS DONE AT THE BEDSIDE BY RT LAURA. PT IS GOING ON BIPAP PER DR FREEMAN.
--- NOTE | 2018-12-03 05:36 | NUR ---
RT AT THE BED SIDE TO PLACE THE PT ON BIPAP
--- NOTE | 2018-12-03 05:40 | NUR ---
PT WAS PLACED ON BIPAP BY LAURA WITH THE FOLLOWING SETTIN/5, RATE:4, FIO2:40%.
[2018-12-03] MEDS ORDERED: IOHEXOL-350 100 ML VIAL IV ONE (05:41)
--- NOTE | 2018-12-03 05:43 | NUR ---
BIPAP SETTING CHANGED TO 15/5,
--- NOTE | 2018-12-03 05:44 | NUR ---
PATIENT GOING TO ICU BED 254.
--- NOTE | 2018-12-03 06:09 | NUR ---
MULTIPLE ATTEMPT WERE DONE BY DIFFERENT NURSES TO INSERT A 18 OR 20G IV LINE TO BE ABLE TO PERFORM THE CTA AND UNSUCCESSFUL. DR. ANGELO MADE AWARE. WITH AN ORDER FOR LOVENOX AND INSERT A PICC OR A MIDLINE LATER ON THE FLOOR.
[2018-12-03] MEDS ORDERED: ENOXAPARIN SODIUM 80 MG/0.8 ML DISP.SYRIN SQ ONE ×2 (06:17→06:30)
--- NOTE | 2018-12-03 06:17 | NUR ---
DR ANGELO SPOKE TO Angy RICHARD DNP RE: PT.
--- NOTE | 2018-12-03 06:29 | NUR ---
report given to jamil BENAVIDES at ICU
--- NOTE | 2018-12-03 06:31 | NUR ---
PT WAS TRANSFERRED TO THE ICU UNDER ACLS PROTOCOL IN STABLE CONDITION.
--- NOTE | 2018-12-03 06:32 | NUR ---
ENVIRONMENTAL SERVICES AIDESTAFFING BRANCH MANAGER NOTES RECEIVED PATIENT IN BED, AWAKE, ALERT AND ORIENTED X4 ABLE TO MAKE NEEDS KNOWN. PATIENT DENIES ANY PAIN, C/O SLIGHT SOB. PATIENT DENIES MIGRAINE AT THIS TIME. PATIENT PALCED ON BIPAP, SETTINGS ORDERED, TOLERATING WELL. BEDSIDE MONITORING READING SINUS RHYTHM HR 64 BPM. RIGHT HAND #[id number] PERIPHERAL IV, SCHEDULED FOR PICC LINE INSERTION, THEN CT ANGIO WHEN LINE IS PLACED. PLAN OF CARE DISCUSSED WITH THE PATIENT, WHOM VERBALIZES UNDERSTANDING. WILL CONTINUE TO CLOSELY MONITOR
[2018-12-03] MEDS ORDERED: MAGNESIUM HYDROXIDE 30 ML UDC PO PRN (07:00)
[2018-12-03] MEDS ORDERED: ONDANSETRON HCL/PF 4 MG/2 ML VIAL IVP PRN (07:00)
[2018-12-03] MEDS ORDERED: IPRATROPIUM NEB FS 0.5 MG/2.5 ML AMPUL.NEB NEB PRN (07:00)
[2018-12-03] MEDS ORDERED: HYDROCODONE/APAP 5/325MG 1 EACH TABLET PO PRN (07:00)
[2018-12-03] MEDS ORDERED: MAG HYDROX/AL HYDROX/SIMETH 30 ML UDC PO PRN (07:00)
[2018-12-03] MEDS ORDERED: Z GUARD REMEDY 2 OZ OINT TP PRN (07:00)
[2018-12-03] MEDS: ALBUTEROL FS 2.5 MG/3 ML VIAL.NEB NEB SCH ×5 (07:20→23:07)
--- NOTE | 2018-12-03 08:06 | NUR ---
RN NOTE 0715: Received patient resting. On Bipap, satting 100%. With RH g22 PIV. A/Ox3. Signed consent for CT Pulmo angio and she declined for PICC line. Obtained order for midline. 0745: S/E by Dr. Anahi MD called Methadone clinic and restarted patient on Methadone. 0755: Dr. Christian verbalized to remove Bipap for now, noted low 90's on room air, placed on 2LPM of O2 via NC. 0800: Per Dr. Christian, she does not need CT pulmo angio, cancel order. Also cancelled order for midline for now. Per MD. may start patient on diet. 0805: RT at bedside for ABG at this time.
[2018-12-03 08:11] LABS: ABG BASE EXCESS 5.4 mmol/L; ABG OXYGEN SATURATION 91.5 % (92.0-98.5); ABG PCO2 59.5 mmHg (35.0-45.0); ABG PO2 64.5 mmHg (75.0-100.0); AaDO2 64.9 mmHg; COHb 1.8 % (0.5-1.5); MetHb 0.7 % (0.0-1.5); O2Hb 89.2 % (94.0-97.0); SITE, ABG Right Radial; VENT MODE, BG NASAL CANNILA
[2018-12-03] MEDS: methylPREDNISolone SOD SUCC 125 MG/2ML VIAL IV SCH ×3 (08:36→17:11)
[2018-12-03] MEDS: ACETAMINOPHEN 325 MG TABLET PO PRN ×2 (09:00→21:35)
[2018-12-03] MEDS: METHADONE HCL 10 MG TABLET PO SCH (09:40)
--- NOTE | 2018-12-03 11:49 | NUR ---
WOUND CARE CONSULT: PT REFUSED FULL SKIN ASSESSMENT BUT ALLOWED ASSESSMENT OF HEELS AND BACK. PT PRESENTS WITH MIDBACK SKIN STAINING AND RASH WHICH PT STATES IS CHRONIC, PRESENT ON ADMISSION. RECOMMENDATIONS MADE FOR SKIN CARE AND PROTECTION. DISCUSSED WITH NURSING STAFF. WILL SEE PRN. DYER IN AGREEMENT WITH PLAN OF CARE. Addendum: 12/03/18 at 1151 by LIVIA PEREZ WNDNU Amended: Links added.
[2018-12-03] MEDS ORDERED: IPRATROPIUM NEB FS 0.5 MG/2.5 ML AMPUL.NEB NEB SCH (13:00)
[2018-12-03] MEDS: CLOTRIMAZOLE 1% 15 GM TUBE TP SCH (17:11)
--- NOTE | 2018-12-03 17:26 | NUR ---
RN NOTE No any significant changes noted at this time. Tolerated 2LPM of O2 via NC, no change of LOC noted at this time. Will continue to monitor. Aware for the POC, will do Noc AVAPS per Pulmo.
--- NOTE | 2018-12-03 19:00 | NUR ---
Received patient awake,alert, not in any distress,converses,coherent and appropriate. On O2 via nasal cannula 2L/min, Nocturnal BIPAP . Denies any pain at this time, just on and off headache/ migraine.Independent ,gets OOB to the commode with no SOB.Comfort care done,needs attended.
[2018-12-03] MEDS: IPRATROPIUM NEB FS 0.5 MG/2.5 ML AMPUL.NEB NEB SCH ×2 (19:46→23:07)
--- NOTE | 2018-12-03 20:40 | NUR ---
PT RECEIVED ON 2L NC, AWAKE AND ALERT. NO SOB. PT RECEIVING Q4 BREATHING TX. NOC BIPAP ORDERED PER PELEG.
--- NOTE | 2018-12-03 23:37 | NUR ---
PT PLACED ON NOC BIPAP. CHANGED MASK TO Chi LIEBERMAN. RN NOTIFIED.
[2018-12-04] VITALS (22 sets, daily range): BP systolic 107–184; BP diastolic 58–96
--- NOTE | 2018-12-04 | NUR ---
Placed on BIPAP 15/5,rate=16, FIO2 40%.,tolerating well so far.
[2018-12-04] MEDS: IPRATROPIUM NEB FS 0.5 MG/2.5 ML AMPUL.NEB NEB SCH ×6 (03:23→23:45)
[2018-12-04] MEDS: ALBUTEROL FS 2.5 MG/3 ML VIAL.NEB NEB SCH ×6 (03:24→23:45)
--- NOTE | 2018-12-04 04:00 | NUR ---
Remains stable,not in nay distress,wants to be off BIPAP now. Placed on nasal cannula 2L/ mIN.
--- NOTE | 2018-12-04 04:24 | NUR ---
PT REQUESTED TO BE OFF THE MACHINE. PLACED ON 2L NC. NO SOB. WILL CONTINUE TO MONITOR. RN AT BEDSIDE.
[2018-12-04 04:35] LABS: BASOPHILS % (AUTO) 0.1 % (0.0-2.0); HEMATOCRIT 41 % (33-45); HEMOGLOBIN 13.6 g/dL (11.5-14.8); LYMPHOCYTES # (AUTO) 0.8 /CMM (0.8-4.8); LYMPHOCYTES % (AUTO) 7.9 % (20.0-44.0); MEAN CORPUSCULAR HGB CONC 34 g/dl (31.0-36.0); MEAN CORPUSCULAR VOLUME 85 fL (82-100); MONOCYTES # (AUTO) 0.5 /CMM (0.1-1.30); MONOCYTES % (AUTO) 5.4 % (2.0-12.0); NEUTROPHILS # (AUTO) 8.4 /CMM (1.8-8.9); NEUTROPHILS % (AUTO) 86.6 % (43.0-81.0); PLATELET COUNT (AUTO) 106 /CMM (150-450); RED BLOOD CELL COUNT(AUTO) 4.79 MIL/uL (4.0-5.2); WHITE BLOOD COUNT (AUTO) 9.8 K/uL (4.3-11.0)
[2018-12-04 04:39] LABS: CALCIUM, SERUM 8.8 mg/dL (8.5-10.1); CREATININE 0.7 mg/dL (0.6-1.3); MAGNESIUM 2.1 mg/dL (1.8-2.4); POTASSIUM 3.6 mmol/L (3.5-5.1)
[2018-12-04 04:58] LABS: THYROID STIMULATING HORMONE 0.374 uIU/mL (0.358-3.74)
--- NOTE | 2018-12-04 07:00 | NUR ---
Remains stable,not in any distress.Report given to to Cristiane BENAVIDES
--- NOTE | 2018-12-04 07:00 | NUR ---
RN NOTES RECEIVED PT ON BED, A/OX4, ON 2L O2 N/C , O2 SAT 935, NO SOB NOTED, ON TELE SR HR IN 70'S , PT IS ABLE TO GET UP TO BSC , VOIDING WELL, NO DISTRESS NOTED, CALL LIGHT WITHIN EASY REACH CONTINUE TO MONITOR .
[2018-12-04] MEDS: methylPREDNISolone SOD SUCC 125 MG/2ML VIAL IV SCH ×3 (08:33→16:09)
[2018-12-04] MEDS: METHADONE HCL 10 MG TABLET PO SCH (08:35)
[2018-12-04] MEDS: CLOTRIMAZOLE 1% 15 GM TUBE TP SCH ×2 (08:36→16:11)
[2018-12-04] MEDS: ACETAMINOPHEN 325 MG TABLET PO PRN ×2 (08:37→18:02)
--- NOTE | 2018-12-04 13:00 | NUR ---
RN NOTES PT OUT OF BED TO BSC , BM x1 NOTED, CONTINUE TO MONITOR .
--- NOTE | 2018-12-04 17:45 | NUR ---
RN NOTES REPORT GIVEN TO JOYCELYN BENAVIDES FOR CONTINUITY OF CARE , PT TRANSFERRED TO ROOM 115-1 GENIA STATUS IN STABLE CONDITION VIA ACLS PROTOCOL WITH ALL BELONGINGS.
--- NOTE | 2018-12-04 17:50 | NUR ---
EAR MACHINE OPERATOR OPENING NOTE RECEIVED REPORT FROM MOBILE THERAPIST ZHEN.PATIENT AXOX4.NO SOB NO DISTRESS NOTED.ON O2 VIA NASAL CANULA 2L .ON TELE MONITOR SR HR 84.PATIENT BRP.STEADY GATE.RIC MIDLINE INTACT AND PATENT .BED LOCKED AND IN LOW POSITION.CALL LIGHT IN REACH.BED ALARM ON.SRX2.WILL CONTINUE TO MONITOR.
--- NOTE | 2018-12-04 19:07 | NUR ---
PROGRAM PARAPROFESSIONAL CLOSING NOTE ENDORSED TO PM NURSE FOR LONNY.PATIENT AXOX4.IN STABLE CONDITION.
[2018-12-05] VITALS: BP 139/80
[2018-12-05] MEDS: ACETAMINOPHEN 325 MG TABLET PO PRN ×2 (00:05→08:23)
[2018-12-05 04:00] VITALS: BP 143/79
[2018-12-05] MEDS: ALBUTEROL FS 2.5 MG/3 ML VIAL.NEB NEB SCH ×3 (04:03→11:06)
[2018-12-05] MEDS: IPRATROPIUM NEB FS 0.5 MG/2.5 ML AMPUL.NEB NEB SCH ×3 (04:03→11:06)
--- NOTE | 2018-12-05 07:00 | NUR ---
RN AM SHIFT NOTE PATIENT AWAKE AND ALERT, IN BED AMBULATORY. BED IN LOW POSITION, CALL LIGHT WITHIN REACH. MILD COMPLAINTS OF BACK PAIN NOTED RELEIVED BY MEDICATION. EATING WELL, PARTICIPATING IN CARE. MIDLINE INTACT AND PATENT NO COMPLAINTS OF SOB. CONTINUE TO MONITOR.
[2018-12-05 07:19] LABS: HEMATOCRIT 42 % (33-45); HEMOGLOBIN 14.2 g/dL (11.5-14.8); LYMPHOCYTES # (AUTO) 0.9 /CMM (0.8-4.8); LYMPHOCYTES % (AUTO) 8.9 % (20.0-44.0); MEAN CORPUSCULAR HGB CONC 34 g/dl (31.0-36.0); MEAN CORPUSCULAR VOLUME 85 fL (82-100); MONOCYTES # (AUTO) 0.6 /CMM (0.1-1.30); MONOCYTES % (AUTO) 5.5 % (2.0-12.0); NEUTROPHILS % (AUTO) 85.6 % (43.0-81.0); PLATELET COUNT (AUTO) 111 /CMM (150-450); RED BLOOD CELL COUNT(AUTO) 4.92 MIL/uL (4.0-5.2); WHITE BLOOD COUNT (AUTO) 10.5 K/uL (4.3-11.0)
[2018-12-05 07:22] LABS: ALBUMIN 3.4 g/dL (3.4-5.0); BILIRUBIN,TOTAL 0.2 mg/dL (0.2-1.0); CALCIUM, SERUM 8.8 mg/dL (8.5-10.1); CREATININE 0.7 mg/dL (0.6-1.3); MAGNESIUM 2.2 mg/dL (1.8-2.4); PHOSPHORUS 3.7 mg/dL (2.5-4.9); TOTAL PROTEIN, SERUM 6.6 g/dL (6.4-8.2)
[2018-12-05] MEDS: CLOTRIMAZOLE 1% 15 GM TUBE TP SCH (08:13)
[2018-12-05] MEDS: methylPREDNISolone SOD SUCC 125 MG/2ML VIAL IV SCH (08:13)
[2018-12-05] MEDS: METHADONE HCL 10 MG TABLET PO SCH (08:13)
[2018-12-05 09:00] VITALS: BP 161/104
[2018-12-05] MEDS ORDERED: predniSONE 20 MG TABLET PO SCH (10:30)
[2018-12-05] MEDS ORDERED: FLUT1DIS3 INH (12:34)
[2018-12-05] MEDS ORDERED: PRED20TA PO (12:34)
--- NOTE | 2018-12-05 13:27 | NUR ---
IMPROVEMENT SPEC NOTE PATIENT OK FOR D/C PER MD ORDER. PATIENT SIGNED BELONGIGNS LIST, IS ABLE TO AMBULATE BY SELF, VITALS STABLE WNL. NO SHORTNESS OF BREATHE NO PAIN NOTED. PATIENT WAS GIVEN COPY OF HER RECORDS AND TOLD TO FOLLUW UP WITH OUTSIDE MD. PATIENT REFUSED PICTURES OF SKIN AND REFUSED ANY VACCINATIONS UPON DISCHARGE.
== END 2018-12-05 15:41 | disposition home or self-care (01) | DRG 133 ==
LOC: ER 03:50 → ICU 05:59 → TELE1 12-04 17:41 → TELE-TD 12-04 18:11 → TELE1 12-04 20:43
PROVIDERS: ADMIT Nurse Practitioner Acute Care; ATTEND Nurse Practitioner Acute Care
DX: J96.22 Acute and chronic respiratory failure with hypercapnia (principal); D69.6 Thrombocytopenia, unspecified; E87.2 Acidosis; E66.2 Morbid (severe) obesity with alveolar hypoventilation; F11.20 Opioid dependence, uncomplicated; J96.21 Acute and chronic respiratory failure with hypoxia; E78.5 Hyperlipidemia, unspecified; G43.909 Migraine, unspecified, not intractable, without status migrainosus; Z68.36 Body mass index [BMI] 36.0-36.9, adult; G89.4 Chronic pain syndrome; I10 Essential (primary) hypertension; Z86.19 Personal history of other infectious and parasitic diseases; T40.2X5A Adverse effect of other opioids, initial encounter; Y92.89 Other specified places as the place of occurrence of the external cause; F17.210 Nicotine dependence, cigarettes, uncomplicated; J44.9 Chronic obstructive pulmonary disease, unspecified; Z87.01 Personal history of pneumonia (recurrent)
CPT/HCPCS: 36415; 36600; 71045-TC; 80048-TC; 80053-TC; 80061-TC; 80076-TC; 82803-TC; 83605-TC; 83735-TC; 83880; 84100-TC; 84443-TC; 84484-TC; 85025-TC; 85378-TC; 87040-TC; 87081-TC; 87400; 94660; 94760-TC; 94799-TC; C1769; G0378; J1650; J2405; J2930; Q9967

== ENCOUNTER 2018-12-15 05:43 | Inpatient (IN) | payer OTHER ==
[~2018-12-15] VITALS: Ht 162.6 cm; Wt 98.9 kg
[~2018-12-15 05:43] MED LIST changes: +FLUT1DIS3 INH; +PRED20TA PO
--- NOTE | 2018-12-15 05:55 | NUR ---
BIB FROM HOME. AAOX4. DYSPNEIC AND SOB. AMBULATORY. C/O SOB AND HEADACHE 04/01. PT STATES THAT SHE WAS RECENTLY DISCHARGED FROM THIS HOSPITAL 2 WEEKS AGO FOR SOB. PT DENIES CP. PT IS NAUSEOUS WITH VOMITING PRIOR TO ARRIVAL. TO ER BED 2. PLACE ON 2LPM VIA NC.
[2018-12-15] MEDS ORDERED: IPRATROPIUM NEB FS 0.5 MG/2.5 ML AMPUL.NEB ONE (06:17)
[2018-12-15] MEDS ORDERED: ALBUTEROL FS 2.5 MG/3 ML VIAL.NEB ONE (06:17)
[2018-12-15] MEDS ORDERED: ONDANSETRON HCL/PF 4 MG/2 ML VIAL ONE (06:19)
[2018-12-15] MEDS ORDERED: CEFTRIAXONE 1GM BAG (ER ONLY) 50 ML IV ONE (06:19)
[2018-12-15] MEDS ORDERED: methylPREDNISolone SOD SUCC 125 MG/2ML VIAL ONE (06:19)
[2018-12-15] MEDS ORDERED: HYDROMORPHONE 1 MG/1 ML DISP.SYRIN ONE (06:19)
[2018-12-15 06:26] LABS: BASOPHILS % (AUTO) 0.2 % (0.0-2.0); EOSINOPHILS % (AUTO) 0.1 % (0.0-6.0); HEMATOCRIT 44 % (33-45); HEMOGLOBIN 14.4 g/dL (11.5-14.8); LYMPHOCYTES # (AUTO) 0.8 /CMM (0.8-4.8); LYMPHOCYTES % (AUTO) 5.8 % (20.0-44.0); MEAN CORPUSCULAR HGB CONC 33 g/dl (31.0-36.0); MEAN CORPUSCULAR VOLUME 86 fL (82-100); MONOCYTES # (AUTO) 0.4 /CMM (0.1-1.30); MONOCYTES % (AUTO) 3.4 % (2.0-12.0); NEUTROPHILS # (AUTO) 11.8 /CMM (1.8-8.9); NEUTROPHILS % (AUTO) 90.5 % (43.0-81.0); PLATELET COUNT (AUTO) 152 /CMM (150-450); RED BLOOD CELL COUNT(AUTO) 5.08 MIL/uL (4.0-5.2)
[2018-12-15] MEDS ORDERED: methylPREDNISolone SOD SUCC 125 MG/2ML VIAL IV ONE (06:30)
[2018-12-15] MEDS ORDERED: ONDANSETRON HCL/PF - ER 4 MG/2 ML VIAL IV ONE (06:30)
[2018-12-15] MEDS ORDERED: CEFTRIAXONE 1GM BAG (ER ONLY) 1 GM/50 ML PIGGYBACK IV ONE (06:30)
[2018-12-15] MEDS ORDERED: IPRATROPIUM NEB FS 0.5 MG/2.5 ML AMPUL.NEB NEB ONE (06:30)
[2018-12-15] MEDS ORDERED: ALBUTEROL FS 2.5 MG/3 ML VIAL.NEB NEB ONE (06:30)
[2018-12-15] MEDS ORDERED: Magnesium 1GM/D5W 100ML PREMIX 100 ML IV SCH (06:30)
[2018-12-15] MEDS ORDERED: HYDROMORPHONE INJ 0.5 MG/0.5 ML SYRINGE IM ONE (06:30)
[2018-12-15 06:34] LABS: CALCIUM, SERUM 8.7 mg/dL (8.5-10.1); CARBON DIOXIDE 34 mmol/L (21-32); CHLORIDE 98 mmol/L (98-107); CREATININE 0.8 mg/dL (0.6-1.3); GLUCOSE 148 mg/dL (74-106); POTASSIUM 4.3 mmol/L (3.5-5.1); SODIUM SERUM 138 mmol/L (136-145); UREA NITROGEN, BLOOD 19 mg/dL (7-18)
[2018-12-15] MEDS ORDERED: Magnesium 1GM/D5W 100ML PREMIX 100 ML IV ONE ×2 (06:34→06:53)
[2018-12-15 06:48] LABS: ALANINE AMINOTRANSFERASE 24 U/L (12-78); ALBUMIN 3.5 g/dL (3.4-5.0); ALKALINE PHOSPHATASE 62 U/L (46-116); ASPARTATE AMINOTRANSFERASE 15 U/L (15-37); B-TYPE NATRIURETIC PEPTIDE 185 PG/ML (0-125); BILIRUBIN,DIRECT 0.1 mg/dL (0.0-0.2); BILIRUBIN,TOTAL 0.2 mg/dL (0.2-1.0); TOTAL PROTEIN, SERUM 6.9 g/dL (6.4-8.2)
[2018-12-15 07:03] LABS: ABG BASE EXCESS 7.1 mmol/L; ABG OXYGEN SATURATION 88.7 % (92.0-98.5); ABG PCO2 66.8 mmHg (35.0-45.0); ABG PH 7.342 (7.350-7.450); ABG PO2 58.2 mmHg (75.0-100.0); AaDO2 62.6 mmHg; COHb 1.5 % (0.5-1.5); MetHb 0.6 % (0.0-1.5); O2Hb 86.8 % (94.0-97.0); SITE, ABG Right Radial; VENT MODE, BG 2L NC
--- NOTE | 2018-12-15 07:37 | NUR ---
REPORT GIVEN TO MAKAYLA LARA FOR LONNY
[2018-12-15 07:40] VITALS: BP 104/59
--- NOTE | 2018-12-15 07:40 | NUR ---
PT PLACED ON BIPAP. SETTINGS 16/5, 16 30%
[2018-12-15] MEDS ORDERED: AMLO10TA7 PO (07:45)
[2018-12-15] MEDS ORDERED: FLUT1DIS3 IH (07:45)
[2018-12-15] MEDS ORDERED: LOSA50TA39 PO (07:45)
[2018-12-15] MEDS ORDERED: ALBU18HF2 INH (07:45)
[2018-12-15] MEDS ORDERED: DIAZ10TA4 PO (07:45)
--- NOTE | 2018-12-15 07:47 | NUR ---
PAGED [facility] -- VICE PRESIDENT PHARMACY IS DR DELATORRE, AWAITING FOR RETURN CALL.
--- NOTE | 2018-12-15 08:20 | NUR ---
RT PT CAME IN FOR SOB TXS ALREADY GIVEN ABG DRAWN PLACED PT ON BIPAP PER MD ORDERS ON NOSE MASK 04/12 RR16 30% CARMEN WELL PT COMFORTABLE BAG AND MASK AT HOB. WILL CONT TO MONITOR Addendum: 12/15/18 at 0823 by CARLOS ROSARIO RT Amended: Links added.
--- NOTE | 2018-12-15 09:18 | NUR ---
TD/RN REPORT FROM ER RECEIVED REPORT FROM ER NURSE JANE FOR PT TO BE ADMITTED FOR COPD EXACERBATION UNDER THE CARE OF DR. DELATORRE. AWAITING FOR PT'S ARRIVAL.
--- NOTE | 2018-12-15 09:18 | NUR ---
REPORT GIVEN TO RACHEL. PT AWAITING TRANSFER TO FLOOR.
--- NOTE | 2018-12-15 09:43 | NUR ---
TD/COMMERCIAL ESTIMATOR TO TD - ROOM 110 PT ARRIVED VIA RNEY FROM ER. PT WALK FROM GURNEY TO BED WITHOUT DIFFICULTY OR SOB. PT A/O X 4, DENIES BEING SHORT OF BREATH, PLACED ON 2L O2 VIA N/C SATURATING @ 89%, LUNG SOUNDS CLEAR. TELE BOX PLACED, SINUS RHYTHM, HR 84. IV SITE FLUSHED, PATENT WITH NO S/S OF INFECTION, SL. ADMISSION PROTOCOLS BEING PERFORMED, PT IS COMFORTABLE, AWAITING FOR ADMITTING ORDERS. PT ORIENTED TO HER SURROUNDINGS, CL WITHIN REACHED AND SAFETY MAINTAINED. ON GOING MONITORING. Addendum: 12/15/18 at 1133 by PASCUAL HUTCHISON RN ADDENDUM: PER ER NURSE JANE, PM NURSE GAVE PT A TOTAL OF 2GM OF MAGNESIUM. CHARGE NURSE AND PHARMACY MADE AWARE.
[2018-12-15 10:00] VITALS: BP 123/80
--- NOTE | 2018-12-15 11:00 | NUR ---
TELE1/RN HEP C NOTIFIED INFECTIOUS DISEASE OF PT'S CURRENT HEP C, LEFT VOICEMAIL, CHARGE NURSE MADE AWARE.
[2018-12-15 12:00] VITALS: BP 116/68
[2018-12-15] MEDS ORDERED: ZOLPIDEM TARTRATE 5 MG TABLET PO PRN (12:00)
[2018-12-15] MEDS ORDERED: Z GUARD REMEDY 2 OZ OINT TP PRN (12:00)
[2018-12-15] MEDS ORDERED: MAG HYDROX/AL HYDROX/SIMETH 30 ML UDC PO PRN (12:00)
[2018-12-15] MEDS ORDERED: DIAZEPAM 10 MG TABLET PO PRN (12:00)
[2018-12-15] MEDS ORDERED: AZITHROMYCIN 250 MG TABLET PO ONE (12:00)
[2018-12-15] MEDS ORDERED: ONDANSETRON HCL/PF 4 MG/2 ML VIAL IVP PRN (12:00)
[2018-12-15] MEDS ORDERED: MAGNESIUM HYDROXIDE 30 ML UDC PO PRN (12:00)
[2018-12-15] MEDS ORDERED: HYDROCODONE/APAP 5/325MG 1 EACH TABLET PO PRN (12:00)
--- NOTE | 2018-12-15 14:00 | NUR ---
TELE1/RN ROUNDS NO ACUTE RESPIRATORY DISTRESS NOTED. MONITORING CONTINUED.
[2018-12-15] MEDS: IPRATROPIUM NEB FS 0.5 MG/2.5 ML AMPUL.NEB NEB SCH ×3 (15:36→23:06)
[2018-12-15] MEDS: ALBUTEROL FS 2.5 MG/3 ML VIAL.NEB NEB SCH ×3 (15:36→23:06)
[2018-12-15 16:00] VITALS: BP 135/62
--- NOTE | 2018-12-15 18:00 | NUR ---
TD/RN AFTERNOON ROUNDS NO ACUTE RESPIRATORY DISTRESS, NO CHANGE OF CONDITION. ON GOING MONITORING.
--- NOTE | 2018-12-15 19:05 | NUR ---
TELE1/RN AM SHIFT END NOTES NO ACUTE CHANGE OF CONDITION NOTED SINCE PT WAS ADMITTED TODAY. ALL NEEDS MET. PT ON 2L O2 VIA N/C SATURATING WELL. PT ENDORSED TO PM NURSE TO CONTINUE CARE. CL WITHIN REACHED AND SAFETY MAINTAINED.
--- NOTE | 2018-12-15 19:09 | NUR ---
TD RN NOTES RECEIVED PT ON BED. A/O X 4. ON NASAL CANNULA NO RESPIRATORY DISTRESS NOTED. ON TLEE MONITOR SR. IV ACCESS LFA G20 PATENT AND INTACT. HEAD OF BED ELEVATED. SIDE RAILS UP. CALL LIGHT WITHIN REACH. BED ALARM ON. WILL CONTINUE TO MONITOR PT CLOSELY.
[2018-12-15 20:00] VITALS: BP 118/70
--- NOTE | 2018-12-15 23:30 | NUR ---
TD RN NOTES PT @ BIPAP. RT AT BEDSIDE
[2018-12-16] VITALS: BP 94/58
--- NOTE | 2018-12-16 03:08 | NUR ---
TD RN NOTES PT REFUSED BIPAP.EXPLAINED RISK AND BENEFITS. PT STILL REFUSED. RT AT BEDSIDE.
[2018-12-16] MEDS: IPRATROPIUM NEB FS 0.5 MG/2.5 ML AMPUL.NEB NEB SCH ×6 (03:30→23:30)
[2018-12-16] MEDS: ALBUTEROL FS 2.5 MG/3 ML VIAL.NEB NEB SCH ×6 (03:30→23:30)
[2018-12-16 04:00] VITALS: BP 103/50
--- NOTE | 2018-12-16 07:10 | NUR ---
TD RN NOTES NO ACUTE CHANGES NOTED DURING THE SHIFT. NO RESPIRATORY DISTRESS NOTED. BED ALARM ON. WILL ENDORSE TO THE AM NURSE FOR CONTINUITY OF CARE.
[2018-12-16 07:22] LABS: BASOPHILS % (AUTO) 0.1 % (0.0-2.0); HEMATOCRIT 41 % (33-45); HEMOGLOBIN 13.4 g/dL (11.5-14.8); LYMPHOCYTES # (AUTO) 1.2 /CMM (0.8-4.8); MEAN CORPUSCULAR HGB CONC 33 g/dl (31.0-36.0); MEAN CORPUSCULAR VOLUME 86 fL (82-100); MONOCYTES # (AUTO) 0.8 /CMM (0.1-1.30); MONOCYTES % (AUTO) 6.7 % (2.0-12.0); NEUTROPHILS # (AUTO) 9.3 /CMM (1.8-8.9); NEUTROPHILS % (AUTO) 82.2 % (43.0-81.0); PLATELET COUNT (AUTO) 114 /CMM (150-450); RED BLOOD CELL COUNT(AUTO) 4.77 MIL/uL (4.0-5.2); WHITE BLOOD COUNT (AUTO) 11.3 K/uL (4.3-11.0)
[2018-12-16 07:42] LABS: CALCIUM, SERUM 8.2 mg/dL (8.5-10.1); CREATININE 0.7 mg/dL (0.6-1.3); MAGNESIUM 2.2 mg/dL (1.8-2.4); POTASSIUM 4.3 mmol/L (3.5-5.1)
[2018-12-16 08:00] VITALS: BP 124/69
--- NOTE | 2018-12-16 08:00 | NUR ---
TD/RN AM SHIFT INITIAL NOTES RECEIVED PT AWAKE IN BED, A/O X 3, COMPLAINT OF GENERALIZED PAIN RATED 9/10. NO ACUTE RESPIRATORY DISTRESS, ON 2L O2 VIA N/C SATURATING @ 94%, LUNG SOUNDS DIMINISHED TO CLEAR, RESPIRATIONS EVEN AND UNLABORED, WITH NON-PRODUCTIVE COUGH. ON TELE WITH SINUS RHYTHM, HR 76, IV SITE OCCLUDED, WILL PLACE A NEW IV SITE. AM MEDS TO BE GIVEN. CL WITHIN REACHED AND SAFETY MAINTAINED. ON GOING MONITORING.
--- NOTE | 2018-12-16 08:05 | NUR ---
TD/RN METHADONE DOSE VERIFIED WITH [facility] THAT PT TAKES 70MG OF METHADONE DAILY. PHARMACY NOTIFIED.
[2018-12-16] MEDS: LOSARTAN POTASSIUM 50 MG TABLET PO SCH (08:14)
[2018-12-16] MEDS: AMLODIPINE BESYLATE 10 MG TABLET PO SCH (08:14)
[2018-12-16] MEDS: methylPREDNISolone SOD SUCC 125 MG/2ML VIAL IV SCH (08:15)
[2018-12-16] MEDS: METHADONE HCL 10 MG TABLET PO SCH (08:15)
--- NOTE | 2018-12-16 10:25 | NUR ---
TD/RN ROUNDS - DR. DELATORRE UPDATED PT'S CONDITION. PT SEEN & EXAMINED BY DR. DELATORRE. NOTIFIED MD THAT PT SUPPOSED TO GO FOR A SLEEP STUDY BUT NEVER MATERIALIZED. ORDERED CONSULT WITH DR. ANTONIO FOR SLEEP STUDY TO FIT PT WITH C-PAP/BI-PAP AT DISCHARGE OR OUT PATIENT. NOTED.
[2018-12-16] MEDS: AZITHROMYCIN 250 MG TABLET PO SCH (11:31)
[2018-12-16 12:00] VITALS: BP 128/77
--- NOTE | 2018-12-16 12:00 | NUR ---
TD/RN NOON ROUNDS NO CHANGE OF CONDITION. MONITORING CONTINUED.
[2018-12-16 16:00] VITALS: BP 118/77
[2018-12-16] MEDS: ACETAMINOPHEN 325 MG TABLET PO PRN (16:38)
--- NOTE | 2018-12-16 19:13 | NUR ---
TD/RN AM SHIFT END NOTES NO ACUTE RESPIRATORY DISTRESS DURING THE SHIFT, ALL NEEDS MET. PT ENDORSED TO PM NURSE TO CONTINUE CARE. CL WITHIN REACHED AND SAFETY MAINTAINED.
--- NOTE | 2018-12-16 19:16 | NUR ---
TD RN NOTES RECEIVED PT ON BED. A/O X 4. ON NASAL CANNULA 2LPM NO RESPIRATORY DISTRESS NOTED. ON TELE MONITOR SINUS TACH 100. IV ACCESS ON LEFT HAND G22 PATENT AND INTACT. HEAD OF BED ELEVATED. SIDE RAILS UP. CALL LIGHT WITHIN REACH. WILL CONTINUE TO MONITOR PT CLOSELY.
[2018-12-16 20:00] VITALS: BP 130/83
[2018-12-17] VITALS: BP 118/86
[2018-12-17] MEDS: ALBUTEROL FS 2.5 MG/3 ML VIAL.NEB NEB SCH ×4 (03:08→15:30)
[2018-12-17] MEDS: IPRATROPIUM NEB FS 0.5 MG/2.5 ML AMPUL.NEB NEB SCH ×4 (03:09→15:30)
[2018-12-17 04:00] VITALS: BP 118/83
--- NOTE | 2018-12-17 07:16 | NUR ---
TD RN NOTES NO ACUTE CHANGES NOTED DURING THE SHIFT. PROVIDED COMFORT AND SAFETY. WILL ENDORSE TO THE AM NURSE FOR CONTINUITY OF CARE.
[2018-12-17 08:00] VITALS: BP 122/83
--- NOTE | 2018-12-17 08:00 | NUR ---
TD/RN AM SHIFT INITIAL NOTES RECEIVED PT AWAKE SITING BED, A/O X 3, COMPLAINT OF GENERALIZED PAIN RATED 9/10. PER PT WAS ABLE TO SLEEP WELL WITH THE BI-PAP LAST NIGHT. NO ACUTE RESPIRATORY DISTRESS, ON 2L O2 VIA N/C SATURATING @ 96%, LUNG SOUNDS DIMINISHED TO CLEAR, RESPIRATIONS EVEN AND UNLABORED, WITH NON-PRODUCTIVE COUGH. ON TELE WITH SINUS RHYTHM, HR 676, IV SITE FLUSHED PATENT WITH NO S/S OF INFECTION, SL. AM MEDS TO BE GIVEN. CL WITHIN REACHED AND SAFETY MAINTAINED. ON GOING MONITORING.
[2018-12-17] MEDS: METHADONE HCL 10 MG TABLET PO SCH (08:25)
[2018-12-17] MEDS: methylPREDNISolone SOD SUCC 125 MG/2ML VIAL IV SCH (08:26)
[2018-12-17] MEDS: LOSARTAN POTASSIUM 50 MG TABLET PO SCH (08:26)
[2018-12-17] MEDS: AMLODIPINE BESYLATE 10 MG TABLET PO SCH (08:26)
[2018-12-17 12:00] VITALS: BP 107/58
[2018-12-17] MEDS: AZITHROMYCIN 250 MG TABLET PO SCH (12:39)
[2018-12-17] MEDS: ACETAMINOPHEN 325 MG TABLET PO PRN (12:39)
--- NOTE | 2018-12-17 16:00 | NUR ---
MS1/POST ANESTHESIA ROOM NURSE - HOME DISCHARGE INSTRUCTIONS GIVEN TO PT IN PARTICULAR TO CALL TO SCHEDULE FOR SLEEP STUDY, PT VERBALIZED UNDERSTANDING. DISCHARGE DOCUMENTS GIVEN TO PT, PERSONAL BELONGINGS RETURNED TO PT AND INVENTORY LOG SIGNED OFF. IV SITE REMOVED, PRESSURE DRESSING APPLIED, NO S/S OF INFECTION. ID BAND REMOVED. PT LEFT MS1 UNIT AMBULATORY WITH STEADY GAIT IN STABLE CONDITION. ACCOMPANIED BY PT'S TO AN AWAITING PRIVATE CARE.
[2018-12-21] MEDS ORDERED: AZIT250T13 PO (12:40)
[2018-12-21] MEDS ORDERED: METH4TAB17 PO (12:40)
[2018-12-21] MEDS ORDERED: ALBU8.5H8 INH (12:40)
== END 2018-12-17 16:00 | disposition home or self-care (01) | DRG 133 ==
LOC: ER 05:48 → TELE1 09:31 → TELE-TD 17:37 → MEDSG1 12-17 13:15
PROVIDERS: ADMIT Family Medicine; ATTEND Family Medicine
PROC: 5A09457 Assistance with Respiratory Ventilation, 24-96 Consecutive Hours, Continuous Positive Airway Pressure (ICD-10-PCS; principal; 2018-12-15)
DX: J96.22 Acute and chronic respiratory failure with hypercapnia (principal); D69.6 Thrombocytopenia, unspecified; F11.20 Opioid dependence, uncomplicated; E66.2 Morbid (severe) obesity with alveolar hypoventilation; J44.1 Chronic obstructive pulmonary disease with (acute) exacerbation; G89.4 Chronic pain syndrome; J96.21 Acute and chronic respiratory failure with hypoxia; I10 Essential (primary) hypertension; Z68.37 Body mass index [BMI] 37.0-37.9, adult; G43.909 Migraine, unspecified, not intractable, without status migrainosus; E78.5 Hyperlipidemia, unspecified; B19.20 Unspecified viral hepatitis C without hepatic coma; Z90.49 Acquired absence of other specified parts of digestive tract; Z88.8 Allergy status to other drugs, medicaments and biological substances; I25.2 Old myocardial infarction; Z98.890 Other specified postprocedural states; Z79.899 Other long term (current) drug therapy; Z72.0 Tobacco use
CPT/HCPCS: 36415; 36600; 71045-TC; 80048-TC; 80061-TC; 80076-TC; 82803-TC; 83605-TC; 83735-TC; 83880; 84100-TC; 84484-TC; 85025-TC; 87040-TC; 87081-TC; 94660; 94762-TC; 94799-TC; 99082-TC; G0378; J0696; J1170; J2405; J2930; J3475

== ENCOUNTER 2018-12-31 14:51 | Inpatient (IN) | payer OTHER ==
[~2018-12-31] VITALS: Ht 162.6 cm; Wt 94.4 kg
[~2018-12-31 14:51] MED LIST changes: +ALBU18HF2 INH; +ALBU8.5H8 INH; +AMLO10TA7 PO; +AZIT250T13 PO; +DIAZ10TA4 PO; +FLUT1DIS3 IH; -FLUT1DIS3 INH; +LOSA50TA39 PO; +METH4TAB17 PO; -PRED20TA PO
[2018-12-31] MEDS ORDERED: ALBUTEROL FS 2.5 MG/3 ML VIAL.NEB CONTNEB ONE (15:30)
[2018-12-31] MEDS ORDERED: IPRATROPIUM NEB FS 0.5 MG/2.5 ML AMPUL.NEB NEB ONE (15:30)
--- NOTE | 2018-12-31 15:46 | NUR ---
SOB W/ HEADACHE X 2 DAYS. HAS HX OF MIGRAINES. STATES PAIN OF 8/10. PLACED ON 2L NC. NO ACUTE DISTRESS NOTED. AMBULATORY, AOX4, VSS, BREATHING EVENLY. ON MONITOR AND MADE COMFORTABLE. READY FOR EVAL.
[2018-12-31 15:52] LABS: BASOPHILS % (AUTO) 0.2 % (0.0-2.0); EOSINOPHILS % (AUTO) 0.1 % (0.0-6.0); HEMATOCRIT 43 % (33-45); HEMOGLOBIN 14.6 g/dL (11.5-14.8); LYMPHOCYTES % (AUTO) 8.2 % (20.0-44.0); MEAN CORPUSCULAR HGB CONC 34 g/dl (31.0-36.0); MEAN CORPUSCULAR VOLUME 87 fL (82-100); MONOCYTES # (AUTO) 0.6 /CMM (0.1-1.30); MONOCYTES % (AUTO) 5.4 % (2.0-12.0); NEUTROPHILS % (AUTO) 86.1 % (43.0-81.0); PLATELET COUNT (AUTO) 138 /CMM (150-450); WHITE BLOOD COUNT (AUTO) 11.6 K/uL (4.3-11.0)
[2018-12-31 16:00] LABS: CALCIUM, SERUM 8.8 mg/dL (8.5-10.1); CARBON DIOXIDE 34 mmol/L (21-32); CHLORIDE 97 mmol/L (98-107); CREATININE 0.6 mg/dL (0.6-1.3); GLUCOSE 129 mg/dL (74-106); SODIUM SERUM 137 mmol/L (136-145); UREA NITROGEN, BLOOD 17 mg/dL (7-18)
[2018-12-31] MEDS ORDERED: ALBUTEROL FS 2.5 MG/3 ML VIAL.NEB ONE (16:08)
[2018-12-31] MEDS ORDERED: IPRATROPIUM NEB FS 0.5 MG/2.5 ML AMPUL.NEB ONE (16:08)
--- NOTE | 2018-12-31 16:10 | NUR ---
RT AT BEDSIDE FOR BREATHING TX
[2018-12-31 16:17] LABS: ALANINE AMINOTRANSFERASE 21 U/L (12-78); ALBUMIN 3.4 g/dL (3.4-5.0); ALKALINE PHOSPHATASE 56 U/L (46-116); ASPARTATE AMINOTRANSFERASE 12 U/L (15-37); B-TYPE NATRIURETIC PEPTIDE 908 PG/ML (0-125); BILIRUBIN,TOTAL 0.4 mg/dL (0.2-1.0); TOTAL PROTEIN, SERUM 6.8 g/dL (6.4-8.2)
[2018-12-31 16:21] LABS: ABG BASE EXCESS 6.6 mmol/L; ABG OXYGEN SATURATION 95.6 % (92.0-98.5); ABG PCO2 56.4 mmHg (35.0-45.0); ABG PH 7.391 (7.350-7.450); ABG PO2 80.1 mmHg (75.0-100.0); AaDO2 169.3 mmHg; COHb 1.1 % (0.5-1.5); O2Hb 93.6 % (94.0-97.0); SITE, ABG Left Radial; VENT MODE, BG NASAL CANNULA
[2018-12-31] MEDS ORDERED: LEVOFLOXACIN 750 MG /D5W 150ML PIGGYBACK IV ONE (16:30)
[2018-12-31] MEDS ORDERED: methylPREDNISolone SOD SUCC 125 MG/2ML VIAL IV ONE (16:30)
[2018-12-31] MEDS ORDERED: LEVOFLOXACIN 750 MG /D5W 150ML 150 ML IV ONE (16:45)
[2018-12-31] MEDS ORDERED: methylPREDNISolone SOD SUCC 125 MG/2ML VIAL ONE (16:45)
[2018-12-31] MEDS ORDERED: ACETAMINOPHEN ES 500 MG TABLET ONE (17:05)
[2018-12-31] MEDS ORDERED: ACETAMINOPHEN ES 500 MG TABLET PO ONE (17:30)
--- NOTE | 2018-12-31 18:40 | NUR ---
PANEL ON-CALL PAGED
--- NOTE | 2018-12-31 19:02 | NUR ---
PT SLEEPING COMFORTABLY IN BED. NO COMPLAINTS AT THIS TIME. VSS. WILL CONT TO MONITOR.
--- NOTE | 2018-12-31 19:38 | NUR ---
REPORT GIVEN TO MAKAYLA POLLOCK FOR 328-1 TELE
[2018-12-31 19:50] VITALS: BP 149/84
[2018-12-31 20:00] VITALS: BP 149/84
--- NOTE | 2018-12-31 20:00 | NUR ---
SUPERVISOR STAVE FINISHINGRIG SITE ENGINEER NOTES RECEIVED FROM ER VIA ACLS PROTOCOL,VIA URIAH THIS 58 Y.O. FEMALE,A/O X4,AMBULATORY WITH STEADY GAIT,WITH CHIEF COMPLAINTS OF SHORTNESS OF BREATH FEW HOUR PRIOR TO ADMISSION.ALERT,ORIENTED X4,BALE TO VERBALIZED NEEDS.WITH SALINE LOCK MID LINE ON RIGHT UPPER #18 INSERTED IN ER.NOTED SKIN DRYNESS ON MID UPPER BACK.PER PATIENT IT WAS SEEN ALREADY BY WOUND NURSE ON LAST ADMISSION TWO WEEKS AGO,THAT SHE HAS A CREAM TO APPLY ON IT.O2 SAT 96% ON 2L OXYGEN VIA NASAL CANNULA.STATUS NOT IN ANY FORM OF RESPIRATORY DISTRESS.CALL LIGHT IN REACH,NEEDS ANTICIPATED.
--- NOTE | 2018-12-31 20:00 | NUR ---
[facility]
--- NOTE | 2018-12-31 20:30 | NUR ---
LANDMEN NOTES SR 92 ON TELE MONITOR
[2018-12-31] MEDS ORDERED: Z GUARD REMEDY 2 OZ OINT TP PRN (22:00)
[2018-12-31] MEDS ORDERED: ONDANSETRON HCL/PF 4 MG/2 ML VIAL IVP PRN (22:00)
[2018-12-31] MEDS ORDERED: MAGNESIUM HYDROXIDE 30 ML UDC PO PRN (22:00)
[2018-12-31] MEDS ORDERED: MAG HYDROX/AL HYDROX/SIMETH 30 ML UDC PO PRN (22:00)
[2018-12-31] MEDS ORDERED: ENOXAPARIN SODIUM 40 MG/0.4 ML DISP.SYRIN SQ ONE (22:30)
[2018-12-31] MEDS ORDERED: DIAZEPAM 10 MG TABLET PO PRN (22:30)
--- NOTE | 2018-12-31 22:30 | NUR ---
LIE DETECTOR OPERATOR NOTES STARTED ZITHROMAX 250MG PO ORDERED
--- NOTE | 2018-12-31 22:30 | NUR ---
BENZENE STILL UTILITY OPERATOR NOTES STARTED ON LOVENOX 40MG SQ GIVEN ON LEFT LOWER ABDOMEN
[2018-12-31] MEDS: AZITHROMYCIN 250 MG TABLET PO SCH (23:00)
[2018-12-31] MEDS ORDERED: CEFTRIAXONE 1 G VIAL ONE ×2 (23:04→23:15)
[2018-12-31] MEDS: CEFTRIAXONE 2 G in IV NS 0.9% 100 ML IV SCH (23:17)
--- NOTE | 2018-12-31 23:30 | NUR ---
WATER RESOURCE CONSULTANT NOTES STARTED ON ROCEPHIN 2GM IVPB,GIVEN 1GM IN D5W 50ML X 2 DOSES INFUSED 100ML EACH VIA IVPB.
[2019-01-01] VITALS (7 sets, daily range): BP systolic 107–156; BP diastolic 66–93
--- NOTE | 2019-01-01 00:35 | NUR ---
EXTERMINATION INSPECTOR NOTES SLEEPING AT THIS TIME,IV ABX TOLERATED WELL.IN NO ACUTE DISTRESS.VITAL SIGNS STABLE.
--- NOTE | 2019-01-01 00:40 | NUR ---
state historical society director notes Received Pt from [facility]. Pt is alert and oriented X4. Pt is resting in bed comfortably with eyes closed. Awaken easily. Respiration is clear and unlabored. NO SOB. Pt denies any pain or discomfort. Pt is on tile conduit layer-SR. IV sites is at RIC midline #18 G. Safety precaution is maintained. Bed at low position and call light is within reach. Will continue to monitor.
[2019-01-01] MEDS: IPRATROPIUM NEB FS 0.5 MG/2.5 ML AMPUL.NEB NEB SCH ×4 (01:50→20:39)
[2019-01-01] MEDS: ALBUTEROL FS 2.5 MG/0.5 ML VIAL.NEB NEB SCH ×4 (01:50→20:39)
--- NOTE | 2019-01-01 01:50 | NUR ---
orthotist/prosthetist notes RT at the bed side for breathing treatment.
[2019-01-01] MEDS: ACETAMINOPHEN 325 MG TABLET PO PRN ×2 (04:38→13:33)
--- NOTE | 2019-01-01 04:44 | NUR ---
compacting machine operator/tender notes Administered Acetaminophen 325 mg/2 Tab/PO as ordered for headache per Pt request.
--- NOTE | 2019-01-01 07:10 | NUR ---
BODY STYLIST NOTES PATIENT IN BED ALERT ORIENTED X 4.NO ACUTE DISTRESS NOTED, BREATHING UNLABORED. NO SOB NOTED. IV ACCESS PATIENT AND INTACT, NO REDNESS OR SWELLING NOTED. SAFETY MEASURES IN PLACE. CALL LIGHT WITHIN REACH. WILL CONTINUE TO MONITOR ACCORDINGLY.
--- NOTE | 2019-01-01 07:11 | NUR ---
antenna machine operator closing notes Pt is resting in bed comfortably with eyes closed. Awaken easily. Pt is on 2 L NC. Respiration is clear and unlabored. No SOB. No S/S of distress noted. Pt is on monitor tech-SR. IV sites on RIC midline is intact, patent and flush without resistance. All routine meds have been given including PRN meds as ordered. All needs met. Safety precaution is maintained. Bed at low position and call light is within reach. Will endorse to morning nurse for LONNY.
[2019-01-01 07:24] LABS: CALCIUM, SERUM 8.9 mg/dL (8.5-10.1); CREATININE 0.6 mg/dL (0.6-1.3); MAGNESIUM 2.1 mg/dL (1.8-2.4); POTASSIUM 3.5 mmol/L (3.5-5.1)
[2019-01-01 07:32] LABS: THYROID STIMULATING HORMONE 0.534 uIU/mL (0.358-3.74)
[2019-01-01 07:43] LABS: BASOPHILS % (AUTO) 0.1 % (0.0-2.0); HEMATOCRIT 45 % (33-45); LYMPHOCYTES # (AUTO) 0.5 /CMM (0.8-4.8); LYMPHOCYTES % (AUTO) 5.9 % (20.0-44.0); MEAN CORPUSCULAR HGB CONC 33 g/dl (31.0-36.0); MEAN CORPUSCULAR VOLUME 87 fL (82-100); MONOCYTES # (AUTO) 0.2 /CMM (0.1-1.30); MONOCYTES % (AUTO) 2.5 % (2.0-12.0); NEUTROPHILS # (AUTO) 8.5 /CMM (1.8-8.9); NEUTROPHILS % (AUTO) 91.5 % (43.0-81.0); PLATELET COUNT (AUTO) 120 /CMM (150-450); RED BLOOD CELL COUNT(AUTO) 5.19 MIL/uL (4.0-5.2); WHITE BLOOD COUNT (AUTO) 9.3 K/uL (4.3-11.0)
[2019-01-01] MEDS: PANTOPRAZOLE 40 MG TABLET.DR PO SCH (08:22)
[2019-01-01] MEDS: methylPREDNISolone SOD SUCC 125 MG/2ML VIAL IV SCH ×3 (08:22→17:47)
[2019-01-01] MEDS: AMLODIPINE BESYLATE 10 MG TABLET PO SCH (08:23)
[2019-01-01] MEDS: LOSARTAN POTASSIUM 50 MG TABLET PO SCH (08:23)
--- NOTE | 2019-01-01 16:32 | NUR ---
MS RN NOTES RECEIVED NEW ORDERS FROM DR CESAR FOR ESOPHAGRAM , NOTED AND CARRIED OUT.
--- NOTE | 2019-01-01 19:00 | NUR ---
MS RN NOTES PATIENT IN BED ALERT ORIENTED X 4.NO ACUTE DISTRESS NOTED, BREATHING UNLABORED. NO SOB NOTED. IV ACCESS PATENT AND INTACT, NO REDNESS OR SWELLING NOTED. DUE MEDICATIONS GIVEN, NO ASE NOTED.NEEDS ATTENDED AND ANTICIPATED. KEPT CLEAN DRY AND COMFORTABLE.SAFETY MEASURES IN PLACE. CALL LIGHT WITHIN REACH. WILL ENDORSE TO NIGHT NURSE FOR CONTINUITY OF CARE.
--- NOTE | 2019-01-01 19:37 | NUR ---
MS/RN OPENING NOTES RECEIVED PATIENT IN BED RESTING COMFORTABLY IN BED,RESPIRATIONS EVEN AND UNLABORED, ON OXYGEN VIA NASAL CANULA AT 2L, ALERT, ORIETNED X3 ABLE TO VERBALIZE NEEDS, SKIN WARM TO TOUCH, ENDORSEMENT RECEIVED FROM AM RN FOR LONNY, PLAN OF CARE DISCUSSED, FOR ESPOPHAGRAM JUVENAL, ON MIDLINE RIGHT UPPER ARM WITH NO S/S OF INFILYRATION. BED LOCKED, CALL LIGHTS WITHIN REACH, MD ORDER TO CONTINUE BIPAP AT NIGHT TO F/U WITH RT. WILL MONITOR.
[2019-01-01] MEDS: ENOXAPARIN SODIUM 40 MG/0.4 ML DISP.SYRIN SQ SCH (20:08)
[2019-01-01] MEDS: SIMVASTATIN 20 MG TABLET PO SCH (21:11)
[2019-01-01] MEDS: AZITHROMYCIN 250 MG TABLET PO SCH (21:50)
[2019-01-01] MEDS: CEFTRIAXONE 2 G in IV NS 0.9% 100 ML IV SCH (21:50)
[2019-01-01] MEDS: ZOLPIDEM TARTRATE 5 MG TABLET PO PRN (22:47)
--- NOTE | 2019-01-01 22:48 | NUR ---
MS/RN NOTES PATIENT REQUESTED SLEEPING MEDICATION AMBIEN , INABILITY TO SLEEP. WILL MONITOR.
--- NOTE | 2019-01-02 | NUR ---
pt placed on bipap on settings ordered per dr villatoro request. mepilex in place. bipap plugged into red outlet. alarms are set and audible. will continue to monitor closely Addendum: 01/02/19 at 0021 by JONATHON MCCORMACK RT Amended: Links added.
[2019-01-02] MEDS: ALBUTEROL FS 2.5 MG/0.5 ML VIAL.NEB NEB SCH ×4 (01:13→19:48)
[2019-01-02] MEDS: IPRATROPIUM NEB FS 0.5 MG/2.5 ML AMPUL.NEB NEB SCH ×4 (01:13→19:48)
--- NOTE | 2019-01-02 03:08 | NUR ---
LATE ENTRY pt placed on bipap @ 0000. mepilex in place. bipap plugged into red outlet. PT BIPAP TAKEN OFF PER PATIENT REQUEST @0308 AND PLACED ON 2LNC. RN AWARE. WILL CONTINUE TO MONITOR. Addendum: 01/02/19 at 0321 by JONATHON MCCORMACK RT Amended: Links added.
--- NOTE | 2019-01-02 06:40 | NUR ---
328-1 MS/RN NOTES PATIENT ABLE TO SLEEP DUTING THE NIGHT, MONITORED FOR ANY CHANGES, ON BIPAP AT NIGHT, BED LOCKED, CALL LIGHTS WITHIN REACH, WILL ENDORSE TO AM RN FOR LONNY.
[2019-01-02 06:53] LABS: BASOPHILS % (AUTO) 0.1 % (0.0-2.0); HEMATOCRIT 42 % (33-45); LYMPHOCYTES # (AUTO) 0.8 /CMM (0.8-4.8); LYMPHOCYTES % (AUTO) 6.8 % (20.0-44.0); MEAN CORPUSCULAR HGB CONC 33 g/dl (31.0-36.0); MEAN CORPUSCULAR VOLUME 86 fL (82-100); MONOCYTES # (AUTO) 0.4 /CMM (0.1-1.30); MONOCYTES % (AUTO) 3.1 % (2.0-12.0); NEUTROPHILS # (AUTO) 11.1 /CMM (1.8-8.9); PLATELET COUNT (AUTO) 115 /CMM (150-450); RED BLOOD CELL COUNT(AUTO) 4.88 MIL/uL (4.0-5.2); WHITE BLOOD COUNT (AUTO) 12.3 K/uL (4.3-11.0)
[2019-01-02 07:04] LABS: CALCIUM, SERUM 9.1 mg/dL (8.5-10.1); CREATININE 0.6 mg/dL (0.6-1.3); MAGNESIUM 2.1 mg/dL (1.8-2.4); POTASSIUM 3.9 mmol/L (3.5-5.1)
[2019-01-02] MEDS: PANTOPRAZOLE 40 MG TABLET.DR PO SCH (07:31)
--- NOTE | 2019-01-02 07:58 | NUR ---
MS/RN - Assessment Patient is awake, A/O x 4, no complaints overnight, denies pain at this time, no apparent distress noted, afebrile, on oxygen at 2lpm via NC. Midline on the RUE is patent, intact, with no signs of infiltration. Patient scheduled for esophagram today, NPO for now. Fall and aspiration precautions maintained. Plan of care discussed with patient and in agreement. Will continue with current medical management.
--- NOTE | 2019-01-02 08:00 | NUR ---
MS/RN - S/b Dr. Simmons Seen and examined by Dr. Simmons with lab orders for tomorrow.
[2019-01-02 08:26] VITALS: BP 119/90
[2019-01-02] MEDS: methylPREDNISolone SOD SUCC 125 MG/2ML VIAL IV SCH ×3 (08:37→16:58)
[2019-01-02] MEDS: AMLODIPINE BESYLATE 10 MG TABLET PO SCH (08:38)
[2019-01-02] MEDS: LOSARTAN POTASSIUM 50 MG TABLET PO SCH (08:38)
[2019-01-02] MEDS ORDERED: DIATR MEGLU/DIATRIZOATE SODIUM 120 ML BOTTLE (GASTROGRAPHIN) ONE (09:14)
[2019-01-02] MEDS ORDERED: BARIUM SULFATE SUSP 450 ML BOTTLE PO ONE (09:15)
--- NOTE | 2019-01-02 09:15 | NUR ---
MS/RN - Notes Patient taken to radiology for esophagram in no acute distress.
[2019-01-02] MEDS ORDERED: BARIUM SULFATE 98% 135 ML SUSP.RECON PO ONE (09:16)
--- NOTE | 2019-01-02 09:45 | NUR ---
MS/RN - Notes Patient came back from esophagram, breakfast given, needs attended.
--- NOTE | 2019-01-02 11:15 | NUR ---
MS/RN - Notes Patient sleeping, no apparent distress, no s/s of pain. Will continue to monitor.
[2019-01-02] MEDS: ACETAMINOPHEN 325 MG TABLET PO PRN (12:51)
--- NOTE | 2019-01-02 14:45 | NUR ---
MS/RN - Notes Patient resting comfortably, no apparent distress, denies pain. All needs attended.
--- NOTE | 2019-01-02 15:10 | NUR ---
MS/RN - S/b Dr. Pinto Seen and examined by Dr. Pinto.
[2019-01-02 16:00] VITALS: BP 110/69
--- NOTE | 2019-01-02 17:50 | NUR ---
MS/RN - End of shift summary No significant change in condition seen, denies shortness of breath, tolerating low flow oxygen, feels better, no c/o pain, esophagram is unremarkable. Midline on the RUE is patent, intact, with no signs of infiltration. Continue steroids, breathing treatment and Rocephin. Will continue with current medical management.
--- NOTE | 2019-01-02 19:15 | NUR ---
ms rn opening note. bedside report recieved from mahad aquino. patient seen reviewed poc questions concerns addressed. paient here for copd exac denies sob. using 2 lnc. bed down locked verbalized understanding to call for assistance as needed. call ligth in reach sr x2.
[2019-01-02 20:00] VITALS: BP 124/72
--- NOTE | 2019-01-02 21:13 | NUR ---
RT NOTE PATIENT RECEIVED ON 32% NASAL CANNULA. PATIENT AWAKE/ALERT. BIPAP @ BEDSIDE. TX GIVEN, NO ADVERSE REACTIONS NOTED. PATIENT REFUSED BIPAP AND REQUESTED TO BE ON BIPAP @ 0000. NO DISTRESS NOTED AT THIS TIME. WILL MONITOR.
[2019-01-02] MEDS: ENOXAPARIN SODIUM 40 MG/0.4 ML DISP.SYRIN SQ SCH (22:54)
[2019-01-02] MEDS: AZITHROMYCIN 250 MG TABLET PO SCH (22:54)
[2019-01-02] MEDS: CEFTRIAXONE 2 G in IV NS 0.9% 100 ML IV SCH (22:55)
[2019-01-02] MEDS: SIMVASTATIN 20 MG TABLET PO SCH (22:55)
[2019-01-02] MEDS: ZOLPIDEM TARTRATE 5 MG TABLET PO PRN (22:55)
[2019-01-03] MEDS: ALBUTEROL FS 2.5 MG/0.5 ML VIAL.NEB NEB SCH ×3 (00:57→13:18)
[2019-01-03] MEDS: IPRATROPIUM NEB FS 0.5 MG/2.5 ML AMPUL.NEB NEB SCH ×3 (00:57→13:18)
--- NOTE | 2019-01-03 00:58 | NUR ---
RT NOTE PATIENT PLACED ON BIPAP AT THIS TIME. PATIENT REFUSED TX AFTER EXPLAINING RISKS AND BENEFITS. NO SOB NOTED. NURSE, MELANI FARAH. WILL CONTINUE TO MONITOR.
--- NOTE | 2019-01-03 02:41 | NUR ---
rocephin 12/31/[address] past due and still in emar.
--- NOTE | 2019-01-03 04:00 | NUR ---
RT NOTE PATIENT OFF BIPAP AT THIS TIME. PATIENT AWAKE/ALERT. PATIENT REQUESTED TO BE OFF. NURSE, MELANI FARAH. NO SOB NOTED.
[2019-01-03 05:14] LABS: APPEARANCE,URINE CLEAR (CLEAR); BILIRUBIN,URINE NEGATIVE (NEGATIVE); BLOOD, URINE NEGATIVE Ery/uL (NEGATIVE); COLOR,URINE YELLOW (YELLOW); KETONES,URINE NEGATIVE (NEGATIVE); LEUKOCYTE ESTERASE ,URINE NEGATIVE (NEGATIVE); NITRITE, URINE NEGATIVE (NEGATIVE); PROTEIN,URINE NEGATIVE (NEGATIVE); UGLUCOSE NEGATIVE (NEGATIVE); UROBILINOGEN,URINE 0.2 EU/dL (0.2)
[2019-01-03] MEDS: PANTOPRAZOLE 40 MG TABLET.DR PO SCH (06:56)
--- NOTE | 2019-01-03 07:03 | NUR ---
rn closing note pm bedside report given to marilee aquino. patient on 2lnc denies sob. denies pain. patient ambulates safely independently. reviewed poc questions concerns addressed. bed down locked call light in reach. patient only used bipap last night between midnight and was taken off around 4 am. patient verbalized understanding to call for assistance if needed.
--- NOTE | 2019-01-03 07:13 | NUR ---
MS RN OPENING NOTES RECEIVED PATIENT AWAKE IN BED IN NO ACUTE SIGNS OF DISTRESS. HOB ELEVATED. A/O X4. ABLE TO MAKE NEEDS KNOWN, DENIES PAIN OR ANY DISCOMFORTS AT THIS TIME. ON 02 VIA N/C @ 2LPM, TOLERATING WELL, RESPIRATIONS EVEN AND UNLABORED. MIDLINE ON RIC G#18 INTACT AND PATENT. SAFETY MEASURES IN PLACE. BED IN LOW LOCKED POSITION WITH SR UP X2. CALL LIGHT IN REACH. WILL CONTINUE TO MONITOR ACCORDINGLY.
[2019-01-03 07:28] LABS: BASOPHILS % (AUTO) 0.1 % (0.0-2.0); HEMATOCRIT 41 % (33-45); HEMOGLOBIN 13.6 g/dL (11.5-14.8); LYMPHOCYTES # (AUTO) 0.8 /CMM (0.8-4.8); LYMPHOCYTES % (AUTO) 7.1 % (20.0-44.0); MEAN CORPUSCULAR HGB CONC 33 g/dl (31.0-36.0); MEAN CORPUSCULAR VOLUME 87 fL (82-100); MONOCYTES # (AUTO) 0.4 /CMM (0.1-1.30); MONOCYTES % (AUTO) 3.9 % (2.0-12.0); NEUTROPHILS # (AUTO) 9.9 /CMM (1.8-8.9); NEUTROPHILS % (AUTO) 88.9 % (43.0-81.0); PLATELET COUNT (AUTO) 109 /CMM (150-450); RED BLOOD CELL COUNT(AUTO) 4.75 MIL/uL (4.0-5.2); WHITE BLOOD COUNT (AUTO) 11.2 K/uL (4.3-11.0)
[2019-01-03 07:41] LABS: CALCIUM, SERUM 8.5 mg/dL (8.5-10.1); CREATININE 0.7 mg/dL (0.6-1.3); MAGNESIUM 2.3 mg/dL (1.8-2.4); PHOSPHORUS 3.9 mg/dL (2.5-4.9)
[2019-01-03 08:00] VITALS: BP 138/91
[2019-01-03] MEDS ORDERED: SIMV20TA6 PO (08:07)
[2019-01-03] MEDS ORDERED: PANT40TA2 PO (08:07)
[2019-01-03] MEDS ORDERED: PRED10TA23 PO (08:07)
[2019-01-03] MEDS ORDERED: AZIT250T PO (08:07)
[2019-01-03] MEDS: methylPREDNISolone SOD SUCC 125 MG/2ML VIAL IV SCH ×2 (08:27→12:28)
[2019-01-03 08:28] VITALS: BP 138/91
[2019-01-03] MEDS: AMLODIPINE BESYLATE 10 MG TABLET PO SCH (08:28)
[2019-01-03] MEDS: LOSARTAN POTASSIUM 50 MG TABLET PO SCH (08:28)
--- NOTE | 2019-01-03 12:57 | NUR ---
RN NOTES PATIENT FOR DISCHARGE HOME THIS AFTERNOON. CM ASKED TO CHECK PT'S SP02 ON ROOM AIR AND WAS 94-95%. WILL CONTINUE TO MONITOR.
--- NOTE | 2019-01-03 14:44 | NUR ---
CHARGEBACK SPECIALIST NOTES PATIENT DISCHARGED HOME IN STABLE CONDITION. A/O X4 AND ABLE TO MAKE NEEDS KNOWN. ALL DUE NURSING CARE DONE. V/S TAKEN AND RECORDED. PHOTO OF SKIN ISSUE ON HER BACK TAKEN AND FILED ON CHART. BELONGINGS LIST CHECKED AND SIGNED. MIDLINE ON RIC REMOVED WITH NO BLEEDING NOTED, PRESSURE GAUZE APPLIED. NAME ARMBAND REMOVED. HEALTH TEACHINGS/DISCHARGE INSTRUCTIONS GIVEN TO PT AND VERBALIZED UNDERSTANDING. NEW PRESCRIPTIONS HANDED TO PT. PT LEFT UNIT @1440. AMBULATORY ACCOMPANIED BY . MD AND CHARGE NURSE AWARE OF DISCHARGE.
== END 2019-01-03 14:45 | disposition home or self-care (01) | DRG 133 ==
LOC: ER 14:56 → TELE 18:37 → MED 01-01 15:49
PROVIDERS: ADMIT Registered Nurse; ATTEND Student in an Organized Health Care Education/Training Program
PROC: 05H533Z Insertion of Infusion Device into Right Subclavian Vein, Percutaneous Approach (ICD-10-PCS; principal; 2018-12-31)
DX: J96.22 Acute and chronic respiratory failure with hypercapnia (principal); J15.9 Unspecified bacterial pneumonia; D69.6 Thrombocytopenia, unspecified; F11.20 Opioid dependence, uncomplicated; E66.2 Morbid (severe) obesity with alveolar hypoventilation; J44.0 Chronic obstructive pulmonary disease with (acute) lower respiratory infection; J44.1 Chronic obstructive pulmonary disease with (acute) exacerbation; E78.5 Hyperlipidemia, unspecified; F41.9 Anxiety disorder, unspecified; G43.909 Migraine, unspecified, not intractable, without status migrainosus; I25.2 Old myocardial infarction; I10 Essential (primary) hypertension; G89.4 Chronic pain syndrome; M19.90 Unspecified osteoarthritis, unspecified site; Z86.19 Personal history of other infectious and parasitic diseases; F17.210 Nicotine dependence, cigarettes, uncomplicated; Z68.35 Body mass index [BMI] 35.0-35.9, adult; R13.10 Dysphagia, unspecified; M35.1 Other overlap syndromes
CPT/HCPCS: 36415; 36600; 70220-TC; 71045-TC; 74230-TC; 80048-TC; 80061-TC; 80076-TC; 81000-TC; 82803-TC; 83605-TC; 83735-TC; 83880; 84100-TC; 84443-TC; 84484-TC; 85025-TC; 87040-TC; 87070-TC; 87081-TC; 94799-TC; 97116-TC; 97530-TC; G0378; J0696; J1650; J1956; J2930; J7030; Q9963

== ENCOUNTER 2019-01-12 14:52 | Inpatient (IN) | payer OTHER ==
[~2019-01-12] VITALS: Ht 160 cm; Wt 100.2 kg
[~2019-01-12 14:52] MED LIST changes: +AZIT250T PO; -AZIT250T13 PO; -METH4TAB17 PO; +PANT40TA2 PO; +PRED10TA23 PO; +SIMV20TA6 PO
[2019-01-12] MEDS ORDERED: IPRATROPIUM NEB FS 0.5 MG/2.5 ML AMPUL.NEB NEB ONE (15:30)
[2019-01-12] MEDS ORDERED: methylPREDNISolone SOD SUCC 125 MG/2ML VIAL IV ONE (15:30)
[2019-01-12] MEDS ORDERED: METOCLOPRAMIDE HCL 10 MG/2 ML VIAL IV ONE (15:30)
[2019-01-12] MEDS ORDERED: ALBUTEROL FS 2.5 MG/3 ML VIAL.NEB NEB ONE (15:30)
[2019-01-12] MEDS ORDERED: methylPREDNISolone SOD SUCC 125 MG/2ML VIAL ONE (15:31)
--- NOTE | 2019-01-12 15:36 | NUR ---
pt rec'd to er c/o pain bailey sob was here one week ago for same thing iv started 22 rt wrist labs drawn sent to lab xray done AWAITING EVALUATION BY ER PROVIDER.
--- NOTE | 2019-01-12 15:37 | NUR ---
solumedrol given per md order vsss cont to monitor
[2019-01-12] MEDS ORDERED: METOCLOPRAMIDE HCL 10 MG/2 ML VIAL ONE (15:40)
[2019-01-12] MEDS ORDERED: ALBUTEROL FS 2.5 MG/3 ML VIAL.NEB ONE (15:47)
[2019-01-12] MEDS ORDERED: IPRATROPIUM NEB FS 0.5 MG/2.5 ML AMPUL.NEB ONE (15:47)
[2019-01-12 15:52] LABS: BASOPHILS % (AUTO) 0.3 % (0.0-2.0); CALCIUM, SERUM 8.9 mg/dL (8.5-10.1); CREATININE 0.6 mg/dL (0.6-1.3); EOSINOPHILS % (AUTO) 0.4 % (0.0-6.0); HEMATOCRIT 44 % (33-45); HEMOGLOBIN 14.5 g/dL (11.5-14.8); LYMPHOCYTES # (AUTO) 2.2 /CMM (0.8-4.8); LYMPHOCYTES % (AUTO) 19.1 % (20.0-44.0); MEAN CORPUSCULAR HGB CONC 33 g/dl (31.0-36.0); MEAN CORPUSCULAR VOLUME 88 fL (82-100); MONOCYTES # (AUTO) 0.8 /CMM (0.1-1.30); MONOCYTES % (AUTO) 7.1 % (2.0-12.0); NEUTROPHILS # (AUTO) 8.3 /CMM (1.8-8.9); NEUTROPHILS % (AUTO) 73.1 % (43.0-81.0); PLATELET COUNT (AUTO) 149 /CMM (150-450); POTASSIUM 4.2 mmol/L (3.5-5.1); RED BLOOD CELL COUNT(AUTO) 4.97 MIL/uL (4.0-5.2); WHITE BLOOD COUNT (AUTO) 11.4 K/uL (4.3-11.0)
[2019-01-12 16:05] LABS: ALBUMIN 3.5 g/dL (3.4-5.0); BILIRUBIN,TOTAL 0.4 mg/dL (0.2-1.0); TOTAL PROTEIN, SERUM 6.7 g/dL (6.4-8.2)
--- NOTE | 2019-01-12 16:44 | NUR ---
pt sleeping resp even unlabored o2 n/c 4l 93%
[2019-01-12] MEDS ORDERED: SIMV20TA6 PO (16:58)
[2019-01-12] MEDS ORDERED: PANT40TA2 PO (16:58)
[2019-01-12 17:07] LABS: ABG BASE EXCESS 7.7 mmol/L; ABG OXYGEN SATURATION 91.8 % (92.0-98.5); ABG PCO2 63.3 mmHg (35.0-45.0); ABG PH 7.367 (7.350-7.450); ABG PO2 65.4 mmHg (75.0-100.0); COHb 1.3 % (0.5-1.5); MetHb 0.6 % (0.0-1.5); O2Hb 90.1 % (94.0-97.0); SITE, ABG Right Radial; VENT MODE, BG NASAL CANNULA
--- NOTE | 2019-01-12 18:03 | NUR ---
RT PUT PT ON 40% NASAL NAA SATS 95% 4L STATBLE FOR TRANSFER TO FLOOR
--- NOTE | 2019-01-12 18:05 | NUR ---
RN NOTES RECEIVED PATIENT FROM ER VIA URIAH, PATIENT A/A/OX 4, ABLE TO RESPOND APPROPRIATELY AND MAKE NEEDS KNOWN. WITH SOB ON EXERTION, ON HIGH FLOW OXYGEN AT 40 % FI02, SATING WELL, NO COMPLAINTS OF ANY PAIN AT THIS TIME. PATIENT MADE COMFORTABLE AND WARMTH IN BED, VITAL SIGNS TAKEN AND NOTED. ATTACHED TO THE TELEMONITOR: NOTED SINUS RHYTHM WITH HR ON THE 70'S. DANYEL ASSESSMENT DONE: SKIN INTACT. IC SITE NOTED ON THE R HAND G 18, IN PLACE AND INTACT, PATENT ON FLUSHING. CDI. PERTINENT MEDICAL INFORMATIONS OBTAINED FROM THE PATIENT THROUGH THE INTERVIEW. PATIENT ORIENTED TO UNIT AND USE OF CALL LIGHT. CALL LIGHT PLACE WITHIN REACH. SAFETY MEASURES OBSERVED AND MAINTAINED. BED LOW AND LOCKED POSITIONED. WILL CONTINUE TO MONITOR AND ANTICIPATE NEEDS
[2019-01-12 18:26] VITALS: BP 119/66
--- NOTE | 2019-01-12 18:30 | NUR ---
RN NOTES PAGED NURYS LY DNP FOR ADMITTING ORDERS. AWAITING ORDERS
[2019-01-12] MEDS ORDERED: ONDANSETRON HCL/PF 4 MG/2 ML VIAL IVP PRN (19:00)
[2019-01-12] MEDS ORDERED: MAG HYDROX/AL HYDROX/SIMETH 30 ML UDC PO PRN (19:00)
[2019-01-12] MEDS ORDERED: Z GUARD REMEDY 2 OZ OINT TP PRN (19:00)
[2019-01-12] MEDS ORDERED: MAGNESIUM HYDROXIDE 30 ML UDC PO PRN (19:00)
[2019-01-12] MEDS ORDERED: ZOLPIDEM TARTRATE 5 MG TABLET PO PRN (19:00)
[2019-01-12] MEDS ORDERED: ACETAMINOPHEN 325 MG TABLET PO PRN (19:00)
[2019-01-12 19:02] VITALS: BP 119/66
--- NOTE | 2019-01-12 19:32 | NUR ---
TELE/RN ENTRY NOTES RECEIVED PATIENT IN BED, RESTING COMFORTABLY AT THIS TIME. NO S/S OF ACUTE DISTRESS NOTED. RESPIRATION EVEN AND UNLABORED. NO SOB NOTED. PATIENT ON HIGH FLOW O2 WITH 10 LITTERS VIA NASAL CANULA, GETTING 40% FIO2 AND 50% AIR. WITH SATURATION OF 97%. RIGHT HAND, GAUGE 18 SL NOTED WITH NO S/S OF INFECTION/ INFILTRATION. PATIENT A/O X4, ABLE TO MAKE NEEDS KNOWN, DENIES ANY PAIN OR DISCOMFORT AT THIS TIME. PATIENT ON TELE MONITOR WITH WITH SR WITH PAV/PVS @67. SAFETY MAINTAINED. BED AT THE LOWEST POSITION, LOCKED. CALL LIGHT WITHIN REACH. WILL CONTINUE TO MONITOR PATIENT CONDITION PER PLAN OF CARE.
--- NOTE | 2019-01-12 19:42 | NUR ---
RN NOTES' ENDORSED PATIENT FOR CONTINUITY OF CARE. NOT ON ANY FORM OF DISTRESS. NO ACUTE CHANGES WITHIN THIS SHIFT. ALL NURSING NEEDS ATTENDED AND MET. CALL LIGHT WITHIN REACH. SAFETY MEASURES IN PLACE AT ALL TIME
[2019-01-12 20:00] VITALS: BP 128/74
[2019-01-12] MEDS: ALBUTEROL FS 2.5 MG/3 ML VIAL.NEB NEB SCH ×2 (20:07→23:35)
[2019-01-12] MEDS: IPRATROPIUM NEB FS 0.5 MG/2.5 ML AMPUL.NEB NEB SCH ×2 (20:07→23:35)
[2019-01-12] MEDS: SIMVASTATIN 20 MG TABLET PO SCH (21:19)
[2019-01-12] MEDS: ENOXAPARIN SODIUM 40 MG/0.4 ML DISP.SYRIN SQ SCH (21:22)
[2019-01-13] VITALS: BP 135/85
[2019-01-13 04:00] VITALS: BP 127/84
[2019-01-13] MEDS: ALBUTEROL FS 2.5 MG/3 ML VIAL.NEB NEB SCH ×6 (04:37→23:47)
[2019-01-13] MEDS: IPRATROPIUM NEB FS 0.5 MG/2.5 ML AMPUL.NEB NEB SCH ×6 (04:37→23:47)
[2019-01-13] MEDS: HYDROCODONE/APAP 5/325MG 1 EACH TABLET PO PRN ×2 (05:53→19:52)
[2019-01-13 06:17] LABS: BASOPHILS % (AUTO) 0.2 % (0.0-2.0); HEMATOCRIT 44 % (33-45); HEMOGLOBIN 14.7 g/dL (11.5-14.8); LYMPHOCYTES # (AUTO) 0.6 /CMM (0.8-4.8); LYMPHOCYTES % (AUTO) 7.3 % (20.0-44.0); MEAN CORPUSCULAR HGB CONC 34 g/dl (31.0-36.0); MEAN CORPUSCULAR VOLUME 88 fL (82-100); MONOCYTES # (AUTO) 0.2 /CMM (0.1-1.30); MONOCYTES % (AUTO) 2.1 % (2.0-12.0); NEUTROPHILS # (AUTO) 7.9 /CMM (1.8-8.9); NEUTROPHILS % (AUTO) 90.4 % (43.0-81.0); PLATELET COUNT (AUTO) 117 /CMM (150-450); RED BLOOD CELL COUNT(AUTO) 5.03 MIL/uL (4.0-5.2); WHITE BLOOD COUNT (AUTO) 8.7 K/uL (4.3-11.0)
--- NOTE | 2019-01-13 06:28 | NUR ---
GENIA/RN ENTRY NOTES PATIENT IN BED RESTING COMFORTABLY AT THIS TIME, NO S/S OF ACUTE DISTRESS NOTED. RESPIRATION EVEN AND UNLABORED. NO SOB NOTED. PATIENT C/O OF HEADACHE , PRN PAIN MEDICATION GIVEN ORDERED WITH EFFECTIVENESS. PATIENT ON TELE MONITOR WITH SR 82. NO SIGNIFICANT CHANGE IN CONDITION NOTED IN THIS SHIFT. SAFETY MAINTAINED. BED AT THE LOWEST POSITION, LOCKED. CALL LIGHT WITHIN REACH. WILL ENDORSE TO THE AM SHIFT NURSE FOR LONNY.
[2019-01-13 06:42] LABS: ALBUMIN 3.3 g/dL (3.4-5.0); BILIRUBIN,TOTAL 0.5 mg/dL (0.2-1.0); CALCIUM, SERUM 9.3 mg/dL (8.5-10.1); CREATININE 0.7 mg/dL (0.6-1.3); MAGNESIUM 2.1 mg/dL (1.8-2.4); PHOSPHORUS 4.5 mg/dL (2.5-4.9); POTASSIUM 3.9 mmol/L (3.5-5.1); TOTAL PROTEIN, SERUM 6.5 g/dL (6.4-8.2)
--- NOTE | 2019-01-13 07:30 | NUR ---
GENIA RN AM NOTES PATIENT IN BED, AWAKE, ALERT X 3, HI ANDREE 50% OXYGEN DISCONTINUED AND SWITCHED TO 5 LPM VIA NASAL CANULA. TOLERATING WELL. O2 SAT AT 97%. RESPIRATION UNLABORED. SHORT OF BREATH WHEN AMBULATING. SINUS RHYTHM WITH PAC HR 96, DENIES PAIN OR DISCOMFORT. RT HAND IV ACCESS FLUSHES WELL, SITE CLEAR, CARDIAC DIET, BRP, NO SKIN ISSUES. SAFETY MAINTAINED. BED AT THE LOWEST POSITION, LOCKED. CALL LIGHT WITHIN REACH. WILL CONTINUE TO MONITOR.
[2019-01-13] MEDS: PANTOPRAZOLE 40 MG TABLET.DR PO SCH (07:53)
[2019-01-13 08:00] VITALS: BP 145/84
[2019-01-13] MEDS: methylPREDNISolone SOD SUCC 125 MG/2ML VIAL IV SCH ×2 (08:31→14:22)
[2019-01-13] MEDS: AMLODIPINE BESYLATE 10 MG TABLET PO SCH (08:33)
[2019-01-13] MEDS: LOSARTAN POTASSIUM 50 MG TABLET PO SCH (08:33)
--- NOTE | 2019-01-13 09:30 | NUR ---
GENIA RN NOTE DUE MEDS GIVEN
--- NOTE | 2019-01-13 09:57 | NUR ---
GENIA RN NOTES DR. NURYS LY NOTIFIED ABOUT PATIENT TAKING METHADONE 70MG DAILY. PATIENT GETS HER METHADONE FROM [facility] - [phone]
[2019-01-13 12:00] VITALS: BP 134/84
[2019-01-13 12:20] LABS: APPEARANCE,URINE CLEAR (CLEAR); BILIRUBIN,URINE NEGATIVE (NEGATIVE); BLOOD, URINE NEGATIVE Ery/uL (NEGATIVE); COLOR,URINE YELLOW (YELLOW); KETONES,URINE NEGATIVE (NEGATIVE); LEUKOCYTE ESTERASE ,URINE NEGATIVE (NEGATIVE); NITRITE, URINE NEGATIVE (NEGATIVE); PH,URINE 6.5 (5.0-8.0); PROTEIN,URINE NEGATIVE (NEGATIVE); UGLUCOSE NEGATIVE (NEGATIVE); UROBILINOGEN,URINE 0.2 EU/dL (0.2)
[2019-01-13] MEDS: METHADONE HCL 10 MG TABLET PO SCH (14:22)
[2019-01-13 16:00] VITALS: BP 136/81
[2019-01-13] MEDS: methylPREDNISolone SOD SUCC 40 MG/ML VIAL IV SCH (17:20)
--- NOTE | 2019-01-13 18:38 | NUR ---
GENIA RN CLOSING NOTES PATIENT RESTING IN BED, AWAKE, ALERT X 3,ON O2 5 LPM VIA NASAL CANULA. TOLERATING WELL. O2 SAT AT 98%. RESPIRATION UNLABORED. SHORT OF BREATH WHEN AMBULATING. SINUS RHYTHM WITH PAC HR 90s, DENIES PAIN OR DISCOMFORT. RT HAND IV ACCESS FLUSHES WELL, SITE CLEAR, CARDIAC DIET, BRP, NO SKIN ISSUES. SAFETY MAINTAINED. BED AT THE LOWEST POSITION, LOCKED. CALL LIGHT WITHIN REACH. ALL NEEDS MET AT THIS TIME. NO OTHER SIGNIFICANT CHANGE IN CONDITION. WILL ENDORSE TO NEXT SHIFT FOR LONNY.
--- NOTE | 2019-01-13 19:05 | NUR ---
RN GENIA NOTE PATIENT IS AOX4, SPEECH CLEAR, RESTING WITH HOB ELEVATED, ON 5L O2 VIA NC, ON TELE SR WITH PAC, DENIES ANY CARDIAC OR RESPIRATORY DISTRESS, AMBULATORY, SKIN IS INTACT, RIGHT HAND #20G, PATENT FLUSHING WELL, SKIN KEPT CLEAN AND DRY, SAFETY MAINTAINED AT ALL TIMES, BED IN LOW, LOCKED POSITION, CALL LIGHT WITHIN REACH, WILL CONTINUE TO MONITOR FOR ANY CHANGES IN CONDITION.
[2019-01-13 20:00] VITALS: BP 94/55
--- NOTE | 2019-01-13 20:01 | NUR ---
RN GENIA NOTE PT REQUESTING PRN AMBIEN FOR SLEEP, MESSAGE TO MICHEL MACHINIST OUTSIDE TO CONTINUE MEDICATION, NEW ORDER FOR AMBIEN 5MG PRN HS.
[2019-01-13] MEDS: SIMVASTATIN 20 MG TABLET PO SCH (21:15)
[2019-01-13] MEDS: ENOXAPARIN SODIUM 40 MG/0.4 ML DISP.SYRIN SQ SCH (21:17)
[2019-01-13] MEDS: ZOLPIDEM TARTRATE 10 MG TABLET PO PRN (22:12)
[2019-01-14] VITALS: BP 122/71
[2019-01-14] MEDS: IPRATROPIUM NEB FS 0.5 MG/2.5 ML AMPUL.NEB NEB SCH ×6 (03:30→23:15)
[2019-01-14] MEDS: ALBUTEROL FS 2.5 MG/3 ML VIAL.NEB NEB SCH ×6 (03:30→23:15)
[2019-01-14 04:00] VITALS: BP 117/73
[2019-01-14 06:13] LABS: BASOPHILS % (AUTO) 0.2 % (0.0-2.0); HEMATOCRIT 43 % (33-45); HEMOGLOBIN 14.2 g/dL (11.5-14.8); LYMPHOCYTES # (AUTO) 0.8 /CMM (0.8-4.8); LYMPHOCYTES % (AUTO) 6.1 % (20.0-44.0); MEAN CORPUSCULAR HGB CONC 33 g/dl (31.0-36.0); MEAN CORPUSCULAR VOLUME 87 fL (82-100); MONOCYTES # (AUTO) 0.7 /CMM (0.1-1.30); MONOCYTES % (AUTO) 5.5 % (2.0-12.0); NEUTROPHILS # (AUTO) 11.1 /CMM (1.8-8.9); NEUTROPHILS % (AUTO) 88.2 % (43.0-81.0); PLATELET COUNT (AUTO) 127 /CMM (150-450); RED BLOOD CELL COUNT(AUTO) 4.88 MIL/uL (4.0-5.2); WHITE BLOOD COUNT (AUTO) 12.6 K/uL (4.3-11.0)
[2019-01-14 06:31] LABS: CALCIUM, SERUM 8.9 mg/dL (8.5-10.1); CREATININE 0.7 mg/dL (0.6-1.3); MAGNESIUM 2.2 mg/dL (1.8-2.4); PHOSPHORUS 3.8 mg/dL (2.5-4.9); POTASSIUM 4.3 mmol/L (3.5-5.1)
--- NOTE | 2019-01-14 07:30 | NUR ---
GENIA RN AM NOTES PATIENT IN BED, AWAKE, ALERT X 3, ON 5 LPM VIA NASAL CANULA. TOLERATING WELL. O2 SAT AT 98%. RESPIRATION UNLABORED. SHORT OF BREATH WHEN AMBULATING. SINUS RHYTHM HR 67, DENIES PAIN OR DISCOMFORT. RT HAND IV ACCESS FLUSHES WELL, SITE CLEAR, CARDIAC DIET, BRP, NO SKIN ISSUES. SAFETY MAINTAINED. BED AT THE LOWEST POSITION, LOCKED. CALL LIGHT WITHIN REACH. WILL CONTINUE TO MONITOR.
[2019-01-14] MEDS: PANTOPRAZOLE 40 MG TABLET.DR PO SCH (07:55)
[2019-01-14 08:00] VITALS: BP 141/81
[2019-01-14] MEDS: METHADONE HCL 10 MG TABLET PO SCH (08:46)
[2019-01-14] MEDS: AMLODIPINE BESYLATE 10 MG TABLET PO SCH (08:46)
[2019-01-14] MEDS: methylPREDNISolone SOD SUCC 40 MG/ML VIAL IV SCH ×2 (08:47→16:10)
[2019-01-14] MEDS: LOSARTAN POTASSIUM 50 MG TABLET PO SCH (08:47)
--- NOTE | 2019-01-14 09:30 | NUR ---
GENIA RN NOTES DUE MEDS GIVEN
--- NOTE | 2019-01-14 09:50 | NUR ---
MS RN NOTES TRANSFER TO [facility] STATUS PER DR. RASHID.
--- NOTE | 2019-01-14 10:00 | NUR ---
RADIO REPORTER NOTES PATIENT WILL BE ON BIPAP. TRANSFER TO TELEMETRY STATUS PER DR. ANTONIO.
[2019-01-14 16:00] VITALS: BP 107/69
--- NOTE | 2019-01-14 18:20 | NUR ---
MS RN CLOSING NOTES PATIENT RESTING IN BED, AWAKE, ALERT X 3,ON O2 5 LPM VIA NASAL CANULA. TOLERATING WELL. O2 SAT AT 98%. RESPIRATION UNLABORED. SHORT OF BREATH WHEN AMBULATING. DENIES PAIN OR DISCOMFORT. RT HAND IV ACCESS FLUSHES WELL, SITE CLEAR, CARDIAC DIET, BRP, NO SKIN ISSUES. SAFETY MAINTAINED. BED AT THE LOWEST POSITION, LOCKED. CALL LIGHT WITHIN REACH. ALL NEEDS MET AT THIS TIME. NO OTHER SIGNIFICANT CHANGE IN CONDITION. WILL ENDORSE TO NEXT SHIFT FOR LONNY.
[2019-01-14] MEDS: HYDROCODONE/APAP 5/325MG 1 EACH TABLET PO PRN (18:30)
--- NOTE | 2019-01-14 19:00 | NUR ---
PULLMAN CLERK NOTE PATIENT RECEIVED RESTING WITH HOB ELEVATED, AOX4, SPEECH CLEAR, ON 3L O2 VIA NC, ON TELE SR/ST, DENIES ANY CARDIAC OR RESPIRATORY DISTRESS, AMBULATORY, SKIN IS INTACT, SKIN KEPT CLEAN AND DRY, SAFETY MAINTAINED AT ALL TIMES, BED IN LOW, LOCKED POSITION, CALL LIGHT WITHIN REACH, WILL CONTINUE TO MONITOR FOR ANY CHANGES IN CONDITION.
[2019-01-14 20:00] VITALS: BP 125/72
[2019-01-14] MEDS: SIMVASTATIN 20 MG TABLET PO SCH (21:12)
[2019-01-14] MEDS: ENOXAPARIN SODIUM 40 MG/0.4 ML DISP.SYRIN SQ SCH (21:12)
[2019-01-14] MEDS: ZOLPIDEM TARTRATE 10 MG TABLET PO PRN (21:13)
[2019-01-15] VITALS: BP 108/58
[2019-01-15] MEDS: IPRATROPIUM NEB FS 0.5 MG/2.5 ML AMPUL.NEB NEB SCH ×4 (03:13→15:30)
[2019-01-15] MEDS: ALBUTEROL FS 2.5 MG/3 ML VIAL.NEB NEB SCH ×4 (03:14→15:30)
[2019-01-15 04:00] VITALS: BP 109/78
[2019-01-15] MEDS: HYDROCODONE/APAP 5/325MG 1 EACH TABLET PO PRN ×2 (05:42→14:22)
--- NOTE | 2019-01-15 07:45 | NUR ---
RN NOTE: RECEIVED PATIENT IN BED, AWAKE, ALERT AND VERBALLY RESPONSIVE. RESPIRATION EVEN AND UNLABORED SATURATING 98% IN ROOM AIR. ON MACHINE STAPLER SR HR= 86. PATIENT WAS AMBULATORY NOTED WITH STEADY GAIT. ABLE TO USE THE BATHROOM. ON CARDIAC DIET, AND PATIENT ATE 100% OF HER BREAKFAST MEAL. AFEBRILE. SKIN WARM TO TOUCH. HOB ELEVATED. BED ALARMED AND LOCKED AT ALL TIMES. CALL LIGHT WITHIN REACH. NEEDS ANTICIPATED.
[2019-01-15 08:00] VITALS: BP 126/86
[2019-01-15] MEDS: PANTOPRAZOLE 40 MG TABLET.DR PO SCH (08:07)
[2019-01-15] MEDS: methylPREDNISolone SOD SUCC 40 MG/ML VIAL IV SCH ×2 (08:07→16:52)
[2019-01-15] MEDS: AMLODIPINE BESYLATE 10 MG TABLET PO SCH (08:08)
[2019-01-15] MEDS: LOSARTAN POTASSIUM 50 MG TABLET PO SCH (08:09)
[2019-01-15] MEDS: METHADONE HCL 10 MG TABLET PO SCH (08:16)
[2019-01-15 12:00] VITALS: BP 125/81
[2019-01-15 16:00] VITALS: BP 115/69
--- NOTE | 2019-01-15 16:40 | NUR ---
PATIENT ROOM AIR SAT 80% AT REST,PLACED ON OXYGEN AND O2 SAT IMPROVED TO 94% AT REST, MADE AWARE.OBTAINED ORDER FOR HOME O2,CM NOTIFIED.
--- NOTE | 2019-01-15 17:48 | NUR ---
RN NOTE: PATIENT WAS DISCHARGED TO THE HOSPITAL AND SHE VERBALIZED "I AM GOING TO CALL MY PRIMARY DOCTOR FOR AN APPOINTMENT AND I WILL GO TO [facility] TO BE SEEN BY A OPENER VERIFIER PACKER CUSTOMS FOR MY SLEEP STUDY." PATIENT RECEIVED PHONE CALLS FROM THE [employer] MATH TEACHER TERRI REGARDING THE ARRANGEMENT OF HOME OXYGEN WHILE SHE IS AWAITING FOR HER PULMONOLOGY AND PRIMARY CARE PHYSICIAN APPOINTMENT. ALL BELONGINGS WERE RELEASED TO HER AND EXIT CARE WAS DONE. DISCUSSED ALL DISCHARGE PAPERWORK TO THE PATIENT AND SHE UNDERSTOOD IT. NO QUESTIONS WERE ASKED BY PATIENT. REMINDED PATIENT TO BRING HER PAPERWORK TO HER DOCTOR'S APPOINTMENTS. PATIENT SAID THAT HER CALLED A PRIVATE CAR TO PICK HER UP TO THE HOSPITAL. PATIENT WAS WALKED TO THE HOSPITAL MAIN LOBBY. PATIENT HAS NO SHORTNESS OF BREATH AND WAS ABLE TO MOVE WITH NO DISCOMFORT NOTED.
== END 2019-01-15 17:50 | disposition home or self-care (01) | DRG 140 ==
LOC: ER 14:52 → TELE1 17:42 → TELE-TD 21:55 → TELE1 01-14 10:13
PROVIDERS: ADMIT Hospitalist
PROC: 5A09357 Assistance with Respiratory Ventilation, Less than 24 Consecutive Hours, Continuous Positive Airway Pressure (ICD-10-PCS; principal; 2019-01-14)
DX: J44.1 Chronic obstructive pulmonary disease with (acute) exacerbation (principal); J96.21 Acute and chronic respiratory failure with hypoxia; E78.5 Hyperlipidemia, unspecified; F17.210 Nicotine dependence, cigarettes, uncomplicated; F41.9 Anxiety disorder, unspecified; G43.909 Migraine, unspecified, not intractable, without status migrainosus; G89.4 Chronic pain syndrome; I10 Essential (primary) hypertension; J96.22 Acute and chronic respiratory failure with hypercapnia; E66.2 Morbid (severe) obesity with alveolar hypoventilation; Z68.38 Body mass index [BMI] 38.0-38.9, adult; M19.90 Unspecified osteoarthritis, unspecified site; M54.2 Cervicalgia; M54.9 Dorsalgia, unspecified; Z86.19 Personal history of other infectious and parasitic diseases; I25.2 Old myocardial infarction; F11.20 Opioid dependence, uncomplicated
CPT/HCPCS: 36415; 36600; 71045-TC; 80048-TC; 80053-TC; 80061-TC; 80076-TC; 81000-TC; 83735-TC; 83880; 84100-TC; 85025-TC; 87040-TC; 87070-TC; 87081-TC; 87086-TC; 87400; 94760-TC; 94799-TC; 97116-TC; 97530-TC; A6253; A6403; G0378; J1650; J2765; J2920; J2930

== ENCOUNTER 2019-01-21 06:14 | Inpatient (IN) | payer OTHER ==
[~2019-01-21] VITALS: Ht 162.6 cm; Wt 93.4 kg
[~2019-01-21 06:14] MED LIST changes: -ALBU8.5H8 INH; -AZIT250T PO; -PRED10TA23 PO
--- NOTE | 2019-01-21 06:30 | NUR ---
PRESENTED FOR C/O SOB SINCE 6 OR 7 PM LAST NIGHT. PLACED ON A MONITOR, O2 APPLIED. WILL CONT TO MONITR,
--- NOTE | 2019-01-21 06:35 | NUR ---
TECH AT BEDSIDE FOR EKG
--- NOTE | 2019-01-21 06:42 | NUR ---
RADIOLOGY AT BEDSIDE FOR XRAY
[2019-01-21] MEDS ORDERED: ALBUTEROL FS 2.5 MG/3 ML VIAL.NEB ONE (06:50)
[2019-01-21] MEDS ORDERED: IPRATROPIUM NEB FS 0.5 MG/2.5 ML AMPUL.NEB ONE (06:50)
[2019-01-21] MEDS ORDERED: methylPREDNISolone SOD SUCC 125 MG/2ML VIAL ONE (06:54)
[2019-01-21] MEDS ORDERED: diphenhydrAMINE HCL 50 MG/ML VIAL ONE (06:55)
[2019-01-21] MEDS ORDERED: METOCLOPRAMIDE HCL 10 MG/2 ML VIAL ONE (06:56)
--- NOTE | 2019-01-21 06:59 | NUR ---
RT AT BEDSIDE FOR BREATHING TREATMENT
[2019-01-21 07:00] LABS: BASOPHILS % (AUTO) 0.1 % (0.0-2.0); EOSINOPHILS % (AUTO) 0.2 % (0.0-6.0); HEMATOCRIT 41 % (33-45); HEMOGLOBIN 13.9 g/dL (11.5-14.8); LYMPHOCYTES # (AUTO) 0.8 /CMM (0.8-4.8); LYMPHOCYTES % (AUTO) 9.8 % (20.0-44.0); MEAN CORPUSCULAR HGB CONC 34 g/dl (31.0-36.0); MEAN CORPUSCULAR VOLUME 88 fL (82-100); MONOCYTES # (AUTO) 0.7 /CMM (0.1-1.30); MONOCYTES % (AUTO) 8.8 % (2.0-12.0); NEUTROPHILS # (AUTO) 6.7 /CMM (1.8-8.9); NEUTROPHILS % (AUTO) 81.1 % (43.0-81.0); RED BLOOD CELL COUNT(AUTO) 4.71 MIL/uL (4.0-5.2); WHITE BLOOD COUNT (AUTO) 8.2 K/uL (4.3-11.0)
[2019-01-21] MEDS ORDERED: IPRATROPIUM NEB FS 0.5 MG/2.5 ML AMPUL.NEB NEB ONE (07:00)
[2019-01-21] MEDS ORDERED: METOCLOPRAMIDE HCL 10 MG/2 ML VIAL IV ONE (07:00)
[2019-01-21] MEDS ORDERED: methylPREDNISolone SOD SUCC 125 MG/2ML VIAL IV ONE (07:00)
[2019-01-21] MEDS ORDERED: ALBUTEROL FS 2.5 MG/3 ML VIAL.NEB CONTNEB ONE (07:00)
[2019-01-21 07:05] LABS: ABG BASE EXCESS 6.7 mmol/L; ABG OXYGEN SATURATION 87.7 % (92.0-98.5); ABG PCO2 59.3 mmHg (35.0-45.0); ABG PH 7.374 (7.350-7.450); ABG PO2 55.4 mmHg (75.0-100.0); AaDO2 132.5 mmHg; COHb 1.5 % (0.5-1.5); MetHb 0.8 % (0.0-1.5); O2Hb 85.7 % (94.0-97.0); SITE, ABG Right Radial; VENT MODE, BG 4LNC
[2019-01-21 07:06] LABS: PLATELET COUNT (AUTO) 97 /CMM (150-450)
[2019-01-21 07:18] LABS: ALBUMIN 3.5 g/dL (3.4-5.0); BILIRUBIN,DIRECT 0.1 mg/dL (0.0-0.2); BILIRUBIN,TOTAL 0.6 mg/dL (0.2-1.0); CREATININE 0.8 mg/dL (0.6-1.3)
[2019-01-21] MEDS ORDERED: ACETAMINOPHEN ES 500 MG TABLET ONE (07:22)
[2019-01-21] MEDS ORDERED: ACETAMINOPHEN ES 500 MG TABLET PO ONE (07:30)
--- NOTE | 2019-01-21 08:20 | NUR ---
CALLED [facility]
--- NOTE | 2019-01-21 08:29 | NUR ---
ROOM 205-1
--- NOTE | 2019-01-21 08:33 | NUR ---
REPORT GIVEN TO RN BROOK FOR LONNY.
--- NOTE | 2019-01-21 08:45 | NUR ---
RN MS NOTES Patient received patient on 3L o2, nasal cannula. No sob noted, vital signs stable, patient able to ambulate with minimal support. A/O x4. Bed at the lowest setting, call light within reach.
[2019-01-21] MEDS ORDERED: MAGNESIUM HYDROXIDE 30 ML UDC PO PRN (11:00)
[2019-01-21] MEDS ORDERED: ACETAMINOPHEN 325 MG TABLET PO PRN (11:00)
[2019-01-21] MEDS ORDERED: ZOLPIDEM TARTRATE 5 MG TABLET PO PRN (11:00)
[2019-01-21] MEDS ORDERED: IPRATROPIUM NEB FS 0.5 MG/2.5 ML AMPUL.NEB NEB PRN ×2 (11:00→11:31)
[2019-01-21] MEDS ORDERED: ALBUTEROL FS 2.5 MG/0.5 ML VIAL.NEB NEB PRN (11:00)
[2019-01-21] MEDS ORDERED: ONDANSETRON HCL/PF 4 MG/2 ML VIAL IVP PRN (11:00)
[2019-01-21] MEDS ORDERED: Z GUARD REMEDY 2 OZ OINT TP PRN (11:00)
[2019-01-21] MEDS: FLUTICASONE/VILANTEROL 1 EACH BLST.W.DEV IH SCH (12:04)
[2019-01-21] MEDS: ENOXAPARIN SODIUM 40 MG/0.4 ML DISP.SYRIN SQ SCH (12:05)
[2019-01-21] MEDS: LOSARTAN POTASSIUM 50 MG TABLET PO SCH (12:05)
[2019-01-21 16:41] VITALS: BP 126/67
--- NOTE | 2019-01-21 18:02 | NUR ---
RN MS CLOSING NOTES Patient remains on 2L o2 nasal cannula. No sob noted, patient remains a/o x4. Patient seen asleep all shift comfortably on her bed. Patient refused dvt pumps for now and stated that she might ask for it later. Left h and #22 gauge remains patent and free flowing. bed remains at the lowest setting, call light within reach, will give report to MAKAYLA ESCOBAR for LONNY bedside.
--- NOTE | 2019-01-21 19:33 | NUR ---
RN MS OPENING NOTES RECEIVED PT IN BED, SLEEPING EASILY AROUSED TO NAME CALL, BREATHING EVEN AND UNLABORED ON 2L O2 NC. IV ACCESS ON L HAND 22G PATENT AND FLUSHING. IN NO APPARENT PAIN OR DISCOMFORT AT THIS TIME. BED IN LOWEST LOCKED POSITION, CALL LIGHT WITHIN REACH AT ALL TIMES. WILL CONTINUE TO MONITOR FREQUENTLY
[2019-01-21 20:00] VITALS: BP 113/70
[2019-01-21] MEDS: SIMVASTATIN 20 MG TABLET PO SCH (21:10)
[2019-01-22 06:24] LABS: BASOPHILS % (AUTO) 0.1 % (0.0-2.0); HEMATOCRIT 40 % (33-45); HEMOGLOBIN 13.3 g/dL (11.5-14.8); LYMPHOCYTES # (AUTO) 0.8 /CMM (0.8-4.8); LYMPHOCYTES % (AUTO) 8.1 % (20.0-44.0); MEAN CORPUSCULAR HGB CONC 33 g/dl (31.0-36.0); MEAN CORPUSCULAR VOLUME 88 fL (82-100); MONOCYTES # (AUTO) 0.6 /CMM (0.1-1.30); MONOCYTES % (AUTO) 6.2 % (2.0-12.0); NEUTROPHILS # (AUTO) 8.4 /CMM (1.8-8.9); NEUTROPHILS % (AUTO) 85.6 % (43.0-81.0); PLATELET COUNT (AUTO) 101 /CMM (150-450); RED BLOOD CELL COUNT(AUTO) 4.53 MIL/uL (4.0-5.2); WHITE BLOOD COUNT (AUTO) 9.8 K/uL (4.3-11.0)
[2019-01-22 06:25] LABS: APPEARANCE,URINE CLEAR (CLEAR); BILIRUBIN,URINE NEGATIVE (NEGATIVE); BLOOD, URINE NEGATIVE Ery/uL (NEGATIVE); COLOR,URINE YELLOW (YELLOW); KETONES,URINE NEGATIVE (NEGATIVE); LEUKOCYTE ESTERASE ,URINE NEGATIVE (NEGATIVE); NITRITE, URINE NEGATIVE (NEGATIVE); PH,URINE 7.5 (5.0-8.0); PROTEIN,URINE TRACE mg/dl (NEGATIVE); UGLUCOSE TRACE mg/dL (NEGATIVE)
[2019-01-22 06:55] LABS: CALCIUM, SERUM 9.1 mg/dL (8.5-10.1); CREATININE 0.7 mg/dL (0.6-1.3); MAGNESIUM 1.9 mg/dL (1.8-2.4); PHOSPHORUS 3.3 mg/dL (2.5-4.9)
--- NOTE | 2019-01-22 06:58 | NUR ---
RN MS CLOSING NOTES PT REMAINS IN BED, SLEEPING EASILY AROUSED TO NAME CALL, BREATHING EVEN AND UNLABORED ON 2L O2 NC. IV ACCESS ON L HAND 22G PATENT AND FLUSHING. IN NO APPARENT PAIN OR DISCOMFORT AT THIS TIME. BED IN LOWEST LOCKED POSITION, CALL LIGHT WITHIN REACH AT ALL TIMES. WILL ENDORSE TO DAY NURSE FOR LONNY
--- NOTE | 2019-01-22 07:30 | NUR ---
MS RN OPENING NOTE RECEIVED PT IN BED, ALERT AND ORIENTED X4, DENIES CHEST PAIN, SOB, N/V, BREATHING IS EVEN AND UNLABORED ON 2L NC. LEFT HAND #22G IS SALINE LOCKED WITHOUT REDNESS OR SWELLING. ALL NEEDS ATTENDED TO. BED IS LOCKED AND IN LOWEST POSITION, SIDE RAILS UP X2, BED ALARM ON, CALL LIGHT AND POSSESSIONS WITHIN REACH.
[2019-01-22 08:00] VITALS: BP 127/74
[2019-01-22] MEDS: LOSARTAN POTASSIUM 50 MG TABLET PO SCH (09:08)
[2019-01-22] MEDS: PANTOPRAZOLE 40 MG TABLET.DR PO SCH (09:08)
[2019-01-22] MEDS: AMLODIPINE BESYLATE 10 MG TABLET PO SCH (09:08)
[2019-01-22] MEDS: FLUTICASONE/VILANTEROL 1 EACH BLST.W.DEV IH SCH (09:09)
[2019-01-22] MEDS: ENOXAPARIN SODIUM 40 MG/0.4 ML DISP.SYRIN SQ SCH (09:12)
[2019-01-22 09:18] LABS: BACTERIA,URINE Rare /HPF (None Seen); RBC,URINE NONE SEEN /HPF (0-2); SQUAMOUS EPITHELIAL CELL,UR Rare /HPF (None Seen); WBC,URINE NONE SEEN /HPF (0-3)
--- NOTE | 2019-01-22 14:57 | NUR ---
MS RN NOTE PER PRIMARY HOSPITALIST DEBRA PEARSON, BUNG REMOVER SHE WILL PLACE ORDERS FOR CPAP AND FOR PT REQUEST FOR AMBIEN.
[2019-01-22 16:00] VITALS: BP 106/69
--- NOTE | 2019-01-22 18:23 | NUR ---
MS RN CLOSING NOTE PT IN BED, ALERT AND ORIENTED X4, DENIES CHEST PAIN, SOB, N/V, BREATHING IS EVEN AND UNLABORED ON 3L NC. LEFT HAND #22G IS SALINE LOCKED WITHOUT REDNESS OR SWELLING. ASSISTED WITH ADLS. ALL NEEDS ATTENDED TO. BED IS LOCKED AND IN LOWEST POSITION, SIDE RAILS UP X2, BED ALARM ON, CALL LIGHT AND POSSESSIONS WITHIN REACH. WILL ENDORSE TO TANK CALIBRATOR NURSE FOR CONTINUITY OF CARE.
[2019-01-22] MEDS ORDERED: ZOLPIDEM TARTRATE 10 MG TABLET PO PRN (19:00)
--- NOTE | 2019-01-22 19:45 | NUR ---
RN NOTES: RECEIVED REPORT FROM JEMIMA BENAVIDES, PT IN BED, AWAKE, A/O X3 ON 2L OXYGEN VIA NC, RESPIRATIONS EVEN AND UNLABORED. DENIES ANY PAIN OR DISCOMFORT AT THIS TIME. IV ACCESS PATENT AND FLUSHING WELL, ON HL. PT HAS ORDER FOR CPAP, RT AWARE. DISCUSSED PLAN OF CARE TONIGHT, PT REQUESTING FOR AMBIEN AT 2200. SAFETY PRECAUTIONS FOR FALL INITIATED, CALL LIGHT IN REACH, WILL CONTINUE MONITORING PT.
[2019-01-22 20:00] VITALS: BP 115/74
--- NOTE | 2019-01-22 20:48 | NUR ---
RN NOTES: FOLLOWED UP WITH RT REGARDING PT'S CPAP, SPOKED WITH WARNER, HE STATED RT MAKING THEIR ROUNDS AND ARE AWARE OF CPAP REQUEST.
[2019-01-22] MEDS: SIMVASTATIN 20 MG TABLET PO SCH (21:41)
--- NOTE | 2019-01-22 21:41 | NUR ---
PRN AMBIEN: PT REQUESTED FOR SLEEPING PILL, PRN AMBIEN 10 MG TAB PO ADMINISTERED TO PT AT THIS TIME, PT REQUESTED TO HAVE CPAP AT 2330, RT AWARE.
--- NOTE | 2019-01-22 21:45 | NUR ---
RN NOTES: PER RT, CPAP SETTING AT 5
[2019-01-22 23:30] VITALS: BP 115/74
--- NOTE | 2019-01-22 23:30 | NUR ---
PT PLACED ON NOCTURNAL BIPAP PER MD'S ORDER. PT TOLERATING CPAP OF 6, FIO2 35%. NO RESPIRATORY DISTRESS NOTED AT THIS TIME . RN CLARIBEL NOTIFIED. WILL CONTINUE TO MONITOR THE PT IF ANY CHANGES.
--- NOTE | 2019-01-23 00:05 | NUR ---
RN NOTES: PT ON CPAP, PER RT, SETTING 6, FIO2 35%
--- NOTE | 2019-01-23 02:31 | NUR ---
RN NOTES: SEEN PT SLEEP, ON CPAP, SPO2 98%, APPEARS CALM AND COMFORTABLE
--- NOTE | 2019-01-23 04:10 | NUR ---
RN NOTES: PT CALLED AND REMOVED HER CPAP STATED SHE ALSREADY USED IT FOR 5HRS AND SHE CLAIMED "SHE'S DONE FOR THE NIGHT". RT ERNESTO MADE AWARE.
--- NOTE | 2019-01-23 04:11 | NUR ---
RN NOTES: CPAP TURNED OFF PER PT'S REQUEST.
--- NOTE | 2019-01-23 06:48 | NUR ---
RN CLOSING NOTES: PT REMAINS ON 2L OXYGEN VIA NC, RESPIRATIONS EVEN AND UNLABORED. IV ACCESS REMAINS PATENT AND FLUSHING WELL, ON HL. PT DENIES ANY PAIN OR DISCOMFORT AT THIS TIME. VS REMAINS STABLE, NEEDS ATTENDED. SAFETY PRECAUTIONS FOR FALL REMAINS ENGAGED, CALL LIGHT IN REACH, WILL ENDORSE TO DAY RN FOR CONTINUITY OF CARE.
--- NOTE | 2019-01-23 07:45 | NUR ---
MS RN OPENING NOTES RECEIVED PT SITTING UP AT THE EDGE OF BED. PT IS A/O X4, AFEBRILE. RESPIRATIONS ARE EVEN AND UNLABORED, NOT IN ANY ACUTE DISTRESS NOTED. PT DENIES ANY PAIN AT THIS TIME, NO C/O SOB, N/V. IV SITE TO L HAND INTACT, NO INFILTRATION NOTED. DRESSING KEPT CLEAN AND DRY. PT STATED THE CPAP "HELPED TREMENDOUSLY" AND WAS ABLE TO GET 5 HOURS OF SLEEP. SAFETY MEASURES ARE IN PLACE. INSTRUCTED PT TO USE CALL LIGHT WHEN ASSISTANCE IS NEEDED, CALL LIGHT IS LEFT WITHIN REACH. WILL MONITOR THROUGHOUT SHIFT FOR CONTINUITY OF CARE.
[2019-01-23 08:00] VITALS: BP 134/90
[2019-01-23 08:36] VITALS: BP 134/90
[2019-01-23] MEDS: FLUTICASONE/VILANTEROL 1 EACH BLST.W.DEV IH SCH (08:36)
[2019-01-23] MEDS: LOSARTAN POTASSIUM 50 MG TABLET PO SCH (08:36)
[2019-01-23] MEDS: AMLODIPINE BESYLATE 10 MG TABLET PO SCH (08:36)
[2019-01-23] MEDS: PANTOPRAZOLE 40 MG TABLET.DR PO SCH (08:37)
[2019-01-23] MEDS: ENOXAPARIN SODIUM 40 MG/0.4 ML DISP.SYRIN SQ SCH (08:39)
--- NOTE | 2019-01-23 14:12 | NUR ---
MS RN NOTES-- PT WAS SEEN AND EXAMINED BY DMITRI RICHARDSON W/ ORDERS FOR DISCHARGE.
--- NOTE | 2019-01-23 15:15 | NUR ---
MS NUCLEAR FUELS RECLAMATION ENGINEER NOTE PT DISCHARGED TO HOME IN MEDICALLY STABLE CONDITION VIA UBER. PT IS A/O X4, AFEBRILE. RESPIRATIONS ARE EVEN AND UNLABORED, NOT IN ANY ACUTE DISTRESS NOTED. PT DENIES ANY PAIN, NO C/O SOB, N/V. PUPILS ARE REACTIVE TO LIGHT, BILATERAL HAND TIRE VULCANIZER ARE STRONG AND EQUAL. ABDOMEN IS SOFT AND NONDISTENDED, BOWEL SOUNDS ARE PRESENT IN ALL 4 QUADRANTS UPON AUSCULTATION. DENIES ANY BLADDER DISCOMFORT. PT IS AMBULATORY. NO SKIN ISSUES NOTED. SKIN IS KEPT CLEAN AND DRY. IV SITE REMOVED, APPLIED PRESSURE AND TOLERATED WELL. ID BANDS REMOVED. EXPLAINED DISCHARGE PAPERWORK TO PT WITH VERBAL AND WRITTEN UNDERSTANDING AND STATING THAT SHE HAS AN FOLLOW UP APPT TO OBTAIN CPAP MACHINE. ALL BELONGINGS SENT WITH PT. PT LEFT IN STABLE CONDITION.
== END 2019-01-23 15:15 | disposition home or self-care (01) | DRG 133 ==
LOC: ER 06:17 → MEDSG2 08:35
PROVIDERS: ADMIT Nurse Practitioner Acute Care; ATTEND Nurse Practitioner Acute Care
PROC: 5A09357 Assistance with Respiratory Ventilation, Less than 24 Consecutive Hours, Continuous Positive Airway Pressure (ICD-10-PCS; principal; 2019-01-22)
DX: J96.21 Acute and chronic respiratory failure with hypoxia (principal); D69.3 Immune thrombocytopenic purpura; D68.59 Other primary thrombophilia; J44.1 Chronic obstructive pulmonary disease with (acute) exacerbation; E66.01 Morbid (severe) obesity due to excess calories; F11.20 Opioid dependence, uncomplicated; J96.22 Acute and chronic respiratory failure with hypercapnia; I10 Essential (primary) hypertension; G43.909 Migraine, unspecified, not intractable, without status migrainosus; Z68.35 Body mass index [BMI] 35.0-35.9, adult; M19.90 Unspecified osteoarthritis, unspecified site; G89.4 Chronic pain syndrome; M54.2 Cervicalgia; M54.9 Dorsalgia, unspecified; F17.210 Nicotine dependence, cigarettes, uncomplicated; Z86.19 Personal history of other infectious and parasitic diseases; I25.2 Old myocardial infarction; G47.33 Obstructive sleep apnea (adult) (pediatric); Z99.81 Dependence on supplemental oxygen; F41.9 Anxiety disorder, unspecified; E78.5 Hyperlipidemia, unspecified
CPT/HCPCS: 36415; 36600; 71045-TC; 80048-TC; 80076-TC; 81000-TC; 83605-TC; 83735-TC; 84100-TC; 85025-TC; 87081-TC; 87086-TC; G0378; J1200; J1650; J2765; J2930

== ENCOUNTER 2019-06-29 07:24 | Inpatient (IN) | payer OTHER ==
[~2019-06-29] VITALS: Ht 152.4 cm; Wt 98.2 kg
[~2019-06-29 07:24] MED LIST changes: +SIMV-46 PO; -SIMV20TA6 PO
--- NOTE | 2019-06-29 07:36 | NUR ---
Patient came to ED BIB EMS CC lethargic BS 250 given x2 NARCAN ,patient to Room 9 palce on monitor ,gown EKG
[2019-06-29 07:52] LABS: ABG BASE EXCESS 1.3 mmol/L; ABG OXYGEN SATURATION 92.5 % (92.0-98.5); ABG PCO2 57.5 mmHg (35.0-45.0); ABG PH 7.318 (7.350-7.450); ABG PO2 67.8 mmHg (75.0-100.0); AaDO2 78.5 mmHg; COHb 1.9 % (0.5-1.5); MetHb 0.5 % (0.0-1.5); O2Hb 90.3 % (94.0-97.0); SITE, ABG Right Radial
[2019-06-29] MEDS ORDERED: ONDANSETRON HCL/PF 4 MG/2 ML VIAL IVP ONE (08:00)
[2019-06-29] MEDS ORDERED: NALOXONE HCL 0.4 MG/ML AMPUL IV ONE (08:00)
[2019-06-29] MEDS ORDERED: IV NS 0.9% 1,000 ML BAG IV ONE ×2 (08:00)
[2019-06-29] MEDS ORDERED: ONDANSETRON HCL/PF 4 MG/2 ML VIAL ONE (08:10)
[2019-06-29] MEDS ORDERED: NALOXONE PREFILLED SYRINGE 2 MG/2 ML SYRINGE ONE (08:10)
[2019-06-29 08:26] LABS: BASOPHILS % (AUTO) 0.1 % (0.0-2.0); HEMATOCRIT 46 % (33-45); HEMOGLOBIN 14.6 g/dL (11.5-14.8); LYMPHOCYTES # (AUTO) 0.3 /CMM (0.8-4.8); LYMPHOCYTES % (AUTO) 2.7 % (20.0-44.0); MEAN CORPUSCULAR HGB CONC 32 g/dl (31.0-36.0); MEAN CORPUSCULAR VOLUME 84 fL (82-100); MONOCYTES # (AUTO) 0.3 /CMM (0.1-1.30); MONOCYTES % (AUTO) 2.2 % (2.0-12.0); PLATELET COUNT (AUTO) 123 /CMM (150-450); RED BLOOD CELL COUNT(AUTO) 5.44 MIL/uL (4.0-5.2); WHITE BLOOD COUNT (AUTO) 12.7 K/uL (4.3-11.0)
[2019-06-29 08:31] LABS: SERUM AMMONIA 60 umol/L (11-32)
[2019-06-29 08:32] LABS: CARBON DIOXIDE 30 mmol/L (21-32); CHLORIDE 100 mmol/L (98-107); GLUCOSE 235 mg/dL (74-106); POTASSIUM 4.9 mmol/L (3.5-5.1); SODIUM SERUM 140 mmol/L (136-145); UREA NITROGEN, BLOOD 13 mg/dL (7-18)
[2019-06-29 08:38] LABS: ALANINE AMINOTRANSFERASE 15 U/L (12-78); ALBUMIN 3.7 g/dL (3.4-5.0); ALCOHOL, BLOOD < 3 mg/dL (0-0); ALKALINE PHOSPHATASE 66 U/L (46-116); ASPARTATE AMINOTRANSFERASE 11 U/L (15-37); BILIRUBIN,DIRECT 0.1 mg/dL (0.0-0.2); BILIRUBIN,TOTAL 0.2 mg/dL (0.2-1.0); TOTAL PROTEIN, SERUM 7.2 g/dL (6.4-8.2)
[2019-06-29 08:40] LABS: SALICYLATE 1.9 mg/dL (2.8-20.0)
[2019-06-29] MEDS ORDERED: LACTULOSE 10 G/15 ML UDC (PYXIS) ONE ×2 (08:43→09:03)
[2019-06-29 08:51] LABS: APPEARANCE,URINE Clear (CLEAR); BILIRUBIN,URINE Negative (NEGATIVE); BLOOD, URINE Trace-intact Ery/uL (NEGATIVE); COLOR,URINE Yellow (YELLOW); KETONES,URINE Negative (NEGATIVE); LEUKOCYTE ESTERASE ,URINE Negative (NEGATIVE); NITRITE, URINE Negative (NEGATIVE); PROTEIN,URINE Negative (NEGATIVE); UGLUCOSE 100 MG/DL mg/dL (NEGATIVE); UROBILINOGEN,URINE 0.2 EU/dL (0.2)
--- NOTE | 2019-06-29 08:58 | NUR ---
BACK FROM CT SCAN
[2019-06-29] MEDS ORDERED: LACTULOSE 10 G/15 ML UDC (PYXIS) GT ONE (09:00)
--- NOTE | 2019-06-29 09:00 | NUR ---
Patient lethrgic but arousable able to say name and fall back to sleep ,patient to CT and xray transport with monitor .
[2019-06-29 09:01] LABS: BACTERIA,URINE Rare /HPF (None Seen); SQUAMOUS EPITHELIAL CELL,UR Few /HPF (None Seen); WBC,URINE 0-2 /HPF (0-3)
--- NOTE | 2019-06-29 09:25 | NUR ---
Patient awake alert to name and palce noted lerthargic but arousable ,patient refused NGT non succesful x1 MD aware ok to give to rectal per Dr. Berger
--- NOTE | 2019-06-29 09:43 | NUR ---
PANEL ON-CALL PAGED
[2019-06-29 10:36] LABS: THYROID STIMULATING HORMONE 1.401 uIU/mL (0.358-3.74)
--- NOTE | 2019-06-29 10:46 | NUR ---
called [facility]. reporting process consultant was paged
--- NOTE | 2019-06-29 10:59 | NUR ---
Patient asleep but arousable she able to say her name and place denies pain she stated shes oxygen @ night hre @ bedside vitals sign recorded and filed
--- NOTE | 2019-06-29 11:14 | NUR ---
NURSING SUP GAVE BED 327-1. NURSE NAME IS NOVEMBER.
[2019-06-29] MEDS ORDERED: MAG HYDROX/AL HYDROX/SIMETH 30 ML UDC PO PRN (11:30)
[2019-06-29] MEDS ORDERED: ALBUTEROL FS 2.5 MG/0.5 ML VIAL.NEB NEB PRN (11:30)
[2019-06-29] MEDS ORDERED: MAGNESIUM HYDROXIDE 30 ML UDC PO PRN (11:30)
[2019-06-29] MEDS ORDERED: Z GUARD REMEDY 2 OZ OINT TP PRN (11:30)
[2019-06-29] MEDS ORDERED: ONDANSETRON HCL/PF 4 MG/2 ML VIAL IVP PRN (11:30)
[2019-06-29] MEDS ORDERED: ACETAMINOPHEN 325 MG TABLET PO PRN (11:30)
--- NOTE | 2019-06-29 11:52 | NUR ---
Called report given to November Rn to 327-1
--- NOTE | 2019-06-29 12:06 | NUR ---
PT TRANSPORTED TO 3RD FLOOR
[2019-06-29 12:15] VITALS: BP 119/74
--- NOTE | 2019-06-29 13:30 | NUR ---
LOOSELEAF BINDER COVERERCORE BLOWER NOTES RECEIVED PT FROM THE ER, IN A STRETCHER. INTERMITTENTLY DOZING OFF, EASILY AROUSED. PER PT, ABLE TO AMBULATE BUT TOO WEAK AT THIS TIME. PT WAS ABLE SCOOT HERSELF FROM STRETCHER TO THE BED. PT A/O X2-3 AND ABLE TO PROVIDE ADMISSION INFORMATION AND HISTORY. PT ON SUPPLEMENTARY OXYGEN AT 4L VIA NC, WITH NO ACUTE RESPIRATORY DISTRESS. PT DENIES ANY PAIN OR DISCOMFORT AT THIS TIME. PIV TO RIGHT SHOULDER G22 SL, FLUSHED WITH NS, INTACT AND OPERATIONAL. PT HOOKED TO TELEMONITORING WITH SR 85. FC IN PLACE WITH CLEAR YELLOW URINE IN THE BAG. PT KEPT COMFORTABLE IN BED. HOB ELEVATED. PT'S BED IN LOWEST LOCKED POSITION WITH SR X3. WILL CONTINUE PLAN OF CARE.
[2019-06-29] MEDS: ENOXAPARIN SODIUM 40 MG/0.4 ML DISP.SYRIN SQ SCH (13:43)
[2019-06-29 16:00] VITALS: BP 106/64
--- NOTE | 2019-06-29 16:36 | NUR ---
HAZARDOUS WASTE MANAGEMENT SPECIALIST NOTES HOSPITALIST/DT MADE AWARE OF CURRENT TELEMONITORING READING. SR WITH PVCS, PACS AND PROLONG QT INTERVAL. CN/ASHLEY MADE AWARE WELL. EKG ORDERED TO BE REPEATED. HOSPITALIST/DT ORDERED DR RASHID'S CONSULT FOR JUVENAL. AND KEEP MONITORING PT FOR ANY CHANGES.
--- NOTE | 2019-06-29 19:04 | NUR ---
MANAGER HOSPITAL CLOSING NOTES PT IN BED, INTERMITTENTLY DOZING OFF, EASILY AROUSED, A/O X2-3. PT ON SUPPLEMENTARY OXYGEN AT 4L VIA NC, WITH NO ACUTE RESPIRATORY DISTRESS. PT DENIES ANY PAIN OR DISCOMFORT AT THIS TIME. PIV TO RIGHT SHOULDER G22 SL, FLUSHED WITH NS, INTACT AND OPERATIONAL. PT ON TELEMONITORING WITH SR 72 WITH OCCASIONAL PVC, PACS AND PROLONG QT INTERVAL-HOSPITALIST/DT AWARE AND PT IS FOR CARDIO CONSULT IN AM. FC IN PLACE WITH CLEAR YELLOW URINE IN THE BAG. PT KEPT COMFORTABLE IN BED. ALL NEEDS AND CARE ATTENDED. HOB ELEVATED. PT'S BED IN LOWEST LOCKED POSITION WITH SR X3. WILL ENDORSE TO INCOMING PORTFOLIO ARCHITECT FOR LONNY.
--- NOTE | 2019-06-29 19:48 | NUR ---
TELE/RN OPENING NOTES RECEIVED PATIENT IN BED, SEI HELM POSITION. LETHARGIC AND RESTING IN BED WITH OXYGEN VIA NC AT 3LITER, ABLE TO RESPOND WITH VOICE, ON TELE WITH SR WITH OCCASIONAL PVCS PROLONG QT INTERVAL. SKIN INTACT WITH SOME BRUISES, RIGHT SHOULDER IV GAUGE 22. BED LOCKED, CALL LIGHTS WITHIN REACH, WILL MONITOR. PATIENT ON SAAVEDRA CATHETER DUE TO WEAKNESS AND I/O MONITORING PER AM REPORT BY MD. WILL MONITOR.
[2019-06-29 20:00] VITALS: BP_SYST 103; BP_SYST 133; BP_DIAS 55; BP_DIAS 81
[2019-06-29] MEDS: SIMVASTATIN 20 MG TABLET PO SCH (21:09)
--- NOTE | 2019-06-29 21:12 | NUR ---
TELE/RN NOTES PATIENT ASLEEP AND LETHARGIC DUE TO DRUG OVERDOSE TO MONITOR PATIENT LEVEL OF ALERTNESS AT THIS TIME, PO MED ZOCOR NOT GIVEN/
[2019-06-30] VITALS (14 sets, daily range): BP systolic 80–153; BP diastolic 54–97
--- NOTE | 2019-06-30 03:45 | NUR ---
TELE/RN NOTES PATIENT ALERT, ORIENTED TO TIME AND PLACE BUT DOZING OFF.
[2019-06-30 06:48] LABS: ALBUMIN 3.4 g/dL (3.4-5.0); BILIRUBIN,TOTAL 0.4 mg/dL (0.2-1.0); CALCIUM, SERUM 8.5 mg/dL (8.5-10.1); CREATININE 0.6 mg/dL (0.6-1.3); PHOSPHORUS 3.3 mg/dL (2.5-4.9); POTASSIUM 4.3 mmol/L (3.5-5.1); TOTAL PROTEIN, SERUM 6.6 g/dL (6.4-8.2)
--- NOTE | 2019-06-30 07:05 | NUR ---
327-1 TELE READING MIGUEL ANGEL SLEPT DURING THE NIGHT ON OXYGEN VIA NC AT 3L. RESPIRATIONS EVEN AND UNLABORED, SKIN WARM TO TOUCH. MONITORED FOR ANY CHANGES. BED ALARM ON. WILL ENDORSE TO AM RN FOR LONNY.
[2019-06-30] MEDS ORDERED: PANTOPRAZOLE 40 MG TABLET.DR PO SCH (07:30)
[2019-06-30 07:33] LABS: BASOPHILS % (AUTO) 0.2 % (0.0-2.0); EOSINOPHILS % (AUTO) 0.3 % (0.0-6.0); HEMATOCRIT 45 % (33-45); HEMOGLOBIN 14.7 g/dL (11.5-14.8); LYMPHOCYTES % (AUTO) 13.4 % (20.0-44.0); MEAN CORPUSCULAR HGB CONC 33 g/dl (31.0-36.0); MEAN CORPUSCULAR VOLUME 83 fL (82-100); MONOCYTES # (AUTO) 0.5 /CMM (0.1-1.30); MONOCYTES % (AUTO) 7.2 % (2.0-12.0); NEUTROPHILS # (AUTO) 5.9 /CMM (1.8-8.9); NEUTROPHILS % (AUTO) 78.9 % (43.0-81.0); PLATELET COUNT (AUTO) 58 /CMM (150-450); RED BLOOD CELL COUNT(AUTO) 5.38 MIL/uL (4.0-5.2); WHITE BLOOD COUNT (AUTO) 7.5 K/uL (4.3-11.0)
--- NOTE | 2019-06-30 08:00 | NUR ---
MS RN NOTES PATIENT IN BED NO SOB OR ACUTE DISTRESS NOTED. PATIENT ALERT, ORIENTED X3. BED IN LOW LOCKED POSITION. CALL LIGHT WITHIN REACH. WILL CONTINUE TO MONITOR.
[2019-06-30] MEDS: LOSARTAN POTASSIUM 50 MG TABLET PO SCH (08:33)
[2019-06-30] MEDS: AMLODIPINE BESYLATE 10 MG TABLET PO SCH (08:33)
[2019-06-30] MEDS: PANTOPRAZOLE 40 MG TABLET.DR PO SCH (08:33)
[2019-06-30] MEDS: ENOXAPARIN SODIUM 40 MG/0.4 ML DISP.SYRIN SQ SCH (08:35)
[2019-06-30] MEDS: FLUTICASONE/VILANTEROL 1 EACH BLST.W.DEV IH SCH (08:35)
[2019-06-30 10:37] LABS: LYMPHOCYTES % (MANUAL) 15 % (16-48); MONOCYTES % (MANUAL) 4 % (0-11.0); NEUTROPHILS % (MANUAL) 81 (42-76)
--- NOTE | 2019-06-30 11:30 | NUR ---
MS RN NOTES PATIENT SEEN BY MITCHELL CLEARED FOR CARDIAC DIET. ORDERS NOTED AND CARRIED OUT.
--- NOTE | 2019-06-30 11:52 | NUR ---
Social service consult requested for opiate overdose. Pt is a 58 year old female who was admitted to [facility] for altered mental status/opiate overdose. SW met with pt at bedside. Pts belongings were at bedside. Pt is alert and oriented x 4 (person, place, time, situation). Pt was pleasant and cooperative with SW during assessment. Pt is ambulatory. Pt states that she lives at home [[id number], [place] [address]] with her ex-, Taj Craven [[phone]] who is also her next of kin and person to notify. Pt denies a history of psychiatric diagnosis. Pt denies visual or auditory hallucinations. Pt denies suicidal and homicidal ideation. Pt denies drug abuse and cigarette use. 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 Pt denies intentional over dose. Pt states, I only use the drugs that are prescribed to me. Pt states she is prescribed methadone for pain and last dose was 3 days ago. KARLO provided the following referrals to pt: [facility] [id number] [place] [id number]; , [facility] [address] [place] [address]; , if needed in the future. No other services needed at this time. SW is available if needed.
--- NOTE | 2019-06-30 14:00 | NUR ---
MS RN NOTES PATIENT FOUND NONE RESPONSIVE IN BED. RESPONDS ONLY TO PAINFUL STIMULI. RAPID RESPONSE CALLED VITAL SIGNS CHECKED PULSE 97 RESP:20 BP:153/89 BLOOD SUGAR 189,O2 SAT. 57% ON ROOM AIR PATIENT PLACED ON NONE REBREATHER MASK WITH 15LITERS OF 02. PATIENT SATURATION INCREASED TO 99%. ORDERERS OBTAINED FOR STAT ABG. AT 1420: PATIENTS BP 134/91 PULSE 107 RESP: 18 ON 4 LITERS OF NC. PATIENT AWAKE ABLE TO COMMUNICATE, FOUND EMPTY BOTTLE OF METHADONE AT BEDSIDE. MITCHELL SMALL PARTS SHAPER OPERATOR MADE AWARE OF AGB RESULTS AND METHADONE BOTTLE . ORDERS OBTAINED TO TRANSFER TO ICU, BIPAP, DUG SCREEN STAT. ICU BED OBTAINED TRANSFERRED PATIENT TO ICU.
[2019-06-30 14:29] LABS: ABG BASE EXCESS -2.4 mmol/L; ABG OXYGEN SATURATION 99.1 % (92.0-98.5); ABG PCO2 68.5 mmHg (35.0-45.0); ABG PH 7.215 (7.350-7.450); ABG PO2 337.2 mmHg (75.0-100.0); AaDO2 307.3 mmHg; MetHb 0.5 % (0.0-1.5); O2Hb 97.6 % (94.0-97.0); SITE, ABG Right Radial; VENT MODE, BG NRB MASK
--- NOTE | 2019-06-30 14:50 | NUR ---
DYE HOUSE SUPERVISOR TRANSFERRED BY BED WITH MONITOR FROM 3W TO ROOM 254. PT ADMITTED FOR POSSIBLE OD, WAS FOUND LETHARGIC ON THE FLOOR. ABG WAS DRAWN. PT NOW AWAKE AND VERBAL. PT DENIED TAKING ANY MEDS. PT PLACED ON BIPAP.
[2019-06-30] MEDS ORDERED: NALOXONE HCL 0.4 MG/ML AMPUL IV PRN (15:00)
[2019-06-30] MEDS: IPRATROPIUM NEB FS 0.5 MG/2.5 ML AMPUL.NEB NEB SCH ×3 (16:05→23:43)
[2019-06-30] MEDS: ALBUTEROL FS 2.5 MG/0.5 ML VIAL.NEB NEB SCH ×3 (16:05→23:43)
--- NOTE | 2019-06-30 16:13 | NUR ---
FABRICATING MACHINE OPERATOR NOTES RECEIVED REPORT FROM CHARGE CADENCE. PT TRANSFERED FROM MS S/P WIDE PIECE GOODS INSPECTOR. PT PLACED ON BIPAP WITH ABGS DONE. PT ABLE TO AROUSE WITH VOICE AND TOUCH BUT REMAINS LETHARGIC A/O X1-2. PER REPORT PT HAD EMPTY BOTTLE OF METHADONE IN BED. SINUS ON MONITOR B/P IN 80'S ORDER FOR MIDLINE PT POSSIBLE CANDIDATE FOR PRESSORS. LEFT HAND # 20 GAUGE SALINE LOCK # 22 IN RIGHT SHOULDER SL. SAFETY AND ASPIRATION PRECAUTIONS IN PLACE BED IN LOW LOCKED POSITION WILL CONT ORDERS
[2019-06-30 17:09] LABS: ABG BASE EXCESS 6.8 mmol/L; ABG OXYGEN SATURATION 95.3 % (92.0-98.5); ABG PCO2 62.7 mmHg (35.0-45.0); ABG PH 7.357 (7.350-7.450); ABG PO2 80.9 mmHg (75.0-100.0); AaDO2 132.2 mmHg; COHb 0.8 % (0.5-1.5); MetHb 0.7 % (0.0-1.5); O2Hb 93.9 % (94.0-97.0); SITE, ABG Right Radial
[2019-06-30] MEDS: methylPREDNISolone SOD SUCC 125 MG/2ML VIAL IV SCH (17:47)
--- NOTE | 2019-06-30 17:55 | NUR ---
ICU NOTES PT MORE ALERT THAN AT ADMIT. A/O X4 ON BIPAP TOLERATING SETTINGS ORDERED ABG DRAWN AND REPORTED TO DR ANTONIO ORDERS PLACED TO HAVE ABGS DRAWN IN THE AM. AT BEDSIDE EDUCATED ON MIDLINE PLACEMENT AND PT PREFERS TO HAVE MIDLINE. B/P STILL IN THE LOW 90'S POSSIBLE RELATED TO OVER USE ON HOME MEDS FOUND IN BED. ORIENTED TO ROOM AND CALL SYSTEM BEDSIDE COMMODE PLACED IN ROOM. ABLE TO MAKE NEEDS KNOWN AND ALL MET. CALL LIGHT WITHIN REACH
--- NOTE | 2019-06-30 18:52 | NUR ---
PICC MAKAYLA GAUTHIER @ BEDSIDE TO PLACE MIDLINE
--- NOTE | 2019-06-30 18:57 | NUR ---
MIDLINE # 18 GAUGE PLACED IN RIC
--- NOTE | 2019-06-30 19:10 | NUR ---
REPORT ENDORSED TO NOC
--- NOTE | 2019-06-30 19:30 | NUR ---
COLLECTIONS CLERK NOTE RECEIVED PT ON BIPAP. A/O X4. BREATHING UNLABORED. NO C/O PAIN OR DISCOMFORT NOTED. HOB ELEVATED AND ON ASPIRATION PRECAUTIONS. BED ALARM ENABLED. CALL LIGHT WITHIN REACH. WILL MONITOR.
[2019-06-30] MEDS: SIMVASTATIN 20 MG TABLET PO SCH (23:13)
[2019-07-01] VITALS (20 sets, daily range): BP systolic 102–130; BP diastolic 53–83
[2019-07-01] MEDS: IPRATROPIUM NEB FS 0.5 MG/2.5 ML AMPUL.NEB NEB SCH ×6 (03:44→23:54)
[2019-07-01] MEDS: ALBUTEROL FS 2.5 MG/0.5 ML VIAL.NEB NEB SCH ×6 (03:44→23:54)
[2019-07-01 04:32] LABS: BASOPHILS % (AUTO) 0.1 % (0.0-2.0); HEMATOCRIT 41 % (33-45); HEMOGLOBIN 13.4 g/dL (11.5-14.8); LYMPHOCYTES # (AUTO) 0.7 /CMM (0.8-4.8); LYMPHOCYTES % (AUTO) 10.4 % (20.0-44.0); MEAN CORPUSCULAR HGB CONC 33 g/dl (31.0-36.0); MEAN CORPUSCULAR VOLUME 84 fL (82-100); MONOCYTES # (AUTO) 0.2 /CMM (0.1-1.30); MONOCYTES % (AUTO) 2.6 % (2.0-12.0); NEUTROPHILS # (AUTO) 5.9 /CMM (1.8-8.9); NEUTROPHILS % (AUTO) 86.9 % (43.0-81.0); PLATELET COUNT (AUTO) 110 /CMM (150-450); RED BLOOD CELL COUNT(AUTO) 4.88 MIL/uL (4.0-5.2); WHITE BLOOD COUNT (AUTO) 6.8 K/uL (4.3-11.0)
[2019-07-01 04:43] LABS: CALCIUM, SERUM 8.9 mg/dL (8.5-10.1); CREATININE 0.6 mg/dL (0.6-1.3); POTASSIUM 4.3 mmol/L (3.5-5.1)
--- NOTE | 2019-07-01 05:30 | NUR ---
ARTIFICIAL BREEDING DISTRIBUTOR NOTE PT REMOVED BIPAP. PLACED ON 2L NC AND TOLERATING WELL. A/O X4 AND ABLE TO VERBALIZE NEEDS. ASSISTED TO BEDSIDE COMMODE. WILL MONITOR.
--- NOTE | 2019-07-01 05:56 | NUR ---
@6458 BIPAP TAKEN OFF BY MAKAYLA QUINTEROS. PT REFUSED TO BE BACK ON BIPAP. RN PLACED PT ON 2L NC.
--- NOTE | 2019-07-01 07:30 | NUR ---
RN NOTE: RECEIVED PATIENT IN BED AWAKE, ALERT AND VERBALLY RESPONSIVE. HOB ELEVATED. ON O2 2L/MIN VIA NC SATURATING 95-98%. DENIED ANY PAIN. BREAKFAST TRAY WAS GIVEN. (R) UA MIDLINE WAS NOTED PATENT AND INTACT WITH CLEAR TRANSPARENT DRESSING IN PLACED. PATIENT HAS A BEDSIDE COMMODE AND PER NOC SHIFT NURSE, MAY NEED SOME STANDBY ASSISTANCE ON GETTING OUT OF THE BED. BED ALARMED AND LOCKED AT ALL TIMES. ON LOWEST POSITION. CALL LIGHT WITHIN REACH. NEEDS ANTICIPATED.
[2019-07-01] MEDS: PANTOPRAZOLE 40 MG TABLET.DR PO SCH (07:47)
[2019-07-01 09:08] LABS: ABG BASE EXCESS 6.9 mmol/L; ABG OXYGEN SATURATION 92.2 % (92.0-98.5); ABG PCO2 57.5 mmHg (35.0-45.0); ABG PH 7.386 (7.350-7.450); ABG PO2 64.3 mmHg (75.0-100.0); AaDO2 67.5 mmHg; COHb 1.1 % (0.5-1.5); MetHb 0.8 % (0.0-1.5); O2Hb 90.4 % (94.0-97.0); SITE, ABG Right Radial; VENT MODE, BG NASAL CANNULA
[2019-07-01] MEDS: AMLODIPINE BESYLATE 10 MG TABLET PO SCH (09:40)
[2019-07-01] MEDS: methylPREDNISolone SOD SUCC 125 MG/2ML VIAL IV SCH ×2 (09:40→16:18)
[2019-07-01] MEDS: LOSARTAN POTASSIUM 50 MG TABLET PO SCH (09:40)
[2019-07-01] MEDS: ENOXAPARIN SODIUM 40 MG/0.4 ML DISP.SYRIN SQ SCH (09:44)
[2019-07-01] MEDS: FLUTICASONE/VILANTEROL 1 EACH BLST.W.DEV IH SCH (09:45)
--- NOTE | 2019-07-01 15:15 | NUR ---
RN NOTE: DR. ANTONIO WAS AT THE NURSING STATION AND HE ORDERED THE OK FOR TRANSFER TO [facility] FOR THE PATIENT. PATIENT WAS MADE AWARE. CHARGE NURSE CADENCE AND RN LIVESTOCK FARM MANAGER REKHA WERE AWARE. AWAITING FOR BED PLACEMENT.
--- NOTE | 2019-07-01 16:35 | NUR ---
RN NOTE: PATIENT WAS TRANSFERRED TO [facility] PER ACLS PROTOCOL AND PATIENT'S BELONGINGS WERE TRANSFERRED WITH HER. CALLED REPORT TO [facility] MORALES RN FOR CONTINUITY OF CARE @3015. PATIENT WAS OK WITH THE TRANSFER AND REFUSED TO INFORM HER MICHAEL FOR THE TRANSFER.
--- NOTE | 2019-07-01 17:09 | NUR ---
INCOMING FREIGHT CLERK NOTE RECEIVED PATENT FROM ICU ALERT , ORIENTED X3 ,ON 2L NC OF O2 ,NO SOB NOTED AT THIS TIME , VS TAKEN ,PLACED ON TELE MONITOR SR , CALL LIGHT WITHIN REACH , BED IN LOWEST AND LOCKED POSITION , ALL NEEDS ATTENDED, WILL CONT TO MONITOR
--- NOTE | 2019-07-01 18:03 | NUR ---
[facility] RN NOTE RESTING COMFORTABLY , ALL NEEDS ATTENDED,ABLE TO EAT DINNER SELF ,WILL CONT TO MONITOR
--- NOTE | 2019-07-01 19:10 | NUR ---
RN OPENING NOTES: PATIENT AWAKE AND ABLE TO VERBALIZE NEEDS. AAOX4. NO SOB. NO C/O PAIN AT THIS TIME. SAFETY PRECAUTIONS IMPLEMENTED. BED LOCKED AND IN LOWEST POSITION. RIGHT UPPER MIDLINE INTACT, PATENT, AND FLUSHING WELL. CALL LIGHT PLACED WITHIN REACH. WILL CONT. TO MONITOR.
--- NOTE | 2019-07-01 20:00 | NUR ---
RN NOTE: PATIENT REQUESTING FOR JONATAN HALL. PAGED DR. SMITH AND MADE AWARE OF PATIENT'S DX: BENZO OVERDOSE. PER MD, HE WILL NOT ORDER AMBIEN AND TO F/U WITH HER PRIMARY MD. WILL ENDORSE TO AM SHIFT NURSE.
[2019-07-01] MEDS: SIMVASTATIN 20 MG TABLET PO SCH (21:15)
[2019-07-02] VITALS: BP 129/77
[2019-07-02] MEDS: IPRATROPIUM NEB FS 0.5 MG/2.5 ML AMPUL.NEB NEB SCH ×3 (03:07→11:15)
[2019-07-02] MEDS: ALBUTEROL FS 2.5 MG/0.5 ML VIAL.NEB NEB SCH ×3 (03:07→11:15)
[2019-07-02 04:00] VITALS: BP 121/77
[2019-07-02 06:31] LABS: BASOPHILS % (AUTO) 0.1 % (0.0-2.0); HEMATOCRIT 41 % (33-45); HEMOGLOBIN 13.6 g/dL (11.5-14.8); LYMPHOCYTES # (AUTO) 0.7 /CMM (0.8-4.8); LYMPHOCYTES % (AUTO) 11.3 % (20.0-44.0); MEAN CORPUSCULAR HGB CONC 33 g/dl (31.0-36.0); MEAN CORPUSCULAR VOLUME 83 fL (82-100); MONOCYTES # (AUTO) 0.2 /CMM (0.1-1.30); MONOCYTES % (AUTO) 3.9 % (2.0-12.0); NEUTROPHILS # (AUTO) 4.9 /CMM (1.8-8.9); NEUTROPHILS % (AUTO) 84.7 % (43.0-81.0); RED BLOOD CELL COUNT(AUTO) 5.01 MIL/uL (4.0-5.2); WHITE BLOOD COUNT (AUTO) 5.8 K/uL (4.3-11.0)
[2019-07-02 06:39] LABS: CALCIUM, SERUM 8.6 mg/dL (8.5-10.1); CREATININE 0.6 mg/dL (0.6-1.3); MAGNESIUM 2.2 mg/dL (1.8-2.4); PHOSPHORUS 3.5 mg/dL (2.5-4.9); POTASSIUM 3.8 mmol/L (3.5-5.1)
--- NOTE | 2019-07-02 07:10 | NUR ---
RN CLOSING NOTES: PATIENT ASLEEP BUT EASILY AROUSABLE. NO RESPIRATORY DISTRESS. NO C/O PAIN AT THIS TIME. PATIENT WAS REQUESTING FOR AMBIEN LAST NIGHT BUT PER DR. SMITH, F/U WITH AM DOCTOR. ENDORSED TO AM SHIFT NURSE FOR CONTINUITY OF CARE.
[2019-07-02] MEDS: PANTOPRAZOLE 40 MG TABLET.DR PO SCH (07:43)
[2019-07-02 08:00] VITALS: BP 157/82
[2019-07-02 08:45] LABS: LYMPHOCYTES % (MANUAL) 7 % (16-48); MONOCYTES % (MANUAL) 5 % (0-11.0); NEUTROPHILS % (MANUAL) 88 (42-76)
[2019-07-02] MEDS: ENOXAPARIN SODIUM 40 MG/0.4 ML DISP.SYRIN SQ SCH (09:00)
[2019-07-02 09:14] VITALS: BP 157/82
[2019-07-02] MEDS: AMLODIPINE BESYLATE 10 MG TABLET PO SCH (09:14)
[2019-07-02] MEDS: LOSARTAN POTASSIUM 50 MG TABLET PO SCH (09:14)
[2019-07-02] MEDS: methylPREDNISolone SOD SUCC 125 MG/2ML VIAL IV SCH (09:15)
[2019-07-02] MEDS ORDERED: PRED5TAB48 PO (10:04)
[2019-07-02 10:36] LABS: PLATELET COUNT (AUTO) 109 /CMM (150-450)
--- NOTE | 2019-07-02 12:20 | NUR ---
RN DC NOTE Received order from MD to DC to home. Patient is awake and alert. Ambulated out of unit to her LIFT ride upon DC. No SOB or distress. educated on medications at home and new prescription, reminded to go to pharmacy, and follow up with pcp + pulmonology in one week. belongings checklist signed. no wound pictures to be taken. IV cath removed intact, pressure applied, no bleeding noted.
== END 2019-07-02 12:15 | disposition home or self-care (01) | DRG 812 ==
LOC: ER 07:29 → TELE1 10:51 → TELE 11:16 → MED 06-30 10:08 → ICU 06-30 14:53 → TELE1 07-01 17:01 → TELE-TD 07-01 17:16 → TELE1 07-02 09:46
PROVIDERS: ADMIT Nurse Practitioner Acute Care; ATTEND Student in an Organized Health Care Education/Training Program
PROC: 05H533Z Insertion of Infusion Device into Right Subclavian Vein, Percutaneous Approach (ICD-10-PCS; 2019-06-29)
PROC: 5A09357 Assistance with Respiratory Ventilation, Less than 24 Consecutive Hours, Continuous Positive Airway Pressure (ICD-10-PCS; principal; 2019-06-30)
DX: T42.4X1A Poisoning by benzodiazepines, accidental (unintentional), initial encounter (principal); K72.00 Acute and subacute hepatic failure without coma; J96.21 Acute and chronic respiratory failure with hypoxia; J96.22 Acute and chronic respiratory failure with hypercapnia; G92 Toxic encephalopathy; Y92.009 Unspecified place in unspecified non-institutional (private) residence as the place of occurrence of the external cause; J44.9 Chronic obstructive pulmonary disease, unspecified; D72.829 Elevated white blood cell count, unspecified; F17.210 Nicotine dependence, cigarettes, uncomplicated; E78.5 Hyperlipidemia, unspecified; G89.4 Chronic pain syndrome; E66.2 Morbid (severe) obesity with alveolar hypoventilation; I10 Essential (primary) hypertension; G43.909 Migraine, unspecified, not intractable, without status migrainosus; Z71.6 Tobacco abuse counseling; Z71.3 Dietary counseling and surveillance; Z68.41 Body mass index [BMI] 40.0-44.9, adult; F11.20 Opioid dependence, uncomplicated; B19.20 Unspecified viral hepatitis C without hepatic coma; I25.2 Old myocardial infarction; Z99.81 Dependence on supplemental oxygen
CPT/HCPCS: 36415; 36600; 70450-TC; 71045-TC; 72125-TC; 80048-TC; 80053-TC; 80076-TC; 80305; 81000-TC; 82140-TC; 82803-TC; 82962-TC; 83735-TC; 84100-TC; 84443-TC; 84484-TC; 85025-TC; 85730-TC; 87081-TC; 93307-TC; 94760-TC; 94799-TC; 99082-TC; G0378; G0480; J1650; J2310; J2405; J2930; J7030

== ENCOUNTER 2020-03-29 17:37 | Inpatient (IN) | payer OTHER ==
[~2020-03-29] VITALS: Ht 165.1 cm; Wt 89.8 kg
[~2020-03-29 17:37] MED LIST changes: -DIAZ10TA4 PO; +PRED5TAB48 PO
[2020-03-29] MEDS ORDERED: ONDANSETRON 4 MG TAB.RAPDIS PO ONE (18:00)
[2020-03-29] MEDS ORDERED: IV NS 0.9% 1,000 ML BAG IV ONE (18:00)
[2020-03-29] MEDS ORDERED: ONDANSETRON HCL/PF 4 MG/2 ML VIAL ONE (18:01)
--- NOTE | 2020-03-29 18:19 | NUR ---
ANTONY FROM HOME ALL IN BY . TO ER BED 12. AWAKE BUT UNABLE TO ANSWER QUESTION. NOT IN RESP DISTRESS. BROUGHT IN FOR OVERDOSE OF METHADONE, PER EMS REPORT, PT TAKES 9MG OG METHADONE ON A DAILY BASIS. UPON ARRIVAL PT WAS FOUND UNCONSCIOUS WITH REPORTED AGONAL BREATHING AND NOTED PIN POINT PUPIL. PT WAS GIVEN NARCAN 4MG IN TOTAL NASALLY. PT WAS ALSO NOTED WITH O2 SAT 89% ON RA PLACED ON O2 VIA NC SATTING AT 99%. MD WAS AT THE BEDSIDE FOR EVAL. ORDERS RECEIVED NOTED AND CARRIED OUT. IV LINE OBTAINED ON LFA 20G. PLACED ON MONITOR.
[2020-03-29 18:37] LABS: BASOPHILS % (AUTO) 0.2 % (0.0-2.0); HEMATOCRIT 49 % (33-45); HEMOGLOBIN 15.4 g/dL (11.5-14.8); LYMPHOCYTES # (AUTO) 0.4 /CMM (0.8-4.8); LYMPHOCYTES % (AUTO) 2.9 % (20.0-44.0); MEAN CORPUSCULAR HGB CONC 31 g/dl (31.0-36.0); MEAN CORPUSCULAR VOLUME 87 fL (82-100); MONOCYTES # (AUTO) 0.2 /CMM (0.1-1.30); MONOCYTES % (AUTO) 1.8 % (2.0-12.0); NEUTROPHILS # (AUTO) 11.7 /CMM (1.8-8.9); NEUTROPHILS % (AUTO) 95.1 % (43.0-81.0); PLATELET COUNT (AUTO) 123 /CMM (150-450); RED BLOOD CELL COUNT(AUTO) 5.67 MIL/uL (4.0-5.2); WHITE BLOOD COUNT (AUTO) 12.3 K/uL (4.3-11.0)
[2020-03-29 18:56] LABS: ALANINE AMINOTRANSFERASE 11 U/L (12-78); ALCOHOL, BLOOD < 3 mg/dL (0-0); ALKALINE PHOSPHATASE 74 U/L (46-116); ASPARTATE AMINOTRANSFERASE 8 U/L (15-37); BILIRUBIN,DIRECT 0.1 mg/dL (0.0-0.2); BILIRUBIN,TOTAL 0.3 mg/dL (0.2-1.0); CALCIUM, SERUM 9.2 mg/dL (8.5-10.1); CARBON DIOXIDE 27 mmol/L (21-32); CHLORIDE 102 mmol/L (98-107); GLUCOSE 227 mg/dL (74-106); POTASSIUM 3.5 mmol/L (3.5-5.1); SODIUM SERUM 140 mmol/L (136-145); TOTAL PROTEIN, SERUM 7.7 g/dL (6.4-8.2); UREA NITROGEN, BLOOD 13 mg/dL (7-18)
[2020-03-29 19:13] LABS: ACETAMINOPHEN < 2 ug/ml (10-30); SALICYLATE 2.2 mg/dL (2.8-20.0)
[2020-03-29 19:41] LABS: CREATINE KINASE, TOTAL 61 U/L (26-192)
[2020-03-29 20:16] LABS: APPEARANCE,URINE Slightly Cloudy (CLEAR); BILIRUBIN,URINE Negative (NEGATIVE); BLOOD, URINE Negative Ery/uL (NEGATIVE); COLOR,URINE Yellow (YELLOW); KETONES,URINE Trace (NEGATIVE); LEUKOCYTE ESTERASE ,URINE Negative (NEGATIVE); NITRITE, URINE Negative (NEGATIVE); PH,URINE 5.5 (5.0-8.0); PROTEIN,URINE Trace mg/dl (NEGATIVE); UGLUCOSE >=1000 mg/dL (NEGATIVE); UROBILINOGEN,URINE 0.2 EU/dL (0.2)
[2020-03-29 20:32] LABS: BACTERIA,URINE None seen /HPF (None Seen); RBC,URINE 0-2 /HPF (0-2); SQUAMOUS EPITHELIAL CELL,UR Many /HPF (None Seen); WBC,URINE 0-2 /HPF (0-3)
--- NOTE | 2020-03-29 20:50 | NUR ---
PT'S O2 WAS REMOVED. NOTED PT STARTED DESATTING @ 82% ON RA. PT UNABLE TO TOLERATE WITHOUT O2. MADE AWARE
--- NOTE | 2020-03-29 22:35 | NUR ---
COVID SWAB DONE AND SENT TO LAB
--- NOTE | 2020-03-29 22:48 | NUR ---
PT'S NOTIFIED THE HIS WILL BE ADMITTED TO THE HOSPITAL.
--- NOTE | 2020-03-29 22:48 | NUR ---
NURYS LY DNP PAGED PER ER ORDER.
[2020-03-29] MEDS ORDERED: Z GUARD REMEDY 2 OZ OINT TP PRN (23:00)
[2020-03-29] MEDS ORDERED: MAG HYDROX/AL HYDROX/SIMETH 30 ML UDC PO PRN (23:00)
[2020-03-29] MEDS ORDERED: ONDANSETRON HCL/PF 4 MG/2 ML VIAL IVP PRN (23:00)
[2020-03-29] MEDS ORDERED: ZOLPIDEM TARTRATE 5 MG TABLET PO PRN (23:00)
[2020-03-29] MEDS ORDERED: MAGNESIUM HYDROXIDE 30 ML UDC PO PRN (23:00)
--- NOTE | 2020-03-29 23:00 | NUR ---
ER SPOKE TO NURYS LY DNP REGARDING PT ADMISSION.
--- NOTE | 2020-03-29 23:09 | NUR ---
LAB CALLED REGARDING NEGATIVE COVID RESULT.
--- NOTE | 2020-03-29 23:28 | NUR ---
TELE 326-2
--- NOTE | 2020-03-29 23:41 | NUR ---
REPORT GIVEN TO MAKAYLA LAZCANO FOR LONNY.
[2020-03-30] VITALS: BP 127/80
--- NOTE | 2020-03-30 | NUR ---
RN medsur admission notes Received Pt from MAKAYLA Smith (ER nurse). Pt is alert and orientedX4. Respiration is normal in 4 L NC with O2 sat is 98%. No SOB. No S/S of distress noted. IV sites at L forearm is clean, intact and flush without resistance. VS is stable. Pt is able to ambulate with a steady gait. Skin assessment is checked and performed. Pt's skin is intact. Reorient Pt to the room and the use of call light. Pt verbalized understanding. Admission orders is received from Dr. Clark. Pt's belonging was checked by MITESH Holbrook. Safety precautions is maintained. Bed at low position, HOB elevated, brakes locked, side rails X3 and call light is within reach. Will continue to monitor.
--- NOTE | 2020-03-30 00:08 | NUR ---
PT TRANSPORTED TO UNIT ON [facility] BY RN. NAD NOTED. PT AMBULATED FROM [facility] TO BED W/O ASSIST.
[2020-03-30] MEDS: ACETAMINOPHEN 325 MG TABLET PO PRN ×2 (00:24→21:59)
--- NOTE | 2020-03-30 00:24 | NUR ---
MAKAYLA medsurmarquis notes Pt is complaining of headache and requesting tylenol. Administered tylenol 650 mg/po as ordered for headache per Pt' request. Safety precautions is maintained. Will continue to monitor.
--- NOTE | 2020-03-30 03:00 | NUR ---
RN medsurg notes Pt is sleeping in bed comfortably. No SOB. No S/S of distress noted. Safety precautions is maintained. Will continue to monitor.
--- NOTE | 2020-03-30 05:00 | NUR ---
MAKAYLA medsurg notes Pt refused to have SCD comp.(DVT pump). Made aware risks and benefits. Pt keep refusing. Will continue to monitor.
--- NOTE | 2020-03-30 06:29 | NUR ---
RN medsurg closing notes Pt is resting in bed comfortably. Pt is alert and orientedX4. Respiration is normal in 4 L NC. No SOB. No S/S of distress noted. IV sites at L forearm# 20 is clean, intact and SL. VS is stable. Afebrile. Kept Pt clean, dry and comfortable. All needs met and attended. Safety precautions is maintained. Bed at low position, brakes locked, side rails upX3, HOB elevated, call light is within reach. Will endorse to morning nurse for LONNY.
--- NOTE | 2020-03-30 07:30 | NUR ---
ms rn received on bed, awake,alert,oriented x4,not in any form of distress, respirations even and unlabored, no sob noted,lungs are cleae,abdomen soft,positive bowel sounds,denies pain at this time,all needs attended.
[2020-03-30 07:44] LABS: BASOPHILS % (AUTO) 0.2 % (0.0-2.0); EOSINOPHILS % (AUTO) 0.1 % (0.0-6.0); HEMATOCRIT 44 % (33-45); HEMOGLOBIN 14.1 g/dL (11.5-14.8); LYMPHOCYTES # (AUTO) 1.9 /CMM (0.8-4.8); MEAN CORPUSCULAR HGB CONC 32 g/dl (31.0-36.0); MEAN CORPUSCULAR VOLUME 85 fL (82-100); MONOCYTES # (AUTO) 0.6 /CMM (0.1-1.30); MONOCYTES % (AUTO) 6.9 % (2.0-12.0); NEUTROPHILS # (AUTO) 6.1 /CMM (1.8-8.9); NEUTROPHILS % (AUTO) 70.8 % (43.0-81.0); PLATELET COUNT (AUTO) 112 /CMM (150-450); RED BLOOD CELL COUNT(AUTO) 5.14 MIL/uL (4.0-5.2); WHITE BLOOD COUNT (AUTO) 8.6 K/uL (4.3-11.0)
[2020-03-30 08:00] VITALS: BP 147/91
[2020-03-30] MEDS ORDERED: ALBUTEROL SULFATE INH 18 GM HFA.AER.AD IH PRN (08:30)
[2020-03-30] MEDS ORDERED: FLUTICASONE/SALMETEROL 1 DISK IH SCH (09:00)
[2020-03-30] MEDS ORDERED: ALBUTEROL FS 2.5 MG/3 ML VIAL.NEB NEB PRN (09:00)
[2020-03-30 09:06] LABS: ALBUMIN 3.4 g/dL (3.4-5.0); BILIRUBIN,TOTAL 0.3 mg/dL (0.2-1.0); CALCIUM, SERUM 8.5 mg/dL (8.5-10.1); CREATININE 0.6 mg/dL (0.6-1.3); MAGNESIUM 2.1 mg/dL (1.8-2.4); PHOSPHORUS 3.5 mg/dL (2.5-4.9); POTASSIUM 3.8 mmol/L (3.5-5.1); TOTAL PROTEIN, SERUM 6.6 g/dL (6.4-8.2)
[2020-03-30] MEDS: DOCUSATE SODIUM 100 MG CAPSULE PO SCH ×2 (09:12→17:00)
[2020-03-30] MEDS: PANTOPRAZOLE 40 MG TABLET.DR PO SCH (09:12)
[2020-03-30] MEDS: LOSARTAN POTASSIUM 50 MG TABLET PO SCH (09:13)
[2020-03-30] MEDS: AMLODIPINE BESYLATE 10 MG TABLET PO SCH (09:13)
[2020-03-30] MEDS: FLUTICASONE/VILANTEROL 1 EACH BLST.W.DEV IH SCH (09:14)
--- NOTE | 2020-03-30 09:30 | NUR ---
ms aquino breakfast served,due meds given,tolerated well.
[2020-03-30 09:40] LABS: THYROID STIMULATING HORMONE 0.754 uIU/mL (0.358-3.74)
--- NOTE | 2020-03-30 13:27 | NUR ---
11:20am Die Repairer Trimmer Dies consult requested by Dhiraj Clark DNP as patient had overdosed and wanted resources. SW attempted to meet with the patient at bedside; however, patients MD was meeting with the patient. This SW to return at a later time to meet with the patient.
--- NOTE | 2020-03-30 18:20 | NUR ---
MS RN ON BED,NO DISTRESS NOTED, WILL HAVE CPAP TONIGHT, RT AWARE.
[2020-03-30 18:37] VITALS: BP 109/70
[2020-03-30 19:00] VITALS: BP 105/56
--- NOTE | 2020-03-30 19:48 | NUR ---
MS RN NOTES RECEIVED PATIENT AWAKE, NO SIGNS OF DISTRESS, DENIES ANY PAIN OR DISCOMFORT, SAFETY MEASURES IN PLACE, BREATHING EVEN AND UNLABORED. BED IN LOW LOCKED POSITION, CALL LIGHT WITHIN EASY REACH. ALL NEEDS ANTICIPATED. WILL CONTINUE TO MONITOR ACCORDINGLY.
[2020-03-30 20:00] VITALS: BP 122/85
[2020-03-30] MEDS ORDERED: SIMVASTATIN 20 MG TABLET PO SCH (22:00)
[2020-03-31] MEDS: PANTOPRAZOLE 40 MG TABLET.DR PO SCH (06:38)
--- NOTE | 2020-03-31 06:58 | NUR ---
MS RN NOTES ALL NEEDS ATTENDED AND MET. ABLE TO REST AND SLEPT AT INTERVALS. NO SIGNS OF DISTRESS, DENIES ANY PAIN OR DISCOMFORT, SAFETY MEASURES IN PLACE, BREATHING EVEN AND UNLABORED. BED IN LOW LOCKED POSITION, CALL LIGHT WITHIN EASY REACH. ALL NEEDS ANTICIPATED. WILL ENDORSE TO AM NURSE FOR CONTINUITY OF CARE.
[2020-03-31 07:26] LABS: BASOPHILS % (AUTO) 0.3 % (0.0-2.0); EOSINOPHILS % (AUTO) 0.9 % (0.0-6.0); HEMATOCRIT 44 % (33-45); HEMOGLOBIN 14.2 g/dL (11.5-14.8); LYMPHOCYTES # (AUTO) 1.7 /CMM (0.8-4.8); LYMPHOCYTES % (AUTO) 25.4 % (20.0-44.0); MEAN CORPUSCULAR HGB CONC 32 g/dl (31.0-36.0); MEAN CORPUSCULAR VOLUME 85 fL (82-100); MONOCYTES # (AUTO) 0.5 /CMM (0.1-1.30); MONOCYTES % (AUTO) 7.1 % (2.0-12.0); NEUTROPHILS # (AUTO) 4.4 /CMM (1.8-8.9); NEUTROPHILS % (AUTO) 66.3 % (43.0-81.0); PLATELET COUNT (AUTO) 116 /CMM (150-450); RED BLOOD CELL COUNT(AUTO) 5.21 MIL/uL (4.0-5.2); WHITE BLOOD COUNT (AUTO) 6.6 K/uL (4.3-11.0)
[2020-03-31] MEDS ORDERED: PANTOPRAZOLE 40 MG TABLET.DR PO SCH (07:30)
[2020-03-31 07:32] LABS: CALCIUM, SERUM 8.7 mg/dL (8.5-10.1); CREATININE 0.6 mg/dL (0.6-1.3); POTASSIUM 4.1 mmol/L (3.5-5.1)
--- NOTE | 2020-03-31 07:32 | NUR ---
ms rn received on bed, awake,alert,oriented x4,not in any form of distress, respirations even and unlabored,no sob noted.lungs areclear,abdomen soft,positive bowel sounds,denies pain at this time,all needs attended.
--- NOTE | 2020-03-31 08:20 | NUR ---
ms aquino breakfast served,due meds given, tolerated well.
[2020-03-31] MEDS: DOCUSATE SODIUM 100 MG CAPSULE PO SCH (08:37)
[2020-03-31 08:38] VITALS: BP 118/74
[2020-03-31] MEDS: LOSARTAN POTASSIUM 50 MG TABLET PO SCH (08:38)
[2020-03-31] MEDS: AMLODIPINE BESYLATE 10 MG TABLET PO SCH (08:38)
[2020-03-31] MEDS: FLUTICASONE/VILANTEROL 1 EACH BLST.W.DEV IH SCH (08:40)
--- NOTE | 2020-03-31 08:40 | NUR ---
ms rn was seen by salazar, will be discharge today.
--- NOTE | 2020-03-31 11:00 | NUR ---
ms rn patient discharged home, instructions given and understood,was sisal picker by ,no distress,all needs attended.
--- NOTE | 2020-03-31 13:21 | NUR ---
This SW attempted to meet with the patient. However, patient had been discharged.
== END 2020-03-31 11:00 | disposition home or self-care (01) | DRG 812 ==
LOC: ER 17:42 → MED 23:32
PROVIDERS: ADMIT Hospitalist; ATTEND Nurse Practitioner Acute Care
DX: T40.3X1A Poisoning by methadone, accidental (unintentional), initial encounter (principal); Y92.9 Unspecified place or not applicable; J44.9 Chronic obstructive pulmonary disease, unspecified; I25.2 Old myocardial infarction; Z90.49 Acquired absence of other specified parts of digestive tract; E78.5 Hyperlipidemia, unspecified; G92 Toxic encephalopathy; J96.01 Acute respiratory failure with hypoxia; K21.9 Gastro-esophageal reflux disease without esophagitis; I10 Essential (primary) hypertension; G43.909 Migraine, unspecified, not intractable, without status migrainosus; M19.90 Unspecified osteoarthritis, unspecified site; G89.4 Chronic pain syndrome; Z79.899 Other long term (current) drug therapy; E66.9 Obesity, unspecified; Z88.8 Allergy status to other drugs, medicaments and biological substances; Z79.51 Long term (current) use of inhaled steroids; F17.200 Nicotine dependence, unspecified, uncomplicated; F11.20 Opioid dependence, uncomplicated; D72.829 Elevated white blood cell count, unspecified; B19.20 Unspecified viral hepatitis C without hepatic coma; Z68.32 Body mass index [BMI] 32.0-32.9, adult
CPT/HCPCS: 36415; 71045-TC; 80048-TC; 80053-TC; 80061-TC; 80076-TC; 80305; 81000-TC; 82550-TC; 82962-TC; 83735-TC; 84100-TC; 84443-TC; 84484-TC; 84703-TC; 85025-TC; 87081-TC; 94799-TC; C9803-CS; G0378; G0480; J2405; J7030

== ENCOUNTER 2020-08-08 12:19 | Emergency (ER) | payer OTHER ==
[~2020-08-08] VITALS: Ht 165.1 cm; Wt 90.7 kg
[~2020-08-08 12:19] MED LIST changes: +AMLO-213 PO; -AMLO10TA7 PO
--- NOTE | 2020-08-08 12:19 | NUR ---
Note praveen in ED - 08/08/20 at 1239 by ANAM PT BIBRA 99 FROM [employer] C/O "TOOK TO MUCH METHADONE" PT IS AAOX2, NOT IN RESPIRATORY DISTRESS, HOOKED TO CALCULATION CLERK, KEPT RESTED AND COMFORTABLE. WILL CONTINUE TO MONITOR.
--- NOTE | 2020-08-08 12:19 | NUR ---
PT BIBRA 99 FROM HOME C/O "TOOK TO MUCH METHADONE" PT IS AAOX2, NOT IN RESPIRATORY DISTRESS, HOOKED TO SUPERVISOR FRAME SAMPLE AND PATTERN, KEPT RESTED AND COMFORTABLE. WILL CONTINUE TO MONITOR.
--- NOTE | 2020-08-08 16:38 | NUR ---
SPOKE TO ; HE WILL COME TO HEAD TURNING MACHINE OPERATOR THE PT
[2020-08-08] MEDS ORDERED: ONDANSETRON 4 MG TAB.RAPDIS ONE (16:45)
[2020-08-08] MEDS ORDERED: ONDANSETRON 4 MG TAB.RAPDIS SL ONE (17:00)
[2020-08-08 17:40] VITALS: BP 127/71
--- NOTE | 2020-08-08 17:40 | NUR ---
Patient discharged to home in stable condition. Written and verbal after care instructions given. Patient's verbalizes understanding of instruction.
== END 2020-08-08 17:41 | disposition home or self-care (01) ==
LOC: ER 12:23
DX: F11.90 Opioid use, unspecified, uncomplicated (principal); G89.4 Chronic pain syndrome; G43.909 Migraine, unspecified, not intractable, without status migrainosus; I10 Essential (primary) hypertension; M19.90 Unspecified osteoarthritis, unspecified site; F17.200 Nicotine dependence, unspecified, uncomplicated; Z90.49 Acquired absence of other specified parts of digestive tract; Z88.8 Allergy status to other drugs, medicaments and biological substances; Z79.899 Other long term (current) drug therapy
CPT/HCPCS: 99285; Q0162

== ENCOUNTER 2020-08-27 02:26 | Inpatient (IN) | payer OTHER ==
[~2020-08-27] VITALS: Ht 170.2 cm; Wt 89.4 kg
[2020-08-27] VITALS (20 sets, daily range): BP systolic 92–132; BP diastolic 51–99
--- NOTE | 2020-08-27 02:30 | NUR ---
PATIENT CAME TO THE ER BED 8 C/O SOB ANTONY FROM HOME. PATIENT HAS HOME OXYGEN AND IS CURRENTLY ON 15L OF NONREBREATHER AT 84% OXYGEN. PATIENT IS AAOX4. PATIENT IS CONNECTED TO THE NUTRITION CLUB AMBASSADOR. WILL CONTINUE TO MONITOR THE PATIENT CLOSELY.
[2020-08-27] MEDS ORDERED: LEVOFLOXACIN 750 MG /D5W 150ML 150 ML IV ONE ×2 (02:55→03:00)
[2020-08-27] MEDS ORDERED: methylPREDNISolone SOD SUCC 125 MG/2ML VIAL ONE ×3 (02:55→11:13)
[2020-08-27] MEDS ORDERED: ALBUTEROL FS 2.5 MG/3 ML VIAL.NEB ONE (02:56)
[2020-08-27] MEDS ORDERED: IPRATROPIUM NEB FS 0.5 MG/2.5 ML AMPUL.NEB ONE (02:56)
[2020-08-27] MEDS ORDERED: IPRATROPIUM NEB FS 0.5 MG/2.5 ML AMPUL.NEB NEB ONE (03:00)
[2020-08-27] MEDS ORDERED: ALBUTEROL FS 2.5 MG/3 ML VIAL.NEB CONTNEB ONE (03:00)
[2020-08-27] MEDS ORDERED: methylPREDNISolone SOD SUCC 125 MG/2ML VIAL IV ONE (03:00)
--- NOTE | 2020-08-27 03:04 | NUR ---
PATIENT IS ON BIPAP SETTINGS OF 20 RESPIRATORY RATE, 25/10, 100%FIO2, 15 PRESSURE SUPPORT.
--- NOTE | 2020-08-27 03:21 | NUR ---
RT NOTE Pt rec'd on NRB mask @ 15lpm. Pt showed low SPO2 and signs of resp distress. Pt placed on Bipap on noted settings as charted per md orders. bipap plugged into red outlet. Alarms are set and audible. Ambu bag bedside. Abg will taken in 30 minutes. will continue to monitor closely Addendum: 08/27/20 at 0324 by JONATHON MCCORMACK RT Amended: Links added.
[2020-08-27 03:24] LABS: BASOPHILS % (AUTO) 0.3 % (0.0-2.0); EOSINOPHILS % (AUTO) 0.4 % (0.0-6.0); HEMATOCRIT 40 % (33-45); HEMOGLOBIN 12.8 g/dL (11.5-14.8); LYMPHOCYTES # (AUTO) 0.7 /CMM (0.8-4.8); LYMPHOCYTES % (AUTO) 5.2 % (20.0-44.0); MEAN CORPUSCULAR HGB CONC 32 g/dl (31.0-36.0); MEAN CORPUSCULAR VOLUME 84 fL (82-100); MONOCYTES # (AUTO) 0.7 /CMM (0.1-1.30); MONOCYTES % (AUTO) 5.1 % (2.0-12.0); NEUTROPHILS # (AUTO) 11.3 /CMM (1.8-8.9); PLATELET COUNT (AUTO) 194 /CMM (150-450); RED BLOOD CELL COUNT(AUTO) 4.77 MIL/uL (4.0-5.2); WHITE BLOOD COUNT (AUTO) 12.7 K/uL (4.3-11.0)
[2020-08-27 03:33] LABS: CALCIUM, SERUM 8.7 mg/dL (8.5-10.1); CARBON DIOXIDE 31 mmol/L (21-32); CHLORIDE 97 mmol/L (98-107); GLUCOSE 143 mg/dL (74-106); POTASSIUM 4.5 mmol/L (3.5-5.1); SODIUM SERUM 136 mmol/L (136-145); UREA NITROGEN, BLOOD 15 mg/dL (7-18)
[2020-08-27 03:52] LABS: ALANINE AMINOTRANSFERASE 15 U/L (12-78); ALBUMIN 2.3 g/dL (3.4-5.0); ALKALINE PHOSPHATASE 65 U/L (46-116); ASPARTATE AMINOTRANSFERASE 30 U/L (15-37); B-TYPE NATRIURETIC PEPTIDE 525 PG/ML (0-125); BILIRUBIN,DIRECT 0.1 mg/dL (0.0-0.2); BILIRUBIN,TOTAL 0.5 mg/dL (0.2-1.0); TOTAL PROTEIN, SERUM 7.1 g/dL (6.4-8.2)
[2020-08-27 04:22] LABS: CREATINE KINASE, TOTAL 30 U/L (26-192); FERRITIN 320 ng/mL (8-388)
[2020-08-27 05:14] LABS: D-DIMER 11.16 mg/L(FEU (0.17-0.50)
[2020-08-27] MEDS ORDERED: ALBUTEROL SULFATE 8 GM HFA.AER.AD IH PRN (05:30)
[2020-08-27] MEDS ORDERED: ENOXAPARIN SODIUM 80 MG/0.8 ML DISP.SYRIN SQ ONE (05:30)
[2020-08-27] MEDS ORDERED: CEFEPIME 1 GM in IV D5W 50 ML IV SCH (05:30)
[2020-08-27] MEDS ORDERED: ACETAMINOPHEN 650 MG/SUPP.RECT RC PRN (05:40)
[2020-08-27 05:53] LABS: ABG BASE EXCESS 4.8 mmol/L; ABG OXYGEN SATURATION 87.9 % (92.0-98.5); ABG PCO2 41.4 mmHg (35.0-45.0); ABG PH 7.463 (7.350-7.450); ABG PO2 55.1 mmHg (75.0-100.0); AaDO2 616.5 mmHg; COHb 0.5 % (0.5-1.5); MetHb 0.5 % (0.0-1.5); SITE, ABG Left Radial; VENT MODE, BG ST 25/10 RR20 100%
[2020-08-27] MEDS ORDERED: methylPREDNISolone SOD SUCC 40 MG/ML VIAL IV SCH (06:00)
[2020-08-27] MEDS ORDERED: ENOXAPARIN SODIUM 100 MG/ML DISP.SYRIN SQ ONE (06:04)
--- NOTE | 2020-08-27 06:18 | NUR ---
PATIENT CHANGED IN TO CLEAN BEDSHEETS AND REMOVED DIRTY DIAPER.
--- NOTE | 2020-08-27 07:38 | NUR ---
REPORT GIVEN TO KELLI BENAVIDES FOR LONNY.
--- NOTE | 2020-08-27 08:07 | NUR ---
RT AT BEDSIDE. TOOK ABG. AND WILL TITRATE PATIENT DOWN TO HFNC FROM BIPAP.
--- NOTE | 2020-08-27 08:14 | NUR ---
PATIENT IS ON 60L HFNC WITH SPO2 OF 94%.
[2020-08-27] MEDS ORDERED: PANTOPRAZOLE 40 MG VIAL ONE (08:28)
[2020-08-27] MEDS: CEFEPIME 2 GM in IV D5W 100 ML IV SCH ×3 (08:30→21:13)
[2020-08-27] MEDS ORDERED: VANCOMYCIN 1.25 GM in IV D5W 250 ML IV SCH (08:30)
[2020-08-27] MEDS ORDERED: CEFEPIME 2 GM in IV D5W 100 ML IV SCH (08:30)
[2020-08-27] MEDS: PANTOPRAZOLE 40 MG VIAL IV SCH (08:44)
--- NOTE | 2020-08-27 09:00 | NUR ---
PATIENT SEEN AND EXAMINED BY DR. ANTONIO. AND GAVE AN ORDER TO PLACE PATIENT ON A DOUBLE MASK AND REPEAT ABG AFTER 1 HOUR. HARVINDER GREENE REPLIED. Addendum: 08/27/20 at 0913 by ROALCANCES CORRECTION: HARVINDER GREENE INFORMED.
--- NOTE | 2020-08-27 09:14 | NUR ---
PATIENT GAVE [facility] PHONE # [phone], FAX # [phone] SPOKE TO EUGENE AND FAXED OVER HEALTH DISCLOSURE SIGNED BY PATIENT.
[2020-08-27] MEDS: AMLODIPINE BESYLATE 10 MG TABLET PO SCH (09:30)
[2020-08-27] MEDS ORDERED: AMLODIPINE BESYLATE 10 MG TABLET ONE (09:30)
[2020-08-27 09:52] LABS: ABG OXYGEN SATURATION 87.4 % (92.0-98.5); ABG PCO2 51.3 mmHg (35.0-45.0); ABG PH 7.434 (7.350-7.450); ABG PO2 53.4 mmHg (75.0-100.0); AaDO2 608.3 mmHg; COHb 0.3 % (0.5-1.5); MetHb 0.5 % (0.0-1.5); O2Hb 86.7 % (94.0-97.0); SITE, ABG Right Radial; VENT MODE, BG HFNC 60L 100% NRB
--- NOTE | 2020-08-27 10:50 | NUR ---
PATIENT A/OX4, IS CURRENTLY ON 85-90% WITH HFNC AND NRB. DR. ANTONIO AWARE OF REPEAT ABG'S. PATIENT TURNED ON HER LEFT SIDE. NEEDS ATTENDED. BROUGHT IN BELONGINGS.
[2020-08-27] MEDS: FLUTICASONE/VILANTEROL 1 EACH BLST.W.DEV IH SCH (10:52)
[2020-08-27] MEDS ORDERED: METHADONE HCL 10 MG TABLET ONE (11:22)
[2020-08-27] MEDS: METHADONE HCL 10 MG TABLET PO SCH (11:33)
--- NOTE | 2020-08-27 11:38 | NUR ---
SOLUMEDROL 60MG JUST GIVEN AT 1135. DR. NILES BURKETT MADE AWARE, AND STATED TO START DECADRON TOMORROW. INFORMED PHARMACY.
--- NOTE | 2020-08-27 11:40 | NUR ---
CALLED ADMITTING FOR ROOM 253.
--- NOTE | 2020-08-27 11:43 | NUR ---
REPORT GIVEN TO G[facility]EL BENAVIDES FOR LONNY.
--- NOTE | 2020-08-27 12:15 | NUR ---
PATIENT A/OX4, TRANSFERRED TO ROOM 253 VIA ACLS PROTOCOL. NO DISTRESS NOTED. RT AT BEDSIDE.
--- NOTE | 2020-08-27 12:30 | NUR ---
PATTERN DUPLICATOR NOTES RECEIVED PATIENT AOX4 , ON NON REBREATHER MASK @ 15LPM , HIGH FLOW NC @ 60L 100% SPO2 OF 92% , SR 89 ON BEDSIDE MONITOR , SKIN IS INTACT NO WOUNDS NOTED UPON SKIN ASSESSMENT , IV @ R HAND # 20 AND RFA # 22 PATENT AND INTACT SL , ALL NEEDS ATTENDED , ADMITTING ORDERS CARRIED OUT , WILL CONTINUE TO MONITOR .
[2020-08-27] MEDS ORDERED: diphenhydrAMINE HCL 50 MG/ML VIAL IV ONE (13:30)
[2020-08-27] MEDS ORDERED: ACETAMINOPHEN 650 MG/20.3 ML UDC PO ONE (13:30)
[2020-08-27] MEDS ORDERED: TOCILIZUMAB 400 MG in IV NS 0.9% 80 ML IV ONE (14:00)
--- NOTE | 2020-08-27 15:31 | NUR ---
PRODUCT MARKETING SPECIALIST NOTES NOTIFIED DR ANTONIO REGARDING PT SUSTAINED SPO2 OF 84% ON 60LPM 100% HIGH FLOW WITH NON REBREATHER MASK @ 15LPM , PT AOX4 , PER MD ORDER ABG IF SPO2 IS 85% SUSTAINED , ORDERS CARRIED OUT
[2020-08-27 15:57] LABS: C-REACTIVE PROTEIN 29.8 mg/dL (0.0-0.9)
[2020-08-27 15:59] LABS: ABG BASE EXCESS 4.8 mmol/L; ABG OXYGEN SATURATION 89.7 % (92.0-98.5); ABG PCO2 49.4 mmHg (35.0-45.0); ABG PH 7.408 (7.350-7.450); AaDO2 604.6 mmHg; COHb 0.3 % (0.5-1.5); MetHb 0.1 % (0.0-1.5); O2Hb 89.3 % (94.0-97.0); SITE, ABG Right Radial; VENT MODE, BG HHF 60L 100% +NRB
[2020-08-27] MEDS: VANCOMYCIN 1 GM in IV D5W 250ml IV SCH (16:48)
--- NOTE | 2020-08-27 16:49 | NUR ---
BULLDOZER MECHANIC NOTES ABG RELAYED TO DR ANTONIO , NO NEW ORDERS
--- NOTE | 2020-08-27 18:42 | NUR ---
ARTIFICIAL LEATHER CALENDER OPERATOR NOTES VERIFIED WITH DR CAGE IF HE WANTS TO ORDER COVID MARKERS PT IS S/P ACTEMRA IV , PER MD OK TO ORDER , ORDER CARRIED OUT .
--- NOTE | 2020-08-27 19:00 | NUR ---
RN NOTE RECEIVED PATIENT IN BED, ON LEFT SIDE LYING POSITION, IN NO S/SX OF ACUTE DISTRESS AT THIS TIME. PATIENT'S BREATHING IS EVEN AND UNLABORED. ON HIGH FLOW AT 60 L AT 100% FIO2, AND NON REBREATHER AT 15L, SATURATION BETWEEN 87-90. SR ON THE MONITOR, HR IS 78. NOTED IV SITE R HAND 20G, RFA 22G, AND RIC MIDLINE 18G, ALL HUBS ARE PATENT AND FLUSHING, NO S/S OF INFECTION. PATIENT IS CONTINENT. NPO STATUS EXCEPT MEDICATIONS MAINTAINED. SAFETY MEASURES IMPLEMENTED. PATIENT BED ALARM IS ON. HEAD OF BED ELEVATED. BED IS LOCKED, IN LOWEST POSITION AND SIDE RAILS UP. CALL LIGHT WITHIN REACH OF THE PATIENT. WILL CONTINUE TO MONITOR AND REASSESS FOR ANY CHANGES.
--- NOTE | 2020-08-27 19:06 | NUR ---
MANAGER STRATEGIC MARKETING NOTES PATIENT RESTING ON BED , ON NON REBREATHER MASK @ 15LPM , HIGH FLOW NC @ 60L 100% SPO2 OF 87% , SR 69 ON BEDSIDE MONITOR , , IV @ R HAND # 20 AND RFA # 22 PATENT AND INTACT SL ,RIC MIDLINE WITH NS @ TKO ALL NEEDS ATTENDED , REPORT GIVEN TO TAVARES RN NOTIFIED RN THAT HE NEED TO DO ANG IF SPO2 IS BELOW 85% OR SUSTAINING ,
[2020-08-27] MEDS ORDERED: ENOXAPARIN SODIUM 100 MG/ML DISP.SYRIN SQ SCH (21:00)
[2020-08-27] MEDS: ENOXAPARIN SODIUM 100 MG/ML DISP.SYRIN SQ SCH ×2 (21:00→21:15)
[2020-08-27] MEDS: SIMVASTATIN 20 MG TABLET PO SCH (21:13)
[2020-08-28] VITALS (40 sets, daily range): BP systolic 93–158; BP diastolic 45–110
[2020-08-28] MEDS: ACETAMINOPHEN 325 MG TABLET PO PRN ×2 (01:44→17:46)
[2020-08-28] MEDS: VANCOMYCIN 1 GM in IV D5W 250ml IV SCH (03:18)
[2020-08-28] MEDS: PANTOPRAZOLE 40 MG VIAL IV SCH (05:23)
[2020-08-28] MEDS: CEFEPIME 2 GM in IV D5W 100 ML IV SCH ×3 (05:23→21:33)
[2020-08-28 06:05] LABS: BASOPHILS % (AUTO) 0.3 % (0.0-2.0); HEMATOCRIT 36 % (33-45); HEMOGLOBIN 11.8 g/dL (11.5-14.8); LYMPHOCYTES # (AUTO) 0.7 /CMM (0.8-4.8); LYMPHOCYTES % (AUTO) 8.6 % (20.0-44.0); MEAN CORPUSCULAR HGB CONC 33 g/dl (31.0-36.0); MEAN CORPUSCULAR VOLUME 83 fL (82-100); MONOCYTES # (AUTO) 0.3 /CMM (0.1-1.30); MONOCYTES % (AUTO) 4.1 % (2.0-12.0); NEUTROPHILS # (AUTO) 7.3 /CMM (1.8-8.9); PLATELET COUNT (AUTO) 156 /CMM (150-450); RED BLOOD CELL COUNT(AUTO) 4.34 MIL/uL (4.0-5.2); WHITE BLOOD COUNT (AUTO) 8.4 K/uL (4.3-11.0)
[2020-08-28 06:58] LABS: BILIRUBIN,TOTAL 0.4 mg/dL (0.2-1.0); CALCIUM, SERUM 8.6 mg/dL (8.5-10.1); CREATININE 0.7 mg/dL (0.6-1.3); POTASSIUM 3.7 mmol/L (3.5-5.1); TOTAL PROTEIN, SERUM 6.4 g/dL (6.4-8.2)
--- NOTE | 2020-08-28 07:13 | NUR ---
APARTMENT LEASING MANAGER NOTES RECEIVED PATIENT AOX4 , ON SIDE LYING POSITION , ON NON REBREATHER MASK @ 15LPM , HIGH FLOW NC @ 60L 100% SPO2 OF 87% , SR 71 ON BEDSIDE MONITOR , , IV @ R HAND # 20 AND RFA # 22 PATENT AND INTACT SL ,RIC MIDLINE WITH NS @ TKO ALL NEEDS ATTENDED , WILL CONTINUE TO MONITOR ,
[2020-08-28] MEDS: METHADONE HCL 10 MG TABLET PO SCH (08:17)
[2020-08-28] MEDS: AMLODIPINE BESYLATE 10 MG TABLET PO SCH (08:17)
[2020-08-28] MEDS: DEXAMETHASONE SOD PHOSPHATE 10 MG/ML VIAL IV SCH (08:18)
[2020-08-28] MEDS: FLUTICASONE/VILANTEROL 1 EACH BLST.W.DEV IH SCH (08:18)
[2020-08-28] MEDS: ENOXAPARIN SODIUM 100 MG/ML DISP.SYRIN SQ SCH ×2 (08:18→21:52)
--- NOTE | 2020-08-28 12:26 | NUR ---
BINDING CUTTER SYNTHETIC CLOTH NOTES SEEN AND EVALUATED BY DR LARA , PT IN AOX4 , TITRATED HIGH FLOW O2 FROM 60LPM 100% TO 40LPM 100% OFF NON REBREATHER MASK 15LPM @ 1145 SPO2 OF 88-90% WITH NO SIGNS OF DISTRESS OR SOB , AFEBRILE , VERIFIED WITH MD IF DIET CAN BE RESTARTED , PER MD OK TO START CARDIAC DIET / REGULAR , ORDER CARRIED OUT
[2020-08-28] MEDS: VANCOMYCIN 1.25 GM in IV D5W 250 ML IV SCH (17:30)
--- NOTE | 2020-08-28 19:00 | NUR ---
RN NOTE RECEIVED PATIENT IN BED, ON LEFT SIDE LYING POSITION WITH HOB ELEVATED, IN NO S/SX OF ACUTE DISTRESS AT THIS TIME. PATIENT'S BREATHING IS EVEN AND UNLABORED. ON HIGH FLOW OXYGEN AT 40 LPM, SATURATION AT 89%. SR ON THE MONITOR, HR IS 98. NOTED IV SITE R HAND 20G, RFA 22G, AND RIC MIDLINE 18G, ALL HUBS ARE PATENT AND FLUSHING, NO S/S OF INFECTION. PATIENT IS CONTINENT. SAFETY MEASURES IMPLEMENTED. PATIENT BED ALARM IS ON. HEAD OF BED ELEVATED. BED IS LOCKED, IN LOWEST POSITION AND SIDE RAILS UP. CALL LIGHT WITHIN REACH OF THE PATIENT. WILL CONTINUE TO MONITOR AND REASSESS FOR ANY CHANGES.
--- NOTE | 2020-08-28 19:04 | NUR ---
FIRE APPARATUS ENGINEER NOTES PATIENT STABLE AT THIS TIME , AOX4 ,ON HIGH FLOW NC @ 40LPM 100% SPO2 OF 90% , SR 79 ON BEDSIDE MONITOR , S , IV @ R HAND # 20 AND RFA # 22 PATENT AND INTACT SL , RIC MIDLINE WITH NS @ TKO , ALL NEEDS ATTENDED , HOB @ 45 , REPORT GIVEN TO TAVARES FOR CONTINUITY OF CARE
[2020-08-28] MEDS: SIMVASTATIN 20 MG TABLET PO SCH (21:35)
[2020-08-29] VITALS (36 sets, daily range): BP systolic 96–149; BP diastolic 41–82
[2020-08-29] MEDS: ACETAMINOPHEN 325 MG TABLET PO PRN (02:12)
[2020-08-29] MEDS: CEFEPIME 2 GM in IV D5W 100 ML IV SCH ×3 (04:37→21:54)
[2020-08-29] MEDS: VANCOMYCIN 1.25 GM in IV D5W 250 ML IV SCH ×2 (05:17→16:20)
[2020-08-29 05:18] LABS: BASOPHILS # (AUTO) 0.1 /CMM (0.0-0.2); BASOPHILS % (AUTO) 1.1 % (0.0-2.0); HEMATOCRIT 38 % (33-45); HEMOGLOBIN 12.2 g/dL (11.5-14.8); LYMPHOCYTES # (AUTO) 0.6 /CMM (0.8-4.8); LYMPHOCYTES % (AUTO) 6.1 % (20.0-44.0); MEAN CORPUSCULAR HGB CONC 33 g/dl (31.0-36.0); MEAN CORPUSCULAR VOLUME 83 fL (82-100); MONOCYTES # (AUTO) 0.6 /CMM (0.1-1.30); MONOCYTES % (AUTO) 5.5 % (2.0-12.0); NEUTROPHILS # (AUTO) 9.1 /CMM (1.8-8.9); NEUTROPHILS % (AUTO) 87.3 % (43.0-81.0); PLATELET COUNT (AUTO) 200 /CMM (150-450); RED BLOOD CELL COUNT(AUTO) 4.55 MIL/uL (4.0-5.2); WHITE BLOOD COUNT (AUTO) 10.5 K/uL (4.3-11.0)
[2020-08-29 05:39] LABS: CALCIUM, SERUM 8.5 mg/dL (8.5-10.1); CREATININE 0.8 mg/dL (0.6-1.3); PHOSPHORUS 3.5 mg/dL (2.5-4.9); POTASSIUM 4.1 mmol/L (3.5-5.1)
--- NOTE | 2020-08-29 08:00 | NUR ---
PT RECEIVED IN BED ON HF 40L/100%. O2 SAT RANGES FROM 87-91%. STANDING ORDERS TO OBTAIN STAT ABG IF SAT AT 85% OR BELOW FOR A SUSTAINED PERIOD OF TIME. PT IS ALERT AND ORIENTED X 4. IV ACCESS FLUSHED AND INTACT. WILL CONTINUE TO MONITOR
[2020-08-29] MEDS: METHADONE HCL 10 MG TABLET PO SCH (08:34)
[2020-08-29] MEDS: PANTOPRAZOLE 40 MG TABLET.DR PO SCH (08:34)
[2020-08-29] MEDS: DEXAMETHASONE SOD PHOSPHATE 10 MG/ML VIAL IV SCH (08:35)
[2020-08-29] MEDS: AMLODIPINE BESYLATE 10 MG TABLET PO SCH (08:35)
[2020-08-29] MEDS: ENOXAPARIN SODIUM 100 MG/ML DISP.SYRIN SQ SCH ×2 (08:40→21:49)
[2020-08-29] MEDS: FLUTICASONE/VILANTEROL 1 EACH BLST.W.DEV IH SCH (10:09)
--- NOTE | 2020-08-29 11:00 | NUR ---
PT REFUSE AM CARE, STATES OK TO DO LATER IN THE DAY
--- NOTE | 2020-08-29 19:27 | NUR ---
PT REMAINS IN BED ON HF 40L/100% O2, NO ACUTE CHANGES THIS SHIFT. PT DIET IMPROVED, EATING MOST OF LUNCH AND DINNER. PT O2 SAT THIS SHIFT 88-90%, ALL SAFETY MEASURES IN PLACE. ALL NEEDS ENDORSED TO ONCOMING RN
--- NOTE | 2020-08-29 19:45 | NUR ---
RN NOTES RECEIVED PATIENT AWAKE ALERT ORIENTED WATCHING TV ON BED. WITH HIFLOW O2 @ 40 LPM VIA NC FIO2 100%. SATURATION 89%. NO ACUTE RESPIRATORY DISTRESS. TOLERATED WELL. PATIENT IS AOX4 ABLE TO VERBALIZED NEEDS. SR ON TELE MONITOR. IV SITE ON RIC MIDLINE INTACT AND PATENT. DENIES PAIN. AFEBRILE. VSS AT THIS TIME. KEPT PT CLEAN AND DRY. WILL CONTINUE TO MONITOR.
[2020-08-29] MEDS: SIMVASTATIN 20 MG TABLET PO SCH (21:48)
[2020-08-30] VITALS (25 sets, daily range): BP systolic 94–166; BP diastolic 58–105
[2020-08-30 05:14] LABS: EOSINOPHILS % (AUTO) 0.1 % (0.0-6.0); HEMATOCRIT 39 % (33-45); HEMOGLOBIN 12.5 g/dL (11.5-14.8); LYMPHOCYTES # (AUTO) 0.7 /CMM (0.8-4.8); LYMPHOCYTES % (AUTO) 8.3 % (20.0-44.0); MEAN CORPUSCULAR HGB CONC 32 g/dl (31.0-36.0); MEAN CORPUSCULAR VOLUME 82 fL (82-100); MONOCYTES # (AUTO) 0.6 /CMM (0.1-1.30); MONOCYTES % (AUTO) 7.1 % (2.0-12.0); NEUTROPHILS # (AUTO) 6.7 /CMM (1.8-8.9); NEUTROPHILS % (AUTO) 84.5 % (43.0-81.0); PLATELET COUNT (AUTO) 214 /CMM (150-450); RED BLOOD CELL COUNT(AUTO) 4.72 MIL/uL (4.0-5.2); WHITE BLOOD COUNT (AUTO) 7.9 K/uL (4.3-11.0)
[2020-08-30] MEDS: CEFEPIME 2 GM in IV D5W 100 ML IV SCH ×3 (05:18→21:10)
[2020-08-30 05:51] LABS: CALCIUM, SERUM 8.5 mg/dL (8.5-10.1); CREATININE 0.6 mg/dL (0.6-1.3); POTASSIUM 4.4 mmol/L (3.5-5.1)
[2020-08-30] MEDS: VANCOMYCIN 1.25 GM in IV D5W 250 ML IV SCH ×2 (06:23→17:06)
--- NOTE | 2020-08-30 06:55 | NUR ---
RN NOTES PATIENT ASLEEP WELL. AFEBRILE. VSS. NSR ON TELE MONITOR. HIFLOW 02 40LPM WITH FIO2 100% TOLERATED. SATURATION BETWEEN 87-92%. DENIES PAIN, DENIES HEADACHE. INCONTINENT CARE RENDERED. IV SITE ON RIC MIDLINE INTACT FLUSHED WELL . IV ATB ADMINISTERED ORDERED. KEPT PT CLEAN AND DRY. CALL LIGHT KEPT WITHIN EASY REACH. PROMPTLY ATTENDED. WILL CONTINUE POC.
--- NOTE | 2020-08-30 07:30 | NUR ---
POOL HAND NOTES PT RECEIVED IN BED ON HFNC 40L/100% AND NRM AT 15 LPM. O2 SAT RANGES FROM 87-92%. STANDING ORDERS TO OBTAIN STAT ABG IF SAT AT 85% OR BELOW FOR A SUSTAINED PERIOD OF TIME. PT IS ALERT AND ORIENTED X 4. DENIES SOB/PAIN. RIC MIDLINE FLUSHED AND INTACT. CARDIAC DIET. INDEPENDENT OF BED MOBILITY. ON DIAPER.WILL CONTINUE TO MONITOR
[2020-08-30 07:42] LABS: ABG BASE EXCESS 6.5 mmol/L; ABG OXYGEN SATURATION 80.7 % (92.0-98.5); ABG PCO2 50.5 mmHg (35.0-45.0); ABG PH 7.422 (7.350-7.450); ABG PO2 47.3 mmHg (75.0-100.0); AaDO2 615.2 mmHg; MetHb 0.3 % (0.0-1.5); O2Hb 79.7 % (94.0-97.0); SITE, ABG Right Radial; VENT MODE, BG HFNC 40L 100%
[2020-08-30] MEDS: PANTOPRAZOLE 40 MG TABLET.DR PO SCH (08:48)
[2020-08-30] MEDS: DEXAMETHASONE SOD PHOSPHATE 10 MG/ML VIAL IV SCH (08:49)
[2020-08-30] MEDS: AMLODIPINE BESYLATE 10 MG TABLET PO SCH (08:49)
[2020-08-30] MEDS: ENOXAPARIN SODIUM 100 MG/ML DISP.SYRIN SQ SCH ×2 (08:50→21:11)
[2020-08-30] MEDS: FLUTICASONE/VILANTEROL 1 EACH BLST.W.DEV IH SCH (08:51)
[2020-08-30] MEDS: METHADONE HCL 10 MG TABLET PO SCH (09:23)
--- NOTE | 2020-08-30 09:30 | NUR ---
RN NOTES DUE MEDS GIVEN
--- NOTE | 2020-08-30 10:15 | NUR ---
RN NOTES PER DR. ANTONIO, HE DOES NOT WANT NRM REMOVED. NPO EXCEPT MEDS FOR NOW. . CAN HAVE ICE CHIPS.
--- NOTE | 2020-08-30 18:46 | NUR ---
RN NOTES ALL NEEDS MET. PATIENT TO REMAIN NPO EXCEPT MEDS. MAY HAVE ICE CHIPS. KEEP NRM AT ALL TIMES. PM CARE DONE. NO OTHER SIGNIFICANT CHANGE IN CONDITION. WILL ENDORSE TO NEXT SHIFT FOR LONNY.
[2020-08-30] MEDS: SIMVASTATIN 20 MG TABLET PO SCH (21:10)
[2020-08-31] VITALS (29 sets, daily range): BP systolic 70–159; BP diastolic 36–97
[2020-08-31] MEDS: CEFEPIME 2 GM in IV D5W 100 ML IV SCH ×3 (04:53→21:01)
[2020-08-31 04:59] LABS: BASOPHILS % (AUTO) 0.7 % (0.0-2.0); EOSINOPHILS % (AUTO) 0.5 % (0.0-6.0); HEMATOCRIT 40 % (33-45); LYMPHOCYTES # (AUTO) 0.6 /CMM (0.8-4.8); LYMPHOCYTES % (AUTO) 9.3 % (20.0-44.0); MEAN CORPUSCULAR HGB CONC 33 g/dl (31.0-36.0); MEAN CORPUSCULAR VOLUME 81 fL (82-100); MONOCYTES # (AUTO) 0.4 /CMM (0.1-1.30); MONOCYTES % (AUTO) 6.3 % (2.0-12.0); NEUTROPHILS # (AUTO) 5.3 /CMM (1.8-8.9); NEUTROPHILS % (AUTO) 83.2 % (43.0-81.0); PLATELET COUNT (AUTO) 181 /CMM (150-450); RED BLOOD CELL COUNT(AUTO) 4.87 MIL/uL (4.0-5.2); WHITE BLOOD COUNT (AUTO) 6.3 K/uL (4.3-11.0)
[2020-08-31 05:01] LABS: CALCIUM, SERUM 8.5 mg/dL (8.5-10.1); CREATININE 0.6 mg/dL (0.6-1.3); POTASSIUM 4.4 mmol/L (3.5-5.1)
[2020-08-31 05:53] LABS: ABG BASE EXCESS 8.3 mmol/L; ABG OXYGEN SATURATION 88.9 % (92.0-98.5); ABG PCO2 56.8 mmHg (35.0-45.0); ABG PH 7.407 (7.350-7.450); ABG PO2 59.5 mmHg (75.0-100.0); AaDO2 596.7 mmHg; COHb 0.4 % (0.5-1.5); MetHb 0.4 % (0.0-1.5); O2Hb 88.2 % (94.0-97.0); SITE, ABG Right Radial; VENT MODE, BG HFNC+NRB
[2020-08-31] MEDS: VANCOMYCIN 1.25 GM in IV D5W 250 ML IV SCH ×2 (06:01→16:33)
[2020-08-31] MEDS: IV NS 0.9% 250 ML IV PRN (06:16)
--- NOTE | 2020-08-31 07:30 | NUR ---
RN NOTES PATIENT REMAINED HIFLOW 40LPM VIA NC WITH FIO2 100% AND NRB. SATING BETWEEN 90-93%. AFEBRILE. NO SIGNIFICANT CHANGES TROUGHOUT THE SHIFT. PATIENT REMAINED COMPLIANT WITH CARE. ALL NEEDS ATTENDED. KEPT PT CLEAN AND DRY. CALL LIGHT PROMPTLY ATTENDED..
--- NOTE | 2020-08-31 07:48 | NUR ---
RN NOTES RECEIVED PT AWAKE, ALERT AND ORIENTED. ON NON-REBREATHER HI-FLOW AT 40L WITH 100% FI02. RIC ML WITH N/S TKO AND IV VANCO IN PROGRESS. ON TELEMETRY SR. DIAPER IN PLACE. TO BE KEPT NPO EXCEPT MEDS WHILE ON NRB. NOT IN ANY RESPIRATORY DISTRESS AT THIS TIME. CARE FOR PATIENT IN COVID PRECAUTIONS. WILL CONTINUE CARES TODAY.
[2020-08-31] MEDS: PANTOPRAZOLE 40 MG TABLET.DR PO SCH (08:41)
[2020-08-31] MEDS: AMLODIPINE BESYLATE 10 MG TABLET PO SCH (08:42)
[2020-08-31] MEDS: DEXAMETHASONE SOD PHOSPHATE 10 MG/ML VIAL IV SCH (08:43)
[2020-08-31] MEDS: METHADONE HCL 10 MG TABLET PO SCH (08:44)
[2020-08-31] MEDS: ENOXAPARIN SODIUM 100 MG/ML DISP.SYRIN SQ SCH ×2 (08:44→21:03)
[2020-08-31] MEDS: FLUTICASONE/VILANTEROL 1 EACH BLST.W.DEV IH SCH (09:06)
--- NOTE | 2020-08-31 18:33 | NUR ---
RN CLOSING NOTES PATIENT IS AWAKE, ALERT AND ORIENTED. ON NON-REBREATHER HI-FLOW AT 40L WITH 100% FI02. RIC ML WITH N/S TKO AND IV VANCO IN PROGRESS. VITAL SIGNS STABLE. DIAPER IN PLACE. TOLERATED MEALS TODAY. SIDE RAILS UPX3, BED LOCKED AND KEPT IN LOWEST POSITION, WILL ENDORSE TO NIGHT RN FOR CONTINUITY OF CARE.
--- NOTE | 2020-08-31 19:00 | NUR ---
Received patient asleep but easily awakens. Awake,alert,converses coherent and appropriate. On High Flow 40 liters/100 % FIO2 with NRM 100 %, not in any acute respiratory distress but + SOB on exertion and when talking. On Droplet/Contact isolation (till 08/06/20) as ordered to maintain isolation for now(was treated Covid + from other hospital prior this admission).
[2020-08-31] MEDS: ACETAMINOPHEN 325 MG TABLET PO PRN (20:28)
[2020-08-31] MEDS: SIMVASTATIN 20 MG TABLET PO SCH (22:08)
[2020-09-01] VITALS (25 sets, daily range): BP systolic 39–135; BP diastolic 29–83
--- NOTE | 2020-09-01 | NUR ---
Remains stable,tolerating High Flow,not in any acute respiratory distress,just c/o neck and back pain.
[2020-09-01] MEDS: ACETAMINOPHEN 325 MG TABLET PO PRN ×2 (00:57→21:17)
[2020-09-01] MEDS: IV NS 0.9% 250 ML IV PRN (03:12)
[2020-09-01 04:46] LABS: BASOPHILS % (AUTO) 0.4 % (0.0-2.0); EOSINOPHILS % (AUTO) 0.8 % (0.0-6.0); HEMATOCRIT 41 % (33-45); HEMOGLOBIN 13.4 g/dL (11.5-14.8); LYMPHOCYTES # (AUTO) 0.6 /CMM (0.8-4.8); LYMPHOCYTES % (AUTO) 8.2 % (20.0-44.0); MEAN CORPUSCULAR HGB CONC 33 g/dl (31.0-36.0); MEAN CORPUSCULAR VOLUME 82 fL (82-100); MONOCYTES # (AUTO) 0.4 /CMM (0.1-1.30); MONOCYTES % (AUTO) 6.1 % (2.0-12.0); NEUTROPHILS # (AUTO) 5.7 /CMM (1.8-8.9); NEUTROPHILS % (AUTO) 84.5 % (43.0-81.0); PLATELET COUNT (AUTO) 152 /CMM (150-450); RED BLOOD CELL COUNT(AUTO) 4.98 MIL/uL (4.0-5.2); WHITE BLOOD COUNT (AUTO) 6.8 K/uL (4.3-11.0)
[2020-09-01] MEDS ORDERED: VANCOMYCIN 1 GM in IV D5W 250ml IV SCH (05:00)
[2020-09-01] MEDS: CEFEPIME 2 GM in IV D5W 100 ML IV SCH ×3 (05:14→21:11)
[2020-09-01 05:58] LABS: CALCIUM, SERUM 8.7 mg/dL (8.5-10.1); CREATININE 0.6 mg/dL (0.6-1.3); POTASSIUM 4.3 mmol/L (3.5-5.1)
--- NOTE | 2020-09-01 06:00 | NUR ---
Stable all night,no episode of desaturation or respiratory distress,able to move/turn and tolerates flat position without desaturation. 0700 Report given to dayshift
[2020-09-01] MEDS: IBUPROFEN 600 MG TABLET PO PRN (06:37)
--- NOTE | 2020-09-01 07:30 | NUR ---
ICU NOTES RECEIVED PATIENT ASLEEP IN BED, AROUSABLE TO VERBAL AND TACTILE STIMULI. NO S/S OF ACUTE DISTRESS.
[2020-09-01] MEDS: PANTOPRAZOLE 40 MG TABLET.DR PO SCH (08:15)
[2020-09-01] MEDS: METHADONE HCL 10 MG TABLET PO SCH (08:50)
[2020-09-01] MEDS: DEXAMETHASONE SOD PHOSPHATE 10 MG/ML VIAL IV SCH (08:50)
[2020-09-01] MEDS: AMLODIPINE BESYLATE 10 MG TABLET PO SCH (08:51)
[2020-09-01] MEDS: ENOXAPARIN SODIUM 100 MG/ML DISP.SYRIN SQ SCH ×2 (08:54→21:52)
[2020-09-01] MEDS: FLUTICASONE/VILANTEROL 1 EACH BLST.W.DEV IH SCH (09:15)
--- NOTE | 2020-09-01 19:15 | NUR ---
RN NOTE RECEIVED PATIENT IN BED, ON SEMI HELM'S, IN NO S/SX OF ACUTE DISTRESS AT THIS TIME. PATIENT'S BREATHING IS EVEN AND UNLABORED. ON HIGH FLOW OXYGEN AT 40 LPM AND NON REBREATHER MASK AT 15 LPM, SATURATION AT 93%. SR ON THE MONITOR, HR IS 82. NOTED RIC MIDLINE 18G, ALL HUBS ARE PATENT AND FLUSHING, NO S/S OF INFECTION, WITH NS AT TKO. SAFETY MEASURES IMPLEMENTED. PATIENT BED ALARM IS ON. HEAD OF BED ELEVATED. BED IS LOCKED, IN LOWEST POSITION AND SIDE RAILS UP. CALL LIGHT WITHIN REACH OF THE PATIENT. WILL CONTINUE TO MONITOR AND REASSESS FOR ANY CHANGES.
--- NOTE | 2020-09-01 19:39 | NUR ---
ICU NOTES PATIENT RESTING COMFORTABLY IN BED. WATCHING TV. DENIES ANY C/O PAIN NOR DISCOMFORT AT THIS TIME. RIC MID LINE INACT AND PATENT. CARMEN FOOD INTAKE WELL DURING THE SHIFT. TITRATED PATIENT FROM NRB MASK WITH HF AT 40L ONLY WITH SPO2 OF91-92%, BUT NOTED PATIENT DESATTING WHEN IN DEEP SLEEP 86-88% BED IN LOWEST POSITION LOCKED. . IN NO APPARENT DISTRESS. ABLE TO VERBALIZE NEEDS.
[2020-09-01] MEDS: SIMVASTATIN 20 MG TABLET PO SCH (21:11)
[2020-09-02] VITALS (24 sets, daily range): BP systolic 116–142; BP diastolic 58–107
[2020-09-02] MEDS: ACETAMINOPHEN 325 MG TABLET PO PRN ×2 (04:12→20:28)
[2020-09-02 04:21] LABS: CALCIUM, SERUM 8.2 mg/dL (8.5-10.1); CREATININE 0.6 mg/dL (0.6-1.3); POTASSIUM 4.4 mmol/L (3.5-5.1)
[2020-09-02] MEDS: CEFEPIME 2 GM in IV D5W 100 ML IV SCH ×3 (04:40→20:19)
[2020-09-02] MEDS: IV NS 0.9% 250 ML IV PRN (04:43)
[2020-09-02] MEDS: IBUPROFEN 600 MG TABLET PO PRN (05:18)
--- NOTE | 2020-09-02 07:17 | NUR ---
RN NOTE PATIENT REMAINS IN ROOM IN NO SIGNS OF RESPIRATORY DISTRESS, ON HIGH FLOW OXYGEN AT 40 LPM ON 100% FIO2, AND 15 LPM VIA NRB MASK. SAFETY MEASURES IMPLEMENTED, BED IN LOWEST POSITION, LOCKED, SIDE RAILS UP, CALL LIGHT WITHIN REACH. ALL NEEDS AND ORDERS ADDRESSED DURING THE SHIFT. IV ACCESS MAINTAINED INTACT, SECURED AND FLUSHING WELL. ALL DUE MEDS GIVEN ORDERED & SCHEDULED ; PATIENT TOLERATED WELL. PATIENT KEPT CLEAN AND COMFORTABLE WITHIN THE SHIFT. PATIENT ENDORSED TO INCOMING SHIFT RN WITH STABLE VITAL SIGN AND FOR CONTINUITY OF CARE.
--- NOTE | 2020-09-02 07:50 | NUR ---
RN NOTE PATIENT NURSED IN ISOLATION. ON DOUBLE OXYGEN SETUP 40 LPM ON 100% FIO2, AND 15 LPM VIA NRB MASK. SATURATING WITHIN PATIENT'S NORMAL PARAMETERS, TOLERATING ORAL FEEDINGS, RIC ML WITH IV ANTIBIOTICS AND N/S TKO, DIAPER IN PLACE, SIDE RAILS UPX3, BED LOCKED AND KEPT IN LOWEST POSITION, CALL LIGHT IN REACH, WILL CONTINUE CARES TODAY
[2020-09-02] MEDS: DEXAMETHASONE SOD PHOSPHATE 10 MG/ML VIAL IV SCH (08:27)
[2020-09-02] MEDS: PANTOPRAZOLE 40 MG TABLET.DR PO SCH (08:27)
[2020-09-02] MEDS: METHADONE HCL 10 MG TABLET PO SCH (08:28)
[2020-09-02] MEDS: AMLODIPINE BESYLATE 10 MG TABLET PO SCH (08:28)
[2020-09-02] MEDS: ENOXAPARIN SODIUM 100 MG/ML DISP.SYRIN SQ SCH ×2 (08:29→20:21)
[2020-09-02] MEDS: FLUTICASONE/VILANTEROL 1 EACH BLST.W.DEV IH SCH (08:29)
--- NOTE | 2020-09-02 19:13 | NUR ---
RN NOTE RECEIVED PT AWAKE AND ALERT/OTIENTED X 3 IN BED IN SEMI HELM'S POSITION. PT ON HI FLOW NASAL CANNULA. O2 SATURATION 90% VIA BEDSIDE MONITOR. RESPIRATIONS EVEN AND UNLABORED. PT DENIES PAIN OR DISCOMFORT. SR ON THE OPERATIONS LIEUTENANT. RIGHT UPPER ARM MIDLINE INTACT WITHOUT COMPLICATIONS NOTED AT SITE. PLAN OF CARE DISCUSSED. SAFETY MEASURES IN PLACE PER PROTOCOL, BED LOCKED AND IN LOW POSITION, BED ALARM ON, SIDE RAILS UP X 2, CALL LIGHT WITHIN REACH, WILL MONITOR PATIENT AND CARRY OUT ACTIVE MD ORDERS.
[2020-09-02] MEDS: SIMVASTATIN 20 MG TABLET PO SCH (21:20)
[2020-09-03] VITALS (21 sets, daily range): BP systolic 111–148; BP diastolic 52–102
--- NOTE | 2020-09-03 | NUR ---
RN NOTE COMPLETE BED BATH/AM CARE COMPLETED. PT TOLERATED WELL. WILL CONTINUE TO MONITOR PATIENT.
[2020-09-03] MEDS: IBUPROFEN 600 MG TABLET PO PRN ×2 (00:26→21:51)
[2020-09-03] MEDS: CEFEPIME 2 GM in IV D5W 100 ML IV SCH ×3 (04:36→21:47)
[2020-09-03 05:16] LABS: CALCIUM, SERUM 8.5 mg/dL (8.5-10.1); CREATININE 0.6 mg/dL (0.6-1.3); POTASSIUM 4.4 mmol/L (3.5-5.1)
[2020-09-03 05:44] LABS: ABG BASE EXCESS 8.6 mmol/L; ABG OXYGEN SATURATION 87.7 % (92.0-98.5); ABG PCO2 59.5 mmHg (35.0-45.0); ABG PH 7.398 (7.350-7.450); ABG PO2 55.4 mmHg (75.0-100.0); AaDO2 598.1 mmHg; COHb 0.5 % (0.5-1.5); MetHb 0.5 % (0.0-1.5); O2Hb 86.8 % (94.0-97.0); SITE, ABG Right Radial
[2020-09-03] MEDS: ACETAMINOPHEN 325 MG TABLET PO PRN (06:02)
--- NOTE | 2020-09-03 06:51 | NUR ---
RN NOTE NO ACUTE CHANGES OBSERVED OVERNIGHT. PT AWAKE AND ALERT/ORIENTED X 3 IN BED IN SEMI HELM'S POSITION. PT ON HI FLOW NASAL CANNULA 40L AND 100% FIO2. O2 SATURATION RANGING BETWEEN 88% - 92% VIA BEDSIDE MONITOR. NO SIGNS OF ACUTE DISTRESS. RESPIRATIONS EVEN AND UNLABORED. PT DENIES PAIN OR DISCOMFORT AT THIS TIME. SR ON THE INK GRINDER. RIGHT UPPER ARM MIDLINE INTACT WITHOUT COMPLICATIONS NOTED AT SITE. SAFETY MEASURES IN PLACE PER PROTOCOL, BED LOCKED AND IN LOW POSITION, BED ALARM ON, SIDE RAILS UP X 2, CALL LIGHT WITHIN REACH, ALL NEEDS MET AND ATTENDED TO, WILL ENDORSE TO MORNING RN FOR LONNY.
[2020-09-03] MEDS: METHADONE HCL 10 MG TABLET PO SCH (08:23)
[2020-09-03] MEDS: FLUTICASONE/VILANTEROL 1 EACH BLST.W.DEV IH SCH (08:23)
[2020-09-03] MEDS: DEXAMETHASONE SOD PHOSPHATE 10 MG/ML VIAL IV SCH (08:24)
[2020-09-03] MEDS: PANTOPRAZOLE 40 MG TABLET.DR PO SCH (08:24)
[2020-09-03] MEDS: AMLODIPINE BESYLATE 10 MG TABLET PO SCH (08:24)
[2020-09-03] MEDS: ENOXAPARIN SODIUM 100 MG/ML DISP.SYRIN SQ SCH ×2 (08:56→22:02)
--- NOTE | 2020-09-03 11:36 | NUR ---
RN NOTE 0715: Received patient awake, A/Ox4. On Hx Covid, isolation prec maintained and observed. On HFNC 40LPM FIO2 100, sat 87-89%. Patient verbalized feeling better on her breathing. SR on the monitor. RIC midline intact, on TKO. 0900: Tolerated diet well. 1100: S/E by Dr. Pinto, aware for the ABG result in am, with order to ok to transfer to [facility], made CN aware.
--- NOTE | 2020-09-03 18:45 | NUR ---
PATIENT RECEIVED FROM ICU AT 1645 IN STABLE CONDITION. PATIENT IS ON HFNC 40 LPM 100% SATTING AT 88%. VITAL SIGNS ARE 136/76, 108, 88% ON HFNC, 24 RESPIRATIONS, 99.0 f AXILLARY. RIGHT UPPER MIDLINE NOTED WITH NS RUNNING TKO. NO RESPIRATORY DISTRESS NOTED. PATIENT IS TO BE CONTINUED ISOLATION FOR COVID UNTIL .
--- NOTE | 2020-09-03 18:51 | NUR ---
RN NOTE Transferred patient via bed using ACLS protocol. Still on 40LPM [id number] 87% O2 sat. PAtient is A/Ox4, aware for the POC. Endorsed care to [place] BENAVIDES. Belongings checked with patient.
--- NOTE | 2020-09-03 19:00 | NUR ---
RN NOTE RECEIVED PATIENT IN BED, ON SEMI HELM'S, IN NO S/SX OF ACUTE DISTRESS AT THIS TIME. PATIENT'S BREATHING IS EVEN AND UNLABORED. ON HIGH FLOW OXYGEN 40 LPM AT 100% FIO2, SATURATION AT 90%. SR ON THE MONITOR, HR IS 96. NOTED RIC MIDLINE 18G, ALL HUBS ARE PATENT AND FLUSHING, NO S/S OF INFECTION, WITH NS AT TKO. SAFETY MEASURES IMPLEMENTED. PATIENT BED ALARM IS ON. HEAD OF BED ELEVATED. BED IS LOCKED, IN LOWEST POSITION AND SIDE RAILS UP. CALL LIGHT WITHIN REACH OF THE PATIENT. DROPLET AND CONTACT ISOLATION MAINTAINED PER ORDERS. WILL CONTINUE TO MONITOR AND REASSESS FOR ANY CHANGES.
[2020-09-03] MEDS: SIMVASTATIN 20 MG TABLET PO SCH (21:48)
[2020-09-04] VITALS: BP 127/89
[2020-09-04] MEDS: IV NS 0.9% 250 ML IV PRN (02:23)
[2020-09-04 04:00] VITALS: BP 128/79
[2020-09-04] MEDS: CEFEPIME 2 GM in IV D5W 100 ML IV SCH ×3 (04:19→20:52)
[2020-09-04] MEDS: ACETAMINOPHEN 325 MG TABLET PO PRN (05:58)
--- NOTE | 2020-09-04 07:30 | NUR ---
BACON STRINGER NOTES PT IN BED, AWAKE, ALERT AND ORIENTED, NO COMPLAINT OF PAIN AT THIS TIME, NOT IN DISTRESS, CALL LIGHT WITHIN REACH, NEEDS ATTENDED, KEPT LAW ENFORCEMENT INSTRUCTOR BED. ON HIGH FLOW O2 AT 40LPM VIA N/C WITH O2 SAT OF 88%, STATED THAT SHE IS FEELING AND BREATHING A LOT BETTER LAST NIGHT AND TODAY.
[2020-09-04 08:00] VITALS: BP 119/74
[2020-09-04] MEDS: AMLODIPINE BESYLATE 10 MG TABLET PO SCH (09:00)
[2020-09-04] MEDS: METHADONE HCL 10 MG TABLET PO SCH (09:21)
[2020-09-04] MEDS: PANTOPRAZOLE 40 MG TABLET.DR PO SCH (09:21)
[2020-09-04] MEDS: DEXAMETHASONE SOD PHOSPHATE 10 MG/ML VIAL IV SCH (09:21)
[2020-09-04] MEDS: ENOXAPARIN SODIUM 100 MG/ML DISP.SYRIN SQ SCH ×2 (09:22→20:54)
[2020-09-04 09:26] LABS: CALCIUM, SERUM 9.1 mg/dL (8.5-10.1); CREATININE 0.7 mg/dL (0.6-1.3); POTASSIUM 4.4 mmol/L (3.5-5.1)
[2020-09-04] MEDS: FLUTICASONE/VILANTEROL 1 EACH BLST.W.DEV IH SCH (09:31)
[2020-09-04 12:00] VITALS: BP_SYST 124; BP_SYST 130; BP_DIAS 67; BP_DIAS 78
--- NOTE | 2020-09-04 18:25 | NUR ---
TOP CLOSER NOTES PT IN BED, AWAKE, ALERT AND ORIENTED, NO COMPLAINT AT THIS TIME, NOT IN DISTRESS, REMAINS ON HIGH FLOW O2 AT 40LPM, O2 SAT OF 90%, EATING DINNER, CALL LIGHT WITHIN REACH, PM CARE PROVIDED, SEEN BY DR. YE TODAY, PLAN OF CARE DISCUSSED WITH PT, VERBALIZED UNDERSTANDING.
--- NOTE | 2020-09-04 19:00 | NUR ---
RN NOTE RECEIVED PATIENT IN BED, ON SEMI HELM'S, IN NO S/SX OF ACUTE DISTRESS AT THIS TIME. PATIENT'S BREATHING IS EVEN AND UNLABORED. ON HIGH FLOW OXYGEN 40 LPM AT 100% FIO2, SATURATION AT 90%. SR ON THE MONITOR, HR IS 91. NOTED RIC MIDLINE 18G, ALL HUBS ARE PATENT AND FLUSHING, NO S/S OF INFECTION, WITH NS AT TKO. SAFETY MEASURES IMPLEMENTED. PATIENT BED ALARM IS ON. HEAD OF BED ELEVATED. BED IS LOCKED, IN LOWEST POSITION AND SIDE RAILS UP. CALL LIGHT WITHIN REACH OF THE PATIENT. DROPLET AND CONTACT ISOLATION MAINTAINED PER ORDERS. WILL CONTINUE TO MONITOR AND REASSESS FOR ANY CHANGES.
--- NOTE | 2020-09-04 19:30 | NUR ---
RN NOTE NOTED HIGH FLOW MACHINE APPEARS MALFUNCTIONING, STERILE WATER SUPPLYING THE MACHINE GOING TOWARDS THE BAG, BAG OF STERILE WATER APPEARS EXPANDING. RT WAS NOTIFIED. HIGH FLOW MACHINE WAS REPLACED. WILL CONTINUE TO MONITOR PATIENT O2 STATUS. STONE LAYER WAS MADE AWARE.
[2020-09-04 20:00] VITALS: BP 133/84
--- NOTE | 2020-09-04 21:00 | NUR ---
RN NOTE PATIENT COMPLAINS OF HAVING NO BOWEL MOVEMENT SINCE ADMISSION 08/27/20 AND NOW FEELING SOME DISCOMFORT. DR QUEZADA WAS NOTIFIED. ORDERS RECEIVED FOR [facility] DAILY PRN. PHP DEVELOPER AWARE.
[2020-09-04] MEDS: SIMVASTATIN 20 MG TABLET PO SCH (21:26)
[2020-09-04] MEDS: IBUPROFEN 600 MG TABLET PO PRN (21:27)
[2020-09-04] MEDS ORDERED: POLYETHYLENE GLYCOL 3350 17 GM POWD.PACK PO PRN (21:30)
[2020-09-05] VITALS (7 sets, daily range): BP systolic 126–139; BP diastolic 74–100
[2020-09-05] MEDS: CEFEPIME 2 GM in IV D5W 100 ML IV SCH (05:07)
[2020-09-05] MEDS: ACETAMINOPHEN 325 MG TABLET PO PRN (06:01)
[2020-09-05 07:02] LABS: CALCIUM, SERUM 9.1 mg/dL (8.5-10.1); CREATININE 0.6 mg/dL (0.6-1.3); POTASSIUM 4.6 mmol/L (3.5-5.1)
--- NOTE | 2020-09-05 07:30 | NUR ---
IT PROGRAM MANAGER AM NOTES PT IN BED, AWAKE, ALERT AND ORIENTED, NO COMPLAINT OF PAIN AT THIS TIME, NOT IN DISTRESS, DENIES SOB/PAIN, SINUS RHYTHM ON MONITOR, ON HIGH FLOW O2 AT 40LPM VIA N/C WITH O2 SAT OF 90%, RIC MIDLINE FLUSHES WELL, SITE CLEAR NS AT TKO. CARDIAC DIET, BEDREST FOR NOW, CALL LIGHT WITHIN REACH, , STATED THAT SHE IS FEELING AND BREATHING A LOT BETTER TODAY. ALL NEEDS ANTICIPATED. WILL CONTINUE TO MONITOR
[2020-09-05] MEDS: PANTOPRAZOLE 40 MG TABLET.DR PO SCH (08:38)
[2020-09-05] MEDS: AMLODIPINE BESYLATE 10 MG TABLET PO SCH (08:39)
[2020-09-05] MEDS: DEXAMETHASONE SOD PHOSPHATE 10 MG/ML VIAL IV SCH (08:39)
[2020-09-05] MEDS: METHADONE HCL 10 MG TABLET PO SCH (08:40)
[2020-09-05] MEDS: ENOXAPARIN SODIUM 100 MG/ML DISP.SYRIN SQ SCH (08:51)
[2020-09-05] MEDS: FLUTICASONE/VILANTEROL 1 EACH BLST.W.DEV IH SCH (08:52)
--- NOTE | 2020-09-05 09:30 | NUR ---
RN NOTES DUE MEDS GIVEN
--- NOTE | 2020-09-05 18:30 | NUR ---
RN closing NOTES ALL NEEDS MET. PATIENT TO REMAIN ON [facility] STATUS UNTIL JUVENAL. NOT IN ANY DISTRESS. PM CARE DONE. NO OTHER SIGNIFICANT CHANGE IN CONDITION. WILL ENDORSE TO NEXT SHIFT FOR LONNY.
--- NOTE | 2020-09-05 19:30 | NUR ---
RN TD NOTES, PATIENT IN BED, AWAKE, ALERT AND ORIENTED, BREATHING EVEN AND UNLABORED, NO COMPLAINT OF PAIN AT THIS TIME, NOT IN DISTRESS, SINUS RHYTHM ON MONITOR, ON HIGH FLOW O2 AT 40LP, 10 [id number] N/WITH O2 SAT OF 88-94%, RIC MIDLINE FLUSHES WELL, SITE CLEAR NS AT TKO. CARDIAC DIET, ALL NEEDS ANTICIPATED. WILL CONTINUE TO MONITOR CLOSELY.
[2020-09-05] MEDS: ENOXAPARIN SODIUM 40 MG/0.4 ML DISP.SYRIN SQ SCH (20:48)
[2020-09-05] MEDS: SIMVASTATIN 20 MG TABLET PO SCH (21:32)
[2020-09-05] MEDS: IBUPROFEN 600 MG TABLET PO PRN (21:41)
[2020-09-06] VITALS: BP 121/78
[2020-09-06 04:00] VITALS: BP 134/81
[2020-09-06] MEDS: ACETAMINOPHEN 325 MG TABLET PO PRN ×2 (05:51→17:05)
--- NOTE | 2020-09-06 06:20 | NUR ---
RN TD NOTES, PATIENT PLACED IN NRM DUE TO DROP IN O2 WITH O2 70S LOW 80S ON HF, SO AT THIS TIME PATIENT IN HF PLUS NRM, O2 IMPROVED TO 89%, WILL CONTINUE TO MONITOR CLOSELY.
--- NOTE | 2020-09-06 06:52 | NUR ---
RN TD CLOSING NOTES, PATIENT AWAKE A/O X4, ON HF 40L, 100% FIO2, PLUS NRM 15LRA, BREATHING EVEN AND UNLABORED, NO SOB/ACUTE DISTRESS NOTED AT THIS TIME, WITH EPISODE OF DESATURATION THIS AM, AND COMBINE NMR WITH HF, O2 LEVEL AT THIS TIME 88-92%, WILL ENDORSE CONTINUITY OF CARE TO ONCOMING NURSE.
--- NOTE | 2020-09-06 07:00 | NUR ---
TD RN OPENING NOTE RECEIVED PT AWAKE IN BED AT THIS TIME. AOX4. NO SOB NOTED, NO S/S OF ANY ACUTE DISTRESS NOTED, NO C/O PAIN AT THIS TIME. PT NOTED ON COMBO OXYGEN; HIGH FLOW 40LPM WITH FIO2 @ 100% AND NON-REBREATHER @15LPM SATURATING @ 92%. PT ON EXTERNAL BELT BUILDER READING NSR IN THE 90s. RIC MIDLINE NOTED, INTACT PATENT AND FLUSHING WELL. ASPIRATIONS, RESPIRATORY AND SAFETY PRECAUTIONS IN PLACE AND MAINTAINED AT ALL TIMES. BED IN LOWEST LOCKED POSITION, SIDE RAILS UP, HOB ELEVATED, TABLE AND CALL LIGHT WITHIN REACH. WILL CONTINUE TO MONITOR.
[2020-09-06 07:03] LABS: CALCIUM, SERUM 9.3 mg/dL (8.5-10.1); CREATININE 0.6 mg/dL (0.6-1.3); POTASSIUM 4.5 mmol/L (3.5-5.1)
[2020-09-06 08:00] VITALS: BP 129/72
[2020-09-06] MEDS: PANTOPRAZOLE 40 MG TABLET.DR PO SCH (08:40)
[2020-09-06] MEDS: AMLODIPINE BESYLATE 10 MG TABLET PO SCH (08:41)
[2020-09-06] MEDS: FLUTICASONE/VILANTEROL 1 EACH BLST.W.DEV IH SCH (08:41)
[2020-09-06] MEDS: METHADONE HCL 10 MG TABLET PO SCH (08:43)
[2020-09-06] MEDS: ENOXAPARIN SODIUM 40 MG/0.4 ML DISP.SYRIN SQ SCH ×2 (08:44→21:13)
[2020-09-06] MEDS: DEXAMETHASONE SOD PHOSPHATE 10 MG/ML VIAL IV SCH (08:48)
[2020-09-06 12:00] VITALS: BP 141/75
[2020-09-06 13:34] LABS: BASOPHILS # (AUTO) 0.1 /CMM (0.0-0.2); BASOPHILS % (AUTO) 0.7 % (0.0-2.0); EOSINOPHILS % (AUTO) 2.7 % (0.0-6.0); HEMATOCRIT 49 % (33-45); HEMOGLOBIN 15.7 g/dL (11.5-14.8); LYMPHOCYTES # (AUTO) 1.9 /CMM (0.8-4.8); LYMPHOCYTES % (AUTO) 16.9 % (20.0-44.0); MEAN CORPUSCULAR HGB CONC 32 g/dl (31.0-36.0); MEAN CORPUSCULAR VOLUME 85 fL (82-100); MONOCYTES % (AUTO) 9.1 % (2.0-12.0); NEUTROPHILS # (AUTO) 7.9 /CMM (1.8-8.9); NEUTROPHILS % (AUTO) 70.6 % (43.0-81.0); PLATELET COUNT (AUTO) 197 /CMM (150-450); WHITE BLOOD COUNT (AUTO) 11.2 K/uL (4.3-11.0)
[2020-09-06 16:00] VITALS: BP 135/68
--- NOTE | 2020-09-06 17:06 | NUR ---
PT NOTED WITH TEMP 99.4. COOLING MEASURES IN PLACE, ICE PACK UNDERARMS, ROOM KEPT COOL, SHEETS UNCOVERED. TYLENOL 650MG PO Q6HR PRN FOR FEVER ADMINISTERED AT THIS TIME. WILL CONTINUE TO MONITOR
--- NOTE | 2020-09-06 17:10 | NUR ---
MIDLINE DRESSING CHANGE ADMINISTERED AT THIS TIME PER PROTOCOL PROCEDURE. WILL CONTINUE TO MONITOR
--- NOTE | 2020-09-06 18:58 | NUR ---
OCCUPATIONAL HEALTH NURSE MANAGER CLOSING NOTES PT AWAKE IN BED AT THIS TIME. PT REMAINED STABLE THROUGHOUT SHIFT. ALL CARE, NEED, MEDICATIONS AND TREATMENT ADMINISTERED ANTICIPATED PER ORDER. PT KEPT CLEAN AND DRY. LINEN KEPT CLEAN. ASPIRATION, RESPIRATION AND SAFETY PRECAUTION IN PLACE AND MAINTAINED AT ALL TIMES. BED IN LOWEST LOCKED POSITION, HOB ELEVATED, SIDE RAILS UP X 2, CALL LIGHT AND TABLE WITHIN REACH. WILL ENDORSE TO IMAGING ASSISTANT NURSE FOR LONNY
--- NOTE | 2020-09-06 19:20 | NUR ---
RN OPENING NOTES RECEIVED PT IN BED. ON 40L HIGH FLOW 100% WITH 15LPM NON REBREATHER MASK. O2 SAT 90% AT THIS TIME. NO SOB NO RESP DISTRESS NOTED. ON TELE MONITORING NSR WITH HR OF 84. DENIES PAIN. IV SITE FLUSHED. SAFETY MEASURES IN PLACE. HOB ELEVATED. SIDE RAILS UP X3. BED LOCKED IN LOWEST POSITION. BED ALARM ON. WILL ENDORSE TO AM NURSE FOR CONTINUATION OF CARE.
[2020-09-06 20:00] VITALS: BP_SYST 119; BP_SYST 125; BP_DIAS 74; BP_DIAS 84
[2020-09-06] MEDS: SIMVASTATIN 20 MG TABLET PO SCH (21:10)
[2020-09-06] MEDS: IBUPROFEN 600 MG TABLET PO PRN (21:42)
[2020-09-07] VITALS: BP 125/74
[2020-09-07 04:00] VITALS: BP 119/79
[2020-09-07] MEDS: ACETAMINOPHEN 325 MG TABLET PO PRN ×2 (06:28→21:10)
--- NOTE | 2020-09-07 07:06 | NUR ---
RN CLOSING NOTES NO SIGNIFICANT CHANGES. PT STILL REMAINS WITH 40L HIGH FLOW 100% WITH 15LPM NON REBREATHER MASK. O2 SAT 90% AT THIS TIME. NEEDS ATTENDED. DENIES PAIN. ALL DUE MEDS GIVEN. SAFETY MEASURES IN PLACE. HOB ELEVATED. SIDE RAILS UP X3. BED LOCKED IN LOWEST POSITION. BED ALARM ON. WILL ENDORSE TO AM NURSE FOR CONTINUATION OF CARE.
[2020-09-07 07:13] LABS: CALCIUM, SERUM 9.3 mg/dL (8.5-10.1); CREATININE 0.5 mg/dL (0.6-1.3); POTASSIUM 4.2 mmol/L (3.5-5.1)
--- NOTE | 2020-09-07 07:30 | NUR ---
TD OPENING NOTE RECEIVED PT AWAKE IN BED AT THIS TIME. AOX4. LIGHT SOB NOTED, NO S/S OF ANY ACUTE DISTRESS NOTED, NO C/O PAIN AT THIS TIME. PT NOTED ON COMBO OXYGEN; HIGH FLOW 40LPM WITH FIO2 @ 100% AND NON-REBREATHER @15LPM SATURATING @ 92%. PT ON EXTERNAL TAX ASSISTANT READING NSR, 100. RIC MIDLINE NOTED, INTACT PATENT AND FLUSHING WELL. ASPIRATIONS, RESPIRATORY AND SAFETY PRECAUTIONS IN PLACE AND MAINTAINED AT ALL TIMES. BED IN LOWEST LOCKED POSITION, SIDE RAILS UP, HOB ELEVATED, TABLE AND CALL LIGHT WITHIN REACH. WILL CONTINUE TO MONITOR AND PROVIDE TREATMENT
[2020-09-07 08:00] VITALS: BP 135/93
[2020-09-07 08:44] LABS: ABG BASE EXCESS 7.6 mmol/L; ABG PCO2 57.6 mmHg (35.0-45.0); ABG PH 7.398 (7.350-7.450); ABG PO2 56.6 mmHg (75.0-100.0); AaDO2 598.8 mmHg; MetHb 0.2 % (0.0-1.5); O2Hb 87.9 % (94.0-97.0); SITE, ABG Right Radial; VENT MODE, BG HFNC 40L 100% NRB
[2020-09-07] MEDS: AMLODIPINE BESYLATE 10 MG TABLET PO SCH (08:46)
[2020-09-07] MEDS: FLUTICASONE/VILANTEROL 1 EACH BLST.W.DEV IH SCH (08:47)
[2020-09-07] MEDS: METHADONE HCL 10 MG TABLET PO SCH (08:47)
[2020-09-07] MEDS: DEXAMETHASONE SOD PHOSPHATE 10 MG/ML VIAL IV SCH (08:47)
[2020-09-07] MEDS: PANTOPRAZOLE 40 MG TABLET.DR PO SCH (08:49)
[2020-09-07] MEDS: ENOXAPARIN SODIUM 40 MG/0.4 ML DISP.SYRIN SQ SCH ×2 (08:49→21:07)
[2020-09-07] MEDS ORDERED: LACTULOSE 10 G/15 ML UDC (PYXIS) PO ONE (11:00)
[2020-09-07] MEDS ORDERED: POLYETHYLENE GLYCOL 3350 17 GM POWD.PACK PO PRN (11:00)
[2020-09-07 12:00] VITALS: BP 129/83
[2020-09-07 16:00] VITALS: BP 91/59
--- NOTE | 2020-09-07 18:40 | NUR ---
TELEMETRY CLOSING NOTE RECEIVED PT AWAKE IN BED AT THIS TIME. AOX4. LIGHT SOB NOTED, NO S/S OF ANY ACUTE DISTRESS NOTED, NO C/O PAIN AT THIS TIME. PT NOTED ON COMBO OXYGEN; HIGH FLOW 40LPM WITH FIO2 @ 100% AND NON-REBREATHER @15LPM SATURATING @ 90%. PT ON EXTERNAL SHAPER SETTER READING NSR, 100. RIC MIDLINE NOTED, INTACT PATENT AND FLUSHING WELL. ASPIRATIONS, RESPIRATORY AND SAFETY PRECAUTIONS IN PLACE AND MAINTAINED AT ALL TIMES. BED IN LOWEST LOCKED POSITION, SIDE RAILS UP, HOB ELEVATED, TABLE AND CALL LIGHT WITHIN REACH. WILL ENDORSE TO CHANGE ANALYST NURSE FOR LONNY.
--- NOTE | 2020-09-07 19:05 | NUR ---
RECEIVED PT IN BED. ON 40L HIGH FLOW 100% WITH 15LPM NON REBREATHER MASK. O2 SAT 90% AT THIS TIME. NO SOB NO RESP DISTRESS NOTED. ON TELE MONITORING NSR WITH HR OF 84. DENIES PAIN. RIC MIDLINE PATENT AND FLUSHED FLUSHED C D I. SAFETY MEASURES IN PLACE. HOB ELEVATED. SIDE RAILS UP X3. BED LOCKED IN LOWEST POSITION. BED ALARM ON. WILL CONT TO MONITOR
[2020-09-07 20:00] VITALS: BP 123/74
[2020-09-07] MEDS: SIMVASTATIN 20 MG TABLET PO SCH (21:06)
[2020-09-08] VITALS: BP 137/78
[2020-09-08 04:00] VITALS: BP 105/70
[2020-09-08] MEDS: ACETAMINOPHEN 325 MG TABLET PO PRN ×2 (05:41→20:55)
[2020-09-08 06:36] LABS: BASOPHILS # (AUTO) 0.1 /CMM (0.0-0.2); BASOPHILS % (AUTO) 0.6 % (0.0-2.0); EOSINOPHILS % (AUTO) 4.4 % (0.0-6.0); HEMATOCRIT 46 % (33-45); HEMOGLOBIN 14.7 g/dL (11.5-14.8); LYMPHOCYTES # (AUTO) 1.8 /CMM (0.8-4.8); LYMPHOCYTES % (AUTO) 14.1 % (20.0-44.0); MEAN CORPUSCULAR HGB CONC 32 g/dl (31.0-36.0); MEAN CORPUSCULAR VOLUME 84 fL (82-100); MONOCYTES # (AUTO) 1.2 /CMM (0.1-1.30); MONOCYTES % (AUTO) 8.8 % (2.0-12.0); NEUTROPHILS # (AUTO) 9.4 /CMM (1.8-8.9); NEUTROPHILS % (AUTO) 72.1 % (43.0-81.0); PLATELET COUNT (AUTO) 151 /CMM (150-450); WHITE BLOOD COUNT (AUTO) 13.1 K/uL (4.3-11.0)
--- NOTE | 2020-09-08 06:52 | NUR ---
PT ON BED ASLEEP EASY TO WAKE UP STILL ON HIGHFLOW 40L 100% FIO2 AND 15L NON REBREATHER SPO2 88-91% IN THE ENTIRE SHIFT, STILL A/O X4 ABLE TO VERBALIZED NEEDS, NO SIGNIFICANT CHANGES ON CONDITION NOTED, ALL NEEDS ATTENDED, BED ON LOWEST POSITION AND LOCKED SIDE RAILS UP X 2 CALL LIGHT WITHIN REACH WILL ENDORSED TO AM SHIFT NURSE
[2020-09-08 07:02] LABS: CREATININE 0.6 mg/dL (0.6-1.3); POTASSIUM 3.7 mmol/L (3.5-5.1)
--- NOTE | 2020-09-08 07:30 | NUR ---
RN OPENING NOTES Patient was received in bed and breathing even and unlabored. Patient is on high flow 40 liters fi02 100 % and 15 liters non rebreather mask with 02 sat of 93%. No c/o pain or discomfort. Patient's head of bed kept elevated. Will continue to monitor. Call light with in reach.
[2020-09-08 08:00] VITALS: BP 108/63
[2020-09-08] MEDS: PANTOPRAZOLE 40 MG TABLET.DR PO SCH (08:52)
[2020-09-08] MEDS: DEXAMETHASONE SOD PHOSPHATE 10 MG/ML VIAL IV SCH (08:52)
[2020-09-08] MEDS: METHADONE HCL 10 MG TABLET PO SCH (08:53)
[2020-09-08] MEDS: ENOXAPARIN SODIUM 40 MG/0.4 ML DISP.SYRIN SQ SCH ×2 (09:29→21:01)
[2020-09-08] MEDS: AMLODIPINE BESYLATE 10 MG TABLET PO SCH (09:30)
--- NOTE | 2020-09-08 10:00 | NUR ---
Patient c/o feelign constipated and impacted.Received orders from Dr Neal for Miralax to be given daily routinely in am shift and lactulose q6h prn. Patient assisted to bedside commode with assistance of Physical therapy and had one large Bm. Patient did not want any stool softners or laxatives during shift. Will cotinue to monitor. Call light with in reach.
[2020-09-08] MEDS ORDERED: LACTULOSE 10 G/15 ML UDC (PYXIS) PO PRN ×2 (11:30)
[2020-09-08 12:00] VITALS: BP 119/63
[2020-09-08] MEDS: FLUTICASONE/VILANTEROL 1 EACH BLST.W.DEV IH SCH (12:32)
[2020-09-08 16:00] VITALS: BP 114/70
--- NOTE | 2020-09-08 19:05 | NUR ---
RECEIVED PT IN BED.AWAKE A/O X4, CAN VERBALIZED NEEDS ON 40L O2 HIGH FLOW 100% WITH 15LPM O2 NON REBREATHER MASK. O2 SAT 93% AT THIS TIME. NO SOB NO RESP DISTRESS NOTED. ON TELE MONITORING NSR WITH HR OF 86. DENIES PAIN. RIC MIDLINE PATENT AND FLUSHED FLUSHED C D I. SAFETY MEASURES IN PLACE. HOB ELEVATED. SIDE RAILS UP X3. BED LOCKED IN LOWEST POSITION. BED ALARM ON. WILL CONT TO MONITOR
--- NOTE | 2020-09-08 19:41 | NUR ---
RN CLOSING NOTES Patient currently in bed and breathing even and unlabored. Patient is on high flow 40 liters fi02 100 % and 15 liters non rebreather mask with 02 sat of 97%. No c/o pain or discomfort. Patient's head of bed kept elevated. Patient had bm x2 during shift.Bed in lowest and locked position. Endorsed to next shift for LONNY.
[2020-09-08 20:00] VITALS: BP 111/76
[2020-09-08] MEDS: SIMVASTATIN 20 MG TABLET PO SCH (21:01)
[2020-09-09] VITALS (7 sets, daily range): BP systolic 104–137; BP diastolic 71–79
--- NOTE | 2020-09-09 06:49 | NUR ---
PT ON BED ASLEEP EASY TO WAKE UP STILL ON HIGHFLOW 40L 100% FIO2 AND 15L NON REBREATHER SPO2 88-94% IN THE ENTIRE SHIFT, TELE MONITOR READS SINUS RHYTHM 80'S,STILL A/O X4 ABLE TO VERBALIZED NEEDS, NO SIGNIFICANT CHANGES ON CONDITION NOTED, ALL NEEDS ATTENDED, BED ON LOWEST POSITION AND LOCKED SIDE RAILS UP X 2 CALL LIGHT WITHIN REACH WILL ENDORSED TO AM SHIFT NURSE
--- NOTE | 2020-09-09 07:51 | NUR ---
GENIA RN NOTE PT ON BED ASLEEP EASY TO WAKE UP STILL ON HIGH FLOW 40L 100% FIO2 AND 15L NON REBREATHER SPO2 91% AT THIS TIME, ON TELE MONITOR READS ST HR 109 STILL A/O X4 ABLE TO VERBALIZED NEEDS, ALL NEEDS ATTENDED, BED ON LOWEST POSITION AND LOCKED SIDE RAILS UP X 2 CALL LIGHT WITHIN REACH , RT UPPER ARM MID LINE IN PLACE, WILL CONT TO MONITOR
[2020-09-09] MEDS: AMLODIPINE BESYLATE 10 MG TABLET PO SCH (08:10)
[2020-09-09] MEDS: POLYETHYLENE GLYCOL 3350 17 GM POWD.PACK PO SCH (08:10)
[2020-09-09] MEDS: PANTOPRAZOLE 40 MG TABLET.DR PO SCH (08:10)
[2020-09-09] MEDS: METHADONE HCL 10 MG TABLET PO SCH (08:11)
[2020-09-09] MEDS: DEXAMETHASONE SOD PHOSPHATE 10 MG/ML VIAL IV SCH (08:11)
[2020-09-09] MEDS: ENOXAPARIN SODIUM 40 MG/0.4 ML DISP.SYRIN SQ SCH ×2 (08:13→21:03)
[2020-09-09] MEDS: FLUTICASONE/VILANTEROL 1 EACH BLST.W.DEV IH SCH (08:19)
--- NOTE | 2020-09-09 10:30 | NUR ---
tommie oliveira rn installment account checker at bedside aware that earlier saturation was 78% but patient was eating will cont to monitor Addendum: 09/09/20 at 1119 by ANDREW ARRIAGA RN UP ON BEDSIDE COMMODE, NOT IN DISTRESS SATURATION 88%
--- NOTE | 2020-09-09 18:20 | NUR ---
GENIA RN NOTES PT IS IN THE BED HAVING DINNER. PT USING HF4L [id number]% AND 15L NRM SATURATION 87%. ON THE TELE MONITOR S[place]US TACHY 109. ALL NEEDS ATTENDED, CALL LIGHT IS IN REACH. NO SOB NOTED. WILL CONTINUE TO MONITOR.
--- NOTE | 2020-09-09 20:00 | NUR ---
TD OPENING NOTE RECEIVED PT IN BED AOX4. NO SOB NO DISTRESS NOTED, NO C/O PAIN AT THIS TIME. PT ON HIGH FLOW 40LPM WITH FIO2 @ 100% AND NON-REBREATHER @15LPM SATURATING @ 90%. PTS ON TELE MONITOR ST -110. RIC MIDLINE NOTED, INTACT PATENT AND FLUSHING WELL. ASPIRATIONS, RESPIRATORY AND SAFETY PRECAUTIONS IN PLACE AND MAINTAINED AT ALL TIMES.DUE MEDS GIVEN ORDERED ,NO ASE NOTED . BED IN LOWEST LOCKED POSITION, SIDE RAILS UP, HOB ELEVATED, AND CALL LIGHT WITHIN REACH. WILL CONTINUE TO MONITOR PTS.
[2020-09-09] MEDS: SIMVASTATIN 20 MG TABLET PO SCH (22:28)
[2020-09-09] MEDS: ACETAMINOPHEN 325 MG TABLET PO PRN (22:31)
[2020-09-10] VITALS (7 sets, daily range): BP systolic 112–138; BP diastolic 66–84
[2020-09-10] MEDS: ACETAMINOPHEN 325 MG TABLET PO PRN ×2 (06:23→16:28)
--- NOTE | 2020-09-10 06:40 | NUR ---
GENIA RN NOTE PT ON BED AWAKE A/0X4 ON HIGH FLOW 40L 100% FIO2 AND 15L NON REBREATHER SPO2 91% AT THIS TIME, ON TELE MONITOR READS ST HR 109 ABLE TO VERBALIZED NEEDS, ALL NEEDS ATTENDED, BED ON LOWEST POSITION AND LOCKED SIDE RAILS UP X 2 CALL LIGHT WITHIN REACH ,TYLENOL GIVEN ORDERED PTS REQUESTED, RT UPPER ARM MID LINE IN PLACE, WILL CONT TO MONITOR WILL ENDORSE TO RN DAY SHIFT FOR CONTINUITY O F CARE.
--- NOTE | 2020-09-10 07:15 | NUR ---
RN OPENING NOTES RECEIVED PT AWAKE, A/O X4. ON HIGH FLOW 40LPM WITH FIO2 @100% AND NON-REBREATHER @15LPM SATURATING @95%. NO SOB OR ANY RESPIRATORY DISTRESS NOTED. NO PAIN AT THIS TIME. TELE MONITOR SR-ST. RIC MIDLINE INTACT, PATENT AND FLUSHED. SAFETY PRECAUTIONS IN PLACE. CALL LIGHT WITHIN REACH. BED LOCKED AND IN LOWEST POSITION WITH SIDE RAILS UP X2. HOB ELEVATED. WILL CONTINUE TO MONITOR.
[2020-09-10] MEDS: AMLODIPINE BESYLATE 10 MG TABLET PO SCH (08:34)
[2020-09-10] MEDS: METHADONE HCL 10 MG TABLET PO SCH (08:35)
[2020-09-10] MEDS: PANTOPRAZOLE 40 MG TABLET.DR PO SCH (08:36)
[2020-09-10] MEDS: DEXAMETHASONE SOD PHOSPHATE 10 MG/ML VIAL IV SCH (08:36)
[2020-09-10] MEDS: POLYETHYLENE GLYCOL 3350 17 GM POWD.PACK PO SCH (08:36)
[2020-09-10] MEDS: ENOXAPARIN SODIUM 40 MG/0.4 ML DISP.SYRIN SQ SCH ×2 (08:38→21:25)
[2020-09-10] MEDS: FLUTICASONE/VILANTEROL 1 EACH BLST.W.DEV IH SCH (08:55)
--- NOTE | 2020-09-10 16:30 | NUR ---
Pt. c/o aching headache rated 6 out of 10 and requested tylenol during safety check rounding. Pt. administer tylenol 650mg per prn orders.
--- NOTE | 2020-09-10 18:37 | NUR ---
RN CLOSING NOTES PT RESTING IN BED, A/O X4. ON HIGH FLOW 40LPM WITH FIO2 @100% AND NON-REBREATHER @15LPM SATURATING @90%. NO SOB OR ANY RESPIRATORY DISTRESS NOTED. NO PAIN REPORTED AT THIS TIME. TELE MONITOR SR-ST. RIC MIDLINE INTACT, PATENT AND FLUSHED. ALL DUE MEDS ADMINISTERED. NO SIGNIFICANT CHANGES THROUGHOUT THE SHIFT. SAFETY PRECAUTIONS IN PLACE. CALL LIGHT WITHIN REACH. BED LOCKED AND IN LOWEST POSITION WITH SIDE RAILS UP X2. HOB ELEVATED. WILL ENDORSE TO NIGHT NURSE FOR LONNY.
--- NOTE | 2020-09-10 19:00 | NUR ---
RN NOTE RECEIVED PATIENT IN BED, ON SEMI HLEM'S, AO X 4, IN NO S/SX OF ACUTE DISTRESS AT THIS TIME. PATIENT'S BREATHING IS EVEN AND UNLABORED, ON 40 LPM VIA HIGH FLOW NASAL CANNULA AT 100% FIO2, AND 15 LPM VIA NON REBREATHER MASK. PATIENT ON TELE MONITOR READING SR, HR IS 87. RIC MIDLINE PATENT AND FLUSHING WELL, NO S/S OF INFECTION NOTED. SAFETY MEASURES IMPLEMENTED. PATIENT BED ALARM IS ON. HEAD OF BED ELEVATED. BED IS LOCKED, IN LOWEST POSITION AND SIDE RAILS UP. CALL LIGHT WITHIN REACH OF THE PATIENT. WILL CONTINUE TO MONITOR AND REASSESS FOR ANY CHANGES.
[2020-09-10] MEDS: SIMVASTATIN 20 MG TABLET PO SCH (21:27)
[2020-09-11] VITALS (20 sets, daily range): BP systolic 94–149; BP diastolic 51–86
[2020-09-11] MEDS: ACETAMINOPHEN 325 MG TABLET PO PRN ×4 (01:58→21:02)
[2020-09-11] MEDS: ONDANSETRON HCL/PF 4 MG/2 ML VIAL IVP PRN ×2 (03:26→07:37)
--- NOTE | 2020-09-11 03:36 | NUR ---
RN NOTE NOTED PATIENT SAT AT LOW 80'S AND DESATS FURTHER WHEN COUGHING. RT AWARE. DR SMITH WAS NOTIFIED. ORDER RECEIVED FOR ROBITUSSIN AC 5ML Q6H PRN. PICKER PACKER MADE AWARE.
[2020-09-11] MEDS: GUAIFENESIN/CODEINE 10 ML UDC PO PRN ×2 (05:34→21:04)
--- NOTE | 2020-09-11 05:50 | NUR ---
RN NOTE NOTED PATIENT O2 SAT SUSTAINED BELOW AT HIGH 70'S TO 83. RT NOTIFIED PER ORDER FROM EPHRAIM TO DO ABG IF O2 SAT IS SUSTAINED BELOW 85%. ABG NOT DONE, PER RT DR ANTONIO AWARE O2 SAT IS TRENDING DOWN. PIT SLAGMAN AWARE.
--- NOTE | 2020-09-11 07:30 | NUR ---
RN GENIA OPENING NOTE PT IN BED AWAKE, A/Ox4 ON HIGH FLOW O2 40LPM 100% AND NRB 15LPM, SPO2 80-84% WHICH HAS BEEN CONSISTENT PREVIOUS SHIFT PER NIGHT RN, NO SIGNS OF RESP DISTRESS BUT OCCASIONAL ACCESSORY MUSCLE USE. PT INSTRUCTED DEEP BREATHING TECHNIQUE. RT AND DR ANTONIO INFORMED/AWARE. PT DENIES PAIN, STATES NAUSEA WHICH ZOFRAN WAS GIVEN AT 0730. PT ON MONITOR V-PACING. PT HAS MULTIPLE BRUISES ON ABD. PT RIC MIDLINE IS LEAKING, WILL PUT IN ORDER FOR NEW MIDLINE SHORTLY. PT HAS DIAPER ON AND USES BED [place]. ALL PT SAFETY MEASURES IN PLACE. WILL CONT TO MONITOR Addendum: 09/11/20 at 1135 by SONA CHARLES RN pt not v-pacing, incorrect entry. SR
[2020-09-11] MEDS: METHADONE HCL 10 MG TABLET PO SCH (08:28)
[2020-09-11] MEDS: AMLODIPINE BESYLATE 10 MG TABLET PO SCH (08:29)
[2020-09-11] MEDS: PANTOPRAZOLE 40 MG TABLET.DR PO SCH (08:29)
[2020-09-11] MEDS: DEXAMETHASONE SOD PHOSPHATE 10 MG/ML VIAL IV SCH (08:29)
[2020-09-11] MEDS: ENOXAPARIN SODIUM 40 MG/0.4 ML DISP.SYRIN SQ SCH ×2 (08:30→21:04)
[2020-09-11] MEDS: POLYETHYLENE GLYCOL 3350 17 GM POWD.PACK PO SCH (08:31)
[2020-09-11] MEDS: FLUTICASONE/VILANTEROL 1 EACH BLST.W.DEV IH SCH (09:34)
[2020-09-11 10:01] LABS: ABG BASE EXCESS 8.3 mmol/L; ABG OXYGEN SATURATION 71.6 % (92.0-98.5); ABG PCO2 72.7 mmHg (35.0-45.0); ABG PH 7.326 (7.350-7.450); ABG PO2 38.1 mmHg (75.0-100.0); AaDO2 602.2 mmHg; COHb 1.9 % (0.5-1.5); MetHb 0.2 % (0.0-1.5); O2Hb 70.1 % (94.0-97.0); SITE, ABG Right Radial; VENT MODE, BG HFNC 100%+NRB MASK
--- NOTE | 2020-09-11 10:27 | NUR ---
RN NOTE REPEAT ABG COMPLETED. PER DR ANTONIO, PT TO BE TRANSFERRED TO ICU AND PLACED ON BIPAP
--- NOTE | 2020-09-11 11:00 | NUR ---
FLOAT OPERATOR NOTE PT TRANSFERRED UP TO ICU ROOM 251 IN STABLE CONDITION, WITH RT PRESENT. BEDSIDE REPORT GIVEN TO GISEL BENAVIDES
--- NOTE | 2020-09-11 11:05 | NUR ---
CONSERVATION OF RESOURCES COMMISSIONER NOTES RECEIVED PATIENT AOX4 , NOTED WITH CHEST RETRACTIONS , MILDLY DISTRESSED , SPO2 OF 79% VIA BIPAP INITIAL SETTING OF R 16 , 20 /10 FIO2 OF 100% , SR 85 ON BEDSIDE MONITOR , SKIN ASSESSMENT DONE NO WOUND NOTED SKIN IS INTACT , RIC MIDLINE LEAKING , FIXED BY TIGHTENING THE CAP NOTED ASPIRATED NOTED WITH BLOOD RETURN , CANCELED MIDLINE RE INSERTION ORDER , ALL NEEDS ATTENDED , WILL CONTINUE TO MONITOR .
[2020-09-11 11:36] LABS: BASOPHILS # (AUTO) 0.2 /CMM (0.0-0.2); BASOPHILS % (AUTO) 1.4 % (0.0-2.0); EOSINOPHILS % (AUTO) 1.2 % (0.0-6.0); HEMATOCRIT 41 % (33-45); HEMOGLOBIN 12.9 g/dL (11.5-14.8); LYMPHOCYTES # (AUTO) 0.6 /CMM (0.8-4.8); MEAN CORPUSCULAR HGB CONC 32 g/dl (31.0-36.0); MEAN CORPUSCULAR VOLUME 84 fL (82-100); MONOCYTES # (AUTO) 0.8 /CMM (0.1-1.30); MONOCYTES % (AUTO) 5.3 % (2.0-12.0); NEUTROPHILS # (AUTO) 13.8 /CMM (1.8-8.9); NEUTROPHILS % (AUTO) 88.1 % (43.0-81.0); PLATELET COUNT (AUTO) 153 /CMM (150-450); WHITE BLOOD COUNT (AUTO) 15.7 K/uL (4.3-11.0)
--- NOTE | 2020-09-11 12:00 | NUR ---
UPON PATIENT TRANSFER TO ICU , SKIN ASSESSMENT DONE , NOTED WITH MULTIPLE WOUNDS ON LOWER BACK , NO DRAINAIGE NOTED , WHITE /YELLOW IN COLOR , PATIENT IS USING HER DIAPER , EXPLAINED TO PATIENT THAT SHE MUST NOT USE THE DIAPER AT THIS TIME SHE HAS MULTIPLE WOUNDS NOTED AND IT MAY CAUSE WORSENING OF THE WOUND , PATIENT REFUSES AND VERBALIZED UNDERSTADING AND RISK OF USING DIAPER , WOUND CONSULT ORDERED , MALT ROASTER NOTIFIED
[2020-09-11 12:10] LABS: CALCIUM, SERUM 9.2 mg/dL (8.5-10.1); CREATININE 0.5 mg/dL (0.6-1.3); POTASSIUM 4.6 mmol/L (3.5-5.1)
[2020-09-11 12:31] LABS: BAND % (MANUAL) 1 % (0.0-5.0); EOSINOPHILS % (MANUAL) 1 % (0-4); LYMPHOCYTES % (MANUAL) 2 % (16-48); MONOCYTES % (MANUAL) 3 % (0-11.0); NEUTROPHILS % (MANUAL) 93 (42-76)
[2020-09-11 13:20] LABS: ABG BASE EXCESS 11.2 mmol/L; ABG OXYGEN SATURATION 85.3 % (92.0-98.5); ABG PCO2 85.8 mmHg (35.0-45.0); ABG PH 7.301 (7.350-7.450); ABG PO2 52.9 mmHg (75.0-100.0); AaDO2 574.3 mmHg; COHb 1.6 % (0.5-1.5); MetHb 0.3 % (0.0-1.5); O2Hb 83.7 % (94.0-97.0); SITE, ABG Right Radial; VENT MODE, BG BIPAP 20/10
--- NOTE | 2020-09-11 13:45 | NUR ---
ABG RESULTS 2 HOURS POST BIPAP REPORTED TO DR. ANTONIO WITH ORDERS GIVEN. BIPAP CHANGES MADE BY RT SENIA. REPEAT ABG 1600 WITH PARAMETERS GIVEN. SEE MD ORDERS
--- NOTE | 2020-09-11 15:44 | NUR ---
MERCHANDISING DIRECTOR NOTES RECEIVED A CALL FROM DR ADORNO , DISCUSSED PT STATUS , AOX4 , NO DISTRESS , SPO2 OF 88-90% VIA BIPAP SETTINGS OF 25/12 FIO2 100% , PENDING ABG @ 1600 , DISCUSSED DR ANTONIO PARAMETERS FOR INTUBATION , MD AGREED WITH THE SAID PARAMETERS .
[2020-09-11 16:36] LABS: ABG BASE EXCESS 10.9 mmol/L; ABG PCO2 80.3 mmHg (35.0-45.0); ABG PH 7.319 (7.350-7.450); ABG PO2 56.7 mmHg (75.0-100.0); COHb 1.4 % (0.5-1.5); MetHb 0.4 % (0.0-1.5); O2Hb 87.4 % (94.0-97.0); SITE, ABG Right Radial; VENT MODE, BG ST 25/12
--- NOTE | 2020-09-11 17:45 | NUR ---
BEAD FORMING MACHINE OPERATOR NOTES SEEN AND EVALUATED BY DR ADORNO ,DISCUSSED ABG RESULT , CURRENT VENT SETTING SPO2 OF 88-90% WITH NO SIGNS OF DISTRESS , MD TERRY AWARE
--- NOTE | 2020-09-11 20:30 | NUR ---
RECEIVED PT ON BIPAP NO RESP DISTRESS. PT IS AWAKE AND ALERT TOLERATING SETTINGS. MEPILEX IN PLACE, MED FACE MASK. ALARMS SET AND AUDIBLE. CONTINUE PT ON BIPAP. Addendum: 09/11/20 at 2031 by LAW PANDYA RT Amended: Links added.
[2020-09-11] MEDS: SIMVASTATIN 20 MG TABLET PO SCH (21:02)
[2020-09-12] VITALS (25 sets, daily range): BP systolic 96–141; BP diastolic 54–85
[2020-09-12 04:53] LABS: BASOPHILS # (AUTO) 0.1 /CMM (0.0-0.2); BASOPHILS % (AUTO) 0.5 % (0.0-2.0); EOSINOPHILS % (AUTO) 2.6 % (0.0-6.0); HEMATOCRIT 40 % (33-45); HEMOGLOBIN 12.8 g/dL (11.5-14.8); LYMPHOCYTES # (AUTO) 1.1 /CMM (0.8-4.8); LYMPHOCYTES % (AUTO) 9.1 % (20.0-44.0); MEAN CORPUSCULAR HGB CONC 32 g/dl (31.0-36.0); MEAN CORPUSCULAR VOLUME 85 fL (82-100); MONOCYTES % (AUTO) 8.4 % (2.0-12.0); NEUTROPHILS # (AUTO) 9.2 /CMM (1.8-8.9); NEUTROPHILS % (AUTO) 79.4 % (43.0-81.0); PLATELET COUNT (AUTO) 120 /CMM (150-450); WHITE BLOOD COUNT (AUTO) 11.6 K/uL (4.3-11.0)
[2020-09-12 05:12] LABS: CALCIUM, SERUM 9.6 mg/dL (8.5-10.1); CREATININE 0.5 mg/dL (0.6-1.3); POTASSIUM 4.7 mmol/L (3.5-5.1)
[2020-09-12 05:59] LABS: ABG BASE EXCESS 9.6 mmol/L; ABG OXYGEN SATURATION 88.8 % (92.0-98.5); ABG PCO2 75.2 mmHg (35.0-45.0); ABG PH 7.327 (7.350-7.450); ABG PO2 57.8 mmHg (75.0-100.0); COHb 1.4 % (0.5-1.5); MetHb 0.1 % (0.0-1.5); O2Hb 87.5 % (94.0-97.0); SITE, ABG Left Radial; VENT MODE, BG Bipap 25/12 RR16 100%
--- NOTE | 2020-09-12 08:00 | NUR ---
rn notes received patient in the bed on BIPAP with, ABG done PH- 7.32, PO2-57, HCo2-38.3, per gliding pilot instructor Dr Blair Magallonadtreasure, and Lovenox x2, and follow up ABG, and chest X-ray next day. Patient tolerating BIPAP well, due medication administered, agreed insertion of Caballero cath. TO order taken per hospitalist and carried out.
[2020-09-12] MEDS ORDERED: TOCILIZUMAB 400 MG in IV NS 0.9% 80 ML IV ONE (08:30)
[2020-09-12 08:38] LABS: ALBUMIN 2.9 g/dL (3.4-5.0); BILIRUBIN,DIRECT 0.1 mg/dL (0.0-0.2); BILIRUBIN,TOTAL 0.6 mg/dL (0.2-1.0)
[2020-09-12] MEDS ORDERED: ENOXAPARIN SODIUM 40 MG/0.4 ML DISP.SYRIN SQ SCH (09:00)
--- NOTE | 2020-09-12 09:00 | NUR ---
rn notes inserted Caballero catheter at tis time, patient tolerated well, get yellow 200 ml output, needs attended and anticipated, am care done, linens changed. patient turn and reposition self in the bed. call light within to reach. will monitoring.
[2020-09-12] MEDS: POLYETHYLENE GLYCOL 3350 17 GM POWD.PACK PO SCH (09:25)
[2020-09-12] MEDS: ENOXAPARIN SODIUM 40 MG/0.4 ML DISP.SYRIN SQ SCH ×2 (09:26→22:17)
[2020-09-12] MEDS: METHADONE HCL 10 MG TABLET PO SCH (09:26)
[2020-09-12] MEDS: DEXAMETHASONE SOD PHOSPHATE 10 MG/ML VIAL IV SCH (09:27)
[2020-09-12] MEDS: AMLODIPINE BESYLATE 10 MG TABLET PO SCH (09:28)
[2020-09-12] MEDS: FLUTICASONE/VILANTEROL 1 EACH BLST.W.DEV IH SCH (09:28)
[2020-09-12] MEDS: PANTOPRAZOLE 40 MG TABLET.DR PO SCH (09:28)
[2020-09-12] MEDS: ACETAMINOPHEN 325 MG TABLET PO PRN ×2 (17:17→22:15)
--- NOTE | 2020-09-12 17:17 | NUR ---
RN NOTES ADMINISTERED TYLENOL 650 MG PO PRN FOR HEADACHE PER PATIENT REQUEST.
--- NOTE | 2020-09-12 18:47 | NUR ---
RN NOTES PATIENT TOLERATING BIPAP SETTING WELL, NO ACUTE RESPIRATORY DISTRESS, V/S WNL, PATIENT TURN AND REPOSTION SELF IN THE BED, CALL LIGHT WITHIN TO REACH. SAAVEDRA DRAINING YELLOW OUTPUT. ENDORSED ONCOMING NURSE FOLLOW PLAN OF CARE.
[2020-09-12] MEDS: GUAIFENESIN/CODEINE 10 ML UDC PO PRN (22:14)
[2020-09-12] MEDS: SIMVASTATIN 20 MG TABLET PO SCH (22:15)
[2020-09-13] VITALS (21 sets, daily range): BP systolic 97–133; BP diastolic 56–93
[2020-09-13 04:53] LABS: BASOPHILS # (AUTO) 0.1 /CMM (0.0-0.2); BASOPHILS % (AUTO) 0.8 % (0.0-2.0); EOSINOPHILS % (AUTO) 0.2 % (0.0-6.0); HEMATOCRIT 38 % (33-45); HEMOGLOBIN 12.5 g/dL (11.5-14.8); LYMPHOCYTES # (AUTO) 0.6 /CMM (0.8-4.8); MEAN CORPUSCULAR HGB CONC 33 g/dl (31.0-36.0); MEAN CORPUSCULAR VOLUME 85 fL (82-100); MONOCYTES # (AUTO) 0.5 /CMM (0.1-1.30); MONOCYTES % (AUTO) 5.7 % (2.0-12.0); NEUTROPHILS # (AUTO) 7.3 /CMM (1.8-8.9); NEUTROPHILS % (AUTO) 86.3 % (43.0-81.0); RED BLOOD CELL COUNT(AUTO) 4.54 MIL/uL (4.0-5.2); WHITE BLOOD COUNT (AUTO) 8.5 K/uL (4.3-11.0)
[2020-09-13] MEDS: GUAIFENESIN/CODEINE 10 ML UDC PO PRN ×2 (05:09→21:56)
[2020-09-13] MEDS: ACETAMINOPHEN 325 MG TABLET PO PRN ×2 (05:09→21:57)
[2020-09-13 06:34] LABS: PLATELET COUNT (AUTO) 124 /CMM (150-450)
--- NOTE | 2020-09-13 07:51 | NUR ---
RT PATIENT REMOVED FROM BIPAP AND PLACED ON HFNC 60L 100% MAINTAINING SPO2 ABOVE 90%
--- NOTE | 2020-09-13 08:00 | NUR ---
RN NOTES PATIENT ON HIGH FLOW O2 AND NON REBREATHER MASK 15L , AND HIGH FLOW OXYGEN 60/100% AT THIS TIME, AND NIGHT TIME WILL BE BIPAP BECAUSE OF SLEEPING APNEA. PER ECHO VASCULAR TECH PATIENT ONLY FLUID FOR DRY MOUTH. PATIENT REFUSED PAIN, ABG DONE CCO2-75, PO2-57.8, HCO3=38.5, O2 SATURATION-88.8. PATIENT ON THE BED SAAVEDRA DRAINING YELLOW OUTPUT. PATIENT TURN AND REPOSTION SELF IN THE BED. SEEN WOUND NURSE, AND HOSPITALIST NO NEW ORDER. CALL LIGHT WITHIN TO REACH. WILL MONITORING.
--- NOTE | 2020-09-13 08:29 | NUR ---
WOUND CARE CONSULT: PT PRESENTS INDEPENDENT WITH BED MOBILITY AND HAS MULTIPLE CIRCULAR SCARS ON LOWER BACK AND BUTTOCKS, PRESENT ON ADMISSION. PT IS ON SOLANGE ISOFLEX LOW AIRLOSS BED. PT IS CONTINENT WITH SAAVEDRA. WILL SEE PRN. Addendum: 09/13/20 at 0831 by LIVIA PEREZ WNDNU Amended: Links added.
[2020-09-13] MEDS: POLYETHYLENE GLYCOL 3350 17 GM POWD.PACK PO SCH (10:14)
[2020-09-13] MEDS: ENOXAPARIN SODIUM 40 MG/0.4 ML DISP.SYRIN SQ SCH ×2 (10:14→22:01)
[2020-09-13] MEDS: DEXAMETHASONE SOD PHOSPHATE 10 MG/ML VIAL IV SCH (10:14)
[2020-09-13] MEDS: METHADONE HCL 10 MG TABLET PO SCH (10:15)
[2020-09-13] MEDS: PANTOPRAZOLE 40 MG TABLET.DR PO SCH (10:15)
[2020-09-13] MEDS: AMLODIPINE BESYLATE 10 MG TABLET PO SCH (10:15)
[2020-09-13] MEDS: FLUTICASONE/VILANTEROL 1 EACH BLST.W.DEV IH SCH (10:16)
--- NOTE | 2020-09-13 10:25 | NUR ---
rn notes Due medication administered patient NPO beside small amount of water. patient has no acute respiratory distress.
[2020-09-13 11:29] LABS: ABG BASE EXCESS 13.1 mmol/L; ABG OXYGEN SATURATION 77.8 % (92.0-98.5); ABG PCO2 79.9 mmHg (35.0-45.0); ABG PH 7.343 (7.350-7.450); ABG PO2 43.7 mmHg (75.0-100.0); AaDO2 589.4 mmHg; COHb 1.1 % (0.5-1.5); MetHb 0.2 % (0.0-1.5); O2Hb 76.8 % (94.0-97.0); SITE, ABG Right Radial
[2020-09-13 12:26] LABS: FERRITIN 694 ng/mL (8-388)
[2020-09-13] MEDS ORDERED: diphenhydrAMINE HCL 50 MG/ML VIAL IV ONE (14:00)
[2020-09-13] MEDS ORDERED: ACETAMINOPHEN 325 MG TABLET PO ONE (14:00)
[2020-09-13] MEDS ORDERED: TOCILIZUMAB 400 MG in IV NS 0.9% 80 ML IV ONE (14:30)
--- NOTE | 2020-09-13 15:04 | NUR ---
RN NOTES STARTED ACTEMRA 100 ML FOR AT THIS TIME, PREVIOUSLY ADMINISTERED 30 MIND AHED TYLENOL 650MG PO X1, ND BENADRYL 25 ML/IV PUSH X1. PATIENT HAD NO S/S OF REACTION. PATIENT V/S WNL. T-97.8. WILL MONITORING.
--- NOTE | 2020-09-13 18:33 | NUR ---
RN NOTES PATIENT RESTING, AM CARE DONE, NEEDS ATTENDED AND ANTICIPATED. PATIENT HAS NO ACUTE RESPIRATORY DISTRESS, ON HIGH FLOW O2 100%, AND NON -REBREATHER MASK 15L TOLERATING WELL. SAAVEDRA DRAINING YELLOW OUTPUT. CALL LIGHT WITHIN TO REACH. ENDORSED ONCOMING NURSE FOLLOW PLAN OF CARE.
[2020-09-13] MEDS: SIMVASTATIN 20 MG TABLET PO SCH (21:57)
--- NOTE | 2020-09-13 23:34 | NUR ---
PT PLACED ON NOC BIPAP. RN NOTIFIED.
[2020-09-14] VITALS (26 sets, daily range): BP systolic 91–145; BP diastolic 51–94
--- NOTE | 2020-09-14 00:02 | NUR ---
Pt noted to have a leaking catheter, c/o leak for 2 days, educated patient about risk of UTI/ CAUTI risk r/t fang catherer and asked if she preferred to keep catheter in or remove it. Pt said requested to have it removed because it was leaking and does not want to assume risk of UTI r/t fang if unnecessary. Maureen-care required more with leaking catheter due to saturated pads and pt desats easily upon mass movement. Checked orders and MD did not have a specific request to keep fang in as prompted in renewal orders on drop down, so d/c'd fang at 2200 based off nursing judgement, renewal order description and pt request. Charge nurse stated she interpreted orders differently, so I requested facility protocol for CAUTI and [facility] guidelines. transformer assembly supervisor stated she would attempt to locate the policy and procedure for daily nurse evaluation of necessity of catheter and CAUTI initiatives for facility, as could not be located by charge nurse or located in the intranet for policy and procedures.
--- NOTE | 2020-09-14 04:37 | NUR ---
PT REQUESTED TO BE OFF BIPAP. PLACED ON HFNC + NRB. RN NOTIFIED AND POKER MANAGER.
[2020-09-14] MEDS: ACETAMINOPHEN 325 MG TABLET PO PRN (05:19)
[2020-09-14] MEDS: GUAIFENESIN/CODEINE 10 ML UDC PO PRN ×2 (05:20→22:46)
--- NOTE | 2020-09-14 05:25 | NUR ---
Pt given tylonol a couple time this shift for c/o headche and robitussin/codeine for c/o persistant cough. verbailzed relief 30 min post admin for both prn meds. Pulm toileting reinforced with pt
--- NOTE | 2020-09-14 07:20 | NUR ---
Recvd pt. in bed aaox3 in no acute distress, on HFNC 100% /60 liter plus a NRM with pulse oxygen saturation of 89%. pt appears resting and comfortable with saturation. Pt did not express any distress at this time, reports feeling okay, denies pain, headache, N/V/D, chills and palpitation. Pt updated with plan of care, review fall and all safety protocol with pt, and verbalized understanding. Continued ongoing cardiac rehab nurse and pulse oximetry monitoring. Incontinent diaper on, dry and clean at this time. Pt demonstrated ability to self reposition herself, and was encouraged by the RN for frequent position changed while awake to prevent skin breakdown. Will continue to monitor through the shift.
[2020-09-14 08:16] LABS: ABG OXYGEN SATURATION 87.6 % (92.0-98.5); ABG PCO2 69.5 mmHg (35.0-45.0); ABG PO2 53.8 mmHg (75.0-100.0); AaDO2 589.7 mmHg; MetHb 0.1 % (0.0-1.5); O2Hb 86.6 % (94.0-97.0); SITE, ABG Right Radial; VENT MODE, BG HFNC 60L 100% +NRB 15L
[2020-09-14] MEDS: ENOXAPARIN SODIUM 40 MG/0.4 ML DISP.SYRIN SQ SCH ×2 (08:40→22:48)
[2020-09-14] MEDS: DEXAMETHASONE SOD PHOSPHATE 10 MG/ML VIAL IV SCH (08:41)
[2020-09-14] MEDS: METHADONE HCL 10 MG TABLET PO SCH (08:43)
[2020-09-14] MEDS: PANTOPRAZOLE 40 MG TABLET.DR PO SCH (08:43)
[2020-09-14] MEDS: AMLODIPINE BESYLATE 10 MG TABLET PO SCH (10:56)
[2020-09-14] MEDS: POLYETHYLENE GLYCOL 3350 17 GM POWD.PACK PO SCH (11:00)
[2020-09-14] MEDS: FLUTICASONE/VILANTEROL 1 EACH BLST.W.DEV IH SCH (11:45)
[2020-09-14 12:00] LABS: BASOPHILS % (AUTO) 0.1 % (0.0-2.0); EOSINOPHILS % (AUTO) 0.3 % (0.0-6.0); HEMATOCRIT 41 % (33-45); HEMOGLOBIN 12.9 g/dL (11.5-14.8); LYMPHOCYTES # (AUTO) 0.4 /CMM (0.8-4.8); LYMPHOCYTES % (AUTO) 6.3 % (20.0-44.0); MEAN CORPUSCULAR HGB CONC 32 g/dl (31.0-36.0); MEAN CORPUSCULAR VOLUME 86 fL (82-100); MONOCYTES # (AUTO) 0.3 /CMM (0.1-1.30); MONOCYTES % (AUTO) 4.3 % (2.0-12.0); NEUTROPHILS # (AUTO) 5.6 /CMM (1.8-8.9); PLATELET COUNT (AUTO) 148 /CMM (150-450); RED BLOOD CELL COUNT(AUTO) 4.75 MIL/uL (4.0-5.2); WHITE BLOOD COUNT (AUTO) 6.3 K/uL (4.3-11.0)
--- NOTE | 2020-09-14 12:30 | NUR ---
Pt diet changed from NPO to cardiac. pt tolerated diet very well and eats 100%.
--- NOTE | 2020-09-14 16:00 | NUR ---
daily care done, incontinent pad noted saturated. pt cleaned, dry and made comfortable in bed. Refused gown changed and complete bed bath. Dinner provided. continued on HFNC, and NRB, saturation up to 97% at rest but desat down to low 80 with exhaustion. Denies other acute distress.
[2020-09-14] MEDS: SIMVASTATIN 20 MG TABLET PO SCH (22:52)
[2020-09-15] VITALS (25 sets, daily range): BP systolic 90–150; BP diastolic 44–90
[2020-09-15 04:49] LABS: CALCIUM, SERUM 9.4 mg/dL (8.5-10.1); CREATININE 0.6 mg/dL (0.6-1.3); POTASSIUM 4.4 mmol/L (3.5-5.1)
[2020-09-15 05:12] LABS: C-REACTIVE PROTEIN 3.1 mg/dL (0.0-0.9)
--- NOTE | 2020-09-15 07:15 | NUR ---
Recvd pt. in bed aaox3 in no acute distress, on HFNC 100% /60 liter intermittently using NRB during exhaustion with pulse oxygen saturation of 85%. pt appears resting and comfortable with saturation. Pt did not express any distress at this time, reports feeling okay, denies pain, headache, N/V/D, chills and palpitation. Pt updated with plan of care, review fall and all safety protocol with pt, and verbalized understanding. Continued ongoing cardiac nurse specialist and pulse oximetry monitoring. Incontinent diaper on, dry and clean at this time. Pt demonstrated ability to self reposition herself, and was encouraged by the RN for frequent position changed while awake to prevent skin breakdown. Will continue to monitor through the shift.
--- NOTE | 2020-09-15 07:31 | NUR ---
UNEVENTFUL EVENING, TYLONOL GIVEN EARLIER IN SHIFT SEC TO C/O MILD HEADACHE, ROBITUSSIN/CODEINE FOR COUGH, SLEPT APPX 4.5 HOURS, RESTLESS, WANTS TO REQUEST SLEEP AIDE FROM [facility]OSPITLAIST, STATES LOST ROBE DURING HOSPITAL TRANSFER, NOTIFIED CHARGE NURSE AND HOUSE SUPOERVISOR, CALLED FLOOR FROM TRANSFERRED AND SPOKE WITH CHARGE, WILL LET HER KNOW IF THEY FIND IT.
[2020-09-15] MEDS: PANTOPRAZOLE 40 MG TABLET.DR PO SCH (07:46)
[2020-09-15 08:11] LABS: ABG BASE EXCESS 13.2 mmol/L; ABG OXYGEN SATURATION 91.2 % (92.0-98.5); ABG PCO2 73.7 mmHg (35.0-45.0); ABG PH 7.372 (7.350-7.450); ABG PO2 64.5 mmHg (75.0-100.0); AaDO2 574.8 mmHg; COHb 0.8 % (0.5-1.5); MetHb 0.1 % (0.0-1.5); O2Hb 90.4 % (94.0-97.0); SITE, ABG Right Radial; VENT MODE, BG HFNC
[2020-09-15] MEDS: POLYETHYLENE GLYCOL 3350 17 GM POWD.PACK PO SCH (08:17)
[2020-09-15] MEDS: DEXAMETHASONE SOD PHOSPHATE 10 MG/ML VIAL IV SCH (08:17)
[2020-09-15] MEDS: ENOXAPARIN SODIUM 40 MG/0.4 ML DISP.SYRIN SQ SCH ×2 (08:17→23:06)
[2020-09-15] MEDS: METHADONE HCL 10 MG TABLET PO SCH (08:18)
[2020-09-15] MEDS: AMLODIPINE BESYLATE 10 MG TABLET PO SCH (08:19)
[2020-09-15] MEDS: FLUTICASONE/VILANTEROL 1 EACH BLST.W.DEV IH SCH (08:20)
--- NOTE | 2020-09-15 19:35 | NUR ---
RCVD PT ON HI FLOW 60L, FIO2 100% .
[2020-09-15] MEDS: SIMVASTATIN 20 MG TABLET PO SCH (23:06)
[2020-09-15] MEDS: ACETAMINOPHEN 325 MG TABLET PO PRN (23:06)
[2020-09-15] MEDS: GUAIFENESIN/CODEINE 10 ML UDC PO PRN (23:07)
--- NOTE | 2020-09-15 23:59 | NUR ---
PLACED PT ON NOCTURNAL BIPAP WITH THE SETTINGS OF 18/10, RATE 14, F102 100% PER MD'S ORDER. NO RESPIRATORY DISTRESS NOTED AT THIS TIME . WILL CONTINUE TO MONITOR PT T/O SHIFT.
[2020-09-16] VITALS (27 sets, daily range): BP systolic 106–145; BP diastolic 60–99
--- NOTE | 2020-09-16 00:01 | NUR ---
Pt provided bed time care, partial bed bath, linene change and given robitussin w codiene as per request at 2300 prior applying bipap. transient desaturation upon mass movment nd repositioning but recovers within 90 sec appx. Now is on bipap and resting calmly in bed.
--- NOTE | 2020-09-16 02:45 | NUR ---
TAKEN OFF BIPAP PER PT REQUEST. PLACED BACK ON HI FLOW. MAKAYLA SHIELDS NOTIFIED.
[2020-09-16] MEDS: ACETAMINOPHEN 325 MG TABLET PO PRN ×3 (06:35→21:27)
[2020-09-16] MEDS: GUAIFENESIN/CODEINE 10 ML UDC PO PRN ×2 (06:35→21:27)
--- NOTE | 2020-09-16 07:25 | NUR ---
Recvd pt. in bed aaox3 in no acute distress, on HFNC 100% /60 liter with pulse oxygen saturation of 85%. pt appears resting and comfortable with saturation. Pt did not express any distress at this time, reports feeling okay, denies pain, headache, N/V/D, chills and palpitation. Pt updated with plan of care, review fall and all safety protocol with pt, and verbalized understanding. Continued ongoing shallot packer and pulse oximetry monitoring. Incontinent diaper on, dry and clean at this time. Pt demonstrated ability to self reposition herself, and was encouraged by the RN for frequent position changed while awake to prevent skin breakdown. No new significant issues reported overnight, off BIPAP for now, reports improvement in energy level and works of breathing though despite no improvement in pulse oximetry reading. Breakfast provided at this time. Will continue to monitor through the shift.
[2020-09-16] MEDS: METHADONE HCL 10 MG TABLET PO SCH (08:09)
[2020-09-16] MEDS: POLYETHYLENE GLYCOL 3350 17 GM POWD.PACK PO SCH (08:10)
[2020-09-16] MEDS: ENOXAPARIN SODIUM 40 MG/0.4 ML DISP.SYRIN SQ SCH ×2 (08:11→21:18)
[2020-09-16] MEDS: AMLODIPINE BESYLATE 10 MG TABLET PO SCH (08:13)
[2020-09-16] MEDS: PANTOPRAZOLE 40 MG TABLET.DR PO SCH (08:13)
[2020-09-16] MEDS: FLUTICASONE/VILANTEROL 1 EACH BLST.W.DEV IH SCH (08:14)
[2020-09-16] MEDS: DEXAMETHASONE SOD PHOSPHATE 10 MG/ML VIAL IV SCH (08:14)
--- NOTE | 2020-09-16 17:38 | NUR ---
pt remain stable on HFNC, 60 Liter, 100%. Reports headache 3/10, tylenol given and headache was resolved.
[2020-09-16] MEDS: SIMVASTATIN 20 MG TABLET PO SCH (21:18)
[2020-09-17] VITALS (25 sets, daily range): BP systolic 89–146; BP diastolic 45–93
--- NOTE | 2020-09-17 | NUR ---
PLACED PT ON NOCTURNAL BIPAP PER MD'S ORDER. NO RESPIRATORY DISTRESS NOTED AT THIS TIME . WILL CONTINUE TO MONITOR PT T/O SHIFT.
--- NOTE | 2020-09-17 04:13 | NUR ---
TAKEN OFF BIPAP PER PT REQUEST. PLACED BACK ON HI FLOW 60L, FIO2 100%.
[2020-09-17] MEDS: ACETAMINOPHEN 325 MG TABLET PO PRN ×2 (06:01→21:24)
[2020-09-17] MEDS: GUAIFENESIN/CODEINE 10 ML UDC PO PRN ×2 (06:01→21:24)
--- NOTE | 2020-09-17 07:47 | NUR ---
VEGETABLE SCULLION: pt.is A/Ox3, no c/o now, no pain, was on Bipap for midnight to 5AM, O2sat. 89-91% now, no SOB, SR, SBP over 100, UO ok by report
[2020-09-17] MEDS: PANTOPRAZOLE 40 MG TABLET.DR PO SCH (07:59)
[2020-09-17] MEDS: ENOXAPARIN SODIUM 40 MG/0.4 ML DISP.SYRIN SQ SCH ×2 (08:10→21:23)
--- NOTE | 2020-09-17 08:10 | NUR ---
WET SUIT GLUER: is in unit/updated with pt.current condition, Bipap over night for 5hrs, O2sat., HFNC 60L/100% now, VS, spoke with RT
[2020-09-17] MEDS: FLUTICASONE/VILANTEROL 1 EACH BLST.W.DEV IH SCH (08:11)
[2020-09-17] MEDS: AMLODIPINE BESYLATE 10 MG TABLET PO SCH (08:11)
[2020-09-17] MEDS: DEXAMETHASONE SOD PHOSPHATE 10 MG/ML VIAL IV SCH (08:11)
[2020-09-17] MEDS: POLYETHYLENE GLYCOL 3350 17 GM POWD.PACK PO SCH (08:12)
[2020-09-17] MEDS: METHADONE HCL 10 MG TABLET PO SCH (08:16)
--- NOTE | 2020-09-17 10:50 | NUR ---
ADVERTISING CLERK: O2sat. 86-89%, no SOB, rechecked sensors, spoke with RT, confirmed misc.order ABG if O2sat.below 85%, previous got report from night nurse if O2sat.below 80%
--- NOTE | 2020-09-17 10:54 | NUR ---
POLYMERIZATION OVEN OPERATOR: O2sat.90-91% now
--- NOTE | 2020-09-17 18:52 | NUR ---
CHRISTMAS TREE CONTRACTOR: pt. is A/Ox3, no c/o, no pain, SR, SBP over 100, O2sat. 90-93% now, no SOB, same rate HFNC, all skin/PM care done
[2020-09-17] MEDS: SIMVASTATIN 20 MG TABLET PO SCH (21:24)
[2020-09-18] VITALS (24 sets, daily range): BP systolic 105–158; BP diastolic 25–97
--- NOTE | 2020-09-18 00:04 | NUR ---
RT NOTE Late Entry: Pt placed on Bipap on noted settings per md orders. pt shows no signs of resp distress. Alarms are set and audible. Bipap plugged into red outlet. farhadu bag bedside. Will continue to monitor. Addendum: 09/18/20 at 0346 by JONAHTON MCCORMACK RT Amended: Links added.
[2020-09-18] MEDS: GUAIFENESIN/CODEINE 10 ML UDC PO PRN ×2 (06:01→21:21)
[2020-09-18] MEDS: ACETAMINOPHEN 325 MG TABLET PO PRN ×2 (06:01→21:21)
[2020-09-18] MEDS: PANTOPRAZOLE 40 MG TABLET.DR PO SCH (07:25)
--- NOTE | 2020-09-18 07:52 | NUR ---
VOTATOR MACHINE OPERATOR: pt.is A/Ox3, no pain, no c/o now, O2sat. 87-92% now, RR 24-34 now/getting breakfast, no laboring breathing, on HFNC 60L/100%, was on Bipap for midnight to 6.00am, SR, SBP over 100/[id number], urinates, no any critical reported by night nurse, got pain meds over night, oriented for POC
--- NOTE | 2020-09-18 08:30 | NUR ---
SURVEILLANCE INSPECTOR: is in unit/updated
[2020-09-18] MEDS: METHADONE HCL 10 MG TABLET PO SCH (09:04)
[2020-09-18] MEDS: DEXAMETHASONE SOD PHOSPHATE 10 MG/ML VIAL IV SCH (09:04)
[2020-09-18] MEDS: AMLODIPINE BESYLATE 10 MG TABLET PO SCH (09:04)
[2020-09-18] MEDS: POLYETHYLENE GLYCOL 3350 17 GM POWD.PACK PO SCH (09:05)
[2020-09-18] MEDS: ENOXAPARIN SODIUM 40 MG/0.4 ML DISP.SYRIN SQ SCH ×2 (09:06→20:12)
[2020-09-18] MEDS: FLUTICASONE/VILANTEROL 1 EACH BLST.W.DEV IH SCH (09:06)
--- NOTE | 2020-09-18 11:00 | NUR ---
SUPPLY CHAIN DIRECTOR: is in room/updated with pt.current condition, VS, O2sat. on 60L/100% HFNC/Bipap over night for 6 hrs, I/O, orders, spoke with RT, ordered: CBC, BMP today, CXR tomorrow
[2020-09-18 12:25] LABS: BASOPHILS # (AUTO) 0.1 /CMM (0.0-0.2); BASOPHILS % (AUTO) 1.8 % (0.0-2.0); EOSINOPHILS % (AUTO) 5.3 % (0.0-6.0); HEMATOCRIT 45 % (33-45); HEMOGLOBIN 14.3 g/dL (11.5-14.8); LYMPHOCYTES # (AUTO) 0.5 /CMM (0.8-4.8); LYMPHOCYTES % (AUTO) 6.5 % (20.0-44.0); MEAN CORPUSCULAR HGB CONC 32 g/dl (31.0-36.0); MEAN CORPUSCULAR VOLUME 85 fL (82-100); MONOCYTES # (AUTO) 0.3 /CMM (0.1-1.30); MONOCYTES % (AUTO) 3.7 % (2.0-12.0); NEUTROPHILS % (AUTO) 82.7 % (43.0-81.0); PLATELET COUNT (AUTO) 138 /CMM (150-450); RED BLOOD CELL COUNT(AUTO) 5.27 MIL/uL (4.0-5.2); WHITE BLOOD COUNT (AUTO) 8.4 K/uL (4.3-11.0)
[2020-09-18 12:36] LABS: CREATININE 0.6 mg/dL (0.6-1.3); POTASSIUM 4.3 mmol/L (3.5-5.1)
--- NOTE | 2020-09-18 13:59 | NUR ---
FRUIT DUMPER: pt.is rest, no c/o, no pain, O2sat. 90-92% now, no SOB, still on same HFNC 60L/100%, O2sat. down to 87-90% with activity, all skin/PM/bedbath care done, CBC/BMP done/no any critical, appetite is good, urinates/diapper
--- NOTE | 2020-09-18 15:00 | NUR ---
MANPOWER DEVELOPMENT SPECIALIST: Akosua Bruns NP is in unit, room/updated with pt.current condition, VS, O2sat./HFNC/Bipap setting, labs done today, pain level, I/O, see new orders
--- NOTE | 2020-09-18 18:01 | NUR ---
CHIEF STATION ENGINEER: pt.is A/Ox3, no c/o now, no pain, same HFNC setting, O2sat. 88-92% now, no SOB/distress, RR 22-28 now, SR, SBP [id number]/, urinates/diapper, all PM/skin/bedbath care done, good diet intake, R.armk midline: patent/flush+ with NS, secured with dressing/tape
--- NOTE | 2020-09-18 19:54 | NUR ---
RECEIVED PT IN BED AWAKE A/O X3, ABLE TO VERBALIZED NEEDS ON 40L HIGH FLOW 100% . O2 SAT 90% AT THIS TIME. NO SOB NO RESP DISTRESS NOTED. ON TELE MONITORING NSR WITH HR OF 84. DENIES PAIN. RIC MIDLINE PATENT AND FLUSHED C D I. SAFETY MEASURES IN PLACE. HOB ELEVATED. SIDE RAILS UP X3. BED LOCKED IN LOWEST POSITION. BED ALARM ON. WILL CONT TO MONITOR
[2020-09-18] MEDS: SIMVASTATIN 20 MG TABLET PO SCH (21:21)
[2020-09-19] VITALS (25 sets, daily range): BP systolic 104–152; BP diastolic 62–89
--- NOTE | 2020-09-19 02:03 | NUR ---
PT ASLEEP EASY TO WAKE UP CURRENTLY ON BIPAP SETTING PER MD WITH SPO2 96% NO SIGN OF ANY DISTRESS AND PAIN WILL CONT TO MONITOR
--- NOTE | 2020-09-19 04:16 | NUR ---
PT PUT BACK TO HIGH FLOW 60L 100% FIO2 PER REQUESTED BY THE PT, SPO2 IS ON 87-90% PT IS AWAKE A/O X4 NO SOB AND PAIN COMPLAINED WILL CONT TO MONITOR THE PT Addendum: 09/19/20 at 0420 by FARHAN ARMENDARIZ RN RT CHANGE FROM BIPAP TO HIGH FLOW PER PATIENT REQUEST
[2020-09-19] MEDS: GUAIFENESIN/CODEINE 10 ML UDC PO PRN ×2 (04:43→21:09)
[2020-09-19] MEDS: ACETAMINOPHEN 325 MG TABLET PO PRN ×2 (04:43→21:09)
--- NOTE | 2020-09-19 06:55 | NUR ---
PT ON BED ASLEEP EASY TO WAKE UP STILL ON HIGH FLOW 60L 100% FIO2 SPO2 92% NO SIGN AND SYMPTOMS OF DISTRESS, NO SIGNIFICANT CHANGES ON CONDITION NOTED ALL NEEDS ATTENDED, BED SIDE MONITOR READS SINUS RHYTHM 80'S BED ON LOWEST POSITION AND LOCKED SIDE RAILS UP X 2 CALL LIGHT WITHIN REACH WILL CONT TO MONITOR
--- NOTE | 2020-09-19 08:00 | NUR ---
RN NOTES RECEIVED PATIENT IN THE BED ON HIGH FLOW OF 02 100%. PATIENT AWAKE A/O X3, WAS COMPLAINING OF GENERALIZED PAIN. DUE MEDICATION ADMINISTERED. PATIENT HAS NO ACUTE RESPIRATORY DISTRESS. V/S STABLE. TOLERATED BREAKFAST WELL. PATIENT TURN AND REPOSTION SELF IN THE BED, USING DIAPER. MOTIVATED SELF CARE. CALL LIGHT WITHIN TO REACH. SAFETY PRECAUTION MAINTAINED ALL THE TIME.
[2020-09-19] MEDS: DEXAMETHASONE SOD PHOSPHATE 10 MG/ML VIAL IV SCH (08:19)
[2020-09-19] MEDS: AMLODIPINE BESYLATE 10 MG TABLET PO SCH (08:19)
[2020-09-19] MEDS: METHADONE HCL 10 MG TABLET PO SCH (08:19)
[2020-09-19] MEDS: FLUTICASONE/VILANTEROL 1 EACH BLST.W.DEV IH SCH (08:20)
[2020-09-19] MEDS: POLYETHYLENE GLYCOL 3350 17 GM POWD.PACK PO SCH ×2 (08:20→08:42)
[2020-09-19] MEDS: PANTOPRAZOLE 40 MG TABLET.DR PO SCH (08:20)
[2020-09-19] MEDS: ENOXAPARIN SODIUM 40 MG/0.4 ML DISP.SYRIN SQ SCH ×2 (08:23→21:09)
[2020-09-19] MEDS ORDERED: FUROSEMIDE 20 MG/2 ML VIAL IV ONE (12:00)
--- NOTE | 2020-09-19 18:18 | NUR ---
rn notes patiwent stable, has no acute respiratory distress, tolerating well on high flow o2 100%. needs attended and anticipated, tolerated dinner well, call light within to reach. patient motivated care, turn and repostion self in the bed. endorsed oncoming nurse follow lorraine.
[2020-09-19] MEDS: SIMVASTATIN 20 MG TABLET PO SCH (21:09)
[2020-09-20] VITALS (24 sets, daily range): BP systolic 109–152; BP diastolic 41–93
--- NOTE | 2020-09-20 04:16 | NUR ---
RN NOTE quality assurance technician printed a 6 beat run V-tach strip. HR 99, Pt. is asymptomatic and was coughing.
[2020-09-20] MEDS: GUAIFENESIN/CODEINE 10 ML UDC PO PRN ×2 (04:22→21:55)
[2020-09-20] MEDS: ACETAMINOPHEN 325 MG TABLET PO PRN ×2 (04:22→21:55)
[2020-09-20] MEDS: PANTOPRAZOLE 40 MG TABLET.DR PO SCH (07:54)
--- NOTE | 2020-09-20 08:00 | NUR ---
RN NOTES RECEIVED PATIENT ON HIGH FLOW OF 100%, O2-95 %, ON BEDSIDE MONITOR SHOWS ST 104, PATIENT ON GENERALIZED PAIN, DUE MEDICATION ADMINISTERED, PATIENT TOLERATED BREAKFAST WELL, NEEDS ATTENDED AND ANTICIPATED. PATIENT TURN AND REPOSTION SELF IN THE BED.
[2020-09-20] MEDS: AMLODIPINE BESYLATE 10 MG TABLET PO SCH (08:28)
[2020-09-20] MEDS: METHADONE HCL 10 MG TABLET PO SCH (08:28)
[2020-09-20] MEDS: POLYETHYLENE GLYCOL 3350 17 GM POWD.PACK PO SCH ×2 (08:29→08:34)
[2020-09-20] MEDS: DEXAMETHASONE SOD PHOSPHATE 10 MG/ML VIAL IV SCH (08:29)
[2020-09-20] MEDS: FLUTICASONE/VILANTEROL 1 EACH BLST.W.DEV IH SCH (08:29)
[2020-09-20] MEDS: ENOXAPARIN SODIUM 40 MG/0.4 ML DISP.SYRIN SQ SCH ×2 (08:32→21:52)
--- NOTE | 2020-09-20 09:00 | NUR ---
RN NOTES GET TO ORDER VIA Dr ANTONIO PT, ASSIST PATIENT SEET EDGE OF THE BED. 02 HIGH FLOW 60% SATURATION SPO2 88 % ON MONITOR IS FINE.
--- NOTE | 2020-09-20 18:56 | NUR ---
RN NOTES PATIENT ON HIGH FLOW, NO ACUTE RESPIRATORY DISTRESS, REFUSED PAIN , TURN AND REPOSTION Q 2 HR. ONCOMING NURSE WILL FOLLOW LONNY.
--- NOTE | 2020-09-20 20:05 | NUR ---
Patient recieved on High Flow NC 60L 100%. Patient is alert, responding to questions, no resp. distress. Addendum: 09/20/20 at 2007 by RENA NGUYEN RT Amended: Links added.
[2020-09-20] MEDS: SIMVASTATIN 20 MG TABLET PO SCH (21:55)
[2020-09-21] VITALS (16 sets, daily range): BP systolic 111–152; BP diastolic 65–103
--- NOTE | 2020-09-21 03:55 | NUR ---
hfnc water changed. pt refusing bipap at this time Addendum: 09/21/20 at 0355 by LAURA FREEMAN RT Amended: Links added.
[2020-09-21] MEDS: GUAIFENESIN/CODEINE 10 ML UDC PO PRN ×2 (05:54→22:06)
[2020-09-21] MEDS: ACETAMINOPHEN 325 MG TABLET PO PRN (05:55)
--- NOTE | 2020-09-21 07:00 | NUR ---
RN NOTES RECEIVED PATIENT ON HIGH FLOW OXYGEN , 60L, 100%, ON TELE SR -ST , RIGH UPPER MIDLINE SITE CLEAN,DRY AND INTACT, NO DISTRESS NOTED AT THIS TIME, NEEDS ATTENDED AND ANTICIPATED. PATIENT TURN AND REPOSITION SELF IN THE BED. WILL CONTINUE TO MONITOR .
--- NOTE | 2020-09-21 07:59 | NUR ---
RT PATIENT REMAINS AWAKE, ALERT, ON HFNC 60L 95% MAINTAINING SPO2 ABOVE 90%. Addendum: 09/21/20 at 0800 by ALFONSO HAWKINS RT Amended: Links added.
[2020-09-21] MEDS: DEXAMETHASONE SOD PHOSPHATE 10 MG/ML VIAL IV SCH (08:11)
[2020-09-21] MEDS: PANTOPRAZOLE 40 MG TABLET.DR PO SCH (08:11)
[2020-09-21] MEDS: METHADONE HCL 10 MG TABLET PO SCH (08:12)
[2020-09-21] MEDS: POLYETHYLENE GLYCOL 3350 17 GM POWD.PACK PO SCH (08:12)
[2020-09-21] MEDS: AMLODIPINE BESYLATE 10 MG TABLET PO SCH (08:13)
[2020-09-21] MEDS: FLUTICASONE/VILANTEROL 1 EACH BLST.W.DEV IH SCH (08:14)
[2020-09-21 08:45] LABS: SITE, ABG Right Radial; VENT MODE, BG HFNC 60L 100%
[2020-09-21 09:06] LABS: ABG BASE EXCESS 6.2 mmol/L; ABG OXYGEN SATURATION 91.1 % (92.0-98.5); ABG PH 7.394 (7.350-7.450); ABG PO2 61.2 mmHg (75.0-100.0); AaDO2 596.8 mmHg; COHb 0.8 % (0.5-1.5); MetHb 0.1 % (0.0-1.5); O2Hb 90.3 % (94.0-97.0)
[2020-09-21 09:54] LABS: BASOPHILS % (AUTO) 0.7 % (0.0-2.0); EOSINOPHILS % (AUTO) 7.8 % (0.0-6.0); HEMATOCRIT 43 % (33-45); HEMOGLOBIN 13.8 g/dL (11.5-14.8); LYMPHOCYTES % (AUTO) 15.8 % (20.0-44.0); MEAN CORPUSCULAR HGB CONC 32 g/dl (31.0-36.0); MEAN CORPUSCULAR VOLUME 85 fL (82-100); MONOCYTES # (AUTO) 0.4 /CMM (0.1-1.30); NEUTROPHILS # (AUTO) 4.3 /CMM (1.8-8.9); NEUTROPHILS % (AUTO) 68.7 % (43.0-81.0); PLATELET COUNT (AUTO) 132 /CMM (150-450); RED BLOOD CELL COUNT(AUTO) 5.06 MIL/uL (4.0-5.2); WHITE BLOOD COUNT (AUTO) 6.2 K/uL (4.3-11.0)
--- NOTE | 2020-09-21 10:00 | NUR ---
RN NOTES PLT 132, OK TO GIVE LOVENOX PER KIMBERLEY RIZIV .
[2020-09-21] MEDS: ENOXAPARIN SODIUM 40 MG/0.4 ML DISP.SYRIN SQ SCH ×2 (10:09→22:08)
[2020-09-21] MEDS: Z GUARD REMEDY 2 OZ OINT TP SCH (11:38)
--- NOTE | 2020-09-21 13:30 | NUR ---
RN NOTES PT TRANSFERRED TO ROOM 112-1 , TELE STATUS IN STABLE CONDITION VIA ACLS PROTOCOL IN STABLE CONDITION. REPORT GIVEN TO XIANG BENAVIDES FOR CONTINUITY OF CARE .
--- NOTE | 2020-09-21 15:31 | NUR ---
RN NOTE 1330: received patient from ICU via bed. Patient is A/Ox4. On HFNC 60L 100% FIO2. Verbalized breathing better co mpare to yesterday and few days ago. Placed on tele monitor ST 110's. On O2 monitor 88%. 1530: No any significant changes noted at this time. Kept clean, warm and dry. Needs attended. Kept call light at reach.
--- NOTE | 2020-09-21 19:01 | NUR ---
RN NOTE 1750: Admitted patient from ED for Left ankle infection, Sepsis, JUAN. Patient is A/Ox4. 2PIVs intact. Left ankle wound, taken picture attached to chart. Placed tele monitor, ST 100's. Temp now is 98.2. Room air. 1900: Started on Zosyn IVPB. Will endorse to next shift.
--- NOTE | 2020-09-21 19:30 | NUR ---
RN NOTE received patient from Amauri BENAVIDES for continuation of care,patient in HF 60l 100% FIO2 with o2 96%, no sob/acute distress, will continue to monitor closely, and endorse continuation of care to traveling nurse as soon as she is here.
--- NOTE | 2020-09-21 20:20 | NUR ---
RN NOTE, Endorsed patient in stable condition to [facility] nurse for continuation of care, patient in HF 60L 100% FIO2 with o2 94%, no sob/acute distress.
[2020-09-21] MEDS ORDERED: TRAZODONE 50 MG TABLET PO SCH (22:00)
[2020-09-21] MEDS: SIMVASTATIN 20 MG TABLET PO SCH (22:08)
[2020-09-21] MEDS: TRAZODONE 50 MG TABLET PO SCH (22:08)
--- NOTE | 2020-09-21 22:23 | NUR ---
pt givenprn trazanone for c/o insomnia. overalll is anxious being in new unit, relaxation techniques and reassurance, orientation to floor and room to decrease anxiety. feeling more calm knowing that a new PRN medication has been subscribed as she has been 'unable to sleep well" since admission.Will monitor for adverse s/e.
[2020-09-22] VITALS: BP 127/69
[2020-09-22 04:00] VITALS: BP 108/62
[2020-09-22] MEDS: GUAIFENESIN/CODEINE 10 ML UDC PO PRN (05:47)
[2020-09-22] MEDS: ACETAMINOPHEN 325 MG TABLET PO PRN (05:48)
[2020-09-22 06:42] LABS: BASOPHILS % (AUTO) 0.8 % (0.0-2.0); EOSINOPHILS % (AUTO) 6.2 % (0.0-6.0); HEMATOCRIT 41 % (33-45); HEMOGLOBIN 13.4 g/dL (11.5-14.8); LYMPHOCYTES # (AUTO) 1.6 /CMM (0.8-4.8); MEAN CORPUSCULAR HGB CONC 33 g/dl (31.0-36.0); MEAN CORPUSCULAR VOLUME 85 fL (82-100); MONOCYTES # (AUTO) 0.7 /CMM (0.1-1.30); MONOCYTES % (AUTO) 12.2 % (2.0-12.0); NEUTROPHILS % (AUTO) 52.8 % (43.0-81.0); PLATELET COUNT (AUTO) 126 /CMM (150-450); RED BLOOD CELL COUNT(AUTO) 4.81 MIL/uL (4.0-5.2); WHITE BLOOD COUNT (AUTO) 5.6 K/uL (4.3-11.0)
[2020-09-22 06:58] LABS: CALCIUM, SERUM 8.8 mg/dL (8.5-10.1); CREATININE 0.5 mg/dL (0.6-1.3); MAGNESIUM 2.1 mg/dL (1.8-2.4); PHOSPHORUS 3.7 mg/dL (2.5-4.9); POTASSIUM 4.1 mmol/L (3.5-5.1)
--- NOTE | 2020-09-22 07:25 | NUR ---
RECEIVED PATIENT IN BED. NO ACUTE DISTRESS NOTED. PATIENT ALERT & ORIENTED X4. PATIENT ON HIFLOW, SATURATING WELL AT 96%. PATIENT ON SEPTIC CLEANER, NSR NOTED. PATIENT RIC MIDLINE IN PLACE, INTACT, PATENT. PATIENT SAFETY MEASURES MAINTAINED. CALL LIGHT WITHIN REACH. WILL CONTINUE TO MONITOR.
[2020-09-22 08:00] VITALS: BP 118/78
[2020-09-22] MEDS: FLUTICASONE/VILANTEROL 1 EACH BLST.W.DEV IH SCH (08:20)
[2020-09-22] MEDS: PANTOPRAZOLE 40 MG TABLET.DR PO SCH (08:20)
[2020-09-22] MEDS: POLYETHYLENE GLYCOL 3350 17 GM POWD.PACK PO SCH (08:20)
[2020-09-22] MEDS: DEXAMETHASONE SOD PHOSPHATE 10 MG/ML VIAL IV SCH (08:20)
[2020-09-22] MEDS: METHADONE HCL 10 MG TABLET PO SCH (08:21)
[2020-09-22] MEDS: AMLODIPINE BESYLATE 10 MG TABLET PO SCH (08:27)
[2020-09-22] MEDS: ENOXAPARIN SODIUM 40 MG/0.4 ML DISP.SYRIN SQ SCH ×2 (08:28→21:11)
[2020-09-22] MEDS: Z GUARD REMEDY 2 OZ OINT TP SCH (08:29)
[2020-09-22 12:00] VITALS: BP 119/74
[2020-09-22 16:00] VITALS: BP 105/69
--- NOTE | 2020-09-22 18:23 | NUR ---
PATIENT IN BED. NO ACUTE DISTRESS NOTED. PATIENT ALERT & ORIENTED X4. PATIENT ON HIFLOW, SATURATING WELL AT 96%. PATIENT ON ROLL WEIGHER, NSR NOTED. PATIENT RIC MIDLINE IN PLACE, INTACT, PATENT. PATIENT SAFETY MEASURES MAINTAINED. CALL LIGHT WITHIN REACH. WILL ENDORSE PLAN OF CARE TO ONCOMING SHIFT
--- NOTE | 2020-09-22 19:00 | NUR ---
RECEIVED PT IN BED AWAKE A/O X3, ABLE TO VERBALIZED NEEDS ON 40L HIGH FLOW 100% . O2 SAT 93% AT THIS TIME. NO SOB NO RESP DISTRESS NOTED. ON TELE MONITORING NSR WITH HR OF 84. DENIES PAIN. RIC MIDLINE PATENT AND FLUSHED C D I. SAFETY MEASURES IN PLACE. HOB ELEVATED. SIDE RAILS UP X3. BED LOCKED IN LOWEST POSITION. BED ALARM ON. WILL CONT TO MONITOR
[2020-09-22 20:00] VITALS: BP 106/62
[2020-09-22] MEDS: SIMVASTATIN 20 MG TABLET PO SCH (21:10)
[2020-09-22] MEDS: TRAZODONE 50 MG TABLET PO SCH (22:19)
[2020-09-23] VITALS: BP 105/62
[2020-09-23 04:00] VITALS: BP 119/76
--- NOTE | 2020-09-23 04:10 | NUR ---
PT REQUESTED TO REMOVED BIPAP AND RETURN BACK TO HIGH FLOW INFORMED RT AND CHANGE BIPAP TO HIGH FLOW CURRENT SPO2 94% WILL CONT TO MONITOR Addendum: 09/23/20 at 0616 by FARHAN ARMENDARIZ RN PT ON BIPAP FROM [phone]
[2020-09-23] MEDS: ACETAMINOPHEN 325 MG TABLET PO PRN ×2 (05:38→21:08)
[2020-09-23] MEDS: GUAIFENESIN/CODEINE 10 ML UDC PO PRN ×2 (05:38→21:08)
[2020-09-23 06:24] LABS: BASOPHILS % (AUTO) 0.7 % (0.0-2.0); EOSINOPHILS % (AUTO) 11.1 % (0.0-6.0); HEMATOCRIT 40 % (33-45); HEMOGLOBIN 12.9 g/dL (11.5-14.8); LYMPHOCYTES # (AUTO) 1.5 /CMM (0.8-4.8); LYMPHOCYTES % (AUTO) 25.3 % (20.0-44.0); MEAN CORPUSCULAR HGB CONC 32 g/dl (31.0-36.0); MEAN CORPUSCULAR VOLUME 85 fL (82-100); MONOCYTES # (AUTO) 0.6 /CMM (0.1-1.30); MONOCYTES % (AUTO) 10.2 % (2.0-12.0); NEUTROPHILS # (AUTO) 3.2 /CMM (1.8-8.9); NEUTROPHILS % (AUTO) 52.7 % (43.0-81.0); PLATELET COUNT (AUTO) 106 /CMM (150-450)
[2020-09-23 06:32] LABS: CALCIUM, SERUM 8.7 mg/dL (8.5-10.1); CREATININE 0.6 mg/dL (0.6-1.3); MAGNESIUM 2.1 mg/dL (1.8-2.4); PHOSPHORUS 4.8 mg/dL (2.5-4.9); POTASSIUM 3.8 mmol/L (3.5-5.1)
--- NOTE | 2020-09-23 07:24 | NUR ---
GENIA RN NOTE PATIENT IN BED. ALERT ORIENTEDX3, ON HIGH FLOW OF O2 SATURATION 93% ON TELE MONITOR SR HR 88, RT UPPER ARM MID LINE IN PLACE AND FLASHED WELL , BED IN LOWEST AND LOCKED POSITION ,CALL LIGHT WITHIN REACH, WILL CONT TO MONITOR PLAN OF CARE DISCUSSED WITH PATIENT
[2020-09-23] MEDS: PANTOPRAZOLE 40 MG TABLET.DR PO SCH (07:53)
[2020-09-23 08:00] VITALS: BP 100/62
[2020-09-23] MEDS: DEXAMETHASONE SOD PHOSPHATE 10 MG/ML VIAL IV SCH (08:13)
[2020-09-23] MEDS: POLYETHYLENE GLYCOL 3350 17 GM POWD.PACK PO SCH (08:13)
[2020-09-23] MEDS: METHADONE HCL 10 MG TABLET PO SCH (08:14)
[2020-09-23] MEDS: ENOXAPARIN SODIUM 40 MG/0.4 ML DISP.SYRIN SQ SCH ×2 (08:15→21:10)
[2020-09-23] MEDS: Z GUARD REMEDY 2 OZ OINT TP SCH (08:16)
[2020-09-23] MEDS: AMLODIPINE BESYLATE 10 MG TABLET PO SCH (08:28)
[2020-09-23] MEDS: FLUTICASONE/VILANTEROL 1 EACH BLST.W.DEV IH SCH (08:38)
--- NOTE | 2020-09-23 09:13 | NUR ---
tommie rn note rt at bedside and dr shauna segura to change fio2 90% saturation 95%
--- NOTE | 2020-09-23 10:28 | NUR ---
GENIA RN NOTE PT AT BEDSIDE ABLE SIT AT EDGE OF BED ,SATURATION 92%,UNABLE TO DO MORE ACTIVE EXERCISES DESATURATED EASILY
[2020-09-23 12:00] VITALS: BP 104/72
--- NOTE | 2020-09-23 14:00 | NUR ---
GENIA RN NOTE RESTING COMFORTABLY, ALL NEEDS ATTENDED, STILL WITH HIGH FLOW OF 02 , SATURATION 92%, WILL MONITOR
[2020-09-23 16:00] VITALS: BP 123/73
--- NOTE | 2020-09-23 18:24 | NUR ---
GENIA RN NOTE RT AT BEDSIDE CONT ON HIGH FLOW OF O2 60L FIO2 90% ,SATURATION 93%, ABLE TO EAT DINNER SELF , BED IN LOWEST AND LOWER POSITION , CALL LIGHT WITHIN REACH , NO SOB NOTED, WILL CONT TO MONITOR
--- NOTE | 2020-09-23 19:45 | NUR ---
RN OPENING NOTES RECEIVED PT IN BED. A/O X4, ON HIGH FLOW. 60L AT FIO2 90% TOLERATING WELL. NO SOB OR RESPIRATORY DISTRESS NOTED AT THIS TIME. PT SATURATING AT 94% PT IS ON TELE MONITOR PT HR 88 NSR BASELINE TO PT. PT HAS IV ON RIC FLUSHED. NO S/S OF INFILTRATION. PT DENIES PAIN AT THIS TIME. SAFETY MEASURES IN PLACE, HOB ELEVATED TOLERATED. BED LOCKED IN LOWEST POSITION. SIDE RAILS UP X2. CALL LIGHT WITHIN REACH. WILL CONT TO MONITOR.
[2020-09-23 20:00] VITALS: BP 124/78
[2020-09-23] MEDS: SIMVASTATIN 20 MG TABLET PO SCH (21:08)
[2020-09-23] MEDS: TRAZODONE 50 MG TABLET PO SCH (23:26)
[2020-09-24] VITALS: BP 106/73
--- NOTE | 2020-09-24 00:05 | NUR ---
RT AT BEDSIDE, FOR BIPAP NOC ORDERED
[2020-09-24 04:00] VITALS: BP 106/73
[2020-09-24] MEDS: GUAIFENESIN/CODEINE 10 ML UDC PO PRN ×2 (05:47→21:18)
[2020-09-24] MEDS: ACETAMINOPHEN 325 MG TABLET PO PRN ×3 (05:47→21:18)
[2020-09-24 06:07] LABS: BASOPHILS % (AUTO) 0.5 % (0.0-2.0); EOSINOPHILS % (AUTO) 3.3 % (0.0-6.0); HEMATOCRIT 39 % (33-45); HEMOGLOBIN 13.1 g/dL (11.5-14.8); LYMPHOCYTES # (AUTO) 1.1 /CMM (0.8-4.8); LYMPHOCYTES % (AUTO) 19.5 % (20.0-44.0); MEAN CORPUSCULAR HGB CONC 33 g/dl (31.0-36.0); MEAN CORPUSCULAR VOLUME 84 fL (82-100); MONOCYTES # (AUTO) 0.5 /CMM (0.1-1.30); MONOCYTES % (AUTO) 9.4 % (2.0-12.0); NEUTROPHILS # (AUTO) 3.8 /CMM (1.8-8.9); NEUTROPHILS % (AUTO) 67.3 % (43.0-81.0); PLATELET COUNT (AUTO) 134 /CMM (150-450); RED BLOOD CELL COUNT(AUTO) 4.65 MIL/uL (4.0-5.2); WHITE BLOOD COUNT (AUTO) 5.7 K/uL (4.3-11.0)
[2020-09-24 06:26] LABS: CALCIUM, SERUM 9.1 mg/dL (8.5-10.1); CREATININE 0.5 mg/dL (0.6-1.3); MAGNESIUM 2.1 mg/dL (1.8-2.4); POTASSIUM 3.9 mmol/L (3.5-5.1)
--- NOTE | 2020-09-24 06:34 | NUR ---
RN CLOSING NOTES PT REMAINS IN BED, RESTING. NO SIGNIFICANT CHANGES IN PT CONDITION, PT COOPERATIVE WITH CARE. PT ON HF 60L FIO2 100%, NO RESP DISTRESS NOTED. NO SOB AT THIS TIME. ALL DUE MEDS GIVEN, NEEDS ATTENDED. SAFETY MEASURES IN PLACE. HOB ELEVATED. SIDE RAILS X2, BED LOCKED IN LOWEST POSITION WITH BED ALARM ELECTRICAL SERVICE TECHNICIAN LIGHT WITHIN REACH. WILL ENDORSE TO DAY NURSE FOR CONTINUATION OF CARE.
--- NOTE | 2020-09-24 07:20 | NUR ---
RN OPENING NOTES PATIENT RECEIVED IN BED, RESTING COMFORTABLY. PATIENT ON O2 THERAPY VIA HFNC 60L FIO2 100%. PATIENT TOLERATING WELL WITH SATURATION ABOVE 91%. NO RESP DISTRESS NOTED. NO SOB AT THIS TIME. SAFETY PRECAUTIONS IMPLEMENTED, BED LOCKED IN LOWEST POSITION, SIDE RAILS UP X2, CALL LIGHT WITHIN REACH. WILL CONTINUE TO MONITOR AND PROVIDE CARE THROUGHOUT SHIFT.
[2020-09-24] MEDS: PANTOPRAZOLE 40 MG TABLET.DR PO SCH (07:41)
[2020-09-24 08:00] VITALS: BP 128/83
[2020-09-24] MEDS: FLUTICASONE/VILANTEROL 1 EACH BLST.W.DEV IH SCH (08:29)
[2020-09-24] MEDS: DEXAMETHASONE SOD PHOSPHATE 4 MG/ML VIAL IV SCH (08:29)
[2020-09-24] MEDS: METHADONE HCL 10 MG TABLET PO SCH (08:30)
[2020-09-24] MEDS: AMLODIPINE BESYLATE 10 MG TABLET PO SCH (08:30)
[2020-09-24] MEDS: POLYETHYLENE GLYCOL 3350 17 GM POWD.PACK PO SCH (08:30)
[2020-09-24] MEDS: Z GUARD REMEDY 2 OZ OINT TP SCH (08:31)
[2020-09-24] MEDS: ENOXAPARIN SODIUM 40 MG/0.4 ML DISP.SYRIN SQ SCH ×2 (08:31→21:08)
[2020-09-24 12:00] VITALS: BP 115/72
--- NOTE | 2020-09-24 13:05 | NUR ---
OBTAINED VERBAL INSTRUCTION FROM PELEG TO TITRATE FI02 TO 80%. AFTER SPEAKING WITH PATIENT, SHE SAID SHE FEELS LIKE SHE IS GETTING LESS OXYGEN. MADE COMPROMISE WITH PATIENT TO TITRATE TO 85% fIO2. RT GRIFFIN TITRATED FIO2 DOWN. WILL CONTINUE TO MONITOR PATIENT THROUGHOUT SHIFT.
[2020-09-24 16:00] VITALS: BP 128/83
--- NOTE | 2020-09-24 19:12 | NUR ---
RN OPENING NOTES PATIENT IN BED, RESTING COMFORTABLY. PATIENT ON O2 THERAPY VIA HFNC 60L FIO2 85%. PATIENT TOLERATING WELL NO RESP DISTRESS NOTED. NO SOB AT THIS TIME. SAFETY PRECAUTIONS IMPLEMENTED, BED LOCKED IN LOWEST POSITION, SIDE RAILS UP X2, CALL LIGHT WITHIN REACH. WILL ENDORSE CARE TO UPCOMING SHIFT.
--- NOTE | 2020-09-24 19:30 | NUR ---
RN OPENING NOTES: RECEIVED PT A/OX 4 IN BED RESTING COMFORTABLY. PATIENT IN NO S/SX OF ACUTE DISTRESS AT THIS TIME. NO SOB NOTED. PATIENT'S BREATHING IS EVEN AND UNLABORED. PATIENT IS ON 60L 85% O2 OF OXYGEN VIA NC HIGH FLOW; TOLERATING WELL; 100% 02 SAT AT THE TIME OF RECEIVED. PATIENT ON TELE MONITORING READING SINUS RHYTHM HR IS @71 AT THE TIME OF RECEIVED. PATIENT ON 2 GRAM SODIUM DIET; TOLERATES WELL. NOTED IV SITE ON R UA MIDLINE #18; PATENT, INTACT AND FLUSHING WELL; NO S/S OF INFECTION OR INFILTRATION. SAFETY MEASURES HAVE BEEN PROVIDED AND IMPLEMENTED. PATIENT BED ALARM IS ON. HEAD OF BED ELEVATED. BED IS LOCKED, IN LOWEST POSITION AND SIDE RAILS UP. CALL LIGHT WITHIN REACH OF THE PATIENT. APPLICABLE ISOLATION PRECAUTIONS IN PLACE. WILL CONTINUE TO MONITOR AND REASSESS FOR ANY CHANGES AND WILL CARRY OUT ANY ONGOING AND ACTIVE MD ORDER.
[2020-09-24 20:00] VITALS: BP 114/75
[2020-09-24] MEDS: TRAZODONE 50 MG TABLET PO SCH (21:08)
[2020-09-24] MEDS: SIMVASTATIN 20 MG TABLET PO SCH (21:08)
--- NOTE | 2020-09-24 23:00 | NUR ---
RN NOTES PATIENT REMAINS IN NO ACUTE RESPIRATORY DISTRESS AT THIS TIME, NO CHANGES TO CONDITION/STATUS. COMPENSATION EXPERT WELL AWARE. WILL CONTINUE TO MONITOR AND REASSESS FOR ANY CHANGES THROUGHOUT THE SHIFT
[2020-09-25] VITALS: BP 107/71
--- NOTE | 2020-09-25 03:00 | NUR ---
RN NOTES NO CHANGES IN PATIENT CONDITION AT THIS TIME PATIENT VITALS STABLE, NO SIGNS OF ACUTE RESPIRATORY DISTRESS. PATIENT STILL IN BED SLEEPING COMFORTABLY. NO COMPLAINTS OF PAIN OR ANY DISCOMFORT AT THIS TIME. WILL CONTINUE TO MONITOR AND REASSESS FOR ANY CHANGES THROUGHOUT THE SHIFT.
[2020-09-25 04:00] VITALS: BP 115/69
[2020-09-25] MEDS: ACETAMINOPHEN 325 MG TABLET PO PRN ×3 (05:38→21:22)
[2020-09-25 06:58] LABS: BASOPHILS % (AUTO) 0.5 % (0.0-2.0); EOSINOPHILS % (AUTO) 5.4 % (0.0-6.0); HEMATOCRIT 39 % (33-45); HEMOGLOBIN 12.7 g/dL (11.5-14.8); LYMPHOCYTES # (AUTO) 1.7 /CMM (0.8-4.8); LYMPHOCYTES % (AUTO) 27.4 % (20.0-44.0); MEAN CORPUSCULAR HGB CONC 32 g/dl (31.0-36.0); MEAN CORPUSCULAR VOLUME 85 fL (82-100); MONOCYTES # (AUTO) 0.7 /CMM (0.1-1.30); MONOCYTES % (AUTO) 10.5 % (2.0-12.0); NEUTROPHILS # (AUTO) 3.5 /CMM (1.8-8.9); NEUTROPHILS % (AUTO) 56.2 % (43.0-81.0); PLATELET COUNT (AUTO) 151 /CMM (150-450); RED BLOOD CELL COUNT(AUTO) 4.63 MIL/uL (4.0-5.2); WHITE BLOOD COUNT (AUTO) 6.2 K/uL (4.3-11.0)
--- NOTE | 2020-09-25 06:59 | NUR ---
RN CLOSING NOTE: PATIENT REMAINS IN ROOM IN NO SIGNS OF RESPIRATORY DISTRESS, PATIENT STILL ON 60L 85% O2 OF OXYGEN VIA NC HIGH FLOW;TOLERATING WELL SATURATING @ >95% SP02. SAFETY MEASURES IMPLEMENTED, BED IN LOWEST POSITION, LOCKED, SIDE RAILS UP, CALL LIGHT WITHIN REACH. ALL NEEDS AND ORDERS ADDRESSED DURING THE SHIFT. IV ACCESS MAINTAINED INTACT, SECURED AND FLUSHING WELL. ALL DUE MEDS GIVEN ORDERED & SCHEDULED ; PATIENT TOLERATED WELL. PATIENT KEPT CLEAN AND COMFORTABLE WITHIN THE SHIFT. PATIENT ENDORSED TO INCOMING SHIFT RN WITH STABLE VITAL SIGN AND FOR CONTINUITY OF CARE.
--- NOTE | 2020-09-25 07:30 | NUR ---
RN OPENING NOTES PATIENT PRESENT IN BED, A/OX4, ON HIGH-FLOW NC @ 60L, WITH 85%, SPO2 IS 90-91%, RESPIRATIONS EVEN AND UNLABORED, NO SOB OR DISTRESS NOTED,NSR ON TELE-MONITOR, R UA MIDLINE NOTED, FLUSHED, PATENT, ABLE TO PERFORM ACTIVE RANGE OF MOTION, CURRENTLY ON BED REST, SAFETY MEASURES IN PLACE, BED IS LOCKED, IN LOWEST POSITION, HOB ELEVATED, CALL LIGHT IN REACH, O2 SAT MONITOR WORKING, WILL CONT TO MONITOR CLOSELY
[2020-09-25 07:31] LABS: CALCIUM, SERUM 8.9 mg/dL (8.5-10.1); CREATININE 0.6 mg/dL (0.6-1.3); MAGNESIUM 2.1 mg/dL (1.8-2.4); POTASSIUM 4.1 mmol/L (3.5-5.1)
[2020-09-25] MEDS: PANTOPRAZOLE 40 MG TABLET.DR PO SCH (07:52)
[2020-09-25 08:00] VITALS: BP 126/84
[2020-09-25] MEDS: AMLODIPINE BESYLATE 10 MG TABLET PO SCH (08:35)
[2020-09-25] MEDS: DEXAMETHASONE SOD PHOSPHATE 4 MG/ML VIAL IV SCH (08:35)
[2020-09-25] MEDS: METHADONE HCL 10 MG TABLET PO SCH (08:35)
[2020-09-25] MEDS: POLYETHYLENE GLYCOL 3350 17 GM POWD.PACK PO SCH (08:36)
[2020-09-25] MEDS: Z GUARD REMEDY 2 OZ OINT TP SCH (08:36)
[2020-09-25] MEDS: ENOXAPARIN SODIUM 40 MG/0.4 ML DISP.SYRIN SQ SCH ×3 (08:39→20:29)
[2020-09-25] MEDS: FLUTICASONE/VILANTEROL 1 EACH BLST.W.DEV IH SCH (09:10)
[2020-09-25 12:00] VITALS: BP 117/79
--- NOTE | 2020-09-25 13:04 | NUR ---
Complains on headache 12/30 will administer PRN med
[2020-09-25] MEDS ORDERED: FUROSEMIDE 40 MG/4 ML VIAL IV ONE (15:30)
[2020-09-25 16:00] VITALS: BP 111/75
--- NOTE | 2020-09-25 18:39 | NUR ---
RN CLOSING NOTE REMAINS IN BED, TOLERATING SETTINGS WELL, SPO2 IS STABLE DURING THE SHIFT 89-94%, ABLE TO REPOSITIONED HER SELF IN BED, MOTIVATED TO SELF CARE, NO PAIN ON DISCOMFORT REPORTED AT THIS MOMENT, COMFORT NEEDS ATTENDED, MEDIATIONS GIVEN, EDUCATION PROVIDED, WILL ENDORSE TO PM SHIFT FOR LONNY
[2020-09-25 20:00] VITALS: BP 113/75
[2020-09-25] MEDS: GUAIFENESIN/CODEINE 10 ML UDC PO PRN (21:22)
[2020-09-25] MEDS: SIMVASTATIN 20 MG TABLET PO SCH (21:22)
[2020-09-25] MEDS: TRAZODONE 50 MG TABLET PO SCH (22:43)
[2020-09-26] VITALS: BP 124/77
[2020-09-26 04:00] VITALS: BP 129/82
[2020-09-26] MEDS: ACETAMINOPHEN 325 MG TABLET PO PRN ×2 (05:02→21:17)
[2020-09-26] MEDS: GUAIFENESIN/CODEINE 10 ML UDC PO PRN ×2 (05:04→21:17)
[2020-09-26 06:53] LABS: BASOPHILS % (AUTO) 0.4 % (0.0-2.0); EOSINOPHILS % (AUTO) 3.4 % (0.0-6.0); HEMATOCRIT 40 % (33-45); LYMPHOCYTES # (AUTO) 1.8 /CMM (0.8-4.8); LYMPHOCYTES % (AUTO) 25.1 % (20.0-44.0); MEAN CORPUSCULAR HGB CONC 33 g/dl (31.0-36.0); MEAN CORPUSCULAR VOLUME 85 fL (82-100); MONOCYTES # (AUTO) 0.8 /CMM (0.1-1.30); MONOCYTES % (AUTO) 11.6 % (2.0-12.0); NEUTROPHILS # (AUTO) 4.2 /CMM (1.8-8.9); NEUTROPHILS % (AUTO) 59.5 % (43.0-81.0); PLATELET COUNT (AUTO) 160 /CMM (150-450); RED BLOOD CELL COUNT(AUTO) 4.69 MIL/uL (4.0-5.2); WHITE BLOOD COUNT (AUTO) 7.2 K/uL (4.3-11.0)
--- NOTE | 2020-09-26 07:18 | NUR ---
RN NOTES RECEIVED PATIENT IN BED RESTING COMFORTABLY IN MODERATE HIGH BACK REST, A/O X4, ON HIGH FLOW OXYGEN SATING @98%, NO COMPLAINED OF PAIN OR DISCOMFORT AT THIS TIME, ON THEORETICAL PHYSICIST, SR WITH HR OF 90'S, IV ACCESS ON RIC,SL, PATENT AND INTACT, SAFETY MEASURES IN PLACE, BED IN LOWEST LOCKED POSITION WITH SIDE RAILS UP X2, CALL LIGHT WITHIN REACH. WILL CONTINUE TO MONITOR.
--- NOTE | 2020-09-26 08:10 | NUR ---
RN NOTES ENDORSED TO MAKAYLA CHAPIN FOR LONNY.
[2020-09-26 08:18] VITALS: BP 108/75
[2020-09-26] MEDS: METHADONE HCL 10 MG TABLET PO SCH (08:34)
[2020-09-26] MEDS: DEXAMETHASONE SOD PHOSPHATE 4 MG/ML VIAL IV SCH (08:34)
[2020-09-26] MEDS: PANTOPRAZOLE 40 MG TABLET.DR PO SCH (08:35)
[2020-09-26] MEDS: ENOXAPARIN SODIUM 40 MG/0.4 ML DISP.SYRIN SQ SCH (08:35)
[2020-09-26] MEDS: POLYETHYLENE GLYCOL 3350 17 GM POWD.PACK PO SCH (08:35)
[2020-09-26] MEDS: AMLODIPINE BESYLATE 10 MG TABLET PO SCH (08:36)
[2020-09-26] MEDS: Z GUARD REMEDY 2 OZ OINT TP SCH (08:37)
[2020-09-26] MEDS: FLUTICASONE/VILANTEROL 1 EACH BLST.W.DEV IH SCH (08:38)
[2020-09-26 08:47] LABS: CALCIUM, SERUM 9.1 mg/dL (8.5-10.1); CREATININE 0.6 mg/dL (0.6-1.3); MAGNESIUM 2.3 mg/dL (1.8-2.4); PHOSPHORUS 4.1 mg/dL (2.5-4.9); POTASSIUM 3.6 mmol/L (3.5-5.1)
--- NOTE | 2020-09-26 09:00 | NUR ---
Bp108/75, HR 82. Will hold BP medication.
[2020-09-26] MEDS: APIXABAN 2.5 MG TABLET PO SCH ×2 (10:23→16:29)
[2020-09-26 12:00] VITALS: BP 112/74
[2020-09-26 16:00] VITALS: BP 105/71
--- NOTE | 2020-09-26 18:15 | NUR ---
RN Closing note Patient on bed, remains A O x 4. Respiratory even and unlabored with HF Fio2 70% at 60L. Skin is warm to touch, keep clean/dry. Keep elevated HOB for ensure airway and aspiration precaution, also lowest bed position for safety. Encouraged oral fluid intake as tolerated. Call light within reach, will endorse to shift foreman.
--- NOTE | 2020-09-26 19:44 | NUR ---
RN NOTE PATIENT IN BED WITH HEAD OF BED ELEVATED. AWAKE, A/OX4. ABLE TO MAKE NEEDS KNOWN. ON HIGH FLOW 60L 70% FIO2. TELE MONITOR ON, SR 80'S. WITH RIC MIDLINE PATENT AND INTACT. DENIES ANY PAIN AT THIS TIME. SAFETY MEASURES IMPLEMENTED. CALL LIGHT WITHIN REACH. WILL CONTINUE TO MONITOR.
[2020-09-26 20:00] VITALS: BP 133/78
[2020-09-26] MEDS: TRAZODONE 50 MG TABLET PO SCH (21:16)
[2020-09-26] MEDS: SIMVASTATIN 20 MG TABLET PO SCH (21:17)
[2020-09-27] VITALS: BP 111/76
[2020-09-27 04:00] VITALS: BP 113/80
[2020-09-27] MEDS: GUAIFENESIN/CODEINE 10 ML UDC PO PRN ×2 (05:10→20:35)
[2020-09-27] MEDS: ACETAMINOPHEN 325 MG TABLET PO PRN ×2 (05:10→20:35)
--- NOTE | 2020-09-27 06:54 | NUR ---
RN NOTE PATIENT IN BED WITH HEAD OF BED ELEVATED. AWAKE, A/OX4. ABLE TO MAKE NEEDS KNOWN. ON HIGH FLOW 60L 60% FIO2. TELE MONITOR ON, SR 80'S. WITH RIC MIDLINE PATENT AND INTACT. PATIENT ABLE TO REPOSITION HERSELF. VOIDED X3 DURING THE SHIFT. ALL DUE MEDS GIVEN ORDERED AND TOLERATED WELL. SAFETY MEASURES IMPLEMENTED. CALL LIGHT WITHIN REACH. WILL ENDORSE TO ONCOMING SHIFT.
[2020-09-27 06:57] LABS: BASOPHILS # (AUTO) 0.1 /CMM (0.0-0.2); BASOPHILS % (AUTO) 1.2 % (0.0-2.0); EOSINOPHILS % (AUTO) 2.9 % (0.0-6.0); HEMATOCRIT 40 % (33-45); HEMOGLOBIN 12.8 g/dL (11.5-14.8); LYMPHOCYTES # (AUTO) 2.1 /CMM (0.8-4.8); LYMPHOCYTES % (AUTO) 25.4 % (20.0-44.0); MEAN CORPUSCULAR HGB CONC 32 g/dl (31.0-36.0); MEAN CORPUSCULAR VOLUME 86 fL (82-100); MONOCYTES # (AUTO) 0.8 /CMM (0.1-1.30); MONOCYTES % (AUTO) 9.6 % (2.0-12.0); NEUTROPHILS % (AUTO) 60.9 % (43.0-81.0); PLATELET COUNT (AUTO) 172 /CMM (150-450); RED BLOOD CELL COUNT(AUTO) 4.65 MIL/uL (4.0-5.2); WHITE BLOOD COUNT (AUTO) 8.3 K/uL (4.3-11.0)
--- NOTE | 2020-09-27 07:29 | NUR ---
RECEIVED PATIENT IN BED. NO ACUTE DISTRESS NOTED. PATIENT ALERT & ORIENTED X4. PATIENT ON HIGH FLOW, SATURATING WELL AT 94%. PATIENT ON WET MIXER, NSR NOTED. PATIENT RIC MIDLINE IN PLACE, INTACT, PATENT. PATIENT SAFETY MEASURES MAINTAINED. CALL LIGHT WITHIN REACH. WILL CONTINUE TO MONITOR.
[2020-09-27 08:00] VITALS: BP 126/82
[2020-09-27] MEDS: DEXAMETHASONE SOD PHOSPHATE 4 MG/ML VIAL IV SCH (08:08)
[2020-09-27] MEDS: PANTOPRAZOLE 40 MG TABLET.DR PO SCH (08:08)
[2020-09-27] MEDS: POLYETHYLENE GLYCOL 3350 17 GM POWD.PACK PO SCH (08:10)
[2020-09-27] MEDS: AMLODIPINE BESYLATE 10 MG TABLET PO SCH (08:10)
[2020-09-27 08:13] LABS: CALCIUM, SERUM 9.4 mg/dL (8.5-10.1); CREATININE 0.6 mg/dL (0.6-1.3); MAGNESIUM 2.1 mg/dL (1.8-2.4); POTASSIUM 4.1 mmol/L (3.5-5.1)
[2020-09-27] MEDS: Z GUARD REMEDY 2 OZ OINT TP SCH (08:15)
[2020-09-27] MEDS: FLUTICASONE/VILANTEROL 1 EACH BLST.W.DEV IH SCH (08:15)
[2020-09-27] MEDS: METHADONE HCL 10 MG TABLET PO SCH (08:15)
[2020-09-27] MEDS: APIXABAN 2.5 MG TABLET PO SCH ×2 (08:16→16:13)
[2020-09-27 12:00] VITALS: BP 127/79
[2020-09-27 16:00] VITALS: BP 126/82
--- NOTE | 2020-09-27 18:45 | NUR ---
PATIENT IN BED. NO ACUTE DISTRESS NOTED. PATIENT ALERT & ORIENTED X4. PATIENT ON HIGH FLOW, SATURATING WELL AT 94%. PATIENT ON CARDIOLOGY TECHNICIAN, NSR NOTED. PATIENT RIC MIDLINE IN PLACE, INTACT, PATENT. PATIENT SAFETY MEASURES MAINTAINED. CALL LIGHT WITHIN REACH. WILL ENDORSE PLAN OF CARE TO ONCOMING SHIFT
--- NOTE | 2020-09-27 19:25 | NUR ---
RN OPENING NOTES RECEIVED PT IN BED. A/O X4. ON HIGH FLOW, 40L AT 100%. TOLERATING WELL. PT DENIES SOB OR RESP DISTRESS. SATURATION 94%. PT IS ON TELE MONITORING, NSR HEART RATE OF 79 AT THIS TIME. PT HAS RIC MIDLINE, FLUSHED. DRESSING CLEAN DRY INTACT. PT REQUEST PAIN MEDICATION 3/10 GENERALIZED BACK PAIN AND C/O OF COUGH. WILL F/U. SAFETY MEASURES IN PLACE. HOB ELEVATED. SIDE RAILS UP X2. BED LOCKED IN LOWEST POSITION. BED ALARM ON. CALL LIGHT WITHIN REACH. WILL CONT TO MONITOR.
[2020-09-27 20:00] VITALS: BP 125/84
[2020-09-27] MEDS: TRAZODONE 50 MG TABLET PO SCH (22:52)
[2020-09-27] MEDS: SIMVASTATIN 20 MG TABLET PO SCH (22:52)
[2020-09-28] VITALS: BP 129/85
--- NOTE | 2020-09-28 00:35 | NUR ---
PT PLACED ON BIPAP BY RT
--- NOTE | 2020-09-28 03:00 | NUR ---
PT EXPRESSED SHE DOES NOT WANT TO BE ON BIPAP ANYMORE, REQUESTS TO RETURN BACK TO HIGH FLOW AT THIS TIME.
[2020-09-28 04:00] VITALS: BP 124/73
[2020-09-28] MEDS: ACETAMINOPHEN 325 MG TABLET PO PRN ×2 (05:37→21:36)
[2020-09-28] MEDS: GUAIFENESIN/CODEINE 10 ML UDC PO PRN ×2 (05:37→21:36)
--- NOTE | 2020-09-28 06:31 | NUR ---
RN CLOSING NOTES NO CHANGE IN OVERALL PT CONDITION. PT AT THIS TIME DENIES PAIN. IS AFEBRILE. NEEDS ATTENDED ALL DUE MEDICATIONS GIVEN ORDERED. PT REMAINS WITH HIGH FLOW 60L AT 70% FIO2. NO SOB OR RESP DISTRESS AT THIS TIME. SAFETY MEASURES IN PLACE. HOB ELEVATED. SIDE RAILS UP X2. BED LOCKED IN LOWEST POSITION WITH BED ALARM ON. CALL LIGHT WITHIN REACH. WILL ENDORSE TO AM NURSE FOR CONTINUATION OF CARE.
[2020-09-28 06:42] LABS: BASOPHILS # (AUTO) 0.1 /CMM (0.0-0.2); BASOPHILS % (AUTO) 1.4 % (0.0-2.0); EOSINOPHILS % (AUTO) 2.1 % (0.0-6.0); HEMATOCRIT 39 % (33-45); HEMOGLOBIN 12.9 g/dL (11.5-14.8); LYMPHOCYTES # (AUTO) 2.2 /CMM (0.8-4.8); LYMPHOCYTES % (AUTO) 22.8 % (20.0-44.0); MEAN CORPUSCULAR HGB CONC 33 g/dl (31.0-36.0); MEAN CORPUSCULAR VOLUME 85 fL (82-100); MONOCYTES # (AUTO) 0.9 /CMM (0.1-1.30); MONOCYTES % (AUTO) 9.6 % (2.0-12.0); NEUTROPHILS # (AUTO) 6.1 /CMM (1.8-8.9); NEUTROPHILS % (AUTO) 64.1 % (43.0-81.0); PLATELET COUNT (AUTO) 149 /CMM (150-450); RED BLOOD CELL COUNT(AUTO) 4.62 MIL/uL (4.0-5.2); WHITE BLOOD COUNT (AUTO) 9.5 K/uL (4.3-11.0)
[2020-09-28 07:24] LABS: CALCIUM, SERUM 9.1 mg/dL (8.5-10.1); CREATININE 0.5 mg/dL (0.6-1.3); MAGNESIUM 2.4 mg/dL (1.8-2.4); POTASSIUM 4.1 mmol/L (3.5-5.1)
[2020-09-28 08:00] VITALS: BP 117/81
--- NOTE | 2020-09-28 08:00 | NUR ---
REGISTERED PHLEBOTOMIST PART TIME NOTES PATIENT ALERT AWAKE ,ORIENTED PT AT THIS TIME DENIES PAIN. IS AFEBRILE. NEEDS ATTENDED ON TELE MONITOR ST , RT UPPER ARM MID LINE IN PLACE PT REMAINS WITH HIGH FLOW 60L AT 70% FIO2. NO SOB OR RESP DISTRESS AT THIS TIME. SAFETY MEASURES IN PLACE. HOB ELEVATED. SIDE RAILS UP X2. BED LOCKED IN LOWEST POSITION WITH BED ALARM ON. CALL LIGHT WITHIN REACH. WILL CONT TO MONITOR
[2020-09-28] MEDS: POLYETHYLENE GLYCOL 3350 17 GM POWD.PACK PO SCH (08:16)
[2020-09-28] MEDS: METHADONE HCL 10 MG TABLET PO SCH (08:16)
[2020-09-28] MEDS: PANTOPRAZOLE 40 MG TABLET.DR PO SCH (08:16)
[2020-09-28] MEDS: DEXAMETHASONE SOD PHOSPHATE 4 MG/ML VIAL IV SCH (08:16)
[2020-09-28] MEDS: AMLODIPINE BESYLATE 10 MG TABLET PO SCH (08:16)
[2020-09-28] MEDS: Z GUARD REMEDY 2 OZ OINT TP SCH (08:17)
[2020-09-28] MEDS: APIXABAN 2.5 MG TABLET PO SCH ×2 (08:22→16:11)
[2020-09-28] MEDS: FLUTICASONE/VILANTEROL 1 EACH BLST.W.DEV IH SCH (09:21)
[2020-09-28 10:46] LABS: ABG BASE EXCESS 7.6 mmol/L; ABG OXYGEN SATURATION 85.3 % (92.0-98.5); ABG PCO2 70.4 mmHg (35.0-45.0); ABG PH 7.328 (7.350-7.450); ABG PO2 54.7 mmHg (75.0-100.0); AaDO2 295.7 mmHg; COHb 1.1 % (0.5-1.5); MetHb 0.2 % (0.0-1.5); O2Hb 84.2 % (94.0-97.0); SITE, ABG Right Radial; VENT MODE, BG SIMPLE MASK
--- NOTE | 2020-09-28 10:55 | NUR ---
HOUSE FURNISHINGS SUPERVISOR NOTE ABG DONE BY RT WILL F\U
--- NOTE | 2020-09-28 11:22 | NUR ---
pt. is awake and alert tolerating well on 10 LPM o2 flow via simple mask. dr. villatoro is aware to maintain her on 10 liter simple mask. MAKAYLA bocanegra. Addendum: 09/28/20 at 1125 by KODAK GIORDANO RT Amended: Links added.
--- NOTE | 2020-09-28 11:47 | NUR ---
telephone service representative not per dr shauna segura to use simple mask
[2020-09-28 12:00] VITALS: BP 105/67
--- NOTE | 2020-09-28 13:58 | NUR ---
supervisor telephone clerks note placed back on high flow per patient request stated its far to breath
--- NOTE | 2020-09-28 14:21 | NUR ---
INJECTION MOLDING OPERATOR NOTE PT AT BEDSIDE ABLE TO STAND UP NEAR BED SATURATION 85% ,WILL MONITOR
[2020-09-28 16:00] VITALS: BP 115/74
--- NOTE | 2020-09-28 18:48 | NUR ---
DIRECTOR BUSINESS TRAVEL NOTE ON HIGH FLOW AND SIMPLE MASK ON AND OFF ,HAVING DINNER ABL;E TO EAT SELF , SATURATION 93% AT THIS TIME , ALL NEEDS ATTENDED, WILL CONT TO MONITOR
--- NOTE | 2020-09-28 19:05 | NUR ---
RECEIVED PT IN BED SLEEPING EASY TO WAKE UP A/O X3, ABLE TO VERBALIZED NEEDS ON 60L HIGH FLOW 70% . O2 SAT 91% AT THIS TIME. NO SOB NO RESP DISTRESS NOTED. ON TELE MONITORING NSR WITH HR OF 84. DENIES PAIN. RIC MIDLINE PATENT AND FLUSHED C D I. SAFETY MEASURES IN PLACE. HOB ELEVATED. SIDE RAILS UP X3. BED LOCKED IN LOWEST POSITION. BED ALARM ON. WILL CONT TO MONITOR
--- NOTE | 2020-09-28 19:06 | NUR ---
SHANK FAKER NOTE ON HIGH FLOW OF O2 SARURATION 92%, ALL NEEDS ATTENDED, WILL CONT TO MONITOR
[2020-09-28 20:00] VITALS: BP 120/72
[2020-09-28] MEDS: SIMVASTATIN 20 MG TABLET PO SCH (21:36)
[2020-09-28] MEDS: TRAZODONE 50 MG TABLET PO SCH (22:43)
[2020-09-29] VITALS (7 sets, daily range): BP systolic 109–128; BP diastolic 72–95
--- NOTE | 2020-09-29 04:08 | NUR ---
PT CALLED TO REMOVED HER BIPAP AND PUT HER BACK ON HIGH FLOW NC, RT COME AND EXCHANGE IT WITH SETTING HIGH FLOW 60L 70% FIO2 CURRENTLY SPO2 90% PT ON BIPAP FOR 4 HOURS [phone], WILL CONT TO MONITOR THE PT Addendum: 09/29/20 at 0414 by FARHAN ARMENDARIZ RN SHES ON 10L SIMPLE MASK RIGHT NOW INSTEAD OF HIGH FLOW 60L 70% FIO2 SPO2 88% WILL CONT TO MONITOR
[2020-09-29] MEDS: ACETAMINOPHEN 325 MG TABLET PO PRN ×3 (04:52→20:32)
[2020-09-29] MEDS: GUAIFENESIN/CODEINE 10 ML UDC PO PRN ×2 (04:52→20:32)
[2020-09-29 06:53] LABS: BASOPHILS % (AUTO) 0.6 % (0.0-2.0); HEMATOCRIT 38 % (33-45); HEMOGLOBIN 12.6 g/dL (11.5-14.8); LYMPHOCYTES # (AUTO) 1.9 /CMM (0.8-4.8); LYMPHOCYTES % (AUTO) 22.2 % (20.0-44.0); MEAN CORPUSCULAR HGB CONC 33 g/dl (31.0-36.0); MEAN CORPUSCULAR VOLUME 85 fL (82-100); MONOCYTES # (AUTO) 0.6 /CMM (0.1-1.30); MONOCYTES % (AUTO) 7.7 % (2.0-12.0); NEUTROPHILS # (AUTO) 5.7 /CMM (1.8-8.9); NEUTROPHILS % (AUTO) 67.5 % (43.0-81.0); PLATELET COUNT (AUTO) 145 /CMM (150-450); RED BLOOD CELL COUNT(AUTO) 4.44 MIL/uL (4.0-5.2); WHITE BLOOD COUNT (AUTO) 8.4 K/uL (4.3-11.0)
[2020-09-29 06:59] LABS: CALCIUM, SERUM 8.8 mg/dL (8.5-10.1); CREATININE 0.6 mg/dL (0.6-1.3); MAGNESIUM 2.1 mg/dL (1.8-2.4)
--- NOTE | 2020-09-29 07:08 | NUR ---
PT ON BED ASLEEP EASY TO WAKE UP STILL SIMPLE AMSK 10L SPO2 94% NO SIGN AND SYMPTOMS OF DISTRESS, NO SIGNIFICANT CHANGES ON CONDITION NOTED ALL NEEDS ATTENDED, BED SIDE MONITOR READS SINUS RHYTHM 80'S BED ON LOWEST POSITION AND LOCKED SIDE RAILS UP X 2 CALL LIGHT WITHIN REACH WILL CONT TO MONITOR
--- NOTE | 2020-09-29 07:30 | NUR ---
RN OPENING NOTES Patient is alert and oriented. Patient did not show any s.s of respiratory distress. Patient noted with simple mask 10liters with 02 saturation of 93%.. Patient noted with RIC midline which flushed well. Will continue to monitor. Call light with in reach.
[2020-09-29] MEDS: DEXAMETHASONE SOD PHOSPHATE 4 MG/ML VIAL IV SCH (08:36)
[2020-09-29] MEDS: PANTOPRAZOLE 40 MG TABLET.DR PO SCH (08:36)
[2020-09-29] MEDS: POLYETHYLENE GLYCOL 3350 17 GM POWD.PACK PO SCH (08:39)
[2020-09-29] MEDS: APIXABAN 2.5 MG TABLET PO SCH ×2 (08:39→17:19)
[2020-09-29] MEDS: METHADONE HCL 10 MG TABLET PO SCH (08:40)
[2020-09-29] MEDS: AMLODIPINE BESYLATE 10 MG TABLET PO SCH (08:42)
[2020-09-29] MEDS: FLUTICASONE/VILANTEROL 1 EACH BLST.W.DEV IH SCH (08:51)
[2020-09-29] MEDS: Z GUARD REMEDY 2 OZ OINT TP SCH (08:51)
--- NOTE | 2020-09-29 19:15 | NUR ---
CLOSING NOTES Patient is alert and oriented. Patient did not show any s.s of respiratory distress. Patient noted with simple mask 10liters with 02 saturation of 90%. One bm during shift and elma care provided x4, kept clean and dry. Patient noted with RIC midline which flushed well. Endorsed to next shift for LONNY.
--- NOTE | 2020-09-29 19:40 | NUR ---
RN OPENING NOTES RECEIVED PT IN BED. A/O X 4. AWAKE. CURRENTLY ON SIMPLE MASK AT 10L AT THIS TIME. TOLERATING WELL. PT DENIES SOB OR RESP DISTRESS. SATURATION 92%. PT IS ON TELE MONITORING, NSR HEART RATE OF 80 AT THIS TIME. PT HAS RIC MIDLINE, FLUSHED. DRESSING CLEAN DRY INTACT. SAFETY MEASURES IN PLACE. HOB ELEVATED. SIDE RAILS UP X2. BED LOCKED IN LOWEST POSITION. BED ALARM ON. CALL LIGHT WITHIN REACH. WILL CONT TO MONITOR.
--- NOTE | 2020-09-29 20:35 | NUR ---
PT REQUESTED TYLENOL AND COUGH SYRUP REGARDING A COUGH AND SLIGHT HEADACHE 09/29. ADMINISTERED PRN ORDERED. WILL CONT TO MONITOR. NEEDS ATTENDED AT THIS TIME.
--- NOTE | 2020-09-29 21:35 | NUR ---
PT CHANGED BACK TO HF 60L FIO2 70% AT THIS TIME AT HER REQUEST. PT DENIES SOB OR RESP DISTRESS. BREATHING IS EVEN AND UNLABORED. O2 SATURATION IS 91% AT THIS TIME,
--- NOTE | 2020-09-29 22:05 | NUR ---
PT HAD 1 BM, WNL SOFT FORMED AND BROWN.
[2020-09-29] MEDS: TRAZODONE 50 MG TABLET PO SCH (22:42)
[2020-09-29] MEDS: SIMVASTATIN 20 MG TABLET PO SCH (22:42)
[2020-09-30] VITALS: BP 110/73
--- NOTE | 2020-09-30 00:56 | NUR ---
PT CURRENTLY ASLEEP ON BIPAP TOLERATING WELL. NO DISTRESS NOTED. WILL CONT TO MONITOR.
--- NOTE | 2020-09-30 03:59 | NUR ---
PT BACK ON HIGH FLOW 60L FIO2 70% TOLERATING WELL. O2SAT 91% NO RESP DISTRESS OR SOB.
[2020-09-30 04:00] VITALS: BP 127/60
[2020-09-30] MEDS: GUAIFENESIN/CODEINE 10 ML UDC PO PRN ×2 (05:17→20:34)
[2020-09-30] MEDS: ACETAMINOPHEN 325 MG TABLET PO PRN ×2 (05:17→17:47)
--- NOTE | 2020-09-30 06:20 | NUR ---
RN CLOSING NOTES NO SIGNIFICANT CHANGES IN PT CONDITION. PT REMAINS WITH HIGH FLOW AT THIS TIME. NO RESP DISTRESS NOTED. NO SOB. PT STILL NSR ON TELE MONITOR, HR 70. PT IS AFEBRILE. DENIES PAIN. NEEDS ATTENDED. SAFETY MEASURES IN PLACE. HOB ELEVATED. SIDE RAILS UP X2. BED LOCKED IN LOWEST POSITION. CALL LIGHT WITHIN REACH. WILL ENDORSE TO AM NURSE FOR CONTINUATION OF CARE.
--- NOTE | 2020-09-30 07:30 | NUR ---
RN OPENING NOTE PT LAYING IN BED SEMIFOWLERS A/Ox4 ON HIGH FLOW O2 60L FIO2 70% WITH SIMPLE MASK 10LPM, SPO2 92%, NO SIGNS OF RESP DISTRESS OR SOB, BREATHING EVEN AND UNLABORED. PT ON TECHNICIAN SUPPORT ENGINEER NSR 70s. PT USES BEDPAN, UNABLE TO AMBULATE CURRENTLY. PT RIC MIDLINE FLUSHED, PATENT, INTACT WITH NO SIGNS OF INFECTION OR INFILTRATION. ALL PT SAFETY PRECAUTIONS IN PLACE, WILL CONT TO MONITOR
[2020-09-30 08:00] VITALS: BP 145/70
[2020-09-30] MEDS: DEXAMETHASONE SOD PHOSPHATE 4 MG/ML VIAL IV SCH (08:47)
[2020-09-30] MEDS: PANTOPRAZOLE 40 MG TABLET.DR PO SCH (08:48)
[2020-09-30] MEDS: AMLODIPINE BESYLATE 10 MG TABLET PO SCH (08:49)
[2020-09-30] MEDS: POLYETHYLENE GLYCOL 3350 17 GM POWD.PACK PO SCH (08:50)
[2020-09-30] MEDS: FLUTICASONE/VILANTEROL 1 EACH BLST.W.DEV IH SCH (08:50)
[2020-09-30] MEDS: METHADONE HCL 10 MG TABLET PO SCH (08:50)
[2020-09-30] MEDS: APIXABAN 2.5 MG TABLET PO SCH ×2 (08:53→16:57)
[2020-09-30] MEDS: Z GUARD REMEDY 2 OZ OINT TP SCH (08:54)
[2020-09-30 12:00] VITALS: BP 112/74
[2020-09-30 16:00] VITALS: BP 112/76
--- NOTE | 2020-09-30 19:00 | NUR ---
RN CLOSING NOTE NO CHANGES TO PT STATUS DURING SHIFT. PT ON SAME O2 SETTINGS SPO2 91%, NO SOB OR RESP DISTRESS. ALL PT SAFETY MEASURES IN PLACE. WILL ENDORSE LONNY TO ONCOMING RN
[2020-09-30 20:00] VITALS: BP 132/87
--- NOTE | 2020-09-30 20:01 | NUR ---
RN NOTE PATIENT A/OX4. ABLE TO MAKE NEEDS KNOWN. NO SOB OR ANY RESPIRATORY DISTRESS. ON HF 60L FIO2 70%, O2 SAT 92%. DENIES ANY PAIN AT THIS TIME. WITH RIC MIDLINE, PATENT AND INTACT. ALL NEEDS ANTICIPATED. CALL LIGHT WITHIN REACH. WILL CONTINUE TO MONITOR.
[2020-09-30] MEDS: TRAZODONE 50 MG TABLET PO SCH (22:15)
[2020-09-30] MEDS: SIMVASTATIN 20 MG TABLET PO SCH (22:15)
[2020-10-01] VITALS: BP 111/75
[2020-10-01 04:00] VITALS: BP 131/87
[2020-10-01] MEDS: ACETAMINOPHEN 325 MG TABLET PO PRN ×3 (04:30→20:52)
[2020-10-01] MEDS: GUAIFENESIN/CODEINE 10 ML UDC PO PRN ×2 (04:32→20:52)
--- NOTE | 2020-10-01 07:08 | NUR ---
RN NOTE PATIENT A/OX4. ABLE TO MAKE NEEDS KNOWN. NO SOB OR ANY RESPIRATORY DISTRESS. ON HF 60L FIO2 70%, O2 SAT 92%. DENIES ANY PAIN AT THIS TIME. WITH RIC MIDLINE, PATENT AND INTACT. DUE MEDS GIVEN ORDERED AND TOLERATED WELL. NO SIGNIFICANT CHANGES DURING SHIFT. CALL LIGHT WITHIN REACH. WILL ENDORSE TO ONCOMING SHIFT.
[2020-10-01 08:00] VITALS: BP 131/81
--- NOTE | 2020-10-01 08:00 | NUR ---
RN NOTE PATIENT A/OX4. ABLE TO MAKE NEEDS KNOWN. NO SOB OR ANY RESPIRATORY DISTRESS. ON HF 60L FIO2 70% NEEDED ,AT THIS TIME ON SIMPLE MASK 10L , O2 SAT 96%. DENIES ANY PAIN AT THIS TIME. WITH RIC MIDLINE, PATENT AND INTACT. CALL LIGHT WITHIN REACH. WILL ENDORSE TO MONITOR
[2020-10-01] MEDS: FLUTICASONE/VILANTEROL 1 EACH BLST.W.DEV IH SCH (09:11)
[2020-10-01] MEDS: DEXAMETHASONE SOD PHOSPHATE 4 MG/ML VIAL IV SCH (09:11)
[2020-10-01] MEDS: AMLODIPINE BESYLATE 10 MG TABLET PO SCH (09:12)
[2020-10-01] MEDS: PANTOPRAZOLE 40 MG TABLET.DR PO SCH (09:12)
[2020-10-01] MEDS: APIXABAN 2.5 MG TABLET PO SCH ×2 (09:13→16:10)
[2020-10-01] MEDS: METHADONE HCL 10 MG TABLET PO SCH (09:15)
[2020-10-01] MEDS: POLYETHYLENE GLYCOL 3350 17 GM POWD.PACK PO SCH (09:15)
[2020-10-01] MEDS: Z GUARD REMEDY 2 OZ OINT TP SCH (09:15)
--- NOTE | 2020-10-01 11:02 | NUR ---
RANCH HAND LIVESTOCK NOTE ROUNDS MADE ON SIMPLE MASK 10L SATURATION 91%
[2020-10-01 12:00] VITALS: BP 106/81
--- NOTE | 2020-10-01 13:00 | NUR ---
CHEF BROILER OR FRY NOTE SEEN BY PT, ABLE TO STAND UP SATURATION 90%
--- NOTE | 2020-10-01 14:32 | NUR ---
MASTER COOK NOTE ROUNDS MADE PATIENT WATCHING TX NOT IN DISTRESS ,PLACED HER SELF ON HIGH FLOW SATURATION 91%
[2020-10-01 16:00] VITALS: BP 113/74
--- NOTE | 2020-10-01 16:40 | NUR ---
REFRIGERATION PERSON NOTE C\O HEADACHE TYLENOL PO GIVEN ORDERED KEEP CLEAN DRY , ALL NEEDS ATTENDED, WILL CONT TO MONITOR
--- NOTE | 2020-10-01 18:23 | NUR ---
DANCE MASTER NOTE HAVING DINNER ,ALL NEEDS ATTENDED WITH HIGH FLOW OF O2 S ORDERED, NO SOB NOTED HAVING DINNER ,ABLE TO EAT SELF , ALL NEEDS ATTENDED ,NO SOB NOTED , CALL LIGHT WITHIN REACH, .WILL CONT TO MONITOR
--- NOTE | 2020-10-01 19:39 | NUR ---
AMBULANCE DISPATCHER OPENING NOTES PATIENT A/O X4; ABLE TO MAKE NEEDS KNOWN. ON O2 10LPM VIA SIMPLE; TOLERATING WELL WITH NO SOB. EXTERNAL CREEL CLERK READS NSR AND HR AT 70'S. RIC MIDLINE; PATENT AND INTACT. PATIENT DENIES PAIN OR DISCOMFORT. SAFETY MEASURES IN PLACE: SIDE RAILS UPX2, CALL LIGHT WITHIN REACH, BED IN LOWEST LOCKED POSITION. PATIENT MEDICALLY STABLE.
[2020-10-01 20:00] VITALS: BP 120/83
[2020-10-01] MEDS: TRAZODONE 50 MG TABLET PO SCH (21:55)
[2020-10-01] MEDS: SIMVASTATIN 20 MG TABLET PO SCH (21:55)
[2020-10-02 00:10] VITALS: BP 114/72
--- NOTE | 2020-10-02 01:55 | NUR ---
CORE DRILLING SUPERVISOR NOTES - BIPAP PATIENT C/O DISCOMFORT AND NOT BEING ABLE TO SLEEP WITH BIPAP. RESPIRATORY THERAPIST AWARE. BIPAP REMOVED AND PATIENT IS ON HIGH FLOW 50LPM / FIO2 70%.
[2020-10-02] MEDS: GUAIFENESIN/CODEINE 10 ML UDC PO PRN ×2 (03:57→22:22)
[2020-10-02] MEDS: ACETAMINOPHEN 325 MG TABLET PO PRN ×2 (03:57→18:25)
[2020-10-02 04:00] VITALS: BP 128/79
--- NOTE | 2020-10-02 06:06 | NUR ---
HEAT TREATING OPERATOR CLOSING NOTES PATIENT A/O X4; ABLE TO MAKE NEEDS KNOWN. ON O2 10LPM VIA SIMPLE MASK; TOLERATING WELL WITH NO SOB. EXTERNAL COMEDIAN READS NSR AND HR AT 70'S. RIC MIDLINE #18G; PATENT AND INTACT. PATIENT DENIES PAIN OR DISCOMFORT. SAFETY MEASURES IN PLACE: SIDE RAILS UPX2, CALL LIGHT WITHIN REACH, BED IN LOWEST LOCKED POSITION. PATIENT MEDICALLY STABLE. WILL ENDORSE LONNY TO ONCOMING MORNING RN.
[2020-10-02] MEDS: PANTOPRAZOLE 40 MG TABLET.DR PO SCH (06:32)
--- NOTE | 2020-10-02 07:20 | NUR ---
RN OPENING NOTES PATIENT RECEIVED IN BED RESTING IN SEMI-FOWLERS POSITION. PATIENT IS A/O X4 AND ABLE TO MAKE NEEDS KNOWN. PATIENT IS ON O2 THERAPY VIA 10 LPM VIA SIMPLE FACE MASK TOLERATING WELL WITH NO SOB. RIC MIDLINE PATENT AND INTACT. PATIENT DENIES PAIN OR DISCOMFORT. SAFETY PRECAUTIONS IMPLEMENTED, BED LOCKED IN LOWEST POSITION, SIDE RAILS UP X2, CALL LIGHT WITHIN REACH. WILL CONTINUE TO MONITOR AND PROVIDE CARE THROUGHOUT SHIFT.
--- NOTE | 2020-10-02 07:56 | NUR ---
pt. is awake and alert placed into nasal cannula @ 6 lpm o2 flow. high flow nasal cannula and bipap on stand by @ bedside. Addendum: 10/02/20 at 0757 by KODAK GIORDANO RT Amended: Links added.
[2020-10-02 08:00] VITALS: BP 144/88
--- NOTE | 2020-10-02 08:38 | NUR ---
pt. placed back to high flow due to desaturation and pt. complains dizziness on nasal canula. RN notified. Addendum: 10/02/20 at 0840 by KODAK GIORDANO RT Amended: Links added.
[2020-10-02] MEDS: DEXAMETHASONE SOD PHOSPHATE 4 MG/ML VIAL IV SCH (09:01)
[2020-10-02] MEDS: POLYETHYLENE GLYCOL 3350 17 GM POWD.PACK PO SCH (09:01)
[2020-10-02] MEDS: AMLODIPINE BESYLATE 10 MG TABLET PO SCH (09:03)
[2020-10-02] MEDS: METHADONE HCL 10 MG TABLET PO SCH (09:05)
[2020-10-02] MEDS: APIXABAN 2.5 MG TABLET PO SCH ×2 (09:07→17:37)
[2020-10-02] MEDS: Z GUARD REMEDY 2 OZ OINT TP SCH (09:08)
[2020-10-02] MEDS: FLUTICASONE/VILANTEROL 1 EACH BLST.W.DEV IH SCH (09:09)
--- NOTE | 2020-10-02 09:46 | NUR ---
place into 6 lpm O2 flow via simple mask per dr. villatoro. rn notified on changes. Addendum: 10/02/20 at 0947 by KODAK GIORDANO RT Amended: Links added.
[2020-10-02 11:27] LABS: ABG BASE EXCESS 8.3 mmol/L; ABG PCO2 72.9 mmHg (35.0-45.0); ABG PH 7.324 (7.350-7.450); ABG PO2 58.9 mmHg (75.0-100.0); COHb 0.8 % (0.5-1.5); MetHb 0.2 % (0.0-1.5); O2Hb 87.1 % (94.0-97.0); SITE, ABG Right Radial; VENT MODE, BG simple mask
[2020-10-02 12:00] VITALS: BP 127/77
[2020-10-02 16:00] VITALS: BP 127/72
--- NOTE | 2020-10-02 19:12 | NUR ---
RECEIVED PT IN BED AWAKE, A/O X3, ABLE TO VERBALIZED NEEDS ON 50L HIGH FLOW 70% . O2 SAT 91% AT THIS TIME. NO SOB NO RESP DISTRESS NOTED. ON TELE MONITORING NSR WITH HR OF 84. DENIES PAIN. RIC MIDLINE PATENT AND FLUSHED C D I. SAFETY MEASURES IN PLACE. HOB ELEVATED. SIDE RAILS UP X3. BED LOCKED IN LOWEST POSITION. BED ALARM ON. WILL CONT TO MONITOR
--- NOTE | 2020-10-02 19:28 | NUR ---
RN CLOSING NOTES PATIENT IN BED RESTING IN SEMI-FOWLERS POSITION. PATIENT IS A/O X4 AND ABLE TO MAKE NEEDS KNOWN. PATIENT IS ON O2 THERAPY VIA 10 LPM VIA SIMPLE FACE MASK TOLERATING WELL WITH NO SOB. RIC MIDLINE PATENT AND INTACT. PATIENT DENIES PAIN OR DISCOMFORT. SAFETY PRECAUTIONS IMPLEMENTED, BED LOCKED IN LOWEST POSITION, SIDE RAILS UP X2, CALL LIGHT WITHIN REACH. PATIENT TITRATED TO 6 LPM VIA NC BUT DID NOT TOLERATE. PATIENT THEN PLACED ON 6LPM VIA FACE MASK AND SWITCHES TO HFNC WHEN NEEDED AND TOLERATES WELL. WILL ENDORSE CONTINUATION OF CARE TO UPCOMING SHIFT.
[2020-10-02 20:00] VITALS: BP 123/74
[2020-10-02] MEDS: TRAZODONE 50 MG TABLET PO SCH (22:22)
[2020-10-02] MEDS: SIMVASTATIN 20 MG TABLET PO SCH (22:22)
[2020-10-03] VITALS: BP 108/79
[2020-10-03 04:00] VITALS: BP 125/84
[2020-10-03] MEDS: ACETAMINOPHEN 325 MG TABLET PO PRN ×3 (04:10→20:22)
[2020-10-03] MEDS: GUAIFENESIN/CODEINE 10 ML UDC PO PRN ×2 (05:05→20:22)
--- NOTE | 2020-10-03 06:49 | NUR ---
PT ON BED ASLEEP EASY TO WAKE UP ON HIGH FLOW 50L 70% FIO2 SPO2 91% NO SIGN AND SYMPTOMS OF DISTRESS, NO SIGNIFICANT CHANGES ON CONDITION NOTED ALL NEEDS ATTENDED, BED SIDE MONITOR READS SINUS RHYTHM 80'S BED ON LOWEST POSITION AND LOCKED SIDE RAILS UP X 2 CALL LIGHT WITHIN REACH WILL CONT TO MONITOR PT REFUSED BIPAP BECAUSE SHE SAID SHE DIDNT SLEEP FOR THE PAST 2 DAYS
[2020-10-03 08:00] VITALS: BP 122/84
[2020-10-03] MEDS: AMLODIPINE BESYLATE 10 MG TABLET PO SCH (08:52)
[2020-10-03] MEDS: PANTOPRAZOLE 40 MG TABLET.DR PO SCH (08:52)
[2020-10-03] MEDS: DEXAMETHASONE SOD PHOSPHATE 4 MG/ML VIAL IV SCH (08:52)
[2020-10-03] MEDS: POLYETHYLENE GLYCOL 3350 17 GM POWD.PACK PO SCH (08:53)
[2020-10-03] MEDS: METHADONE HCL 10 MG TABLET PO SCH (08:53)
[2020-10-03] MEDS: FLUTICASONE/VILANTEROL 1 EACH BLST.W.DEV IH SCH (08:54)
[2020-10-03] MEDS: Z GUARD REMEDY 2 OZ OINT TP SCH (08:54)
[2020-10-03] MEDS: APIXABAN 2.5 MG TABLET PO SCH ×2 (08:59→17:06)
[2020-10-03 14:00] VITALS: BP 114/79
[2020-10-03 16:00] VITALS: BP 109/71
--- NOTE | 2020-10-03 19:00 | NUR ---
RN OPENING NOTE RECEIVED PATIENT IN BED RESTING ALERT ORIENTED X4 VERBALLY RESPONSIVE ABLE TO MAKE HER NEEDS KNOWN,ON 6L MASK O2:88-89% IV SITE IS ON RIGHT UPPER ARM INTACT PATENT,CONTINENT TO BOWEL/BLADDER SAFETY MEASURE IMPLEMENT,CALL LIGHT WITHIN REACH,BED IN LOW POSITON AND LOCKED CONTINUE TO MONITOR
[2020-10-03 20:00] VITALS: BP 128/82
[2020-10-03] MEDS: SIMVASTATIN 20 MG TABLET PO SCH (21:03)
[2020-10-03] MEDS: TRAZODONE 50 MG TABLET PO SCH (21:03)
[2020-10-04] VITALS: BP_SYST 129; BP_DIAS 64; BP_DIAS 79
[2020-10-04 04:00] VITALS: BP 147/85
[2020-10-04] MEDS: GUAIFENESIN/CODEINE 10 ML UDC PO PRN ×2 (04:47→21:43)
[2020-10-04] MEDS: ACETAMINOPHEN 325 MG TABLET PO PRN ×3 (04:47→21:43)
--- NOTE | 2020-10-04 06:52 | NUR ---
RN CLOSING NOTE PATIENT REMAINS ON ALERT ORIENTED X4 VERBALLY RESPONSIVE NO SOB NOT ACUTE DISTRESS NOTED SHE IS ON 6L OXYGEN VIA MASK IV SITE RIGHT UPPER ARM MID LINE INTACT PATENT ALL DUE MEDS GIVEN MD ORDERED KEPT CALL LIGHT WITHIN REACH,KEPT CLEAN AND DRY ALL THE TIME,ENDORSE NEXT COMING SHIFT FOR CONTINUATION OF CARE.
--- NOTE | 2020-10-04 07:35 | NUR ---
RN OPENING NOTE PATIENT IS CURRENTLY IN BED WITH HOB AT SEMI FOWLERS POSITION. CURRENTLY ON HIGH FLOW WITH NO SIGNS OF LABORED BREATHING. HOWEVER PATIENT'S O2 MONITOR NOTES 80% SPO2. WILL NOTIFY RT. PATIENT IS CURRENTLY AOX4. RIC MIDLINE IS PATENT, INTACT, AND HAS NO SIGNS OF INFILTRATION. BED IS LOCKED IN THE LOWEST POSITION, 3 GUARD RAILS RAISED, CALL DE JESUS WITHIN REACH, AND ALL HOSPITAL SAFETY PRECAUTIONS ARE BEING FOLLOWED. WILL CONTINUE TO MONITOR THROUGHOUT SHIFT.
--- NOTE | 2020-10-04 07:37 | NUR ---
RN NOTE PATIENT CURRENTLY SATURATING 80% WHILE ON HIGH FLOW. RT NOTIFIED. WILL CONTINUE TO MONITOR.
[2020-10-04] MEDS: PANTOPRAZOLE 40 MG TABLET.DR PO SCH (07:50)
[2020-10-04 08:00] VITALS: BP 145/86
[2020-10-04] MEDS: DEXAMETHASONE SOD PHOSPHATE 4 MG/ML VIAL IV SCH (08:39)
[2020-10-04] MEDS: AMLODIPINE BESYLATE 10 MG TABLET PO SCH (08:39)
[2020-10-04] MEDS: APIXABAN 2.5 MG TABLET PO SCH ×2 (08:41→16:41)
[2020-10-04] MEDS: POLYETHYLENE GLYCOL 3350 17 GM POWD.PACK PO SCH ×3 (08:42→09:01)
[2020-10-04] MEDS: METHADONE HCL 10 MG TABLET PO SCH (08:43)
[2020-10-04] MEDS: FLUTICASONE/VILANTEROL 1 EACH BLST.W.DEV IH SCH (09:01)
[2020-10-04] MEDS: Z GUARD REMEDY 2 OZ OINT TP SCH (09:13)
[2020-10-04 12:00] VITALS: BP 119/78
[2020-10-04 16:00] VITALS: BP 129/86
--- NOTE | 2020-10-04 18:45 | NUR ---
RN CLOSING NOTE PATIENT IS CURRENTLY IN BED WITH HOB AT SEMI FOWLERS POSITION. CURRENTLY ON HIGH FLOW WITH NO SIGNS OF LABORED BREATHING. PATIENT IS CURRENTLY AOX4. RIC MIDLINE IS PATENT, INTACT, AND HAS NO SIGNS OF INFILTRATION. BED IS LOCKED IN THE LOWEST POSITION, 3 GUARD RAILS RAISED, CALL DE JESUS WITHIN REACH, AND ALL HOSPITAL SAFETY PRECAUTIONS ARE BEING FOLLOWED. PATIENT REMAINED STABLE THROUGHOUT SHIFT AND ALL DUE MEDICATIONS WERE GIVEN. WILL ENDORSE TO WAITER/WAITRESS CABIN CLASS RN.
--- NOTE | 2020-10-04 19:10 | NUR ---
RN OPENING NOTE RECEIVED PATIENT IN BED RESTING ALERT ORIENTED X4 VERBALLY RESPONSIVE ABLE TO MAKE NEEDS KNOWN CURRENTLY ON HIGH FLOW OXYGEN O2:98% IV SITE IS ON RIGHT UPPER ARM MIDLINE INTACT PATENT CONTINENT TO BOWEL/BLADDER,CALL LIGHT WITHIN REACH,SAFETY MEASURE IMPLEMENT BED IN LOW POSITION AND LOCKED,CONTINUE TO MONITOR.
[2020-10-04 20:00] VITALS: BP 123/75
[2020-10-04] MEDS: TRAZODONE 50 MG TABLET PO SCH (21:43)
[2020-10-04] MEDS: SIMVASTATIN 20 MG TABLET PO SCH (21:43)
[2020-10-05] VITALS: BP 109/71
[2020-10-05 04:00] VITALS: BP 112/76
[2020-10-05] MEDS: ACETAMINOPHEN 325 MG TABLET PO PRN ×2 (04:51→17:00)
[2020-10-05] MEDS: GUAIFENESIN/CODEINE 10 ML UDC PO PRN ×2 (04:55→20:52)
--- NOTE | 2020-10-05 06:33 | NUR ---
RN CLOSING NOTE PATIENT REMAINS ON ALERT ORIENTED X4 VERBALLY RESPONSIVE ON HIGH FLOW OXYGEN O2:93% NO SOB NOT ACUTE DISTRESS NOTED,IV SITE IS RIGHT UPPER ARM MIDLINE INTACT PATENT ALL DUE MEDS GIVEN MD ORDERED KEPT CLEAN AND DRY ALL THE TIME,KEPT COMFORTABLE,ENDORSE NEXT COMING SHIFT FOR CONTINUATION OF CARE
--- NOTE | 2020-10-05 07:30 | NUR ---
OPENING NOTE PATIENT IN BED, RESTING; A/OX4 ABLE TO MAKE NEEDS KNOWN. NO S/S OF ACUTE DISTRESS AT THIS TIME. PATIENT'S BREATHING IS EVEN AND EQUAL BILATERALLY. PATIENT IS CURRENTLY ON HIGH FLOW OXYGEN; SETTINGS TOLERATED WELL. PATIENT IS ON A REGULAR DIET; TOLERATING WELL. NOTED RIC MIDLINE, INTACT AND PATENT. NO S/S OF INFECTION OR INFILTRATION. SAFETY MEASURES IN PLACE PER HOSPITAL POLICY. BED LOCKED IN LOWEST POSITION, CALL LIGHT WITHIN REACH. WILL CONTINUE TO MONITOR AND PROVIDE TREATMENT.
[2020-10-05] MEDS: PANTOPRAZOLE 40 MG TABLET.DR PO SCH (07:48)
[2020-10-05 08:00] VITALS: BP 129/97
[2020-10-05] MEDS: POLYETHYLENE GLYCOL 3350 17 GM POWD.PACK PO SCH (08:31)
[2020-10-05] MEDS: FLUTICASONE/VILANTEROL 1 EACH BLST.W.DEV IH SCH (08:31)
[2020-10-05] MEDS: METHADONE HCL 10 MG TABLET PO SCH (08:31)
[2020-10-05] MEDS: DEXAMETHASONE SOD PHOSPHATE 4 MG/ML VIAL IV SCH (08:31)
[2020-10-05] MEDS: AMLODIPINE BESYLATE 10 MG TABLET PO SCH (08:32)
[2020-10-05] MEDS: Z GUARD REMEDY 2 OZ OINT TP SCH (08:32)
[2020-10-05] MEDS: APIXABAN 2.5 MG TABLET PO SCH ×2 (08:33→16:25)
[2020-10-05 12:00] VITALS: BP 129/82
[2020-10-05] MEDS: FUROSEMIDE 40 MG/4 ML VIAL IV SCH ×2 (15:36→20:52)
[2020-10-05 16:00] VITALS: BP 109/74
--- NOTE | 2020-10-05 18:44 | NUR ---
CLOSING NOTE PATIENT IN BED, RESTING; A/OX4 ABLE TO MAKE NEEDS KNOWN. NO S/S OF ACUTE DISTRESS AT THIS TIME. PATIENT'S BREATHING IS EVEN AND EQUAL BILATERALLY. PATIENT IS CURRENTLY ON HIGH FLOW OXYGEN; SETTINGS TOLERATED WELL. PATIENT IS ON A REGULAR DIET; TOLERATING WELL. NOTED RIC MIDLINE, INTACT AND PATENT. NO S/S OF INFECTION OR INFILTRATION. SAFETY MEASURES IN PLACE PER HOSPITAL POLICY. BED LOCKED IN LOWEST POSITION, CALL LIGHT WITHIN REACH. WILL ENDORSE TO PRODUCT TECHNICIAN NURSE FOR LONNY.
--- NOTE | 2020-10-05 19:30 | NUR ---
RN NOTE RECEIVED PATIENT IN BED ALERT ORIENTED X4 VERBALLY RESPONSIVE. ON HIGH FLOW OXYGEN O2 50 L 60 %. DENIES SOB NO DISTRESS NOTED. TELE MONITOR SHOWS SR W/ HR 79. IV SITE IS ON RIGHT UPPER ARM MIDLINE INTACT PATENT. ALL SAFETY MEASURES IMPLEMENTED PER PROTOCOL,CALL LIGHT WITHIN REACH BED IN LOW POSITION AND LOCKED.
[2020-10-05 20:00] VITALS: BP 109/69
--- NOTE | 2020-10-05 21:33 | NUR ---
pt refusing bipap at this time. rn notified Addendum: 10/05/20 at 2134 by LAURA FREEMAN RT Amended: Links added.
--- NOTE | 2020-10-05 21:35 | NUR ---
RN NOTE PT REFUSED TO USE BIPAP TONIGHT. PT KNOWS THE RISKS AND BENEFITS. NO DISTRESS NOTED. WILL CONTINUE TO MONITOR.
[2020-10-05] MEDS: TRAZODONE 50 MG TABLET PO SCH (22:18)
[2020-10-05] MEDS: SIMVASTATIN 20 MG TABLET PO SCH (22:18)
[2020-10-06] VITALS: BP 112/77
[2020-10-06 04:00] VITALS: BP 119/70
[2020-10-06] MEDS: ACETAMINOPHEN 325 MG TABLET PO PRN ×3 (05:35→22:00)
[2020-10-06] MEDS: GUAIFENESIN/CODEINE 10 ML UDC PO PRN ×2 (05:35→21:53)
--- NOTE | 2020-10-06 05:36 | NUR ---
RN NOTE PT COMPLAINED OF HEADACHE. REQUESTED TYLENOL, GIVEN ORDERED
--- NOTE | 2020-10-06 07:05 | NUR ---
RN NOTE PATIENT IN BED,CONTINUE ON HIGH FLOW, NO SOB NOTED. PT ABLE TO MAKE NEEDS KNOWN, ALL NEEDS ATTENDED. IV MIDLINE REMAIN INTACT PATENT. ALL SAFETY MEASURES MAINTAINED. CALL LIGHT WITHIN REACH AT ALL TIMES. WILL ENDORSE TO NEXT SHIFT NURSE FOR LONNY
[2020-10-06 07:06] LABS: CALCIUM, SERUM 9.5 mg/dL (8.5-10.1); CREATININE 0.6 mg/dL (0.6-1.3); POTASSIUM 3.6 mmol/L (3.5-5.1)
--- NOTE | 2020-10-06 07:30 | NUR ---
RN OPENING NOTES PATIENT PRESENT IN BED, A/OX4, ON HIGH-FLOW NC, TOLERATING WELL, NO SOB NOTED, SPO2 88-91%,NSR ON TELE-MONITOR, R UA MIDLINE INTACT AND FLUSHED, BREAKFAST TRAY PROVIDED, SAFETY MEASURES IN PLACE, BED IS LOCKED IN LOWEST POSITION, HOB ELEVATED,CALL LIGHT IN REACH, WILL CONT TO MONITOR
[2020-10-06] MEDS: PANTOPRAZOLE 40 MG TABLET.DR PO SCH (07:35)
[2020-10-06 08:00] VITALS: BP 121/80
[2020-10-06] MEDS: FLUTICASONE/VILANTEROL 1 EACH BLST.W.DEV IH SCH (08:28)
[2020-10-06] MEDS: DEXAMETHASONE SOD PHOSPHATE 4 MG/ML VIAL IV SCH (08:29)
[2020-10-06] MEDS: APIXABAN 2.5 MG TABLET PO SCH ×2 (08:30→16:07)
[2020-10-06] MEDS: METHADONE HCL 10 MG TABLET PO SCH (08:30)
[2020-10-06] MEDS: AMLODIPINE BESYLATE 10 MG TABLET PO SCH (08:31)
[2020-10-06] MEDS: POLYETHYLENE GLYCOL 3350 17 GM POWD.PACK PO SCH (08:32)
[2020-10-06] MEDS: Z GUARD REMEDY 2 OZ OINT TP SCH (08:32)
--- NOTE | 2020-10-06 09:39 | NUR ---
Assisted with Bed bath, comfort needs attended
[2020-10-06 12:00] VITALS: BP 117/71
--- NOTE | 2020-10-06 12:46 | NUR ---
Report given to Hero BENAVIDES for LONNY
--- NOTE | 2020-10-06 13:00 | NUR ---
RECEIVED REPORT FROM MAKAYLA PRADO FOR LONNY.
[2020-10-06 16:00] VITALS: BP 116/76
--- NOTE | 2020-10-06 19:33 | NUR ---
RN CLOSING NOTE PATIENT IS CURRENTLY IN BED WITH HOB AT SEMI FOWLERS POSITION. CURRENTLY ON VENTURI MASK WITH NO SIGNS OF LABORED BREATHING. PATIENT IS CURRENTLY AOX4. RIC MIDLINE IS PATENT, INTACT, AND HAS NO SIGNS OF INFILTRATION. BED IS LOCKED IN THE LOWEST POSITION, 3 GUARD RAILS RAISED, CALL DE JESUS WITHIN REACH, AND ALL HOSPITAL SAFETY PRECAUTIONS ARE BEING FOLLOWED. PATIENT REMAINED STABLE THROUGHOUT SHIFT AND ALL DUE MEDICATIONS WERE GIVEN. WILL ENDORSE TO DOLL WIG HACKLER RN.
[2020-10-06 20:00] VITALS: BP 122/85
--- NOTE | 2020-10-06 20:00 | NUR ---
RN NOTE RECEIVED PT IN BED A/O X4, ON 15 L VIA VENTURI MASK SATING 90%, HAS UNLABORED BREATHING. ON TELE MONITOR SHOWING SR WITH HR AT 70s. SAFETY MEASURES IN PLACE.
[2020-10-06] MEDS: TRAZODONE 50 MG TABLET PO SCH (21:53)
[2020-10-06] MEDS: SIMVASTATIN 20 MG TABLET PO SCH (21:53)
[2020-10-07] VITALS: BP 116/81
[2020-10-07 04:00] VITALS: BP 121/71
[2020-10-07] MEDS: GUAIFENESIN/CODEINE 10 ML UDC PO PRN ×2 (04:08→20:49)
[2020-10-07] MEDS: ACETAMINOPHEN 325 MG TABLET PO PRN ×2 (04:08→20:49)
[2020-10-07 06:42] LABS: CALCIUM, SERUM 8.9 mg/dL (8.5-10.1); CREATININE 0.5 mg/dL (0.6-1.3); POTASSIUM 3.9 mmol/L (3.5-5.1)
--- NOTE | 2020-10-07 07:17 | NUR ---
RECEIVED LAB RESULT FOR CO2 38, ENDORSED IT TO ONCOMING SHIFT.
--- NOTE | 2020-10-07 07:20 | NUR ---
RN NOTE REPORT GIVEN TO ONCOMING SHIFT FOR LONNY.
[2020-10-07 08:00] VITALS: BP 135/82
[2020-10-07] MEDS: FLUTICASONE/VILANTEROL 1 EACH BLST.W.DEV IH SCH (08:32)
[2020-10-07] MEDS: METHADONE HCL 10 MG TABLET PO SCH (08:33)
[2020-10-07] MEDS: DEXAMETHASONE SOD PHOSPHATE 4 MG/ML VIAL IV SCH (08:33)
[2020-10-07] MEDS: AMLODIPINE BESYLATE 10 MG TABLET PO SCH (08:34)
[2020-10-07] MEDS: PANTOPRAZOLE 40 MG TABLET.DR PO SCH (08:34)
[2020-10-07] MEDS: Z GUARD REMEDY 2 OZ OINT TP SCH (08:36)
[2020-10-07] MEDS: POLYETHYLENE GLYCOL 3350 17 GM POWD.PACK PO SCH ×2 (08:36→08:44)
[2020-10-07] MEDS: APIXABAN 2.5 MG TABLET PO SCH ×2 (08:36→17:24)
[2020-10-07 12:00] VITALS: BP 119/82
[2020-10-07 16:00] VITALS: BP 100/66
--- NOTE | 2020-10-07 18:00 | NUR ---
RN Closing Note Patient sitting in chair watching television. No s/s of discomfort or distress. Tolerating oxygen titration, medications, diet, and cares well. PT evaluation completed and patient able to transfer to chair independently. Needs met at this time. Will endorse to MAKAYLA Leary.
--- NOTE | 2020-10-07 19:15 | NUR ---
MANAGER GREEN OPENING NOTES: RECEIVED PATIENT SITTING IN THE CHAIR, CLOSED TO THE BED, AWAKE, A/O X4. NO S/S OF DISTRESS NOTED. CALL LIGHT WITHIN REACH. BED IN LOWEST AND LOCKED POSITION. ON HIGH FLOW O2. INSTRUCTED PT TO CALL FOR ANY HELP GOING BACK TO BED, PT VERBALIZED" IT'S OK. I KNOW WHAT TO DO, I CALL YOU IF I NEED HELP".
--- NOTE | 2020-10-07 19:42 | NUR ---
PATIENT SWITCHED HER HIGH FLOW O2 TO NASAL CANNULA AT 8L/MIN.
[2020-10-07 20:00] VITALS: BP 101/72
--- NOTE | 2020-10-07 20:41 | NUR ---
PATIENT WENT BACK TO BED,HOB ELEVATED. CALL LIGHT WITHIN REACH. BED IN LOWEST AND LOCKED POSITION.
[2020-10-07] MEDS: SIMVASTATIN 20 MG TABLET PO SCH (21:33)
[2020-10-07] MEDS: TRAZODONE 50 MG TABLET PO SCH (21:33)
[2020-10-08] VITALS: BP 114/71
--- NOTE | 2020-10-08 03:00 | NUR ---
PATIENT WOKE-UP AND REMOVED THE BI-PAP, AND PUT THE O2 NASAL CANNULA ON, RT CALLED AND CAME.
[2020-10-08 04:00] VITALS: BP 114/79
[2020-10-08] MEDS: ACETAMINOPHEN 325 MG TABLET PO PRN ×2 (05:34→20:49)
[2020-10-08] MEDS: GUAIFENESIN/CODEINE 10 ML UDC PO PRN ×2 (05:34→20:49)
--- NOTE | 2020-10-08 07:30 | NUR ---
RN OPENING NOTES Patient is alert and oriented. Patient did not show any s.s of respiratory distress. Patient noted with nasal cannula at 8 liters with 02 saturation of 95%. Patient noted with RIC midline which flushed well. Will continue to monitor. Call light with in reach.
[2020-10-08 08:00] VITALS: BP 119/80
[2020-10-08] MEDS: DEXAMETHASONE SOD PHOSPHATE 4 MG/ML VIAL IV SCH (08:56)
[2020-10-08] MEDS: AMLODIPINE BESYLATE 10 MG TABLET PO SCH (08:56)
[2020-10-08] MEDS: PANTOPRAZOLE 40 MG TABLET.DR PO SCH (08:56)
[2020-10-08] MEDS: METHADONE HCL 10 MG TABLET PO SCH (08:57)
[2020-10-08] MEDS: APIXABAN 2.5 MG TABLET PO SCH ×2 (09:04→16:53)
[2020-10-08] MEDS: POLYETHYLENE GLYCOL 3350 17 GM POWD.PACK PO SCH (09:08)
[2020-10-08] MEDS: Z GUARD REMEDY 2 OZ OINT TP SCH (09:09)
[2020-10-08] MEDS: FLUTICASONE/VILANTEROL 1 EACH BLST.W.DEV IH SCH (09:09)
--- NOTE | 2020-10-08 11:30 | NUR ---
02 titrated from 8 lites to 6 liters on nasal cannula
[2020-10-08 12:00] VITALS: BP 114/76
[2020-10-08 16:00] VITALS: BP 114/82
--- NOTE | 2020-10-08 19:04 | NUR ---
RN CLOSING NOTES Patient is alert and oriented. Patient did not show any s.s of respiratory distress. Patient noted with nasal cannula at 6 liters with 02 saturation of 97%. Patient noted with RIC midline which flushed well. Patient had bm x 2 during shift , tolerating titration well. Will endorse to next shift for follow up.
--- NOTE | 2020-10-08 19:20 | NUR ---
RN NOTES RECEIVED PT SITTING ON BEDSIDE CHAIR. ALERT AND ORIENTED X4. ON HIGH FLOW NC AT 40L AT 50%. NO DISTRESS NOTED. DENIES SOB. DENIES PAIN AT THIS TIME. RIC MIDLINE PATENT AND INTACT. NO SIGNS OF INFECTION NOTED. TELE MONITOR SHOWS SR WITH HR OF 71. ALL SAFETY MEASURES IMPLEMENTED PER PROTOCOL. CALL LIGHT WITHIN REACH.
[2020-10-08 20:00] VITALS: BP 110/77
--- NOTE | 2020-10-08 20:44 | NUR ---
RN NOTE PT SWITCHED O2 TO NC AT 6LPM. O2 SAT AT 92 %. PT DENIES SOB.
--- NOTE | 2020-10-08 21:37 | NUR ---
RN NOTE PT RESTING WELL IN BED, ON 6L O2. NO DISTRESS NOTED. ENDORSED TO KIKI FOR LONNY.
[2020-10-08] MEDS: TRAZODONE 50 MG TABLET PO SCH (22:14)
[2020-10-08] MEDS: SIMVASTATIN 20 MG TABLET PO SCH (22:14)
[2020-10-09] VITALS: BP 103/60
[2020-10-09] MEDS: ACETAMINOPHEN 325 MG TABLET PO PRN ×2 (05:33→21:38)
[2020-10-09] MEDS: GUAIFENESIN/CODEINE 10 ML UDC PO PRN ×2 (05:34→21:38)
[2020-10-09 06:06] VITALS: BP 121/76
--- NOTE | 2020-10-09 06:08 | NUR ---
ENDING NOTES: MEDICATED X1 FOR COUGH AND EFFECTIVE MEDICATED X1 FOR bailey WITH TYLENOL AND EFFECTIVE ALERT AND ORIENTATED IN GOOD SPIRITS. WORE THE BIPAP UNTIL 02:30 AM AND THEN RETURNED TO THE HIGH FLOW SATS 92 - 97% THRU THE NIGHT
[2020-10-09] MEDS: PANTOPRAZOLE 40 MG TABLET.DR PO SCH (07:19)
[2020-10-09 07:32] LABS: CALCIUM, SERUM 8.7 mg/dL (8.5-10.1); CREATININE 0.5 mg/dL (0.6-1.3); POTASSIUM 4.2 mmol/L (3.5-5.1)
--- NOTE | 2020-10-09 07:36 | NUR ---
RN OPENING NOTE PATIENT IS IN CHAIR AT BEDSIDE EATING BREAKFAST. CURRENTLY ON HIGHFLOW WITH NO SIGNS OF LABORED BREATHING. 89% O2 NOTED ON MONITOR. PATIENT IS AOX4. SR NOTED ON MONITOR. SKIN IS INTACT WITH SOME SACRAL REDNESS, AND BRUISING ON ABDOMEN. RIC MIDLINE IS PATENT, INTACT, AND HAS NO SIGNS OF INFILTRATION. BED IS LOCKED IN THE LOWEST POSITION, 3 GUARD RAILS RAISED, CALL DE JESUS WITHIN REACH, AND ALL HOSPITAL SAFETY PRECAUTIONS ARE BEING FOLLOWED. WILL CONTINUE TO MONITOR THROUGHOUT SHIFT.
[2020-10-09 08:00] VITALS: BP 115/86
[2020-10-09] MEDS: AMLODIPINE BESYLATE 10 MG TABLET PO SCH (08:06)
[2020-10-09] MEDS: METHADONE HCL 10 MG TABLET PO SCH ×2 (08:08→09:30)
[2020-10-09] MEDS: POLYETHYLENE GLYCOL 3350 17 GM POWD.PACK PO SCH (08:09)
[2020-10-09] MEDS: DEXAMETHASONE SOD PHOSPHATE 4 MG/ML VIAL IV SCH (08:09)
[2020-10-09] MEDS: APIXABAN 2.5 MG TABLET PO SCH ×2 (08:11→16:04)
[2020-10-09] MEDS: FLUTICASONE/VILANTEROL 1 EACH BLST.W.DEV IH SCH (08:23)
[2020-10-09] MEDS: Z GUARD REMEDY 2 OZ OINT TP SCH (08:23)
[2020-10-09 12:00] VITALS: BP 111/76
[2020-10-09 16:00] VITALS: BP 111/62
--- NOTE | 2020-10-09 17:41 | NUR ---
RT NOTE TOLERATING WELL ON 6L NASAL CANNULA. SPO2 92% HR 88, RR 20. NO DISTRESS AT THIS TIME. MONITOR THROUGHOUT SHIFT.
--- NOTE | 2020-10-09 18:38 | NUR ---
RN CLOSING NOTE PATIENT IS IN BED WITH SOB AT SEMI FOWLERS POSITION. CURRENTLY ON NC 6L WITH NO SIGNS OF LABORED BREATHING. PATIENT IS AOX4. SR NOTED ON MONITOR. SKIN IS INTACT WITH SOME SACRAL REDNESS, AND BRUISING ON ABDOMEN. RIC MIDLINE IS PATENT, INTACT, AND HAS NO SIGNS OF INFILTRATION. ALL DUE MEDS WERE GIVEN DURING SHIFT AND PATIENT REMAINED STABLE. BED IS LOCKED IN THE LOWEST POSITION, 3 GUARD RAILS RAISED, CALL DE JESUS WITHIN REACH, AND ALL HOSPITAL SAFETY PRECAUTIONS ARE BEING FOLLOWED. WILL ENDORSE TO MECHANICAL AND AUTO BODY CAR CHECKER RN.
--- NOTE | 2020-10-09 19:05 | NUR ---
RECEIVED PT IN CHAIR WATCHING TV AWAKE, A/O X3, ABLE TO VERBALIZED NEEDS ON 6L O2 VIA NC SPO2 92% AT THIS TIME. NO SOB NO RESP DISTRESS NOTED. ON TELE MONITORING NSR WITH HR OF 84. DENIES PAIN. RIC MIDLINE PATENT AND FLUSHED C D I. SAFETY MEASURES IN PLACE. WILL CONT TO MONITOR
[2020-10-09 20:00] VITALS: BP 96/60
[2020-10-09] MEDS: SIMVASTATIN 20 MG TABLET PO SCH (21:28)
[2020-10-09] MEDS: TRAZODONE 50 MG TABLET PO SCH (21:28)
[2020-10-10] VITALS: BP 104/73
[2020-10-10 04:00] VITALS: BP 120/72
[2020-10-10] MEDS: GUAIFENESIN/CODEINE 10 ML UDC PO PRN ×2 (04:29→20:37)
[2020-10-10] MEDS: ACETAMINOPHEN 325 MG TABLET PO PRN ×2 (04:29→20:37)
--- NOTE | 2020-10-10 06:54 | NUR ---
PT ON BED ASLEEP EASY TO WAKE UP, ON 6L O2 VIA NC ON THE ENTIRE NIGHT SPO2 91-95% WITH NO SIGN AND SYMPTOMS OF ANY RESPIRATORY DISTRESS, NO SIGNIFICANT CHANGES ON CONDITION NOTED ALL NEEDS ATTENDED, BED ON LOWEST POSITION AND LOCKED SIDE RAILS UP X2 CALL LIGHT WITHIN REACH WILL ENDORSE TO AM SHIFT NURSE
--- NOTE | 2020-10-10 07:25 | NUR ---
RN OPENING NOTE PATIENT IN BED WITH SOB AT SEMI FOWLERS POSITION. CURRENTLY ON NC 6L WITH NO SIGNS OF LABORED BREATHING. PATIENT IS AOX4. SKIN IS INTACT WITH SOME SACRAL REDNESS, AND BRUISING ON ABDOMEN. RIC MIDLINE IS PATENT, INTACT, AND HAS NO SIGNS OF INFILTRATION. SAFETY PRECAUTIONS IMPLEMENTED, BED IS LOCKED IN THE LOWEST POSITION, SIDE RAILS UP X2, CALL LIGHT WITHIN REACH. WILL CONTINUE TO MONITOR AND PROVIDE CLIENT CARE THROUGHOUT SHIFT.
[2020-10-10 08:00] VITALS: BP 115/72
[2020-10-10] MEDS: PANTOPRAZOLE 40 MG TABLET.DR PO SCH (08:06)
[2020-10-10] MEDS: FLUTICASONE/VILANTEROL 1 EACH BLST.W.DEV IH SCH (08:07)
[2020-10-10] MEDS: AMLODIPINE BESYLATE 10 MG TABLET PO SCH (08:13)
[2020-10-10] MEDS: DEXAMETHASONE SOD PHOSPHATE 4 MG/ML VIAL IV SCH (08:14)
[2020-10-10] MEDS: Z GUARD REMEDY 2 OZ OINT TP SCH (08:16)
[2020-10-10] MEDS: POLYETHYLENE GLYCOL 3350 17 GM POWD.PACK PO SCH (08:16)
[2020-10-10] MEDS: METHADONE HCL 10 MG TABLET PO SCH (08:16)
[2020-10-10] MEDS: APIXABAN 2.5 MG TABLET PO SCH ×2 (08:28→17:01)
[2020-10-10 12:00] VITALS: BP 133/74
[2020-10-10 16:00] VITALS: BP 134/70
--- NOTE | 2020-10-10 19:35 | NUR ---
archery instructor opening ntes Received Pt from morning nurse. Pt is sitting in bed comfortably watching TV. Pt is alert and orientedX4. Respiration on 6 L NC. No SOB. No S/s of distress noted. Tele monitor showed SR hr at 87. RIC midline is clean, intact, flushes well and SL. Safety precautions is maintained. Bed at low position, brakes locked, side rails upX2, bedside commode at the bed side, hob elevated and call light is within reach. Will continue to monitor.
--- NOTE | 2020-10-10 19:35 | NUR ---
RN CLOSING NOTE PATIENT IN BED WITH SOB AT SEMI FOWLERS POSITION. CURRENTLY ON NC 6L WITH NO SIGNS OF LABORED BREATHING. PATIENT IS AOX4. SKIN IS INTACT WITH SOME SACRAL REDNESS, AND BRUISING ON ABDOMEN. RIC MIDLINE IS PATENT, INTACT, AND HAS NO SIGNS OF INFILTRATION. SAFETY PRECAUTIONS IMPLEMENTED, BED IS LOCKED IN THE LOWEST POSITION, SIDE RAILS UP X2, CALL LIGHT WITHIN REACH. WILL ENDORSE CARE TO UPCOMING SHIFT.
[2020-10-10 20:00] VITALS: BP 111/76
--- NOTE | 2020-10-10 20:37 | NUR ---
cnc maintenance technician notes Pt is complaining of headache and requesting tylenol. Administered tylenol 325 mg/2 tabs/po as ordered for headache. VS is stable. Will continue to monitor.
--- NOTE | 2020-10-10 20:41 | NUR ---
airport operations officer notes Pt refused to have bipap tonight. Explained risks and benefits. Pt verbalize understanding and keep refusing. Pt stated "No bipap tonight. I just want to sleep. No bipap!" O2 sat is 97 % on high flow. No SOB. No S/S of distress noted. Will continue to monitor.
[2020-10-10] MEDS: TRAZODONE 50 MG TABLET PO SCH (21:09)
[2020-10-10] MEDS: SIMVASTATIN 20 MG TABLET PO SCH (21:09)
[2020-10-11] VITALS: BP 107/64
[2020-10-11 04:00] VITALS: BP 116/73
--- NOTE | 2020-10-11 04:06 | NUR ---
RT NOTE PT REFUSED BIPAP. PT SHOWS NO SIGNS OF RESP DISTRESS OR SOB. PT AWAKE AND ALERT. RN AWARE. WILL CONTINUE TO MONITOR CLOSELY Addendum: 10/11/20 at 0407 by JONATHON MCCORMACK RT Amended: Links added.
--- NOTE | 2020-10-11 04:10 | NUR ---
rheologist notes Pt switched high flow to 6 L NC with O2 sat is 90%. No SOB. No S/S of distress noted. RT at the bedside.
--- NOTE | 2020-10-11 06:39 | NUR ---
punchboard assembler closing notes Pt is resting in bed comfortably. Pt is alert and orientedX4. Respiration on 6 L NC. No SOB. No S/s of distress noted. Tele monitor showed SR hr at 72. VS is stable. Afebrile. Routine meds were given as ordered. RIC midline is clean, intact, flushes well and SL. Kept Pt clean, dry and comfortable. all needs met and attended. Safety precautions is maintained. Bed at low position, brakes locked, side rails upX2, bedside commode at the bed side, hob elevated and call light is within reach. Will endorse to morning nurse for LONNY.
[2020-10-11] MEDS: PANTOPRAZOLE 40 MG TABLET.DR PO SCH (07:30)
--- NOTE | 2020-10-11 07:30 | NUR ---
RN OPENING NOTES PRESENT IN BED, A/OX4, ON NC @ 6L, TOLERATING WELL, SPO2 IS 90-92%, DENIES PAIN AND DISCOMFORT, ABLE TO AMBULATE, IV LINE PATENT AND INTACT, SAFETY MEASURES IN PLACE, CALL LIGHT IN REACH, BED LOCKED IN LOWEST POSITION, WILL CONT TO MONITOR
[2020-10-11 08:00] VITALS: BP 116/73
[2020-10-11] MEDS: AMLODIPINE BESYLATE 10 MG TABLET PO SCH (09:14)
[2020-10-11] MEDS: METHADONE HCL 10 MG TABLET PO SCH (09:15)
[2020-10-11] MEDS: DEXAMETHASONE SOD PHOSPHATE 4 MG/ML VIAL IV SCH (09:15)
[2020-10-11] MEDS: POLYETHYLENE GLYCOL 3350 17 GM POWD.PACK PO SCH (09:16)
[2020-10-11] MEDS: APIXABAN 2.5 MG TABLET PO SCH ×2 (09:16→16:33)
[2020-10-11] MEDS: Z GUARD REMEDY 2 OZ OINT TP SCH (09:16)
[2020-10-11] MEDS: FLUTICASONE/VILANTEROL 1 EACH BLST.W.DEV IH SCH (09:16)
[2020-10-11 12:00] VITALS: BP 122/83
[2020-10-11 16:00] VITALS: BP 100/74
--- NOTE | 2020-10-11 18:59 | NUR ---
NO ACUTE CHANGES DUE SHIFT, COMFORT NEEDS ATTENDED, MEDS GIVEN, WILL ENDORSE TO PM SHIFT FOR LONNY
--- NOTE | 2020-10-11 19:00 | NUR ---
RN OPENING NOTE RECEIVED PATIENT IN BED RESTING ALERT ORIENTED X4 VERBALLY RESPONSIVE ON 6L OXYGEN VIA NASAL CANNULA, O2:90% HIGH FLOW NEEDED,IV SITE IS ON RIGHT UPPER ARM MIDLINE INTACT PATENT SAFETY MEASURE IMPLEMENT,CONTINENT TO BOWEL/BLADDER,CALL LIGHT WITHIN REACH,CONTINUE TO MONITOR
[2020-10-11 20:00] VITALS: BP 127/75
[2020-10-11] MEDS: ACETAMINOPHEN 325 MG TABLET PO PRN (21:28)
[2020-10-11] MEDS: GUAIFENESIN/CODEINE 10 ML UDC PO PRN (21:28)
[2020-10-11] MEDS: SIMVASTATIN 20 MG TABLET PO SCH (21:28)
[2020-10-11] MEDS: TRAZODONE 50 MG TABLET PO SCH (21:28)
[2020-10-12] VITALS (7 sets, daily range): BP systolic 101–137; BP diastolic 71–81
[2020-10-12] MEDS: ACETAMINOPHEN 325 MG TABLET PO PRN ×3 (05:01→22:53)
[2020-10-12] MEDS: GUAIFENESIN/CODEINE 10 ML UDC PO PRN ×2 (05:01→22:53)
--- NOTE | 2020-10-12 06:39 | NUR ---
RN CLOSING NOTE PATIENT REMAINS ON ALERT ORIENTED X4 VERBALLY RESPONSIVE NO ACUTE DISTRESS NOTED ON 6L OXYGEN VIA NASAL CANNULA,O2:96% ALL DUE MEDS GIVEN MD ORDERED KEPT COMFORTABLE KEPT CLEAN AND DRY ALL THE TIME,ALL NEEDS MET.ENDORSE NEXT COMING SHIFT FOR CONTINUATION OF CARE.
--- NOTE | 2020-10-12 07:15 | NUR ---
RN OPENING NOTE PATIENT RECEIVED IN BED WITH SOB AT SEMI FOWLERS POSITION. PATIENT ON O2 TREATMENT VIA NC AT 6 LPM WITH NO SIGNS OF LABORED BREATHING. PATIENT IS AOX4 AND ABLE TO MAKE NEEDS KNOWN. SKIN IS INTACT WITH SOME SACRAL REDNESS, AND BRUISING ON ABDOMEN. RIC MIDLINE IS PATENT, INTACT, AND HAS NO SIGNS OF INFILTRATION. SAFETY PRECAUTIONS IMPLEMENTED, BED IS LOCKED IN THE LOWEST POSITION, SIDE RAILS UP X2, CALL LIGHT WITHIN REACH. WILL CONTINUE TO MONITOR AND PROVIDE CLIENT CARE THROUGHOUT SHIFT.
[2020-10-12] MEDS: DEXAMETHASONE SOD PHOSPHATE 4 MG/ML VIAL IV SCH (08:12)
[2020-10-12] MEDS: PANTOPRAZOLE 40 MG TABLET.DR PO SCH (08:12)
[2020-10-12] MEDS: AMLODIPINE BESYLATE 10 MG TABLET PO SCH (08:14)
[2020-10-12] MEDS: Z GUARD REMEDY 2 OZ OINT TP SCH (08:14)
[2020-10-12] MEDS: FLUTICASONE/VILANTEROL 1 EACH BLST.W.DEV IH SCH (08:14)
[2020-10-12] MEDS: METHADONE HCL 10 MG TABLET PO SCH (08:15)
[2020-10-12] MEDS: POLYETHYLENE GLYCOL 3350 17 GM POWD.PACK PO SCH (08:15)
[2020-10-12] MEDS: APIXABAN 2.5 MG TABLET PO SCH ×2 (08:16→16:14)
--- NOTE | 2020-10-12 09:08 | NUR ---
RT NOTE ATTEMPTED TO DRAW ABG FOR PT. PT REFUSED DUE TO PAIN. RN NOTIFIED AND IS AWARE. WILL ATTEMPT AGAIN AT A LATER TIME.
--- NOTE | 2020-10-12 11:15 | NUR ---
RT NOTE PT REFUSING ABG. RN RADHA AWARE. NO DISTRESS NOTED. PT TOLERATING NASAL CANNULA @ 6LPM WELL. CONT. PULSE OX CONNECTED. WILL CONTINUE TO MONITOR.
--- NOTE | 2020-10-12 19:08 | NUR ---
RN CLOSING NOTE PATIENT IN BED WITH SOB AT SEMI FOWLERS POSITION. PATIENT ON O2 TREATMENT VIA NC AT 6 LPM WITH NO SIGNS OF LABORED BREATHING. PATIENT IS AOX4 AND ABLE TO MAKE NEEDS KNOWN. SKIN IS INTACT WITH SOME SACRAL REDNESS, AND BRUISING ON ABDOMEN. RIC MIDLINE IS PATENT, INTACT, AND HAS NO SIGNS OF INFILTRATION. SAFETY PRECAUTIONS IMPLEMENTED, BED IS LOCKED IN THE LOWEST POSITION, SIDE RAILS UP X2, CALL LIGHT WITHIN REACH. WILL ENDORSE CONTINUATION OF CARE TO UPCOMING SHIFT.
--- NOTE | 2020-10-12 19:57 | NUR ---
SHOE REPAIRMAN OPENING NOTES PATIENT IN BED, AAX4; ABLE TO MAKE NEEDS KNOWN. ON O2 6LPM VIA N/C; TOLERATING WELL. TITRATED O2 TO 5LPM. EXTERNAL OPERATING COST CLERK READS NSR AT 73. RIC MIDLINE; PATENT AND INTACT. DENIES PAIN OR DISCOMFORT AT THIS TIME. SAFETY MEASURES IN PLACE: BED IN LOWEST LOCKED POSITION, SIDERAILS UPX2; CALL LIGHT WITHIN REACH, BED ALARMS ON. WILL CONTINUE PLAN OF CARE.
[2020-10-12] MEDS: SIMVASTATIN 20 MG TABLET PO SCH (22:44)
[2020-10-12] MEDS: TRAZODONE 50 MG TABLET PO SCH (22:44)
[2020-10-13] VITALS: BP 121/78
[2020-10-13 04:00] VITALS: BP 138/87
[2020-10-13] MEDS: GUAIFENESIN/CODEINE 10 ML UDC PO PRN (07:04)
[2020-10-13] MEDS: ACETAMINOPHEN 325 MG TABLET PO PRN (07:04)
--- NOTE | 2020-10-13 07:15 | NUR ---
RN OPENING NOTE PATIENT RECEIVED IN BED WITH SOB AT SEMI FOWLERS POSITION. PATIENT ON O2 TREATMENT VIA NC AT 5 LPM WITH NO SIGNS OF LABORED BREATHING. PATIENT IS AOX4 AND ABLE TO MAKE NEEDS KNOWN. SKIN IS INTACT WITH SOME SACRAL REDNESS, AND BRUISING ON ABDOMEN. RIC MIDLINE IS PATENT, INTACT, AND HAS NO SIGNS OF INFILTRATION. SAFETY PRECAUTIONS IMPLEMENTED, BED IS LOCKED IN THE LOWEST POSITION, SIDE RAILS UP X2, CALL LIGHT WITHIN REACH. WILL CONTINUE TO MONITOR AND PROVIDE CARE THROUGHOUT SHIFT.
--- NOTE | 2020-10-13 07:30 | NUR ---
MARKER MACHINE ATTENDANT CLOSING NOTES PATIENT IN BED, AAOX4; ABLE TO MAKE NEEDS KNOWN. ON O2 5LPM VIA N/C; TOLERATING WELL AT REST. EXTERNAL MARKETING SERVICES MANAGER READS NSR AT 79. RIC MIDLINE; PATENT AND INTACT. DENIES PAIN OR DISCOMFORT AT THIS TIME. SAFETY MEASURES IN PLACE: BED IN LOWEST LOCKED POSITION, SIDERAILS UPX2; CALL LIGHT WITHIN REACH, BED ALARMS ON. ENDORSE PLAN OF CARE TO MORNING RN
[2020-10-13] MEDS: PANTOPRAZOLE 40 MG TABLET.DR PO SCH (07:44)
[2020-10-13 08:00] VITALS: BP 125/90
[2020-10-13] MEDS: DEXAMETHASONE SOD PHOSPHATE 4 MG/ML VIAL IV SCH (08:32)
[2020-10-13] MEDS: METHADONE HCL 10 MG TABLET PO SCH (08:35)
[2020-10-13] MEDS: AMLODIPINE BESYLATE 10 MG TABLET PO SCH (08:35)
[2020-10-13] MEDS: FLUTICASONE/VILANTEROL 1 EACH BLST.W.DEV IH SCH (08:36)
[2020-10-13] MEDS: APIXABAN 2.5 MG TABLET PO SCH ×2 (08:36→17:09)
[2020-10-13] MEDS: POLYETHYLENE GLYCOL 3350 17 GM POWD.PACK PO SCH (08:36)
[2020-10-13] MEDS: Z GUARD REMEDY 2 OZ OINT TP SCH (08:36)
[2020-10-13] MEDS ORDERED: METH4TAB3 PO (11:58)
[2020-10-13 12:00] VITALS: BP 134/72
[2020-10-13 16:00] VITALS: BP 122/80
--- NOTE | 2020-10-13 18:23 | NUR ---
PATIENT DISCHARGED FROM HOSPITAL IN STABLE CONDITION TO [facility]. PATIENT DISCHARGE INSTRUCTIONS GIVEN AND EXPLAINED TO PATIENT WITH DISCHARGE PAPERWORK. PATIENT CARE TRANSFERRED OVER TO TRANSPORTATIONS SERVICES.
== END 2020-10-13 18:24 | DRG 720 ==
LOC: ER 02:29 → TRANSITION 05:37 → ICU 11:41 → TELE-TD 09-03 18:37 → ICU 09-11 10:59 → TELE1 09-21 13:26 → TELE-TD 09-21 13:30 → TELE1 09-26 08:50
PROVIDERS: ADMIT Nurse Practitioner Acute Care; ATTEND Internal Medicine
PROC: XW033H5 Introduction of Tocilizumab into Peripheral Vein, Percutaneous Approach, New Technology Group 5 (ICD-10-PCS; principal; 2020-08-27)
PROC: 05H533Z Insertion of Infusion Device into Right Subclavian Vein, Percutaneous Approach (ICD-10-PCS; 2020-08-27)
PROC: B546ZZA Ultrasonography of Right Subclavian Vein, Guidance (ICD-10-PCS; 2020-08-27)
PROC: 5A09357 Assistance with Respiratory Ventilation, Less than 24 Consecutive Hours, Continuous Positive Airway Pressure (ICD-10-PCS; 2020-08-27)
PROC: 5A09457 Assistance with Respiratory Ventilation, 24-96 Consecutive Hours, Continuous Positive Airway Pressure (ICD-10-PCS; 2020-09-11)
DX: A41.89 Other specified sepsis (principal); U07.1 COVID-19; J12.82 Pneumonia due to coronavirus disease 2019; J96.01 Acute respiratory failure with hypoxia; J44.0 Chronic obstructive pulmonary disease with (acute) lower respiratory infection; E44.0 Moderate protein-calorie malnutrition; B19.20 Unspecified viral hepatitis C without hepatic coma; E66.2 Morbid (severe) obesity with alveolar hypoventilation; E78.5 Hyperlipidemia, unspecified; F17.210 Nicotine dependence, cigarettes, uncomplicated; Z79.891 Long term (current) use of opiate analgesic; Z87.01 Personal history of pneumonia (recurrent); I50.9 Heart failure, unspecified; I11.0 Hypertensive heart disease with heart failure; G89.4 Chronic pain syndrome; G47.00 Insomnia, unspecified; F41.9 Anxiety disorder, unspecified; K59.00 Constipation, unspecified; E88.09 Other disorders of plasma-protein metabolism, not elsewhere classified; Z68.30 Body mass index [BMI] 30.0-30.9, adult; J96.02 Acute respiratory failure with hypercapnia
CPT/HCPCS: 36410; 36415; 36600; 71045-TC; 71250-TC; 80048-TC; 80053-TC; 80076-TC; 80202-TC; 82550-TC; 82728-TC; 82803-TC; 83605-TC; 83615-TC; 83735-TC; 83880; 84100-TC; 84484-TC; 85025-TC; 85378-TC; 85385-TC; 85730-TC; 86140-TC; 86480; 87040-TC; 87081-TC; 87899; 94660; 94760-TC; 94762-TC; 94799-TC; 97110-TC; 97112-TC; 97116-TC; 97530-TC; 99082-TC; A4217; A6253; A6403; C9113; G0378; J0692; J1100; J1200; J1650; J1940; J1956; J2405; J2930; J3262; J3370; J7030; J7050; J7060; U0003